=== PATIENT | male | born 1950 | race Caucasian/White ===

== ENCOUNTER 2017-01-01 23:53 | Emergency (ER) | payer OTHER ==
[~2017-01-01] VITALS: Ht 175.3 cm; Wt 97.0 kg
[~2017-01-01 23:53] MED LIST: FURO1TAB60 PO; HEPAR10KP IV; LISI-519 PO; LORA-373 PO; OXYC1TAB63 PO; PANT40TA3 PO; POTA20TA5 PO; SUCR1S PO; TAMS5CAP PO
[2017-01-02] VITALS: BP 131/73; PULSE 110; RESP 18; TEMP 98.4; O2SAT 98
[2017-01-02] MEDS ORDERED: SODIUM CHLORIDE 0.9% FLUSH 10 ML FLUSH IV FLUSH PRN (00:45)
[2017-01-02 00:52] VITALS: RESP 18; O2SAT 98
[2017-01-02] MEDS ORDERED: CYCL1TAB29 PO (01:13)
[2017-01-02] MEDS ORDERED: ZOLP5TAB3 PO (01:13)
[2017-01-02] MEDS ORDERED: HYDR-3133 PO (01:13)
[2017-01-02] MEDS ORDERED: ALLO100T PO (01:13)
[2017-01-02] MEDS ORDERED: OMEP20TA PO (01:13)
[2017-01-02 01:39] LABS: HEMATOCRIT 33.6 % (39.0-51.0); MEAN CELL VOLUME 86.7 FL (80.0-100.0); MEAN CORPUSCULAR HEMOGLOBIN 28.5 PG (27.0-34.0); MEAN CORPUSCULAR HGB CONC 32.8 % (32.0-36.0); PLATELET COUNT 725 TH/MM3 (150-450); RED BLOOD COUNT 3.87 MIL/MM3 (4.50-5.90); RED CELL DISTRIBUTION WIDTH 15.8 % (11.6-17.2); WHITE BLOOD COUNT 14.2 TH/MM3 (4.0-11.0)
[2017-01-02 01:50] LABS: HEMO FLAGS AUTO DIFF
[2017-01-02 01:51] LABS: CHLORIDE 106 MEQ/L (98-107); SODIUM (NA) 138 MEQ/L (136-145)
[2017-01-02 01:54] LABS: ANION GAP 12 MEQ/L (5-15); BICARBONATE 20.2 MEQ/L (21.0-32.0)
[2017-01-02 01:55] LABS: APTT (PATIENT) 28.3 SEC (24.3-30.1); BLOOD UREA NITROGEN 12 MG/DL (7-18); PROTHROMBIN TIME - PATIENT 10.5 SEC (9.8-11.6)
[2017-01-02 01:56] LABS: POTASSIUM 4.4 MEQ/L (3.5-5.1)
[2017-01-02 01:57] LABS: ALT (GPT) 25 U/L (12-78)
[2017-01-02 01:58] LABS: AST (GOT) 23 U/L (15-37); GLOMERULAR FILTRATION RATE 93 ML/MIN (>89)
[2017-01-02 01:59] LABS: TOTAL BILIRUBIN ADULT 0.2 MG/DL (0.2-1.0)
[2017-01-02 02:00] LABS: ALKALINE PHOSPHATASE 91 U/L (45-117)
[2017-01-02 02:10] LABS: NEUTROPHIL # MANUAL DIFF 10.8 TH/MM3 (1.8-7.7); PLATELET ESTIMATE SMEAR HIGH (NORMAL); PLATELET MORPHOLOGY NORMAL (NORMAL); POLYS (SEG NEUTROPHILS) 76 % (16-70); SCAN/DIFF FINAL DIFF MANUAL; WBC DIFF SAMPLE 100
--- NOTE | 2017-01-02 02:32 | PD ---
HPI Chief Complaint: Bleeding Time Seen by Provider: 00:36 Travel History International Travel<30 days: No Contact w/Intl Traveler<30days: No Traveled to known affect area: No History of Present Illness HPI 66-year-old male presents to the emergency department for complaint of bleeding from midline postoperative site. Patient was admitted in June 2016 and developed perforated cecum with subsequent right hemicolectomy and in the ileostomy with movement mucous fistula had significant contamination and midline incision with multiple open areas requiring daily dressing changes and discharged to rehabilitation with ongoing dressing changes which subsequent to returning home has performed daily. Patient was just seen recently by his surgeon Dr. Vernon and underwent CT abdomen and pelvis and anticipation of patient having revision of his ileostomy. Patient is also being cleared by cardiology to undergo elective surgery. Patient had been doing well until tonight just prior to arrival to the emergency department patient states he was maneuvering to stand up and noticed blood draining down onto his clothing and then noticed that there was blood that appeared to be saturating the midline abdominal dressing. Patient does not report experiencing severe pain. Patient came immediately to the emergency department for evaluation. Pain identified a 6/10 in intensity. Patient has not noticed any further bleeding onto the dressing and dressing was not changed or the site was not evaluated by him or his spouse prior to coming to the emergency room. PFSH Past Medical History Narrative Medical Gouty arthritis asthma COPD CVA respiratory failure perforated cecum with right hemicolectomy and ileostomy and significant contamination with open midline incision with secondary closure hypertension pneumonia inguinal herniorrhaphy splenectomy facial surgery; prior alcohol use; nursing notes reviewed Arthritis: Yes (IN FEET) Asthma: Yes Autoimmune Disease: Yes (GOUT IN FEET) Blood Disorders: No Anxiety: Yes Depression: No Heart Rhythm Problems: No Cancer: No Cardiovascular Problems: Yes High Cholesterol: No Chemotherapy: No Chest Pain: No Congestive Heart Failure: No COPD: Yes (BRONCHITIS) Cerebrovascular Accident: Yes (stroke 2003.) Coronary Artery Disease: No Diabetes: No Diminished Hearing: No Endocrine: No Gastrointestinal Disorders: Yes GERD: Yes Glaucoma: No Gout: Yes Genitourinary: No Headaches: No Hepatitis: No Hiatal Hernia: Yes Hypertension: Yes Kidney Stones: No Musculoskeletal: Yes Neurologic: Yes (TREMORS/DIZZINESS) Psychiatric: Yes (ETOH/QUIT) Reproductive: No Respiratory: Yes Immunizations Current: Yes Myocardial Infarction: No Pneumonia: Yes Radiation Therapy: No Renal Failure: No Seizures: No Sickle Cell Disease: No Sleep Apnea: No Thyroid Disease: No Ulcer: Yes Tetanus Vaccination: > 5 Years Influenza Vaccination: Yes Past Surgical History Abdominal Surgery: Yes (LT ING HERNIA REPAIR) AICD: No Body Medical Devices: N/A Cardiac Surgery: No Ear Surgery: No Endocrine Surgery: No Eye Surgery: No Genitourinary Surgery: No Gynecologic Surgery: No Oral Surgery: No Pacemaker: No Thoracic Surgery: No Other Surgery: Yes (SPLENECTOMY,HERNIA REPAIR,FACIAL SURGERY) Social History 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) Tobacco Use: No Substance Use: No Allergies-Medications (Allergen,Severity, Reaction): Coded Allergies: Aspirin (Verified Allergy, Unknown, 01/02/17) Nonsteroidal Anti-Inflammatory Agts (Verified Adverse Reaction, Intermediate, 01/02/17) Reported Meds & Prescriptions Reported Meds & Active Scripts Active Potassium Chloride Microencaps 20 Meq Tab 20 Meq PO QID Oxycodone-Acetaminophen 5-325 mg Tab 2 Tab PO Q6H PRN Lasix (Furosemide) 40 Mg Tab 40 Mg PO BID@,18 Reported Omeprazole 20 Mg Tab 20 Mg PO DAILY Allopurinol 100 Mg Tab 100 Mg PO DAILY Flexeril (Cyclobenzaprine HCl) 10 Mg Tab 10 Mg PO TID Hydroxyzine HCl 25 Mg Tab 12.5 Mg PO HS Hydroxyzine HCl 25 Mg Tab 25 Mg PO HS Zolpidem (Zolpidem Tartrate) 5 Mg Tab 5 Mg PO HS PRN Flomax (Tamsulosin HCl) 0.4 Mg Cap 0.8 Mg PO HS Lorazepam 0.5 Mg Tab 0.5 Mg PO Q8H PRN Lisinopril 5 Mg Tab 5 Mg PO DAILY Review of Systems Except as stated in HPI: all other systems reviewed are Neg General / Constitutional: No: Fever, Chills HENT: No: Congestion Cardiovascular: No: Chest Pain or Discomfort Respiratory: No: Shortness of Breath Gastrointestinal: Positive: Abdominal Pain, No: Nausea, Vomiting Genitourinary: No: Flank Pain Musculoskeletal: No: Myalgias, Arthralgias Skin: No Rash Neurologic: No: Weakness Psychiatric: No: Anxiety Endocrine: No: Heat Intolerance Hematologic/Lymphatic: No: Easy Bruising Physical Exam Narrative GENERAL: Well-developed well-nourished male in no acute distress no respiratory distress SKIN: Warm and dry. HEAD: Normocephalic. EYES: No scleral icterus. No injection or drainage. NECK: Supple, trachea midline. No JVD or lymphadenopathy. CARDIOVASCULAR: Regular rate and rhythm without murmurs, gallops, or rubs. RESPIRATORY: Breath sounds equal bilaterally. No accessory muscle use. GASTROINTESTINAL: Abdomen soft, non-tender, midline incision with dressing applied and fresh blood noted on distal portion of the dressing, dressing removed without evidence of active bleeding cause adherent to right lateral inferior aspect of the midline incision site nondistended. Ileostomy functioning without induration erythema or bleeding noted from the site. MUSCULOSKELETAL: No cyanosis, or edema. BACK: Nontender without obvious deformity. No CVA tenderness. Data Data Last Documented VS Vital Signs Date Time Temp Pulse Resp B/P Pulse Ox O2 Delivery O2 Flow Rate FiO2 01/02/17 04:00 98.2 96 18 121/65 95 01/02/17 03:15 Nasal Cannula 2 Orders Complete Blood Count With Diff (01/02/17 00:36) Comprehensive Metabolic Panel (01/02/17 00:36) Prothrombin Time / Inr (Pt) (01/02/17 00:36) Act Partial Throm Time (Ptt) (01/02/17 00:36) Ct Abd/Pel W Iv Contrast(Rout) (01/02/17 00:36) Iv Access Insert/Monitor (01/02/17 00:36) Ecg Monitoring (01/02/17 00:36) Oximetry (01/02/17 00:36) Sodium Chloride 0.9% Flush (Ns Flush) (01/02/17 00:45) Wound Care (01/02/17 00:36) Iohexol 350 Inj (Omnipaque 350 Inj) (01/02/17 03:00) Labs Laboratory Tests Test 01/02/17 01:20 White Blood Count 14.2 TH/MM3 Red Blood Count 3.87 MIL/MM3 Hemoglobin 11.0 GM/DL Hematocrit 33.6 % Mean Corpuscular Volume 86.7 FL Mean Corpuscular Hemoglobin 28.5 PG Mean Corpuscular Hemoglobin 32.8 % Concent Red Cell Distribution Width 15.8 % Platelet Count 725 TH/MM3 Mean Platelet Volume 7.6 FL Neutrophils (%) (Auto) % Lymphocytes (%) (Auto) % Monocytes (%) (Auto) % Eosinophils (%) (Auto) % Basophils (%) (Auto) % Neutrophils # (Auto) TH/MM3 Lymphocytes # (Auto) TH/MM3 Monocytes # (Auto) TH/MM3 Eosinophils # (Auto) TH/MM3 Basophils # (Auto) TH/MM3 CBC Comment AUTO DIFF Differential Total Cells 100 Counted Neutrophils % (Manual) 76 % Lymphocytes % 19 % Monocytes % 5 % Neutrophils # (Manual) 10.8 TH/MM3 Differential Comment FINAL DIFF MANUAL Platelet Estimate HIGH Platelet Morphology Comment NORMAL Red Cell Morphology Comment NORMAL Prothrombin Time 10.5 SEC Prothromb Time International 1.0 RATIO Ratio Activated Partial 28.3 SEC Thromboplast Time Sodium Level 138 MEQ/L Potassium Level 4.4 MEQ/L Chloride Level 106 MEQ/L Carbon Dioxide Level 20.2 MEQ/L Anion Gap 12 MEQ/L Blood Urea Nitrogen 12 MG/DL Creatinine 0.83 MG/DL Estimat Glomerular Filtration 93 ML/MIN Rate Random Glucose 108 MG/DL Calcium Level 9.0 MG/DL Total Bilirubin 0.2 MG/DL Aspartate Amino Transf 23 U/L (AST/SGOT) Alanine Aminotransferase 25 U/L (ALT/SGPT) Alkaline Phosphatase 91 U/L Total Protein 8.5 GM/DL Albumin 3.3 GM/DL [facility] Medical Decision Making Medical Screen Exam Complete: Yes Emergency Medical Condition: Yes Medical Record Reviewed: Yes Differential Diagnosis Wound dehiscence, abscess, midline hernia Narrative Course One site assessed and new dressing applied; specimens collected and sent for resulting; CT abdomen and pelvis ordered Lab values resulted patient noted to have mild elevation of white count 14,400 other labs values found to be grossly normal range CT abdomen and pelvis reveals no connecting wound to his suggest wound dehiscence has multiple loops of bowel in ventral hernia without evidence of obstruction within the surgical defect Patient informed of imaging results no further bleeding has been noted patient desirous of being discharged home denies any pain and reports she has appointment with his surgeon this upcoming week. Patient's case discussed with on-call general surgery no further intervention required at this time other than for patient to keep scheduled follow-up appointment as planned. Physician Communication Physician Communication case discussed with fish conservationist general surgery --follow up with Dr Vernon as planned Diagnosis Primary Impression: Abdominal wall abrasion Qualified Code: S30.811A - Abdominal wall abrasion, initial encounter Additional Impression: Abdominal wall hernia Referrals: Andreas Vernon MD 2 days Patient Instructions: General Instructions Additional Instructions: Keep one site clean and continue current dressing changes daily Follow-up with your surgeon Dr. Vernon as planned call office on Wednesday to schedule follow-up appointment Return to the emergency department for any recurrent bleeding, fever, change in condition or concerns May take acetaminophen/Tylenol as needed for fever 100.4F or greater; monitor temperature every 4 hours with thermometer Continue current medications as chronically prescribed Med/Other Pt SpecificInfo: No Change to Meds Disposition: 01 DISCHARGE HOME Condition: Stable Tanya Mayfield MD Jan 02, 2017 02:32
[2017-01-02] MEDS ORDERED: IOHEXOL 350 MG/ML 10 ML VIAL (for RAD DIAG) IV ONE (03:00)
[2017-01-02 03:15] VITALS: BP 114/68; PULSE 100; RESP 18; O2SAT 100
--- NOTE | 2017-01-02 03:15 | RADHPO ---
EXAM DATE/TIME: 01/02/2017 02:38 [facility] COMPARISON: CT ABDOMEN & PELVIS W CONTRAST, July 27, 2016, 11:52. INDICATIONS : Bleeding from midline postoperative site. IV CONTRAST: 95 cc Omnipaque 350 (iohexol) IV ORAL CONTRAST: No oral contrast ingested. RADIATION DOSE: 27.8 CTDIvol (mGy) MEDICAL HISTORY : Hernia, hiatal. Gastroesophageal reflux disease. SURGICAL HISTORY : Inguinal hernia repair. Ileostomy. Right hemicolectomy. ENCOUNTER: Initial ACUITY: 1 day PAIN SCALE: 7/10 LOCATION: Left lower quadrant TECHNIQUE: Volumetric scanning of the abdomen and pelvis was performed. Using automated exposure control and ad justment of the mA and/or kV according to patient size, radiation dose was kept as low as reasonably achievable to obtain optimal diagnostic quality images. FINDINGS: There is subsegmental atelectasis in the both bases. TheThe liver is normal in size and free of foca l defects. There is only a small portion of the spleen remaining in the left upper quadrant measuring 5 cm. There is a stable 3 cm cystic area in tail of pancreas characteristic of pseudocyst. No inflam matory changes are identified. The adrenal glands and kidneys appear normal bilaterally. No hydroneph rosis or mass lesions are identified. No free fluid is identified. A midline defect is present an ost srinath is present in the right side of the abdomen. CONCLUSION: 1. Midline surgical defect containing loops of small bowel. 2. No evidence of intra-abdominal hematoma or mass. 3. Stable pancreatic tail pseudocyst. Riley Combs MD on January 02, 2017 at 3:10 Board Certified Radiologist. This report was verified electronically.
[2017-01-02 04:00] VITALS: BP 121/65; TEMP 98.2
[2017-01-19] MEDS ORDERED: VITA1000 PO (10:40)
[2017-01-19] MEDS ORDERED: POTA10TA15 PO (10:40)
[2017-01-19] MEDS ORDERED: VITA100T15 PO (10:40)
[2017-01-19] MEDS ORDERED: FURO1TAB60 PO (10:40)
== END 2017-01-02 04:15 | disposition home or self-care (01) ==
LOC: PHED 23:53
DX: S30.811A Abrasion of abdominal wall, initial encounter (principal); K43.9 Ventral hernia without obstruction or gangrene; Z86.73 Personal history of transient ischemic attack (TIA), and cerebral infarction without residual deficits; I10 Essential (primary) hypertension; J45.909 Unspecified asthma, uncomplicated; J44.9 Chronic obstructive pulmonary disease, unspecified; M10.00 Idiopathic gout, unspecified site
CPT/HCPCS: 74177; 80053; 85007; 85027; 85610; 85730; 99283; Q9967

== ENCOUNTER 2017-01-19 11:22 | Inpatient (IN) | payer OTHER, MEDICARE ==
[~2017-01-19] VITALS: Ht 177.8 cm; Wt 97.8 kg
[~2017-01-19 11:22] MED LIST changes: +ALLO100T PO; +CYCL1TAB29 PO; -HEPAR10KP IV; +HYDR-3133 PO; +OMEP20TA PO; -PANT40TA3 PO; +POTA10TA15 PO; -POTA20TA5 PO; -SUCR1S PO; +VITA1000 PO; +VITA100T15 PO; +ZOLP5TAB3 PO
[2017-01-20] MEDS ORDERED: BUPIVACAINE LIPOSOME PF 1.3% 20 ML VIAL ONE (07:47)
[2017-01-20] MEDS ORDERED: ALVIMOPAN 12 MG CAPSULE - On Call PO SCH (10:30)
[2017-01-20] MEDS ORDERED: POVIDONE IODINE 5% (ANTISEPSIS KIT) 4 APPLICATIONS EACH NARE PRN (10:30)
[2017-01-20] MEDS ORDERED: METOPROLOL TARTRATE 25 MG TAB PO PRN (10:30)
[2017-01-20] MEDS ORDERED: LACTATED RINGER'S 1000 ML IV PRN (10:30)
[2017-01-20] MEDS ORDERED: ceFAZolin 1,000 MG/NS 100 ML IV SCH ×2 (10:30)
[2017-01-20] MEDS ORDERED: CHLORHEXIDINE GLUCONATE 2 % 1 PACK (2 CLOTHS) TOPICAL PRN (10:30)
[2017-01-20] MEDS ORDERED: INSULIN HUMAN REGULAR 1,000 UNITS/10 ML VIAL SQ PRN (10:30)
[2017-01-20] MEDS ORDERED: METRONIDAZOLE 500 MG/100 ML ISONTONIC SOLN IV SCH (10:30)
[2017-01-20] MEDS ORDERED: SODIUM CHLORID 0.9% 500 ML IV PRN (10:30)
[2017-01-20 10:45] VITALS: BP 121/74; PULSE 103; RESP 18; TEMP 98.2; O2SAT 95
[2017-01-20 11:02] LABS: AUTOMATED NEUTROPHIL # 8.8 TH/MM3 (1.8-7.7); BASOPHIL # 0.2 TH/MM3 (0-0.2); BASOPHIL % 1.1 % (0.0-2.0); EOSINOPHIL # 0.3 TH/MM3 (0-0.4); EOSINOPHIL % 1.9 % (0.0-4.0); HEMATOCRIT 33.3 % (39.0-51.0); HEMO FLAGS DIFF FINAL; LYMPH % 20.1 % (9.0-44.0); LYMPHOCYTE # 2.8 TH/MM3 (1.0-4.8); MEAN CELL VOLUME 86.2 FL (80.0-100.0); MEAN CORPUSCULAR HEMOGLOBIN 28.6 PG (27.0-34.0); MEAN CORPUSCULAR HGB CONC 33.2 % (32.0-36.0); MONO % 14.4 % (0.0-8.0); NEUT % 62.5 % (16.0-70.0); PLATELET COUNT 573 TH/MM3 (150-450); RED BLOOD COUNT 3.87 MIL/MM3 (4.50-5.90); WHITE BLOOD COUNT 14.1 TH/MM3 (4.0-11.0)
[2017-01-20 11:20] LABS: BICARBONATE 23.6 MEQ/L (21.0-32.0); POTASSIUM 4.3 MEQ/L (3.5-5.1)
[2017-01-20] MEDS ORDERED: NEOSTIGMINE 3 MG/3 ML SYR IV ONE ×2 (12:00→12:39)
[2017-01-20] MEDS ORDERED: PHENYLEPH/NS 1000 MCG/10 ML SYR IV ONE ×2 (12:00→12:39)
[2017-01-20] MEDS ORDERED: ONDANSETRON HCL 4 MG/2 ML VIAL IV PUSH ONE (12:39)
[2017-01-20] MEDS ORDERED: LACTATED RINGER'S 1000 ML INJ 3,000 ML IV ONE (12:39)
[2017-01-20] MEDS ORDERED: PROPOFOL 200 MG/20 ML AMP IV ONE (12:39)
[2017-01-20] MEDS ORDERED: NORMOSOL R INJ 1,000 ML IV ONE (12:39)
[2017-01-20] MEDS ORDERED: methylPREDNISolone SOD SUCC 125 MG/2 ML VIAL ONE (14:44)
--- NOTE | 2017-01-20 15:26 | HHI.PR ---
Immediate Post Op Note Procedure Date: January 20, 2017 Pre Op Diagnosis: cecal perforation, ileostomy/mucus fistula Post Op Diagnosis: same Surgeon: Andreas Vernon MD Radiology Physician(s): Dr. Espitia Procedure: ex lap, reversal of end iliostomy, complex scar revision, abdominal incisional hernia repair left lateral component separation, EMILY Findings: adhesions Complications: none Specimen(s) removed: none Estimated blood loss: 15cc Anesthesia: General Drains: None (sub q), JORJE IVF (3000) Patient to: PACU Patient Condition: Good Andreas Vernon MD January 20, 2017 15:25
[2017-01-20] MEDS ORDERED: Post-op Orders (for Pharmacy) MISC XX ONE (18:30)
[2017-01-20] MEDS ORDERED: NALOXONE HCL 0.4 MG/ML AMP IV PRN ×2 (18:30)
[2017-01-20] MEDS ORDERED: SODIUM CHLORIDE 0.9% FLUSH 10 ML FLUSH IV FLUSH PRN (18:30)
[2017-01-20] MEDS ORDERED: ONDANSETRON HCL 4 MG/2 ML VIAL IV PRN (18:30)
[2017-01-20] MEDS ORDERED: fentaNYL CITRATE 250 MCG/5 ML AMP ONE (18:53)
[2017-01-20] MEDS ORDERED: *morphine SULFATE 8 MG/ML PERIprocedure ONLY ONE ×2 (18:58→19:07)
[2017-01-20] MEDS: D5-NS + KCL 20 MEQ INJ 1,000 ML IV SCH (19:10)
[2017-01-20] MEDS ORDERED: *HYDROmorphone PF 1 MG VIAL PERIprocedural Use ONLY ONE ×3 (19:17→19:39)
[2017-01-20] MEDS ORDERED: *LABETALOL HCL 100 MG/20 ML VIAL PERIprocedural Use ONLY ONE (19:40)
[2017-01-20] MEDS: PANTOPRAZOLE SODIUM 40 MG VIAL IV SCH (19:50)
[2017-01-20] MEDS: MORPHINE SULFATE 30 MG/30 ML PCA IV SCH (19:57)
[2017-01-20 20:00] VITALS: BP 112/60; PULSE 102; RESP 18; TEMP 97.6; O2SAT 92
[2017-01-20] MEDS: SODIUM CHLORIDE 0.9% FLUSH 10 ML FLUSH IV FLUSH SCH (21:00)
[2017-01-20] MEDS: DOCUSATE SODIUM 100 MG CAP PO SCH (21:55)
[2017-01-20] MEDS: metroNIDAZOLE 500 MG INJ 100 ML IV SCH (21:55)
[2017-01-20] MEDS: PCA - TOTAL MG MORPHINE DELIVERED PER SHIFT SCH (21:57)
[2017-01-20 23:57] VITALS: O2SAT 94
[2017-01-21] VITALS (7 sets, daily range): BP systolic 104–121; BP diastolic 58–88; PULSE 99–113; RESP 17–20; TEMP 97–98.2; O2SAT 92–95
[2017-01-21] MEDS: D5-NS + KCL 20 MEQ INJ 1,000 ML IV SCH ×3 (03:07→21:13)
[2017-01-21] MEDS: MORPHINE SULFATE 30 MG/30 ML PCA IV SCH ×3 (03:11→17:30)
[2017-01-21 05:36] LABS: AUTOMATED NEUTROPHIL # 22.3 TH/MM3 (1.8-7.7); BASOPHIL % 0.2 % (0.0-2.0); HEMATOCRIT 31.5 % (39.0-51.0); HEMO FLAGS DIFF FINAL; LYMPH % 4.3 % (9.0-44.0); LYMPHOCYTE # 1.1 TH/MM3 (1.0-4.8); MEAN CELL VOLUME 87.5 FL (80.0-100.0); MEAN CORPUSCULAR HEMOGLOBIN 27.7 PG (27.0-34.0); MEAN CORPUSCULAR HGB CONC 31.6 % (32.0-36.0); MONO % 6.5 % (0.0-8.0); PLATELET COUNT 524 TH/MM3 (150-450)
[2017-01-21 05:58] LABS: BICARBONATE 23.5 MEQ/L (21.0-32.0); POTASSIUM 4.4 MEQ/L (3.5-5.1)
[2017-01-21] MEDS: PCA - TOTAL MG MORPHINE DELIVERED PER SHIFT SCH ×3 (06:00→21:15)
[2017-01-21] MEDS: metroNIDAZOLE 500 MG INJ 100 ML IV SCH ×3 (06:30→21:15)
--- NOTE | 2017-01-21 08:05 | PD.CONS ---
HPI Service [facility] Consult Requested By Reason for Consult medical management Primary Care Physician Elías Greenberg MD Diagnoses: History of Present Illness patient is a 66 y/o male with history of TIA,hypertension and COPD who underwent exploratory laparotomy,right hemicolectomy, end ileostomy and distal colostomy in 2015 due to perforated viscus, was admitted to the hospital and underwent ex lap, reversal of end ileostomy, complex scar revision, abdominal incisional hernia repair left lateral component separation yesterday. medicine was consulted for medical management. at the time of my evaluation he was resting comfortably with no distress. abdominal pain is mild. no nausea or vomiting.afebrile. denies any chest pain or sob. Review of Systems Constitutional: DENIES: Fever, Weight loss, Chills, Night Sweats Eyes: DENIES: Blurred vision, Diplopia, Vision loss, Double Vision Ears, nose, mouth, throat: DENIES: Tinnitus, Vertigo, Throat pain, Epistaxis Respiratory: DENIES: Apneas, Cough, Snoring, Wheezing, Hemoptysis, Sputum production, Shortness of breath Cardiovascular: DENIES: Chest pain, Palpitations, Syncope, Dyspnea on Exertion , PND, Lower Extremity Edema, Orthopnea, Claudication Gastrointestinal: COMPLAINS OF: Abdominal pain, DENIES: Black stools, Bloody stools, Constipation, Diarrhea, Nausea, Vomiting, Difficulty Swallowing, Anorexia Genitourinary: DENIES: Urinary frequency, Urgency, Hematuria, Dysuria Musculoskeletal: DENIES: Joint pain, Muscle aches, Stiffness, Joint Swelling Integumentary: DENIES: Rash Neurologic: DENIES: Abnormal gait, Headache, Localized weakness, Paresthesias, Seizures, Speech Problems, Tremor, Poor Balance Psychiatric: DENIES: Anxiety, Confusion, Mood changes, Depression, Hallucinations, Agitation, Suicidal Ideation, Homicidal Ideation, Delusions Past Family Social History Allergies: Coded Allergies: Aspirin (Verified Allergy, Unknown, 01/02/17) Nonsteroidal Anti-Inflammatory Agts (Verified Adverse Reaction, Intermediate, 01/02/17) Past Medical History TIA hypertension COPD Past Surgical History exploratory laparotomy / right hemicolectomy splenectomy Reported Medications lisinopril flexeril lorazepam vit b12 cholecaliferol flomax allopurinol Active Ordered Medications Current Medications Alvimopan (Entereg) 12 mg POSTIE PO ; Start 01/20/17 at 10:30; Stop 01/23/17 at 10:29 Alvimopan 12 mg 12 mg BID PO ; Start 01/21/17 at 09:00; Stop 01/27/17 at 21:01 Lactated Ringer's 1,000 ml @ 30 mls/hr Q24H PRN IV SEE LABEL COMMENTS; Start at 10:30; Stop 01/23/17 at 10:29 Sodium Chloride (NS 500 ml Inj) 500 ml @ 30 mls/hr [id number] PRN IV SEE LABEL COMMENTS; Start 01/20/17 at 10:30; Stop 01/23/17 at 10:29 Metoprolol Tartrate (Lopressor) 25 mg POSTIE PRN PO SEE LABEL COMMENTS; Start 01/20/17 at 10:30; Stop 01/23/17 at 10:29 Povidone Iodine (Betadine 5% Antisepsis Kit) 1 applic POSTIE PRN EACH NARE SEE LABEL COMMENTS; Start 01/20/17 at 10:30; Stop 01/23/17 at 10:29 Chlorhexidine Gluconate (Chlorhexidine 2% Cloth) 3 pack POSTIE PRN TOPICAL SEE LABEL COMMENTS; Start 01/20/17 at 10:30; Stop 01/23/17 at 10:29 Insulin Human Regular See Protocol Table ... POSTIE PRN SQ SEE PROTOCOL TABLE ; Start 01/20/17 at 10:30; Stop 01/23/17 at 10:29 Cefazolin Sodium 1000 mg/Sodium Chloride 100 ml @ 200 mls/hr POSTIE IV Last administered on 01/20/17 13:40; Start 01/20/17 at 10:30; Stop 01/23/17 at 10:29 Metronidazole (Flagyl 500 Mg Inj) 100 ml @ 100 mls/hr POSTIE IV Last administered on 01/20/17 13:48; Start 01/20/17 at 10:30; Stop 01/20/17 at 19:05; Status DC Methylprednisolone Sodium Succinate 125 mg 125 mg STK-MED ONCE .ROUTE ; Start at 14:44; Stop 01/20/17 at 14:45; Status DC Potassium Chloride/Dextrose/ Sod Cl (D5-NS + KCl 20 Meq Inj) 1,000 ml @ 125 mls /hr Q8H IV Last administered on 01/21/17 03:07; Start 01/20/17 at 19:00 Sodium Chloride (NS Flush) 2 ml UNSCH PRN IV FLUSH FLUSH AFTER USING IV ACCESS ; Start 01/20/17 at 18:30 Sodium Chloride (NS Flush) 2 ml BID IV FLUSH ; Start 01/20/17 at 21:00 Ondansetron HCl (Zofran Inj) 4 mg Q6H PRN IV NAUSEA OR VOMITING; Start 01/20/17 at 18:30 Pantoprazole Sodium (Protonix Inj) 40 mg Q24H IV Last administered on 01/20/17 19:50; Start 01/20/17 at 19:30 Docusate Sodium 100 mg 100 mg BID PO Last administered on 01/20/17 21:55; Start 01/20/17 at 21:00 Cefazolin Sodium 1000 mg/Sodium Chloride 100 ml @ 200 mls/hr Q8H IV Last administered on 01/21/17 06:00; Start 01/20/17 at 22:00; Stop 01/21/17 at 14:29 Metronidazole (Flagyl 500 Mg Inj) 100 ml @ 200 mls/hr Q8H IV Last administered on 01/21/17 06:30; Start 01/20/17 at 22:30; Stop 01/21/17 at 14:59 Miscellaneous Information (Post-op Orders (for Pharmacy)) STAT ONCE XX ; Start 01/20/17 at 18:30; Stop 01/20/17 at 18:59; Status DC Oxycodone/ Acetaminophen (Percocet 10-325 Mg) 1 tab Q6H PRN PO PAIN SCALE 6 TO 10; Start 01/20/17 at 18:30 Naloxone HCl (Narcan Inj) 0.4 mg UNSCH PRN IV SEE LABEL COMMENTS; Start at 18:30 Enoxaparin Sodium (Lovenox Inj) 30 mg Q24H SQ ; Start 01/21/17 at 18:00 Naloxone HCl (Narcan Inj) 0.4 mg UNSCH PRN IV RESPIRATORY RATE LESS THAN 10; Start 01/20/17 at 18:30 Morphine Sulfate (Morphine 1 Mg/ ml HARNESS BRUSHER) 30 mg UNSCH IV Last administered on 03:11; Start 01/20/17 at 19:00 HARNESS BRUSHER Dosage Infused (Pha) 1 Q8HR .XX Last administered on 01/21/17 06:00; Start 01/20/17 at 22:00 Fentanyl Citrate (fentaNYL INJ) 200 mcg STK-MED ONCE .ROUTE ; Start 01/20/17 at 18:53; Stop 01/20/17 at 18:54; Status DC Fentanyl Citrate (fentaNYL INJ) 500 mcg STK-MED ONCE .ROUTE ; Start 01/20/17 at 18:53; Stop 01/20/17 at 18:54; Status DC Morphine Sulfate (*morphine INJ PERIprocedure ONLY) 8 mg STK-MED ONCE .ROUTE Last administered on 01/20/17 18:58; Start 01/20/17 at 18:58; Stop 01/20/17 at 18: 59; Status DC Morphine Sulfate (*morphine INJ PERIprocedure ONLY) 8 mg STK-MED ONCE .ROUTE Last administered on 01/20/17 19:07; Start 01/20/17 at 19:07; Stop 01/20/17 at 19: 08; Status DC Hydromorphone HCl (*DILAUDID PF INJ PERIprocedural ONLY) 1 mg STK-MED ONCE .ROUTE Last administered on 01/20/17 19:17; Start 01/20/17 at 19:17; Stop at 19:18; Status DC Hydromorphone HCl (*DILAUDID PF INJ PERIprocedural ONLY) 1 mg STK-MED ONCE .ROUTE Last administered on 01/20/17 19:28; Start 01/20/17 at 19:28; Stop at 19:29; Status DC Hydromorphone HCl (*DILAUDID PF INJ PERIprocedural ONLY) 1 mg STK-MED ONCE .ROUTE Last administered on 01/20/17 19:39; Start 01/20/17 at 19:39; Stop at 19:40; Status DC Labetalol HCl (*TRANDATE INJ PERIprocedural Use ONLY) 100 mg STK-MED ONCE .ROUTE Last administered on 01/20/17 19:40; Start 01/20/17 at 19:40; Stop at 19:41; Status DC Lorazepam (Ativan Inj) 1 mg Q6H PRN IV PUSH anxiety; Start 01/21/17 at 07:30 Family History heart disease in brother. Social History doesn't smoke. Physical Exam Vital Signs Vital Signs Date Time Temp Pulse Resp B/P Pulse Ox O2 Delivery O2 Flow Rate FiO2 01/21/17 06:00 18 01/21/17 03:11 18 01/21/17 00:00 97.3 108 20 120/88 94 01/20/17 23:57 94 Nasal Cannula 3.00 01/20/17 21:57 18 01/20/17 20:25 99 16 120/60 94 Nasal Cannula 3 01/20/17 20:15 97.6 98 16 121/62 95 Nasal Cannula 3 01/20/17 20:09 15 01/20/17 20:09 15 01/20/17 20:09 15 01/20/17 20:02 15 01/20/17 20:00 101 16 132/75 94 Nasal Cannula 3 01/20/17 20:00 97.6 102 18 112/60 92 01/20/17 19:57 15 01/20/17 19:45 108 16 163/89 93 Nasal Cannula 3 01/20/17 19:40 111 16 169/105 92 Nasal Cannula 3 01/20/17 19:30 112 16 160/99 92 Nasal Cannula 3 01/20/17 19:15 110 16 159/88 96 Nasal Cannula 4 01/20/17 19:12 15 01/20/17 19:03 15 01/20/17 19:00 116 15 155/71 94 Nasal Cannula 4 01/20/17 18:45 116 15 152/73 93 Nasal Cannula 4 01/20/17 18:43 98.0 114 20 156/70 93 Nasal Cannula 4 01/20/17 10:45 98.2 103 18 121/74 95 Physical Exam GENERAL: This is a well-nourished, well-developed patient, in no apparent distress. SKIN: No rashes, ecchymoses or lesions. Cool and dry. HEAD: Atraumatic. Normocephalic. No temporal or scalp tenderness. EYES: Pupils equal round and reactive. Extraocular motions intact. No scleral icterus. No injection or drainage. ENT: Nose without bleeding, purulent drainage or septal hematoma. Throat without erythema, tonsillar hypertrophy or exudate. Uvula midline. Airway patent. NECK: Trachea midline. No JVD or lymphadenopathy. Supple, nontender, no meningeal signs. CARDIOVASCULAR: Regular rate and rhythm without murmurs, gallops, or rubs. RESPIRATORY: Clear to auscultation. Breath sounds equal bilaterally. No wheezes , rales, or rhonchi. GASTROINTESTINAL: Abdomen covered with clean dressing. MUSCULOSKELETAL: Extremities without clubbing, cyanosis, or edema. No joint tenderness, effusion, or edema noted. No calf tenderness. Negative Homans sign bilaterally. NEUROLOGICAL: Awake and alert. Cranial nerves II through XII intact. Motor and sensory grossly within normal limits. Five out of 5 muscle strength in all muscle groups. Normal speech. Laboratory Laboratory Tests Test 01/20/17 01/20/17 01/21/17 10:30 15:33 04:42 White Blood Count 14.1 25.0 Red Blood Count 3.87 3.60 Hemoglobin 11.1 10.0 Hematocrit 33.3 31.5 Mean Corpuscular Volume 86.2 87.5 Mean Corpuscular Hemoglobin 28.6 27.7 Mean Corpuscular Hemoglobin 33.2 31.6 Concent Red Cell Distribution Width 15.0 15.0 Platelet Count 573 524 Mean Platelet Volume 7.8 7.9 Neutrophils (%) (Auto) 62.5 89.0 Lymphocytes (%) (Auto) 20.1 4.3 Monocytes (%) (Auto) 14.4 6.5 Eosinophils (%) (Auto) 1.9 0.0 Basophils (%) (Auto) 1.1 0.2 Neutrophils # (Auto) 8.8 22.3 Lymphocytes # (Auto) 2.8 1.1 Monocytes # (Auto) 2.0 1.6 Eosinophils # (Auto) 0.3 0.0 Basophils # (Auto) 0.2 0.0 CBC Comment DIFF FINAL DIFF FINAL Differential Comment Sodium Level 135 139 Potassium Level 4.3 4.4 Chloride Level 102 107 Carbon Dioxide Level 23.6 23.5 Anion Gap 9 9 Blood Urea Nitrogen 15 15 Creatinine 0.94 1.04 Estimat Glomerular Filtration 81 72 Rate Random Glucose 107 210 Calcium Level 9.2 8.2 Blood Type B NEGATIVE Antibody Screen NEGATIVE Crossmatch Leukocyte-Reduced Red Blood Cells Blood Bank Comment Result Diagram: 01/21/17 0442 01/21/17 0442 Assessment and Plan Assessment and Plan A/P - s/p ex lap, reversal of end ileostomy, complex scar revision, abdominal incisional hernia repair left lateral component separation continue with pain control- management per general surgery of note the patient underwent right hemicolectomy and distal colostomy in Jun due to perforated viscus -leukocytosis- stress induced?- no fever- monitor temps- will repeat CBC in am -hyperglycemia- stress induced- check A1c -hypertension; resume lisinopril- will continue to monitor and adjust the regimen as needed. -history of COPD- not in exacerbation; neb treatment as needed -DVT prophylaxis with lovenox- per surgery thank you for the consult. Discussed Condition With the patient. Scott Stephenson MD January 21, 2017 08:05
--- NOTE | 2017-01-21 08:22 | MP ---
cc: MAYLIN VERNON MD DATE OF SURGERY 01/20/2017 PREOPERATIVE DIAGNOSES History of septic shock, acute abdomen, cecal perforation, creation mucous fistula with end-ileostomy. POSTOPERATIVE DIAGNOSES History of septic shock, acute abdomen, cecal perforation, creation mucous fistula with end-ileostomy. PROCEDURE PERFORMED 1. Exploratory laparotomy. 2. Lysis of adhesions greater than 60 minutes. 3. Reversal of end-ileostomy. 4. Complex scar revision. 5. Abdominal incisional hernia repair with left lateral component separation. SURGEON Dr. Maylin Vernon FIRER WATERTENDER Dr. Espitia needed due to the complexity of this open case. Dr. Espitia was necessary to assist with retraction and surgical technique. FINDINGS Multiple adhesions, otherwise viable bowel. COMPLICATIONS None. SPECIMENS Abdominal wall scar, sent for pathology. ESTIMATED BLOOD LOSS 15 cc. IV FLUIDS 3000 cc. DRAINS 10-Ethiopian Ronaldo drains x 2 to the subcutaneous tissue. ANESTHESIA GETA. INDICATION The patient is a 66-year-old male who presented initially in June with complications of cecal perforation and acute abdomen in septic shock. He was emergently at that time taken to the operating room for exploratory laparotomy with resection of right hemicolectomy and end-ileostomy and mucous fistula creation. The patient has done relatively well in the postoperative course. He did develop a small wound infection with laxity with this abdominal wall creating a very large hernia defect. The decision was made for operative intervention. The patient had a colonoscopy on 05/[address] De Guzman with findings of a polyp for which he underwent polypectomy which was negative for cancer. After discussion with Dr. De Guzman, the patient standard of care to receive colonoscopy in 2019. Therefore at this time no preoperative colonoscopy was obtained due to standard recommendations of colonoscopy that was for followup in several years. DETAILS OF PROCEDURE The patient was taken to the operating suite, placed in supine position, prepped and draped in the usual sterile fashion after induction of general endotracheal anesthesia. Brief time-out was done stating the correct patient, procedure, surgical site. We were all in agreement with this. Attention was first directed to the anterior abdomen. Hypertrophic tissue scar was noted and a very large, wide elliptical incision was made around the hypertrophic scar and tissue with a 10 blade. Further dissection was done with electro Bovie cautery. The skin was noted to be relatively thin with small bowel pressed up and adherent to the anterior abdominal wall. This involved electro Bovie cautery used meticulously to lyse of multiple adhesions for approximately one hour. This was done in order to mobilize the small bowel and further mobilize the mucous fistula and end-ileostomy. Once these were mobilized, skin flaps were created in order to define the fascia and the power plant assistant provided increased length to the anterior fascia in order to close the hernia defect. There was still a fair amount of tension, therefore decision was made for a left lateral component separation of the anterior fascia. The semilunaris was then identified and lateral to this the planes between muscle fibers. Incision was made longitudinally from the inguinal ligament area to the costal margin. This was allowed to further mobilize and increased the abdominal length in order to approximate the fascia. Discussion of potentially using mesh but decided against this due to the patient undergoing colostomy reversal and concern for potential contamination. After flaps were mobilized attention was further directed to the mucous fistula and end-ileostomy. Again these were mobilized through the fascia, into the skin, electro Bovie cautery used to cut the mucous fistula and end-ileostomy from the skin and mobilize this. 55 ADRIANO blue loads were used to transect the colon and the small bowel distal ends. Once these were done, the two ends were further mobilized with some adhesions in order to facilitate approximation in order to create our anastomosis. Once we were satisfied with tension-free, 3-0 silks were obtained to approximate the small bowel and the colon. Small enterotomies were made. 55 Endo-ADRIANO blue load was used to create the [id number]-tfx-pdgngbe layer and adhere the small bowel to the colon. The enterotomy was then closed with a TA stapler. Lembert sutures were placed to over-sew this. Crotch stitch was placed; this was done with 3-0 silk sutures. The mesenteric defect was closed with several [id number] to prevent any internal herniation. Once we were satisfied with this, the anastomosis was then replaced in the right side of the abdomen. The abdomen was irrigated with multiple liters of saline. General fascial defects were closed with 0 Prolene in running fashion, especially the defects the ostomies were protruding through. This was closed to both the peritoneum and the anterior fascia as well. Next, the fascia was approximated in the midline and closure of the abdomen after thorough irrigation. Electro Bovie cautery was used for hemostasis. 0 Prolene [id number]-ol-zsfhg were done through the midline. The abdomen was approximated well. There was no significant increase in peak pressures at this time. Two 10-Ethiopian Ronaldo drains were placed subcutaneous above the anterior fascia and secured with 2-0 nylons. The skin was closed with several 3-0 Vicryls and neal. The ostomy skin was also closed with neal. Telfa daisy placed in between, sterile dressings placed. The patient tolerated procedure well. Binder was placed. No intraoperative complication. The patient was extubated and taken stable to the PACU. All lap and instrument counts were correct at the end of the procedure. MD DWAYNE Christianson/ESME /9:23 PM /7:45 AM
[2017-01-21] MEDS: DOCUSATE SODIUM 100 MG CAP PO SCH ×2 (08:35→21:16)
[2017-01-21] MEDS: LORazepam 1 MG TAB PO PRN ×2 (08:36→17:12)
[2017-01-21] MEDS: ALLOPURINOL 100 MG TAB PO SCH (08:36)
[2017-01-21] MEDS: SODIUM CHLORIDE 0.9% FLUSH 10 ML FLUSH IV FLUSH SCH ×2 (08:36→21:00)
[2017-01-21] MEDS: ALVIMOPAN 12 MG CAPSULE - Post-op dosing PO SCH ×2 (08:36→21:18)
[2017-01-21] MEDS: LISINOPRIL 5 MG TAB PO SCH (08:36)
[2017-01-21] MEDS ORDERED: RESP: ALBUTEROL 1.25 MG/3 ML NEB (PRN) NEB (09:00)
[2017-01-21] MEDS: ENOXAPARIN SODIUM 30 MG/0.3 ML SYRINGE SQ SCH (17:07)
[2017-01-21 18:40] LABS: HEMOGLOBIN A1a 1.1 %; HEMOGLOBIN A1b 1.8 %; HEMOGLOBIN Ao 83.5 %; HEMOGLOBIN LA1C 2.4 %
[2017-01-21] MEDS: PANTOPRAZOLE SODIUM 40 MG VIAL IV SCH (21:15)
[2017-01-21] MEDS: TAMSULOSIN HCL 0.4 MG CAP PO SCH (21:17)
--- NOTE | 2017-01-21 21:59 | HHI.PR ---
Subjective Subjective Notes no acute issues, pain controlled with reading professor, no nausea Objective Vitals/I&O Vital Signs Date Time Temp Pulse Resp B/P Pulse Ox O2 Delivery O2 Flow Rate FiO2 01/21/17 21:15 14 01/21/17 16:58 95 Nasal Cannula 2.00 01/21/17 16:00 97.0 99 119/74 Labs Laboratory Tests Test 01/21/17 04:42 White Blood Count 25.0 Red Blood Count 3.60 Hemoglobin 10.0 Hematocrit 31.5 Mean Corpuscular Volume 87.5 Mean Corpuscular Hemoglobin 27.7 Mean Corpuscular Hemoglobin 31.6 Concent Red Cell Distribution Width 15.0 Platelet Count 524 Mean Platelet Volume 7.9 Neutrophils (%) (Auto) 89.0 Lymphocytes (%) (Auto) 4.3 Monocytes (%) (Auto) 6.5 Eosinophils (%) (Auto) 0.0 Basophils (%) (Auto) 0.2 Neutrophils # (Auto) 22.3 Lymphocytes # (Auto) 1.1 Monocytes # (Auto) 1.6 Eosinophils # (Auto) 0.0 Basophils # (Auto) 0.0 CBC Comment DIFF FINAL Differential Comment Sodium Level 139 Potassium Level 4.4 Chloride Level 107 Carbon Dioxide Level 23.5 Anion Gap 9 Blood Urea Nitrogen 15 Creatinine 1.04 Estimat Glomerular Filtration 72 Rate Random Glucose 210 Hemoglobin A1c 6.6 Calcium Level 8.2 Cardiovascular: Regular Lungs: Clear Abdomen: Other (incision with dressing c/d/i elizabeth serosang) A/P Assessment and Plan pod 1 ex lap, ana, hernia repair colostomy reversal PLAN OOB pain control keep reading professor keep gonzalez for Is and Os dvt ppx lovenox Andreas Dior MD January 21, 2017 21:59
[2017-01-21] MEDS ORDERED: ceFAZolin 2 GM PREMIX 50 ML IV SCH (23:00)
[2017-01-22] VITALS (8 sets, daily range): BP systolic 120–151; BP diastolic 74–83; PULSE 109–164; RESP 17–18; TEMP 96.7–98.7; O2SAT 91–94
[2017-01-22] MEDS: D5-NS + KCL 20 MEQ INJ 1,000 ML IV SCH ×3 (02:24→18:42)
[2017-01-22] MEDS: LORazepam 1 MG TAB PO PRN ×3 (02:24→18:31)
[2017-01-22] MEDS ORDERED: RESP: ALBUTEROL 2.5 MG/IPRATROPIUM 0.5 MG NEB (PRN) NEB (03:15)
[2017-01-22 03:40] LABS: BLOOD GAS BASE EXCESS -1.9 mmol/L (-2-2); BLOOD GAS CARBOXYHEMOGLOBIN 1.6 % (0-4); BLOOD GAS HCO3 23 mmol/L (22-26); BLOOD GAS METHEMOGLOBIN 0.9 % (0-2); BLOOD GAS O2 HGB SATURATION 89 % (90-100); BLOOD GAS OXYGEN CONTENT 12.1 Vol % (12.0-20.0); BLOOD GAS PCO2 40 mmHg (38-42); BLOOD GAS PO2 64 mmHg (61-120); BLOOD GAS TOTAL HGB 9.6 G/DL (12.0-16.0); TEMP CORR TO 98.6
[2017-01-22 03:41] LABS: CRITICAL VALUE YES; DRAW SITE RT RADIAL; LITER FLOW 6 L/M; NUMBER OF ARTERIAL PUNCTURES 1; OXYGEN DEVICE NASAL CANNULA; STAT YES; ULNAR PULSE PRESENT
--- NOTE | 2017-01-22 04:39 | RADRPT ---
EXAM DATE/TIME: 01/22/2017 03:23 [facility] COMPARISON: CHEST SINGLE AP, July 27, 2016, 4:12. INDICATIONS : Shortness of breath. MEDICAL HISTORY : Hypertension. Chronic obstructive pulmonary disease. Asthma. SURGICAL HISTORY : None. ENCOUNTER: Initial ACUITY: 1 day PAIN SCORE: 0/10 LOCATION: Bilateral chest FINDINGS: A single view of the chest demonstrates a left basilar density. Elevation left hemidiaphragm. Right l thao clear. Heart enlarged. Left-sided rib fractures appear old. CONCLUSION: Left basilar density with elevation left hemidiaphragm, likely atelectasis. Walt Johnson MD on January 22, 2017 at 4:36 Board Certified Radiologist. This report was verified electronically.
[2017-01-22] MEDS: MORPHINE SULFATE 30 MG/30 ML PCA IV SCH ×2 (04:53→15:33)
[2017-01-22] MEDS: PCA - TOTAL MG MORPHINE DELIVERED PER SHIFT SCH ×3 (04:54→22:45)
[2017-01-22] MEDS: CEFEPIME INJ 2,000 MG in SODIUM CHLORIDE 0.9% INJ 100 ML IV SCH ×3 (05:14→20:09)
[2017-01-22 05:27] LABS: AUTOMATED NEUTROPHIL # 28.1 TH/MM3 (1.8-7.7); BASOPHIL # 0.1 TH/MM3 (0-0.2); BASOPHIL % 0.2 % (0.0-2.0); EOSINOPHIL % 0.1 % (0.0-4.0); HEMO FLAGS AUTO DIFF; LYMPH % 9.4 % (9.0-44.0); LYMPHOCYTE # 3.5 TH/MM3 (1.0-4.8); MEAN CELL VOLUME 86.9 FL (80.0-100.0); MEAN CORPUSCULAR HEMOGLOBIN 27.7 PG (27.0-34.0); MEAN CORPUSCULAR HGB CONC 31.9 % (32.0-36.0); MONO % 14.1 % (0.0-8.0); NEUT % 76.2 % (16.0-70.0); PLATELET COUNT 502 TH/MM3 (150-450); RED BLOOD COUNT 3.33 MIL/MM3 (4.50-5.90); RED CELL DISTRIBUTION WIDTH 15.2 % (11.6-17.2); WHITE BLOOD COUNT 36.9 TH/MM3 (4.0-11.0)
[2017-01-22 05:51] LABS: BANDS 3 % (0-6); NEUTROPHIL # MANUAL DIFF 26.9 TH/MM3 (1.8-7.7); PLATELET ESTIMATE SMEAR HIGH (NORMAL); PLATELET MORPHOLOGY NORMAL (NORMAL); POLYS (SEG NEUTROPHILS) 70 % (16-70); SCAN/DIFF FINAL DIFF MANUAL; WBC DIFF SAMPLE 100
[2017-01-22] MEDS: metroNIDAZOLE 500 MG INJ 100 ML IV SCH ×3 (06:09→22:44)
[2017-01-22 06:27] LABS: BICARBONATE 24.1 MEQ/L (21.0-32.0); POTASSIUM 4.1 MEQ/L (3.5-5.1)
--- NOTE | 2017-01-22 08:58 | HHI.PR ---
Subjective Remarks says that he had a rough night last night because of sob. no fever and abdominal pain is fairly controlled. asking for ' anxiety pill'. Objective Vitals Vital Signs Date Time Temp Pulse Resp B/P Pulse Ox O2 Delivery O2 Flow Rate FiO2 01/22/17 08:00 98.2 117 17 122/79 93 01/22/17 04:54 14 01/22/17 04:53 14 01/22/17 03:59 92 Nasal Cannula 6.00 01/22/17 00:00 98.6 109 18 120/74 91 01/21/17 21:15 14 01/21/17 20:00 98.2 110 20 121/76 92 01/21/17 17:30 18 01/21/17 16:58 95 Nasal Cannula 2.00 01/21/17 16:00 97.0 99 20 119/74 95 01/21/17 14:00 17 01/21/17 12:00 97.7 113 17 104/58 95 01/21/17 10:15 18 01/21/17 09:35 93 Nasal Cannula 2.00 I/O 01/21/17 01/21/17 01/21/17 01/22/17 01/22/17 01/22/17 07:00 15:00 23:00 07:00 15:00 23:00 Intake Total 779 ml 1080 ml 360 ml 240 ml Output Total 380 ml 400 ml 915 ml 440 ml Balance 399 ml 680 ml -555 ml -200 ml Intake Oral 0 ml 1080 ml 360 ml 240 ml IV Total 779 ml Output Urine Total 350 ml 400 ml 875 ml 375 ml Drainage Total 30 ml 40 ml 65 ml # Bowel Movements 0 0 0 0 Result Diagram: 01/22/17 0330 01/22/17 0550 Imaging Last Impressions Chest X-Ray 01/22/17 0000 Signed Impressions: Service Date/Time: Sunday, January 22, 2017 03:23 - CONCLUSION: Left basilar density with elevation left hemidiaphragm, likely atelectasis. Walt Johnson MD Objective Remarks GENERAL: This is a well-nourished, well-developed patient, in no apparent distress. CARDIOVASCULAR: Regular rate and regular rhythm without murmurs, gallops, or rubs. RESPIRATORY: diminished air entry in bases with some wheezing GASTROINTESTINAL: Abdomen soft, non-tender, nondistended. MUSCULOSKELETAL: Extremities without clubbing, cyanosis, or edema. NEURO: Alert & Oriented x4 to person, place, time, situation. Moves all ext x4 Medications and IVs Current Medications Alvimopan (Entereg) 12 mg TORCH BRAZER PO ; Start 01/20/17 at 10:30; Stop 01/22/17 at 04:33; Status DC Alvimopan 12 mg 12 mg BID PO Last administered on 01/21/17 21:18; Start at 09:00; Stop 01/27/17 at 21:01 Lactated Ringer's 1,000 ml @ 30 mls/hr Q24H PRN IV SEE LABEL COMMENTS; Start at 10:30; Stop 01/22/17 at 04:33; Status DC Sodium Chloride (NS 500 ml Inj) 500 ml @ 30 mls/hr [id number] PRN IV SEE LABEL COMMENTS; Start 01/20/17 at 10:30; Stop 01/22/17 at 04:33; Status DC Metoprolol Tartrate (Lopressor) 25 mg TORCH BRAZER PRN PO SEE LABEL COMMENTS; Start 01/20/17 at 10:30; Stop 01/22/17 at 04:33; Status DC Povidone Iodine (Betadine 5% Antisepsis Kit) 1 applic TORCH BRAZER PRN EACH NARE SEE LABEL COMMENTS; Start 01/20/17 at 10:30; Stop 01/22/17 at 04:33; Status DC Chlorhexidine Gluconate (Chlorhexidine 2% Cloth) 3 pack TORCH BRAZER PRN TOPICAL SEE LABEL COMMENTS; Start 01/20/17 at 10:30; Stop 01/22/17 at 04:33; Status DC Insulin Human Regular See Protocol Table ... TORCH BRAZER PRN SQ SEE PROTOCOL TABLE ; Start 01/20/17 at 10:30; Stop 01/22/17 at 04:33; Status DC Cefazolin Sodium 1000 mg/Sodium Chloride 100 ml @ 200 mls/hr TORCH BRAZER IV Last administered on 01/20/17 13:40; Start 01/20/17 at 10:30; Stop 01/22/17 at 04:33; Status DC Metronidazole (Flagyl 500 Mg Inj) 100 ml @ 100 mls/hr TORCH BRAZER IV Last administered on 01/20/17 13:48; Start 01/20/17 at 10:30; Stop 01/20/17 at 19:05; Status DC Methylprednisolone Sodium Succinate 125 mg 125 mg STK-MED ONCE .ROUTE ; Start at 14:44; Stop 01/20/17 at 14:45; Status DC Potassium Chloride/Dextrose/ Sod Cl (D5-NS + KCl 20 Meq Inj) 1,000 ml @ 125 mls /hr Q8H IV Last administered on 01/22/17 02:24; Start 01/20/17 at 19:00 Sodium Chloride (NS Flush) 2 ml UNSCH PRN IV FLUSH FLUSH AFTER USING IV ACCESS ; Start 01/20/17 at 18:30 Sodium Chloride (NS Flush) 2 ml BID IV FLUSH ; Start 01/20/17 at 21:00 Ondansetron HCl (Zofran Inj) 4 mg Q6H PRN IV NAUSEA OR VOMITING; Start 01/20/17 at 18:30 Pantoprazole Sodium (Protonix Inj) 40 mg Q24H IV Last administered on 01/21/17 21:15; Start 01/20/17 at 19:30 Docusate Sodium 100 mg 100 mg BID PO Last administered on 01/21/17 21:16; Start 01/20/17 at 21:00 Cefazolin Sodium 1000 mg/Sodium Chloride 100 ml @ 200 mls/hr Q8H IV Last administered on 01/21/17 14:23; Start 01/20/17 at 22:00; Stop 01/21/17 at 14:29; Status DC Metronidazole (Flagyl 500 Mg Inj) 100 ml @ 200 mls/hr Q8H IV Last administered on 01/21/17 14:26; Start 01/20/17 at 22:30; Stop 01/21/17 at 14:59; Status DC Miscellaneous Information (Post-op Orders (for Pharmacy)) STAT ONCE XX ; Start 01/20/17 at 18:30; Stop 01/20/17 at 18:59; Status DC Oxycodone/ Acetaminophen (Percocet 10-325 Mg) 1 tab Q6H PRN PO PAIN SCALE 6 TO 10; Start 01/20/17 at 18:30 Naloxone HCl (Narcan Inj) 0.4 mg UNSCH PRN IV SEE LABEL COMMENTS; Start at 18:30; Stop 01/21/17 at 08:52; Status DC Enoxaparin Sodium (Lovenox Inj) 30 mg Q24H SQ Last administered on 01/21/17 17: 07; Start 01/21/17 at 18:00 Naloxone HCl (Narcan Inj) 0.4 mg UNSCH PRN IV RESPIRATORY RATE LESS THAN 10; Start 01/20/17 at 18:30 Morphine Sulfate (Morphine 1 Mg/ ml POTATO SEED CUTTER) 30 mg UNSCH IV Last administered on 04:53; Start 01/20/17 at 19:00 POTATO SEED CUTTER Dosage Infused (Pha) 1 Q8HR .XX Last administered on 01/22/17 04:54; Start 01/20/17 at 22:00 Fentanyl Citrate (fentaNYL INJ) 200 mcg STK-MED ONCE .ROUTE ; Start 01/20/17 at 18:53; Stop 01/20/17 at 18:54; Status DC Fentanyl Citrate (fentaNYL INJ) 500 mcg STK-MED ONCE .ROUTE ; Start 01/20/17 at 18:53; Stop 01/20/17 at 18:54; Status DC Morphine Sulfate (*morphine INJ PERIprocedure ONLY) 8 mg STK-MED ONCE .ROUTE Last administered on 01/20/17 18:58; Start 01/20/17 at 18:58; Stop 01/20/17 at 18: 59; Status DC Morphine Sulfate (*morphine INJ PERIprocedure ONLY) 8 mg STK-MED ONCE .ROUTE Last administered on 01/20/17 19:07; Start 01/20/17 at 19:07; Stop 01/20/17 at 19: 08; Status DC Hydromorphone HCl (*DILAUDID PF INJ PERIprocedural ONLY) 1 mg STK-MED ONCE .ROUTE Last administered on 01/20/17 19:17; Start 01/20/17 at 19:17; Stop at 19:18; Status DC Hydromorphone HCl (*DILAUDID PF INJ PERIprocedural ONLY) 1 mg STK-MED ONCE .ROUTE Last administered on 01/20/17 19:28; Start 01/20/17 at 19:28; Stop at 19:29; Status DC Hydromorphone HCl (*DILAUDID PF INJ PERIprocedural ONLY) 1 mg STK-MED ONCE .ROUTE Last administered on 01/20/17 19:39; Start 01/20/17 at 19:39; Stop at 19:40; Status DC Labetalol HCl (*TRANDATE INJ PERIprocedural Use ONLY) 100 mg STK-MED ONCE .ROUTE Last administered on 01/20/17 19:40; Start 01/20/17 at 19:40; Stop at 19:41; Status DC Lorazepam (Ativan Inj) 1 mg Q6H PRN IV PUSH anxiety; Start 01/21/17 at 07:30 Allopurinol (Zyloprim) 100 mg DAILY PO Last administered on 01/21/17 08:36; Start 01/21/17 at 09:00 Lisinopril (Prinivil) 5 mg DAILY PO Last administered on 01/21/17 08:36; Start 01/21/17 at 09:00 Lorazepam (Ativan) 1 mg Q8H PRN PO ANXIETY Last administered on 01/22/17 02:24 ; Start 01/21/17 at 09:00 Tamsulosin HCl (Flomax) 0.8 mg HS PO Last administered on 01/21/17 21:17; Start 01/21/17 at 21:00 Albuterol Sulfate 1.25 mg 1.25 mg Q6HR NEB PRN NEB SHORTNESS OF BREATH; Start 01/21/17 at 09:00; Stop 01/22/17 at 04:30; Status DC Cefazolin Sodium/ Dextrose 50 ml @ 100 mls/hr Q8H IV Last administered on 23:24; Start 01/21/17 at 23:00; Stop 01/22/17 at 04:24; Status DC Metronidazole (Flagyl 500 Mg Inj) 100 ml @ 100 mls/hr Q8H IV Last administered on 01/22/17 06:09; Start 01/21/17 at 22:00 Albuterol/ Ipratropium 1 ampule 1 ampule Q4HR NEB PRN NEB SOB/WHEEZING Last administered on 01/22/17 03:57; Start 01/22/17 at 03:15 Cefepime HCl/ Sodium Chloride (Maxipime Inj/NS Inj) 100 ml @ 200 mls/hr Q8H IV Last administered on 01/22/17t 05:14; Start 01/22/17 at 05:00 Albuterol/ Ipratropium (Duoneb Neb) 1 ampule Q6HR NEB NEB ; Start 01/22/17 at 10 :00 A/P Assessment and Plan A/P - s/p ex lap, reversal of end ileostomy, complex scar revision, abdominal incisional hernia repair left lateral component separation continue with pain control- management per general surgery of note the patient underwent right hemicolectomy and distal colostomy in Jun due to perforated viscus -hypoxemic respiratory failure/ COPD exacerbation ABG was reviewed- continue with neb treatment; scheduled and prn- will keep on oxygen to keep O2 sat > 90%. will consult pulmonary. -leukocytosis- worse today- no fever- monitor temps-continue with broad spectrum IV antibiotic- CBC in am. -hyperglycemia- stress induced- A1c 6.6. -hypertension; resumed lisinopril- will continue to monitor and adjust the regimen as needed. -DVT prophylaxis with lovenox- per surgery Scott Stephenson MD January 22, 2017 08:58
[2017-01-22] MEDS: SODIUM CHLORIDE 0.9% FLUSH 10 ML FLUSH IV FLUSH SCH ×2 (09:00→20:10)
[2017-01-22] MEDS: ALVIMOPAN 12 MG CAPSULE - Post-op dosing PO SCH ×2 (09:21→20:08)
[2017-01-22] MEDS: DOCUSATE SODIUM 100 MG CAP PO SCH ×2 (09:21→20:08)
[2017-01-22] MEDS: LISINOPRIL 5 MG TAB PO SCH (09:21)
[2017-01-22] MEDS: ALLOPURINOL 100 MG TAB PO SCH (09:21)
[2017-01-22] MEDS ORDERED: RESP: ALBUTEROL 2.5 MG/IPRATROPIUM 0.5 MG NEB (SCH) NEB (10:00)
--- NOTE | 2017-01-22 10:09 | HHI.PR ---
Subjective Subjective Notes desats overnight, no fevers, wbc 36, incisional pain Objective Vitals/I&O Vital Signs Date Time Temp Pulse Resp B/P Pulse Ox O2 Delivery O2 Flow Rate FiO2 01/22/17 08:00 98.2 117 17 122/79 93 01/22/17 03:59 Nasal Cannula 6.00 Labs Laboratory Tests Test 01/22/17 01/22/17 01/22/17 03:18 03:30 05:50 Blood Gas Puncture Site RT RADIAL Blood Gas Patient Temperature 98.6 Blood Gas HCO3 23 Blood Gas Base Excess -1.9 Blood Gas Oxygen Saturation 89 Arterial Blood pH 7.37 Arterial Blood Partial 40 Pressure CO2 Arterial Blood Partial 64 Pressure O2 Arterial Blood Oxygen Content 12.1 Arterial Blood 1.6 Carboxyhemoglobin Arterial Blood Methemoglobin 0.9 Blood Gas Hemoglobin 9.6 Oxygen Delivery Device NASAL CANNULA Blood Gas Liter Flow 6 White Blood Count 36.9 Red Blood Count 3.33 Hemoglobin 9.2 Hematocrit 29.0 Mean Corpuscular Volume 86.9 Mean Corpuscular Hemoglobin 27.7 Mean Corpuscular Hemoglobin 31.9 Concent Red Cell Distribution Width 15.2 Platelet Count 502 Mean Platelet Volume 8.8 Neutrophils (%) (Auto) 76.2 Lymphocytes (%) (Auto) 9.4 Monocytes (%) (Auto) 14.1 Eosinophils (%) (Auto) 0.1 Basophils (%) (Auto) 0.2 Neutrophils # (Auto) 28.1 Lymphocytes # (Auto) 3.5 Monocytes # (Auto) 5.2 Eosinophils # (Auto) 0.0 Basophils # (Auto) 0.1 CBC Comment AUTO DIFF Differential Total Cells 100 Counted Neutrophils % (Manual) 70 Band Neutrophils % 3 Lymphocytes % 16 Monocytes % 11 Neutrophils # (Manual) 26.9 Differential Comment FINAL DIFF MANUAL Platelet Estimate HIGH Platelet Morphology Comment NORMAL Hematology Comments Sodium Level 139 Potassium Level 4.1 Chloride Level 108 Carbon Dioxide Level 24.1 Anion Gap 7 Blood Urea Nitrogen 14 Creatinine 0.90 Estimat Glomerular Filtration 85 Rate Random Glucose 141 Lactic Acid Level 1.6 Calcium Level 8.1 B-Type Natriuretic Peptide 48 Cardiovascular: Regular Abdomen: Other (soft, incision with dry drainage, whicks in place, elizbaeth serosang , ) A/P Assessment and Plan pod 2 ex lap, ana, hernia repair colostomy reversal cxr atelectasis, wbc 36- continue to monitor PLAN OOB duonebs, resp tx for desats pain control keep primary therapist d/c gonzalez for dvt ppx lovenox elizabeth sxn appreciate medicine recs Andreas Vernon MD January 22, 2017 10:09
[2017-01-22] MEDS: ENOXAPARIN SODIUM 30 MG/0.3 ML SYRINGE SQ SCH (18:27)
[2017-01-22] MEDS: PANTOPRAZOLE SODIUM 40 MG VIAL IV SCH (18:27)
[2017-01-22] MEDS ORDERED: BUMETANIDE INJ 1 MG/4 ML VIAL IV PUSH ONE (19:00)
[2017-01-22] MEDS: methylPREDNISolone SOD SUCC 40 MG/1 ML VIAL IV SCH (19:50)
--- NOTE | 2017-01-22 19:51 | MB ---
cc: AMELIA CISNEROS M.D. DATE OF CONSULTATION 01/22/17 REASON FOR CONSULTATION COPD exacerbation, respiratory failure. HISTORY OF PRESENT ILLNESS The patient is a 66-year-old male who had history of a perforated viscus and colostomy in June 2016, now back for reversal. An incisional hernia as well was repaired. The patient has known history of chronic obstructive pulmonary disease, complains of increasing shortness of breath which has been only partially improved with bronchodilator therapy. He denies history of fever or chills, no cough, no expectoration. No hemoptysis. No TB, mp industrial exposure. PAST MEDICAL HISTORY 1. COPD, 2. Hypertension 3. TIA 4. Previous laparotomy 5. Hemicolectomy 6. Colostomy 7. Previous splenectomy. MEDICATIONS At home 1. Flexeril 2. Lisinopril 3. Lorazepam 4. cholecalciferol. 5. Flomax. 6. Allopurinol. 7. Vitamin B12. ALLERGIES ASPIRIN NONSTEROIDAL ANTIINFLAMMATORY DRUGS FAMILY HISTORY Noncontributory. REVIEW OF SYSTEMS 12-point review of systems as per HPI and past history otherwise negative. PHYSICAL EXAMINATION GENERAL: The patient is alert. VITAL SIGNS: Respirations 20, blood pressure 140/70, temperature 98 degrees Fahrenheit. HEENT: Exam unremarkable. Eyes without icterus. NECK: Without adenopathy or thyroid enlargement. Central trachea. CHEST: No dullness to percussion. Few scattered rhonchi on auscultation. CARDIAC: PMI not appreciated. S1-S2 audible. No murmur or rub. 1/6 ejection systolic murmur left sternal border. ABDOMEN: Lax, bowel sounds audible. EXTREMITIES: No clubbing, cyanosis or edema. SKIN: Normal. No lymphadenopathy. IMAGING STUDIES Chest x-ray done today with atelectatic change at the left base. LABORATORY DATA White count 36,000, hemoglobin nine, hematocrit 29, platelets 502,000. Sodium 139, potassium 4.1, BUN 14, creatinine 0.9. ABG - pH 7.37, pCO2 40, pO2 64 on O2 6 liters nasal cannula. IMPRESSION 1. COPD exacerbation 2. Question mild fluid overload. 3. Leukocytosis 4. Hyperglycemia 5. Hypertension 6. History of TIA. PLAN The patient will be maintained on oxygen therapy as needed. Bronchodilator therapy will be continued. Short course of IV steroids, diuretic therapy as needed. Chest x-ray, arterial blood gas will be followed. Infectious disease consultation will be appropriate to assess need for adjustment of antibiotic therapy. He is presently on cefepime and metronidazole. I do thank you for asking me to partake in Mr. Hunt's care. Amelia Cisneros MD WWW/ /6:46 PM /7:28 PM
[2017-01-22] MEDS: TAMSULOSIN HCL 0.4 MG CAP PO SCH (20:08)
[2017-01-22] MEDS: RESP: ALBUTEROL 1.25 MG/3 ML NEB (PRN) NEB ×2 (20:34→23:44)
[2017-01-23] VITALS (15 sets, daily range): BP systolic 116–149; BP diastolic 59–85; PULSE 100–138; RESP 18–26; TEMP 96.9–99; O2SAT 90–100
[2017-01-23] MEDS: D5-NS + KCL 20 MEQ INJ 1,000 ML IV SCH ×2 (01:03→11:00)
[2017-01-23] MEDS: methylPREDNISolone SOD SUCC 40 MG/1 ML VIAL IV SCH ×4 (01:04→19:32)
[2017-01-23] MEDS: RESP: ALBUTEROL 1.25 MG/3 ML NEB (PRN) NEB (03:25)
[2017-01-23] MEDS ORDERED: ENALAPRILAT 1.25 MG/ML VIAL IV PUSH ONE (04:00)
[2017-01-23] MEDS ORDERED: ADENOSINE IV SOLN 3 MG/ML 2 ML VIAL ONE (04:18)
[2017-01-23] MEDS ORDERED: BUMETANIDE INJ 1 MG/4 ML VIAL IV PUSH ONE (04:30)
[2017-01-23] MEDS ORDERED: DILTIAZEM HCL 25 MG/5 ML VIAL IV ONE (04:30)
[2017-01-23] MEDS: LORazepam 2 MG/ML VIAL IV PUSH PRN ×4 (04:34→23:21)
--- NOTE | 2017-01-23 04:38 | HHI.PR ---
Addendum to Inpatient Note Addendum Reason: Additional Documentation Additional Information S: Shit team paged to patient's room at approximately 0356 per patient in respiratory distress with tachycardia. Per nursing staff he is postop day 2 from exploratory laparotomy, hernia repair, and colostomy reversal. Patient has been short of breath with possible COPD exacerbation since surgery. Patient with uptrending temperature to 99 and white count of 36 today. Upon arrival to the room patient is sitting up in her recliner in respiratory distress. He is able to talk in short sentences but has visible increased work of breathing. Currently his only complaint is breathing denies any chest pain, NVD, abdominal pain, or calf tenderness. O: GENERAL: 66-year-old gentleman sitting up in a corner in respiratory distress. SKIN: Warm and dry. No rash. HEENT: Atraumatic, normocephalic with EOMI. MMM. CARDIOVASCULAR: Tachycardic to 160s with no MGR appreciated. RESPIRATORY: Crackles at the bases BL with shallow air movement. Increased WOB with accessory muscle use. GASTROINTESTINAL: Abdomen mildly distended, nontender, with +BS. MUSCULOSKELETAL: No cyanosis or edema. Strength grossly WNL. NEURO/PSYCH: Afocal. Awake, alert, and oriented x3. CN 2-12 intact. No focal ABN. Patient with normal speech. A: Mr. Hunt is a 66-year-old male who is postop day 2 from exploratory laparotomy, hernia repair, and colostomy reversal presents in respiratory distress with tachycardia. P: Patient will be transferred to the [facility] for further monitoring. SOB secondary to fluid overload/COPD exacerbation/pneumonia/PE Chest x-ray: Pending CBC, CMP, BNP, lactic acid, and blood gas: Pending Blood cultures 2: Pending Patient placed on 10 L via mask Bumex 1 mg once Continue steroids and antibiotics Tachycardia secondary to a possible atrial fibrillation with RVR due to possible fluid overload/PE EKG: Tachycardic to 160 with atrial fibrillation per medical team read Lopressor 5 mg every 5 minutes when necessary for rapid heart rate SDW: Vadim Castelan MD R1 January 23, 2017 04:38
--- NOTE | 2017-01-23 04:58 | RADRPT ---
EXAM DATE/TIME: 01/23/2017 04:21 [facility] COMPARISON: CHEST SINGLE AP, January 22, 2017, 3:23. INDICATIONS : Shortness of breath, Helicat. MEDICAL HISTORY : Hypertension. Chronic obstructive pulmonary disease. Asthma SURGICAL HISTORY : None. ENCOUNTER: Subsequent ACUITY: 2 days PAIN SCORE: 0/10 LOCATION: Bilateral chest FINDINGS: A single view of the chest demonstrates left basilar density. Heart mildly enlarged. Slight elevation left hemidiaphragm. Osseous structures are intact. CONCLUSION: 1. Slight elevation left hemidiaphragm. 2. Left basilar density likely atelectasis. Walt Johnson MD on January 23, 2017 at 4:55 Board Certified Radiologist. This report was verified electronically.
[2017-01-23 05:36] LABS: AUTOMATED NEUTROPHIL # 26.6 TH/MM3 (1.8-7.7); BASOPHIL # 0.4 TH/MM3 (0-0.2); BASOPHIL % 1.3 % (0.0-2.0); LYMPH % 2.9 % (9.0-44.0); LYMPHOCYTE # 0.8 TH/MM3 (1.0-4.8); MEAN CELL VOLUME 87.5 FL (80.0-100.0); MEAN CORPUSCULAR HGB CONC 33.1 % (32.0-36.0); NEUT % 92.8 % (16.0-70.0); PLATELET COUNT 494 TH/MM3 (150-450); RED BLOOD COUNT 3.31 MIL/MM3 (4.50-5.90); RED CELL DISTRIBUTION WIDTH 15.6 % (11.6-17.2); WHITE BLOOD COUNT 28.7 TH/MM3 (4.0-11.0)
[2017-01-23] MEDS: MORPHINE SULFATE 30 MG/30 ML PCA IV SCH ×2 (05:38→23:56)
[2017-01-23] MEDS: CEFEPIME INJ 2,000 MG in SODIUM CHLORIDE 0.9% INJ 100 ML IV SCH (05:39)
--- NOTE | 2017-01-23 05:43 | PD.CONS ---
HPI Service Critical Care Medicine Consult Requested By Primary Care Physician Elías Greenberg MD History of Present Illness 66-year-old male with history of a perforated viscus and colostomy in June 2016, who is now back for reversal, as well as an incisional hernia repaired. The patient has known history of chronic obstructive pulmonary disease. Postsurgically he was doing well on the floor however today January 23, 2017 at 4:50 AM the rapid response was called due to patient's tachycardia and respiratory distress as he was also complaining of increasing shortness of breath which previously has been improved with bronchodilator therapy. Review of Systems ROS Unable to obtain patient is on the face mask BiPAP Past Family Social History Allergies: Coded Allergies: Aspirin (Verified Allergy, Unknown, 01/02/17) Nonsteroidal Anti-Inflammatory Agts (Verified Adverse Reaction, Intermediate, 01/02/17) Past Medical History COPD, Hypertension TIA Past Surgical History Previous laparotomy Hemicolectomy Colostomy Previous splenectomy Reported Medications Reported Meds & Active Scripts Active Oxycodone-Acetaminophen 5-325 mg Tab 2 Tab PO Q6H PRN Reported Vitamin D-1000 (Cholecalciferol) 1,000 Unit Tab 1,000 Units PO DAILY Vitamin B12 (Cyanocobalamin) 100 Mcg Tab Unknown Dose PO EVERY OTHER DAY Potassium Chloride Microencaps 10 Meq Tab 10 Meq PO QID Lasix (Furosemide) 40 Mg Tab 40 Mg PO DAILY Omeprazole 20 Mg Tab 20 Mg PO DAILY Allopurinol 100 Mg Tab 100 Mg PO DAILY Flexeril (Cyclobenzaprine HCl) 10 Mg Tab 10 Mg PO TID Hydroxyzine HCl 25 Mg Tab 25 Mg PO HS Zolpidem (Zolpidem Tartrate) 5 Mg Tab 5 Mg PO HS PRN Flomax (Tamsulosin HCl) 0.4 Mg Cap 0.8 Mg PO HS Lorazepam 0.5 Mg Tab 1 Mg PO Q8H PRN Lisinopril 5 Mg Tab 5 Mg PO DAILY Active Ordered Medications Current Medications Medications (Trade) Dose Ordered Sig/Rayo Route PRN Reason Start Time Stop Time Status Last Admin Dose Admin Alvimopan 12 mg 12 mg BID PO 01/21/17 09:00 01/27/17 21:01 01/22/17 20:08 Potassium Chloride/Dextrose/ Sod Cl (D5-NS + KCl 20 Meq Inj) 1,000 ml @ 125 mls/hr Q8H IV 01/20/17 19:00 01/23/17 01:03 Sodium Chloride (NS Flush) 2 ml UNSCH PRN IV FLUSH FLUSH AFTER USING IV ACCESS 01/20/17 18:30 Sodium Chloride (NS Flush) 2 ml BID IV FLUSH 01/20/17 21:00 01/22/17 20:10 Ondansetron HCl (Zofran Inj) 4 mg Q6H PRN IV NAUSEA OR VOMITING 01/20/17 18:30 Pantoprazole Sodium (Protonix Inj) 40 mg Q24H IV 01/20/17 19:30 01/22/17 18:27 Docusate Sodium (Colace) 100 mg BID PO 01/20/17 21:00 01/22/17 20:08 Oxycodone/ Acetaminophen (Percocet 10-325 Mg) 1 tab Q6H PRN PO PAIN SCALE 6 TO 10 01/20/17 18:30 Enoxaparin Sodium (Lovenox Inj) 30 mg Q24H SQ 01/21/17 18:00 01/22/17 18:27 Naloxone HCl (Narcan Inj) 0.4 mg UNSCH PRN IV RESPIRATORY RATE LESS THAN 10 01/20/17 18:30 Morphine Sulfate (Morphine 1 Mg/ ml WOODS OVERSEER) 30 mg UNSCH IV 01/20/17 19:00 01/22/17 15:33 WOODS OVERSEER Dosage Infused (Pha) 1 Q8HR .XX 01/20/17 22:00 01/22/17 22:45 Lorazepam (Ativan Inj) 1 mg Q6H PRN IV PUSH anxiety 01/21/17 07:30 01/23/17 04:34 Allopurinol (Zyloprim) 100 mg DAILY PO 01/21/17 09:00 01/22/17 09:21 Lisinopril (Prinivil) 5 mg DAILY PO 01/21/17 09:00 01/22/17 09:21 Lorazepam (Ativan) 1 mg Q8H PRN PO ANXIETY 01/21/17 09:00 01/22/17 18:31 Tamsulosin HCl 0.8 mg 0.8 mg HS PO 01/21/17 21:00 01/22/17 20:08 Metronidazole 100 ml @ 100 mls/hr Q8H IV 01/21/17 22:00 01/22/17 22:44 Cefepime HCl/ Sodium Chloride (Maxipime Inj/NS Inj) 100 ml @ 200 mls/hr Q8H IV 01/22/17 05:00 01/22/17 20:09 Methylprednisolone Sodium Succinate (SoluMEDROL INJ) 40 mg Q6H IV 01/22/17 19:00 01/24/17 01:01 01/23/17 01:04 Metoprolol Tartrate (Lopressor Inj) 5 mg Q5M PRN IV PUSH RAPID HEART RATE 01/23/17 04:30 Family History Noncontributory Social History Unable to obtain Physical Exam Vital Signs Vital Signs Date Time Temp Pulse Resp B/P Pulse Ox O2 Delivery O2 Flow Rate FiO2 01/23/17 05:00 100 100 01/23/17 03:54 96 15.00 01/23/17 03:53 96 15.00 01/23/17 03:53 96 Non-Rebreather 01/23/17 00:00 99.0 121 18 136/66 93 01/22/17 22:45 18 01/22/17 20:38 93 Nasal Cannula 5.00 01/22/17 20:00 98.7 123 18 131/82 94 01/22/17 16:00 97.8 132 17 135/75 92 01/22/17 15:33 18 01/22/17 14:00 18 01/22/17 12:00 96.7 164 18 151/83 93 01/22/17 11:00 94 Nasal Cannula 5.00 01/22/17 08:00 98.2 117 17 122/79 93 Physical Exam GENERAL: Well-nourished, well-developed patient. SKIN: Warm and dry. HEAD: Normocephalic. EYES: No scleral icterus. No injection or drainage. NECK: Supple, trachea midline. No JVD or lymphadenopathy. CARDIOVASCULAR: Regular rate and rhythm without murmurs, gallops, or rubs. RESPIRATORY: Breath sounds equal bilaterally. No accessory muscle use. GASTROINTESTINAL: Abdomen soft, non-tender, nondistended. MUSCULOSKELETAL: No cyanosis, or edema. BACK: Nontender without obvious deformity. No CVA tenderness. EXTREMITIES: No clubbing cyanosis or edema Laboratory Laboratory Tests Test 01/22/17 05:50 Sodium Level 139 Potassium Level 4.1 Chloride Level 108 Carbon Dioxide Level 24.1 Anion Gap 7 Blood Urea Nitrogen 14 Creatinine 0.90 Estimat Glomerular Filtration 85 Rate Random Glucose 141 Lactic Acid Level 1.6 Calcium Level 8.1 B-Type Natriuretic Peptide 48 Date/Time Procedure Status Source Growth 01/23/17 05:15 Aerobic Blood Culture Received Blood Peripheral Pending 01/23/17 05:15 Anaerobic Blood Culture Received Blood Peripheral Pending Result Diagram: 01/22/17 0330 01/22/17 0550 Imaging Last 24 hours Impressions Chest X-Ray 01/23/17 0000 Signed Impressions: Service Date/Time: Monday, January 23, 2017 04:21 - CONCLUSION: 1. Slight elevation left hemidiaphragm. 2. Left basilar density likely atelectasis. Walt Johnson MD Assessment and Plan Assessment and Plan Respiratory distress - Improving on BiPAP - Continue steroids per medical apparatus model maker - Continue DuoNeb scheduled and when necessary Tachycardia - Improved with Lopressor IV Leukocytosis - Reactive??? - Started on broad-spectrum antibiotic - Trending down Status post reversal colectomy and incisional hernia repair - Postop day 3 - Management per general surgery DVT GI prophylaxis - Lovenox Pepcid Critical Care: The total critical care time was 35 minutes. Time to perform other separately billable procedures was not included in the critical care time. Bartolo Ramires MD January 23, 2017 05:43
[2017-01-23 05:55] LABS: HEMO FLAGS AUTO DIFF
[2017-01-23] MEDS: PCA - TOTAL MG MORPHINE DELIVERED PER SHIFT SCH ×3 (06:00→22:00)
[2017-01-23 06:08] LABS: ALT (GPT) 16 U/L (12-78); ANION GAP 9 MEQ/L (5-15); AST (GOT) 29 U/L (15-37); BICARBONATE 24.8 MEQ/L (21.0-32.0); BLOOD UREA NITROGEN 10 MG/DL (7-18); CHLORIDE 108 MEQ/L (98-107); GLOMERULAR FILTRATION RATE 78 ML/MIN (>89); POTASSIUM 3.9 MEQ/L (3.5-5.1); SODIUM (NA) 142 MEQ/L (136-145)
[2017-01-23 06:12] LABS: ALKALINE PHOSPHATASE 64 U/L (45-117); TOTAL BILIRUBIN ADULT 0.5 MG/DL (0.2-1.0)
[2017-01-23] MEDS: PIPERACIL-TAZO 4.5 GM PREMIX 100 ML IV SCH ×4 (06:28→23:21)
[2017-01-23] MEDS: metroNIDAZOLE 500 MG INJ 100 ML IV SCH (06:28)
[2017-01-23 06:46] LABS: BLOOD GAS BASE EXCESS -2.2 mmol/L (-2-2); BLOOD GAS HCO3 22 mmol/L (22-26); BLOOD GAS METHEMOGLOBIN 0.8 % (0-2); BLOOD GAS O2 HGB SATURATION 98 % (90-100); BLOOD GAS OXYGEN CONTENT 13.7 Vol % (12.0-20.0); BLOOD GAS PCO2 38 mmHg (38-42); BLOOD GAS PO2 177 mmHg (61-120); BLOOD GAS TOTAL HGB 9.7 G/DL (12.0-16.0); CRITICAL VALUE NO; OXYGEN DEVICE BIPAP; TEMP CORR TO 98.6
[2017-01-23 06:47] LABS: DRAW SITE RT RADIAL; FIO2 100 %; NUMBER OF ARTERIAL PUNCTURES 1; STAT NO; ULNAR PULSE PRESENT; VENT SETTINGS 10IPAP/5EPAP
[2017-01-23 06:49] LABS: BANDS 4 % (0-6); NEUTROPHIL # MANUAL DIFF 27.6 TH/MM3 (1.8-7.7); PLATELET ESTIMATE SMEAR HIGH (NORMAL); PLATELET MORPHOLOGY NORMAL (NORMAL); POLYS (SEG NEUTROPHILS) 92 % (16-70); SCAN/DIFF FINAL DIFF MANUAL; WBC DIFF SAMPLE 100
[2017-01-23] MEDS: RESP: ALBUTEROL 2.5 MG/IPRATROPIUM 0.5 MG NEB (SCH) NEB ×3 (08:03→20:14)
[2017-01-23] MEDS ORDERED: DIATRIZOATE MEGLUM/DIATRIZOATE SOD 9 ML CUP PO ONE (08:15)
[2017-01-23] MEDS: METOPROLOL TARTRATE 5 MG/5 ML VIAL IV PUSH PRN ×6 (08:31→19:59)
[2017-01-23] MEDS: SODIUM CHLORIDE 0.9% FLUSH 10 ML FLUSH IV FLUSH SCH ×2 (09:00→20:00)
[2017-01-23] MEDS: ALVIMOPAN 12 MG CAPSULE - Post-op dosing PO SCH ×2 (09:18→20:00)
[2017-01-23] MEDS: LISINOPRIL 5 MG TAB PO SCH (09:18)
[2017-01-23] MEDS: ALLOPURINOL 100 MG TAB PO SCH (09:18)
[2017-01-23] MEDS: DOCUSATE SODIUM 100 MG CAP PO SCH ×2 (09:18→20:00)
--- NOTE | 2017-01-23 09:49 | EKG ---
Date Performed: 01/23/2017 Time Performed: 04:14:16 PTAGE: 66 years EKG: Possible atrial flutter, possible atrial fibrillation with uncontrolled ventricular respons e with PVC(s). Inferior/lateral ST-T changes are nonspecific Abnormal ECG PREVIOUS TRACING : 07/07/2016 13.28 DOCTOR: Fabrizio Zhang Interpretating Date/Time 01/23/2017 09:47:39
--- NOTE | 2017-01-23 12:59 | PD.ID.CON ---
History of Present Illness Service ID Consult Requested By Dr. Ramires Reason for Consult Evaluation and Mment of Sepsis, Possible Intra abd path in a post op patient. Primary Care Physician Elías Greenberg MD Diagnoses: History of Present Illness is 66-year-old male with h/o a perforated viscus and colostomy in June 2016. He was seen by ID during that admission for intra- abdominal sepsis. He had cecal perforation ? etiology - path ischemic colitis vs pseudomembranous colitis, and was C.diff negative. He was treated with Unasyn IV for Intraabdominal sepsis 2/2 viscus perforation. A large organized fluid collection in Morales pouch was percutaneously drained and culture showed no growth final. Patient reports having well in the interim since discharge. He was electively admitted for reversal, as well as an incisional hernia repaired. His PMHx is also significant for COPD. Postsurgically he was doing well on the floor however on January 23, 2017 at 4:50 AM the rapid response was called due to patient's tachycardia and respiratory distress as he was also complaining of increasing shortness of breath which previously has been improved with bronchodilator therapy. Patient was transferred to the ICU under assistant manager of operations service. At the time of my evaluation patient is in ISC. Overnight patient has remained on BiPAP, not on pressors. He continues to remain tachypneic and tachycardic and appears anxious at times. His urine outpt is adequate. ID consulted for evaluation of Sepsis, possible intra abd vs pulm sepsis in a post op patient. Review of Systems ROS Limitations: Clinical Condition (on BiPAP) Constitutional: DENIES: Diaphoretic episodes, Fatigue, Fever, Weight gain, Weight loss, Chills, Dizziness, Change in appetite, Night Sweats Endocrine: DENIES: Heat/cold intolerance, Polydipsia, Polyuria, Polyphagia Eyes: DENIES: Blurred vision, Diplopia, Eye inflammation, Eye pain, Vision loss , Photosensitivity, Double Vision Ears, nose, mouth, throat: DENIES: Tinnitus, Hearing loss, Vertigo, Nasal discharge, Oral lesions, Throat pain, Hoarseness, Ear Pain, Running Nose, Epistaxis, Sinus Pain, Toothache, Odynophagia Respiratory: COMPLAINS OF: Shortness of breath, DENIES: Apneas, Cough, Snoring , Wheezing, Hemoptysis, Sputum production Cardiovascular: DENIES: Chest pain, Palpitations, Syncope, Dyspnea on Exertion , PND, Lower Extremity Edema, Orthopnea, Claudication Gastrointestinal: COMPLAINS OF: Abdominal pain, DENIES: Black stools, Bloody stools, Constipation, Diarrhea, Nausea, Vomiting, Difficulty Swallowing, Anorexia Genitourinary: DENIES: Sexual dysfunction, Urinary frequency, Urinary incontinence, Urgency, Hematuria, Dysuria, Nocturia, Penile Discharge, Testicular Pain, Testicular Swelling Musculoskeletal: DENIES: Joint pain, Muscle aches, Stiffness, Joint Swelling, Back pain, Neck pain Integumentary: DENIES: Abnormal pigmentation, Nail changes, Pruritus, Rash Hematologic/lymphatic: DENIES: Bruising, Lymphadenopathy Immunologic/allergic: DENIES: Eczema, Urticaria Neurologic: DENIES: Abnormal gait, Headache, Localized weakness, Paresthesias, Seizures, Speech Problems, Tremor, Poor Balance Psychiatric: COMPLAINS OF: Anxiety, DENIES: Confusion, Mood changes, Depression, Hallucinations, Agitation, Suicidal Ideation, Homicidal Ideation, Delusions Past Family Social History Allergies: Coded Allergies: Aspirin (Verified Allergy, Unknown, 01/02/17) Nonsteroidal Anti-Inflammatory Agts (Verified Adverse Reaction, Intermediate, 01/02/17) Past Medical History COPD, Hypertension TIA Past Surgical History Previous laparotomy Hemicolectomy Colostomy Previous splenectomy Reported Medications Reported Meds & Active Scripts Active Oxycodone-Acetaminophen 5-325 mg Tab 2 Tab PO Q6H PRN Reported Vitamin D-1000 (Cholecalciferol) 1,000 Unit Tab 1,000 Units PO DAILY Vitamin B12 (Cyanocobalamin) 100 Mcg Tab Unknown Dose PO EVERY OTHER DAY Potassium Chloride Microencaps 10 Meq Tab 10 Meq PO QID Lasix (Furosemide) 40 Mg Tab 40 Mg PO DAILY Omeprazole 20 Mg Tab 20 Mg PO DAILY Allopurinol 100 Mg Tab 100 Mg PO DAILY Flexeril (Cyclobenzaprine HCl) 10 Mg Tab 10 Mg PO TID Hydroxyzine HCl 25 Mg Tab 25 Mg PO HS Zolpidem (Zolpidem Tartrate) 5 Mg Tab 5 Mg PO HS PRN Flomax (Tamsulosin HCl) 0.4 Mg Cap 0.8 Mg PO HS Lorazepam 0.5 Mg Tab 1 Mg PO Q8H PRN Lisinopril 5 Mg Tab 5 Mg PO DAILY Active Ordered Medications Current Medications Medications (Trade) Dose Ordered Sig/Rayo Route Start Time Stop Time Status Last Admin Alvimopan 12 mg 12 mg BID PO 01/21/17 09:00 01/27/17 21:01 01/23/17 09:18 (D5-NS + KCl 20 Meq Inj) 1,000 ml @ 125 mls/hr Q8H IV 01/20/17 19:00 01/23/17 01:03 (NS Flush) 2 ml UNSCH PRN IV FLUSH 01/20/17 18:30 (NS Flush) 2 ml BID IV FLUSH 01/20/17 21:00 01/23/17 09:00 (Zofran Inj) 4 mg Q6H PRN IV 01/20/17 18:30 (Protonix Inj) 40 mg Q24H IV 01/20/17 19:30 01/22/17 18:27 (Colace) 100 mg BID PO 01/20/17 21:00 01/23/17 09:18 (Percocet 10-325 Mg) 1 tab Q6H PRN PO 01/20/17 18:30 (Lovenox Inj) 30 mg Q24H SQ 01/21/17 18:00 01/22/17 18:27 (Narcan Inj) 0.4 mg UNSCH PRN IV 01/20/17 18:30 (Morphine 1 Mg/ ml TAIL PULLER) 30 mg UNSCH IV 01/20/17 19:00 01/23/17 05:38 TAIL PULLER Dosage Infused (Pha) 1 Q8HR .XX 01/20/17 22:00 01/23/17 06:00 (Ativan Inj) 1 mg Q6H PRN IV PUSH 01/21/17 07:30 01/23/17 04:34 (Zyloprim) 100 mg DAILY PO 01/21/17 09:00 01/23/17 09:18 (Prinivil) 5 mg DAILY PO 01/21/17 09:00 01/23/17 09:18 (Ativan) 1 mg Q8H PRN PO 01/21/17 09:00 01/22/17 18:31 Tamsulosin HCl 0.8 mg 0.8 mg HS PO 01/21/17 21:00 01/22/17 20:08 Metronidazole 100 ml @ 100 mls/hr Q8H IV 01/21/17 22:00 01/23/17 06:28 (Maxipime Inj/NS Inj) 100 ml @ 200 mls/hr Q8H IV 01/22/17 05:00 01/23/17 05:39 (SoluMEDROL INJ) 40 mg Q6H IV 01/22/17 19:00 01/24/17 01:01 01/23/17 06:28 Metoprolol Tartrate 5 mg 5 mg Q5M PRN IV PUSH 01/23/17 04:30 01/23/17 11:39 (Zosyn 4.5 Gm Premix) 100 ml @ 200 mls/hr Q6H IV 01/23/17 06:00 01/23/17 11:39 Family History reviewed and NC to current ID problems. Social History reviewed. Physical Exam Vital Signs Vital Signs Date Time Temp Pulse Resp B/P Pulse Ox O2 Delivery O2 Flow Rate FiO2 01/23/17 11:36 96 65 01/23/17 08:07 96 65 01/23/17 08:04 97 BiPAP 80 01/23/17 06:45 98 Bi-Pap 80 01/23/17 06:45 99 50 01/23/17 06:30 93 Bi-Pap 50 01/23/17 06:00 24 01/23/17 05:38 21 01/23/17 05:00 98.1 100 24 119/72 99 01/23/17 05:00 100 100 01/23/17 05:00 99 Bi-Pap 100 01/23/17 04:00 96.9 124 18 149/85 90 01/23/17 03:54 96 15.00 01/23/17 03:53 96 15.00 01/23/17 03:53 96 Non-Rebreather 01/23/17 00:00 99.0 121 18 136/66 93 01/22/17 22:45 18 01/22/17 20:38 93 Nasal Cannula 5.00 01/22/17 20:00 98.7 123 18 131/82 94 01/22/17 16:00 97.8 132 17 135/75 92 01/22/17 15:33 18 01/22/17 14:00 18 Physical Exam GENERAL: Obese, well-developed patient, in no apparent distress. SKIN: No rashes, ecchymoses or lesions. Cool and dry. HEAD: Atraumatic. Normocephalic. No temporal or scalp tenderness. EYES: Pupils equal round and reactive. Extraocular motions intact. No scleral icterus. No injection or drainage. ENT: BiPAP mask on. NECK: Trachea midline. Supple, nontender, no meningeal signs. CARDIOVASCULAR: RRR, No murmrur. RESPIRATORY: Clear to auscultation. Breath sounds equal bilaterally. GASTROINTESTINAL: Abdomen soft, Midline and surgical scars with no obvious erythema. Dressings soaked in old blood with slight foul smell. [address] left and right both with serosanguinous discharge. MUSCULOSKELETAL: Extremities without clubbing, cyanosis. Pedal edema noted. NEUROLOGICAL: Awake and alert. Grossly non focal. Psych: appears anxious. IV line sites with no e.o infection. Laboratory Laboratory Tests Test 01/23/17 01/23/17 05:05 06:35 White Blood Count 28.7 Red Blood Count 3.31 Hemoglobin 9.6 Hematocrit 29.0 Mean Corpuscular Volume 87.5 Mean Corpuscular Hemoglobin 29.0 Mean Corpuscular Hemoglobin 33.1 Concent Red Cell Distribution Width 15.6 Platelet Count 494 Mean Platelet Volume 7.8 Neutrophils (%) (Auto) 92.8 Lymphocytes (%) (Auto) 2.9 Monocytes (%) (Auto) 3.0 Eosinophils (%) (Auto) 0.0 Basophils (%) (Auto) 1.3 Neutrophils # (Auto) 26.6 Lymphocytes # (Auto) 0.8 Monocytes # (Auto) 0.9 Eosinophils # (Auto) 0.0 Basophils # (Auto) 0.4 CBC Comment AUTO DIFF Differential Total Cells 100 Counted Neutrophils % (Manual) 92 Band Neutrophils % 4 Lymphocytes % 1 Monocytes % 3 Neutrophils # (Manual) 27.6 Differential Comment FINAL DIFF MANUAL Platelet Estimate HIGH Platelet Morphology Comment NORMAL Red Cell Morphology Comment NORMAL Sodium Level 142 Potassium Level 3.9 Chloride Level 108 Carbon Dioxide Level 24.8 Anion Gap 9 Blood Urea Nitrogen 10 Creatinine 0.97 Estimat Glomerular Filtration 78 Rate Random Glucose 214 Lactic Acid Level 2.6 Calcium Level 8.3 Total Bilirubin 0.5 Aspartate Amino Transf 29 (AST/SGOT) Alanine Aminotransferase 16 (ALT/SGPT) Alkaline Phosphatase 64 Troponin I LESS THAN 0.02 B-Type Natriuretic Peptide 87 Total Protein 7.7 Albumin 2.9 Blood Gas Puncture Site RT RADIAL Blood Gas Patient Temperature 98.6 Blood Gas HCO3 22 Blood Gas Base Excess -2.2 Blood Gas Oxygen Saturation 98 Arterial Blood pH 7.38 Arterial Blood Partial 38 Pressure CO2 Arterial Blood Partial 177 Pressure O2 Arterial Blood Oxygen Content 13.7 Arterial Blood 1.0 Carboxyhemoglobin Arterial Blood Methemoglobin 0.8 Blood Gas Hemoglobin 9.7 Oxygen Delivery Device BIPAP Blood Gas Ventilator Setting 10IPAP/5EPAP Blood Gas Inspired Oxygen 100 Date/Time Procedure Status Source Growth 01/23/17 05:15 Aerobic Blood Culture Received Blood Peripheral Pending 01/23/17 05:15 Anaerobic Blood Culture Received Blood Peripheral Pending Result Diagram: 01/23/17 0505 01/23/17 0505 Imaging Last Impressions Chest X-Ray 01/23/17 0000 Signed Impressions: Service Date/Time: Wednesday, January 23, 2017 04:21 - CONCLUSION: 1. Slight elevation left hemidiaphragm. 2. Left basilar density likely atelectasis. Walt Johnson MD Assessment and Plan Assessment and Plan Sepsis in a post op patient. Pneumonia Possible peritonitis. High grade Leucocytosis reactive vs true infection. pod 3 ex lap, ana, hernia repair colostomy reversal COPD ? acute exacerbation. Acute resp failure Obese ? CELESTINO component. Recs DC Cefepime IV DC Flagyl IV Continue Zosyn IV (adequate no double coverage needed with Cefepime and Flagyl) If CT A/P with peritonitis and/or any change in clinical condition Consider adding Micafungin IV( IA sepsis possible vs fungemia). If CT A/P ok and over night change in clinical condition consider adding Vanco IV and Micafungin IV to cover for PNA or Fungemia related line infection. Agree with CT A/P with IV contrast (r/o IA source of infection) CXR reviewed ? left side pneumonia. Will add CT chest with IV contrast (r/o PE and extent of pneumonia/effusion better definition) Follow cultures Follow clinically. d/w RN and . Floridalma Schneider MD January 23, 2017 12:59
[2017-01-23] MEDS ORDERED: IOHEXOL 350 MG/ML 10 ML VIAL (for RAD DIAG) IV ONE (13:17)
--- NOTE | 2017-01-23 13:43 | RADRPT ---
EXAM DATE/TIME: 01/23/2017 13:16 [facility] COMPARISON: CT ABDOMEN & PELVIS W CONTRAST, January 02, 2017, 2:38. INDICATIONS : Abdominal pain. Shortness of breath. IV CONTRAST: 100 cc Omnipaque 350 (iohexol) IV ; Cumulative dose for multiple exams. ORAL CONTRAST: Prescribed oral contrast ingested. RADIATION DOSE: 20.49 CTDIvol (mGy) ; Combined studies - Thorax/Abdomen/Pelvis MEDICAL HISTORY : Chronic obstructive pulmonary disease. Cardiovascular disease SURGICAL HISTORY : Umbilical hernia repair. ENCOUNTER: Initial ACUITY: 1 day PAIN SCALE: 5/10 LOCATION: Bilateral abdomen. TECHNIQUE: Volumetric scanning of the abdomen and pelvis was performed. Using automated exposure control and ad justment of the mA and/or kV according to patient size, radiation dose was kept as low as reasonably achievable to obtain optimal diagnostic quality images. FINDINGS: LOWER LUNGS: Moderate cardiomegaly is present with small pericardial effusion. Consolidation is not noted in both lung bases with air bronchograms. There are minimal effusions. LIVER: Homogeneous density without lesion. There is no dilation of the biliary tree. No calcified gallston es. There is diffuse hepatic steatosis. SPLEEN: The spleen is small in size but unchanged. There is an adjacent splenule. PANCREAS: Stable appearance. A small pseudocyst is again noted in the patella without change. There are calcifi cations in the tail the pancreas as well. The head and body remain unremarkable. KIDNEYS: Normal in size and shape. There is no mass, stone or hydronephrosis. ADRENAL GLANDS: Within normal limits. VASCULAR: There is no aortic aneurysm. BOWEL/MESENTERY: Abnormal bowel gas pattern is now noted with multiple loops of mildly dilated air-containing small valerio wel with multiple air fluid levels. The colon is decompressed. There is no definite free air. The sto mach is mildly distended with air-fluid level as well. The distal small bowel is smaller in size than the proximal and mid small bowel. There is no distinct mass or focal transition zone. ABDOMINAL WALL: Interval postsurgical changes are noted with gas in the soft tissues and edema. There are overlying s urgical skin neal. Surgical drains are noted in place with the tips in the adjacent subcutaneous f at. There is no drainable fluid collection. RETROPERITONEUM: There is no lymphadenopathy. BLADDER: No wall thickening or mass. REPRODUCTIVE: Within normal limits. INGUINAL: There is no lymphadenopathy or hernia. MUSCULOSKELETAL: Within normal limits for patient age. Osteopenia and degenerative changes are noted. The patient is s tatus post left hip arthroplasty. CONCLUSION: 1. Interval postsurgical changes status post abdominal hernia repair with soft tissue swelling and ga s in the subcutaneous fat. There are surgical drains in place with no drainable fluid collection. 2. Abnormal bowel gas pattern of concern for early or partial small bowel obstruction. 3. New consolidation in both lung bases with minimal effusions. 4. Cardiomegaly with small amount of pericardial fluid. 5. Stable calcification pseudocyst in the tail of the pancreas. Conrado Bhatti MD on January 23, 2017 at 13:34 Board Certified Radiologist. This report was verified electronically.
[2017-01-23] MEDS ORDERED: MICAFUNGIN INJ 150 MG in SODIUM CHLORIDE 0.9% INJ 100 ML IV SCH (13:45)
--- NOTE | 2017-01-23 14:04 | RADRPT ---
EXAM DATE/TIME: 01/23/2017 13:16 [facility] COMPARISON: CHEST SINGLE AP, January 23, 2017, 4:21. INDICATIONS : Pneumonia. Shortness of breath. IV CONTRAST: 100 cc Omnipaque 350 (iohexol) IV ; Cumulative dose for multiple exams. RADIATION DOSE: 20.49 CTDIvol (mGy) ; Combined studies - Thorax/Abdomen/Pelvis MEDICAL HISTORY : Chronic obstructive pulmonary disease. Cardiovascular disease SURGICAL HISTORY : Inguinal hernia repair. ENCOUNTER: Initial ACUITY: 1 day PAIN SCALE: 6/10 LOCATION: Bilateral chest TECHNIQUE: Volumetric scanning of the chest was performed. Using automated exposure control and adjustment of t he mA and/or kV according to patient size, radiation dose was kept as low as reasonably achievable to obtain optimal diagnostic quality images. FINDINGS: LUNGS: Consolidation is noted in both lower lobes with air bronchograms. This also consolidation along the l eft major fissure. There is no distinct mass or nodule. There is no perihilar edema. PLEURA: There is no pleural thickening or pleural effusion. MEDIASTINUM: Moderate cardiomegaly. There is no evidence of adenopathy. There is a small pericardial effusion. AXILLAE: Within normal limits. No lymphadenopathy. SKELETAL: Within normal limits for patient age. MISCELLANEOUS: The visualized upper abdominal organs demonstrate no acute abnormality. Steatosis of the liver is not ed. Please see abdomen CT from this date for further details on the abdominal findings. CONCLUSION: 1. Consolidation is noted in both lung bases with air bronchograms. There is also consolidation along the posterior left major fissure. 2. Cardiomegaly and small pericardial effusion. Conrado Bhatti MD on January 23, 2017 at 13:59 Board Certified Radiologist. This report was verified electronically.
--- NOTE | 2017-01-23 15:15 | HHI.PR ---
Subjective Remarks Jayde was called earlier this morning for resp distress EKG showed Afib/ flutter with RVR. HR now better controlled. CT chest showed bibasilar consolidation with air bronchograms and CT abd/pelvis showed post surgical changes. Objective Vital Signs Vital Signs Date Time Temp Pulse Resp B/P Pulse Ox O2 Delivery O2 Flow Rate FiO2 01/23/17 11:36 96 65 01/23/17 08:07 96 65 01/23/17 08:04 97 BiPAP 80 01/23/17 06:45 98 Bi-Pap 80 01/23/17 06:45 99 50 01/23/17 06:30 93 Bi-Pap 50 01/23/17 06:00 24 01/23/17 05:38 21 01/23/17 05:00 98.1 100 24 119/72 99 01/23/17 05:00 100 100 01/23/17 05:00 99 Bi-Pap 100 01/23/17 04:00 96.9 124 18 149/85 90 01/23/17 03:54 96 15.00 01/23/17 03:53 96 15.00 01/23/17 03:53 96 Non-Rebreather 01/23/17 00:00 99.0 121 18 136/66 93 01/22/17 22:45 18 01/22/17 20:38 93 Nasal Cannula 5.00 01/22/17 20:00 98.7 123 18 131/82 94 01/22/17 16:00 97.8 132 17 135/75 92 01/22/17 15:33 18 I/O 01/22/17 01/22/17 01/22/17 01/23/17 01/23/17 01/23/17 07:00 15:00 23:00 07:00 15:00 23:00 Intake Total 240 ml 2869 ml 720 ml 2208 ml Output Total 440 ml 610 ml 500 ml 2090 ml Balance -200 ml 2259 ml 220 ml 118 ml Intake Oral 240 ml 200 ml 720 ml 240 ml IV Total 2669 ml 1968 ml Output Urine Total 375 ml 500 ml 500 ml 1900 ml Drainage Total 65 ml 110 ml 190 ml Bladder Scan Volume Amount 43 ml # Bowel Movements 0 0 0 Result Diagram: 01/23/17 0505 01/23/17 0505 Other Results Last Impressions Chest X-Ray 01/23/17 0000 Signed Impressions: Service Date/Time: Monday, January 23, 2017 04:21 - CONCLUSION: 1. Slight elevation left hemidiaphragm. 2. Left basilar density likely atelectasis. Walt Johnson MD Chest CT 01/23/17 0000 Signed Impressions: Service Date/Time: Monday, January 23, 2017 13:16 - CONCLUSION: 1. Consolidation is noted in both lung bases with air bronchograms. There is also consolidation along the posterior left major fissure. 2. Cardiomegaly and small pericardial effusion. Conrado Bhatti MD Abdomen/Pelvis CT 01/23/17 0000 Signed Impressions: Service Date/Time: Monday, January 23, 2017 13:16 - CONCLUSION: 1. Interval postsurgical changes status post abdominal hernia repair with soft tissue swelling and gas in the subcutaneous fat. There are surgical drains in place with no drainable fluid collection. 2. Abnormal bowel gas pattern of concern for early or partial small bowel obstruction. 3. New consolidation in both lung bases with minimal effusions. 4. Cardiomegaly with small amount of pericardial fluid. 5. Stable calcification pseudocyst in the tail of the pancreas. Conrado Bhatti MD Laboratory Tests Test 01/23/17 01/23/17 05:05 06:35 White Blood Count 28.7 TH/MM3 Red Blood Count 3.31 MIL/MM3 Hemoglobin 9.6 GM/DL Hematocrit 29.0 % Mean Corpuscular Volume 87.5 FL Mean Corpuscular Hemoglobin 29.0 PG Mean Corpuscular Hemoglobin 33.1 % Concent Red Cell Distribution Width 15.6 % Platelet Count 494 TH/MM3 Mean Platelet Volume 7.8 FL Neutrophils (%) (Auto) 92.8 % Lymphocytes (%) (Auto) 2.9 % Monocytes (%) (Auto) 3.0 % Eosinophils (%) (Auto) 0.0 % Basophils (%) (Auto) 1.3 % Neutrophils # (Auto) 26.6 TH/MM3 Lymphocytes # (Auto) 0.8 TH/MM3 Monocytes # (Auto) 0.9 TH/MM3 Eosinophils # (Auto) 0.0 TH/MM3 Basophils # (Auto) 0.4 TH/MM3 CBC Comment AUTO DIFF Differential Total Cells 100 Counted Neutrophils % (Manual) 92 % Band Neutrophils % 4 % Lymphocytes % 1 % Monocytes % 3 % Neutrophils # (Manual) 27.6 TH/MM3 Differential Comment FINAL DIFF MANUAL Platelet Estimate HIGH Platelet Morphology Comment NORMAL Red Cell Morphology Comment NORMAL Sodium Level 142 MEQ/L Potassium Level 3.9 MEQ/L Chloride Level 108 MEQ/L Carbon Dioxide Level 24.8 MEQ/L Anion Gap 9 MEQ/L Blood Urea Nitrogen 10 MG/DL Creatinine 0.97 MG/DL Estimat Glomerular Filtration 78 ML/MIN Rate Random Glucose 214 MG/DL Lactic Acid Level 2.6 mmol/L Calcium Level 8.3 MG/DL Total Bilirubin 0.5 MG/DL Aspartate Amino Transf 29 U/L (AST/SGOT) Alanine Aminotransferase 16 U/L (ALT/SGPT) Alkaline Phosphatase 64 U/L Troponin I LESS THAN 0.02 NG/ML B-Type Natriuretic Peptide 87 PG/ML Total Protein 7.7 GM/DL Albumin 2.9 GM/DL Blood Gas Puncture Site RT RADIAL Blood Gas Patient Temperature 98.6 Blood Gas HCO3 22 mmol/L Blood Gas Base Excess -2.2 mmol/L Blood Gas Oxygen Saturation 98 % Arterial Blood pH 7.38 Arterial Blood Partial 38 mmHg Pressure CO2 Arterial Blood Partial 177 mmHg Pressure O2 Arterial Blood Oxygen Content 13.7 Vol % Arterial Blood 1.0 % Carboxyhemoglobin Arterial Blood Methemoglobin 0.8 % Blood Gas Hemoglobin 9.7 G/DL Oxygen Delivery Device BIPAP Blood Gas Ventilator Setting 10IPAP/5EPAP Blood Gas Inspired Oxygen 100 % Objective Remarks GENERAL: Patient is 66 yo lying in bed in mild resp distress. SKIN: Warm and dry. HEAD: Normocephalic. EYES: No scleral icterus. No injection or drainage. NECK: Supple, trachea midline. No JVD or lymphadenopathy. CARDIOVASCULAR: Tachycardic without murmurs, gallops, or rubs. RESPIRATORY: Breath sounds equal bilaterally. No accessory muscle use. GASTROINTESTINAL: Abdomen soft, non-tender, nondistended. MUSCULOSKELETAL: No cyanosis, or edema. Neuro: Awake and alert. A/P Assessment and Plan 1)Resp Insuff 2)COPD 3)? Pneumonia 4)Fluid overload 5)s/p exploratory lap, hernia repair, and colostomy reversal 6)Leukocytosis 7)Anemia 8)Obesity ? CELESTINO 9)Hyperglycemia Plan Wean down oxygen as anastacio keep sat >92% Bronchodilators, NIPPV PRN for resp distress Solumederol 40mg IV Q6 CT chest reviewed- Bibasilar consolidation with air bronchograms noted. Continue with abx per ID (Zosyn) follow up on BC, check sputum cx Check strep pneumonia and Legionella urinary Ag. Monitor CBC and for signs of infections ( Fever, WBC) d/c IVF given Bumex 1mg last night and early this morning. Pain control GI/DVT prophylaxis per primary team Continue treatment plan Lencho Echevarria MD January 23, 2017 15:15
--- NOTE | 2017-01-23 15:54 | HHI.PR ---
Addendum to Inpatient Note Addendum Reason: Additional Documentation Additional Information Reviewed CT Chest the infectious process appears to be lung. To cover for Hospital acquired infection in lungs will cover for MRSA: Add Vanco IV (target 15-20) If any further deterioration overnight despite Vanco IV ok to add 1 dose of Micafungin to cover for Fungemia. Floridalma Schneider MD January 23, 2017 15:54
[2017-01-23] MEDS ORDERED: Vancomycin Consult Pharmacy 1 EA OTHER SCH (16:00)
--- NOTE | 2017-01-23 16:54 | HHI.PR ---
Subjective Subjective Notes Became anxious last night and short of breath. Transferred to [facility]. Better now. Objective Vitals/I&O Vital Signs Date Time Temp Pulse Resp B/P Pulse Ox O2 Delivery O2 Flow Rate FiO2 01/23/17 14:00 26 01/23/17 12:00 99.0 106 116/75 93 01/23/17 11:36 65 01/23/17 08:04 BiPAP 01/23/17 03:54 15.00 Labs Laboratory Tests Test 01/23/17 01/23/17 05:05 06:35 White Blood Count 28.7 Red Blood Count 3.31 Hemoglobin 9.6 Hematocrit 29.0 Mean Corpuscular Volume 87.5 Mean Corpuscular Hemoglobin 29.0 Mean Corpuscular Hemoglobin 33.1 Concent Red Cell Distribution Width 15.6 Platelet Count 494 Mean Platelet Volume 7.8 Neutrophils (%) (Auto) 92.8 Lymphocytes (%) (Auto) 2.9 Monocytes (%) (Auto) 3.0 Eosinophils (%) (Auto) 0.0 Basophils (%) (Auto) 1.3 Neutrophils # (Auto) 26.6 Lymphocytes # (Auto) 0.8 Monocytes # (Auto) 0.9 Eosinophils # (Auto) 0.0 Basophils # (Auto) 0.4 CBC Comment AUTO DIFF Differential Total Cells 100 Counted Neutrophils % (Manual) 92 Band Neutrophils % 4 Lymphocytes % 1 Monocytes % 3 Neutrophils # (Manual) 27.6 Differential Comment FINAL DIFF MANUAL Platelet Estimate HIGH Platelet Morphology Comment NORMAL Red Cell Morphology Comment NORMAL Sodium Level 142 Potassium Level 3.9 Chloride Level 108 Carbon Dioxide Level 24.8 Anion Gap 9 Blood Urea Nitrogen 10 Creatinine 0.97 Estimat Glomerular Filtration 78 Rate Random Glucose 214 Lactic Acid Level 2.6 Calcium Level 8.3 Total Bilirubin 0.5 Aspartate Amino Transf 29 (AST/SGOT) Alanine Aminotransferase 16 (ALT/SGPT) Alkaline Phosphatase 64 Troponin I LESS THAN 0.02 B-Type Natriuretic Peptide 87 Total Protein 7.7 Albumin 2.9 Blood Gas Puncture Site RT RADIAL Blood Gas Patient Temperature 98.6 Blood Gas HCO3 22 Blood Gas Base Excess -2.2 Blood Gas Oxygen Saturation 98 Arterial Blood pH 7.38 Arterial Blood Partial 38 Pressure CO2 Arterial Blood Partial 177 Pressure O2 Arterial Blood Oxygen Content 13.7 Arterial Blood 1.0 Carboxyhemoglobin Arterial Blood Methemoglobin 0.8 Blood Gas Hemoglobin 9.7 Oxygen Delivery Device BIPAP Blood Gas Ventilator Setting 10IPAP/5EPAP Blood Gas Inspired Oxygen 100 Date/Time Procedure Status Source Growth 01/23/17 05:15 Aerobic Blood Culture Received Blood Peripheral Pending 01/23/17 05:15 Anaerobic Blood Culture Received Blood Peripheral Pending Abdomen: Other (Distended) Narrative Exam Trang in place with minimal drainage JORJE drains serosanguinous A/P Assessment and Plan POD #3 colostomy takedown with anxiety last night; on ventimask after bipap in ISC CT shows no fluid collections/leaks Improved with respiratory treatment ReCheck labs; WBC's elevated today. Conrado Boateng MD January 23, 2017 16:54
[2017-01-23] MEDS: METOPROLOL TARTRATE 25 MG TAB PO SCH ×2 (17:29→23:22)
[2017-01-23] MEDS: ENOXAPARIN SODIUM 30 MG/0.3 ML SYRINGE SQ SCH (17:29)
[2017-01-23] MEDS: PANTOPRAZOLE SODIUM 40 MG VIAL IV SCH (19:32)
[2017-01-23] MEDS: VANCOMYCIN INJ 1,700 MG in SODIUM CHLORID 0.9% 500 ML INJ 500 ML IV SCH (19:33)
[2017-01-23] MEDS: TAMSULOSIN HCL 0.4 MG CAP PO SCH (20:00)
[2017-01-24] VITALS (14 sets, daily range): BP systolic 117–148; BP diastolic 69–90; PULSE 77–142; RESP 19–26; TEMP 97.6–98.6; O2SAT 94–100
[2017-01-24] MEDS: methylPREDNISolone SOD SUCC 40 MG/1 ML VIAL IV SCH (00:03)
[2017-01-24] MEDS: METOPROLOL TARTRATE 5 MG/5 ML VIAL IV PUSH PRN ×2 (02:15→02:48)
[2017-01-24] MEDS: RESP: ALBUTEROL 2.5 MG/IPRATROPIUM 0.5 MG NEB (SCH) NEB ×4 (04:12→12:00)
[2017-01-24 04:38] LABS: AUTOMATED NEUTROPHIL # 26.9 TH/MM3 (1.8-7.7); BASOPHIL # 0.1 TH/MM3 (0-0.2); BASOPHIL % 0.2 % (0.0-2.0); HEMATOCRIT 29.8 % (39.0-51.0); LYMPH % 4.9 % (9.0-44.0); LYMPHOCYTE # 1.5 TH/MM3 (1.0-4.8); MEAN CELL VOLUME 89.4 FL (80.0-100.0); MEAN CORPUSCULAR HEMOGLOBIN 27.6 PG (27.0-34.0); MEAN CORPUSCULAR HGB CONC 30.9 % (32.0-36.0); MONO % 5.6 % (0.0-8.0); NEUT % 89.3 % (16.0-70.0); PLATELET COUNT 466 TH/MM3 (150-450); RED BLOOD COUNT 3.33 MIL/MM3 (4.50-5.90); WHITE BLOOD COUNT 30.2 TH/MM3 (4.0-11.0)
[2017-01-24 04:55] LABS: HEMO FLAGS AUTO DIFF
[2017-01-24 05:03] LABS: BICARBONATE 26.1 MEQ/L (21.0-32.0)
[2017-01-24] MEDS: PCA - TOTAL MG MORPHINE DELIVERED PER SHIFT SCH ×3 (05:49→22:00)
[2017-01-24] MEDS: LORazepam 1 MG TAB PO PRN ×2 (05:49→18:23)
[2017-01-24] MEDS: METOPROLOL TARTRATE 25 MG TAB PO SCH ×2 (05:49→11:38)
[2017-01-24] MEDS: PIPERACIL-TAZO 4.5 GM PREMIX 100 ML IV SCH ×4 (05:49→23:02)
[2017-01-24 07:44] LABS: BANDS 2 % (0-6); POLYS (SEG NEUTROPHILS) 84 % (16-70); WBC DIFF SAMPLE 100
[2017-01-24 07:45] LABS: PLATELET ESTIMATE SMEAR HIGH (NORMAL); PLATELET MORPHOLOGY NORMAL (NORMAL); SCAN/DIFF FINAL DIFF MANUAL
--- NOTE | 2017-01-24 08:05 | HHI.PR ---
Subjective Subjective Notes stable, a.fib, tolerating clears, sats improved Objective Vitals/I&O Vital Signs Date Time Temp Pulse Resp B/P Pulse Ox O2 Delivery O2 Flow Rate FiO2 01/24/17 06:00 137 01/24/17 05:49 24 01/24/17 04:00 97.8 124/73 99 01/24/17 00:00 Bi-Pap 50 01/23/17 20:00 15.00 Labs Laboratory Tests Test 01/23/17 01/24/17 18:20 04:01 Nasal Screen MRSA (PCR) MRSA NOT DETECTED White Blood Count 30.2 Red Blood Count 3.33 Hemoglobin 9.2 Hematocrit 29.8 Mean Corpuscular Volume 89.4 Mean Corpuscular Hemoglobin 27.6 Mean Corpuscular Hemoglobin 30.9 Concent Red Cell Distribution Width 15.0 Platelet Count 466 Mean Platelet Volume 7.7 Neutrophils (%) (Auto) 89.3 Lymphocytes (%) (Auto) 4.9 Monocytes (%) (Auto) 5.6 Eosinophils (%) (Auto) 0.0 Basophils (%) (Auto) 0.2 Neutrophils # (Auto) 26.9 Lymphocytes # (Auto) 1.5 Monocytes # (Auto) 1.7 Eosinophils # (Auto) 0.0 Basophils # (Auto) 0.1 CBC Comment AUTO DIFF Differential Total Cells 100 Counted Neutrophils % (Manual) 84 Band Neutrophils % 2 Lymphocytes % 6 Monocytes % 8 Neutrophils # (Manual) 26.0 Differential Comment FINAL DIFF MANUAL Platelet Estimate HIGH Platelet Morphology Comment NORMAL Sodium Level 142 Potassium Level 4.0 Chloride Level 108 Carbon Dioxide Level 26.1 Anion Gap 8 Blood Urea Nitrogen 19 Creatinine 0.87 Estimat Glomerular Filtration 88 Rate Random Glucose 151 Calcium Level 9.2 Date/Time Procedure Status Source Growth 01/23/17 05:15 Aerobic Blood Culture Received Blood Peripheral Pending 01/23/17 05:15 Anaerobic Blood Culture Received Blood Peripheral Pending Cardiovascular: Irregular Abdomen: Other (incision with scant drainage whicks in place, elizabeth serosang) A/P Assessment and Plan pod 4 ex lap, ana, hernia repair colostomy reversal cxr atelectasis, wbc 36- continue to monitor PLAN encourage OOB resp tx for desats -pulm following steroids added a.fib rate control pain control keep wool tamper dvt ppx lovenox elizabeth sxn wound care dressing change dry 4x4 bid appreciate medicine/isc recs Andreas Vernon MD January 24, 2017 08:05
[2017-01-24] MEDS: SODIUM CHLORIDE 0.9% FLUSH 10 ML FLUSH IV FLUSH SCH ×2 (08:46→20:27)
[2017-01-24] MEDS: LISINOPRIL 5 MG TAB PO SCH (08:46)
[2017-01-24] MEDS: DOCUSATE SODIUM 100 MG CAP PO SCH ×2 (08:46→20:27)
[2017-01-24] MEDS: ALVIMOPAN 12 MG CAPSULE - Post-op dosing PO SCH ×2 (08:46→20:27)
[2017-01-24] MEDS: ALLOPURINOL 100 MG TAB PO SCH (08:46)
--- NOTE | 2017-01-24 09:05 | HHI.CCPN ---
Subjective Remarks/Hospital Course 66-year-old male with history of a perforated viscus and colostomy in June 2016, who is now back for reversal, as well as an incisional hernia repaired. The patient has known history of chronic obstructive pulmonary disease. Postsurgically he was doing well on the floor however today January 23, 2017 at 4:50 AM the rapid response was called due to patient's tachycardia and respiratory distress as he was also complaining of increasing shortness of breath which previously has been improved with bronchodilator therapy. 01/24: Breathing much improved after diuretics and bronchodilators. Consolidation right lung base worrisome, WBC 30,000 - treat as pneumonia. Objective Vital Signs Date Time Temp Pulse Resp B/P Pulse Ox O2 Delivery O2 Flow Rate FiO2 01/24/17 06:00 137 01/24/17 05:49 24 01/24/17 04:00 97.8 124/73 99 01/24/17 00:00 Bi-Pap 50 01/23/17 20:00 15.00 Intake and Output 01/23/17 01/23/17 01/24/17 08:00 16:00 00:00 Intake Total 2208 ml 1426 ml 890 ml Output Total 2090 ml 850 ml 540 ml Balance 118 ml 576 ml 350 ml Result Diagram: 01/24/17 0401 01/24/17 0401 Imaging Last 24 hours Impressions Chest X-Ray 01/23/17 0000 Signed Impressions: Service Date/Time: Monday, January 23, 2017 04:21 - CONCLUSION: 1. Slight elevation left hemidiaphragm. 2. Left basilar density likely atelectasis. Walt Johnson MD Objective Remarks GENERAL: Well-nourished, well-developed patient. SKIN: Warm and dry. HEAD: Normocephalic. EYES: No scleral icterus. No injection or drainage. NECK: Supple, trachea midline. No JVD or lymphadenopathy. CARDIOVASCULAR: Regular rate and rhythm without murmurs, gallops, or rubs. RESPIRATORY: Breath sounds equal bilaterally. No accessory muscle use. GASTROINTESTINAL: Abdomen soft, non-tender, nondistended. MUSCULOSKELETAL: No cyanosis, or edema. BACK: Nontender without obvious deformity. No CVA tenderness. EXTREMITIES: No clubbing cyanosis or edema A/P Assessment and Plan Respiratory distress - Improving on BiPAP - Continue steroids per space sciences director - Continue DuoNeb scheduled and when necessary Tachycardia - Improved with Lopressor IV Leukocytosis - Reactive??? - Started on broad-spectrum antibiotic - Trending down Status post reversal colectomy and incisional hernia repair - Postop day 3 - Management per general surgery DVT GI prophylaxis - Lovenox Pepcid Overall impression: Abdomen CT benign aside from extensive bowel gas. Chest CT with consolidated bases, possible pneumonia. Breathing is much improved from yesterday. Carlos Guevara MD January 24, 2017 09:05
--- NOTE | 2017-01-24 12:12 | HHI.PR ---
Subjective Remarks Patient remains on 10L non rebreather with good sats, afebrile, tachycardic. Objective Vital Signs Vital Signs Date Time Temp Pulse Resp B/P Pulse Ox O2 Delivery O2 Flow Rate FiO2 01/24/17 10:00 131 01/24/17 09:58 95 Non-Rebreather 15.00 01/24/17 08:00 97.6 92 26 117/72 100 01/24/17 08:00 88 01/24/17 07:00 100 Non-Rebreather 15.00 01/24/17 06:00 137 01/24/17 05:49 24 01/24/17 04:00 97.8 81 19 124/73 99 01/24/17 04:00 81 01/24/17 02:00 142 01/24/17 00:00 89 01/24/17 00:00 98.4 89 20 132/73 94 01/24/17 00:00 94 Bi-Pap 50 01/23/17 23:56 26 01/23/17 23:40 94 50 01/23/17 22:00 100 01/23/17 22:00 26 01/23/17 20:00 94 Partial Rebreather 15.00 01/23/17 20:00 98.2 105 26 117/59 94 01/23/17 20:00 103 01/23/17 19:00 97 Non-Rebreather 15.00 01/23/17 16:00 98.4 128 26 125/84 97 01/23/17 14:00 26 I/O 01/23/17 01/23/17 01/23/17 01/24/17 01/24/17 01/24/17 06:59 14:59 22:59 06:59 14:59 22:59 Intake Total 2208 ml 1426 ml 890 ml 395 ml Output Total 2090 ml 850 ml 540 ml 600 ml Balance 118 ml 576 ml 350 ml -205 ml Intake Oral 240 ml 600 ml 240 ml 60 ml IV Total 1968 ml 826 ml 650 ml 335 ml Output Urine Total 1900 ml 800 ml 500 ml 550 ml Drainage Total 190 ml 50 ml 40 ml 50 ml # Bowel Movements 0 0 0 0 Result Diagram: 01/24/17 0401 01/24/17 040 Other Results Last Impressions Chest X-Ray 01/23/17 0000 Signed Impressions: Service Date/Time: Monday, January 23, 2017 04:21 - CONCLUSION: 1. Slight elevation left hemidiaphragm. 2. Left basilar density likely atelectasis. Walt Johnson MD Chest CT 01/23/17 0000 Signed Impressions: Service Date/Time: Monday, January 23, 2017 13:16 - CONCLUSION: 1. Consolidation is noted in both lung bases with air bronchograms. There is also consolidation along the posterior left major fissure. 2. Cardiomegaly and small pericardial effusion. Conrado Bhatti MD Abdomen/Pelvis CT 01/23/17 0000 Signed Impressions: Service Date/Time: Monday, January 23, 2017 13:16 - CONCLUSION: 1. Interval postsurgical changes status post abdominal hernia repair with soft tissue swelling and gas in the subcutaneous fat. There are surgical drains in place with no drainable fluid collection. 2. Abnormal bowel gas pattern of concern for early or partial small bowel obstruction. 3. New consolidation in both lung bases with minimal effusions. 4. Cardiomegaly with small amount of pericardial fluid. 5. Stable calcification pseudocyst in the tail of the pancreas. Conrado Bhatti MD Laboratory Tests Test 01/23/17 01/24/17 18:20 04:01 Nasal Screen MRSA (PCR) MRSA NOT DETECTED White Blood Count 30.2 TH/MM3 Red Blood Count 3.33 MIL/MM3 Hemoglobin 9.2 GM/DL Hematocrit 29.8 % Mean Corpuscular Volume 89.4 FL Mean Corpuscular Hemoglobin 27.6 PG Mean Corpuscular Hemoglobin 30.9 % Concent Red Cell Distribution Width 15.0 % Platelet Count 466 TH/MM3 Mean Platelet Volume 7.7 FL Neutrophils (%) (Auto) 89.3 % Lymphocytes (%) (Auto) 4.9 % Monocytes (%) (Auto) 5.6 % Eosinophils (%) (Auto) 0.0 % Basophils (%) (Auto) 0.2 % Neutrophils # (Auto) 26.9 TH/MM3 Lymphocytes # (Auto) 1.5 TH/MM3 Monocytes # (Auto) 1.7 TH/MM3 Eosinophils # (Auto) 0.0 TH/MM3 Basophils # (Auto) 0.1 TH/MM3 CBC Comment AUTO DIFF Differential Total Cells 100 Counted Neutrophils % (Manual) 84 % Band Neutrophils % 2 % Lymphocytes % 6 % Monocytes % 8 % Neutrophils # (Manual) 26.0 TH/MM3 Differential Comment FINAL DIFF MANUAL Platelet Estimate HIGH Platelet Morphology Comment NORMAL Sodium Level 142 MEQ/L Potassium Level 4.0 MEQ/L Chloride Level 108 MEQ/L Carbon Dioxide Level 26.1 MEQ/L Anion Gap 8 MEQ/L Blood Urea Nitrogen 19 MG/DL Creatinine 0.87 MG/DL Estimat Glomerular Filtration 88 ML/MIN Rate Random Glucose 151 MG/DL Calcium Level 9.2 MG/DL Objective Remarks GENERAL: Patient is 66 yo lying in recliner chair on non rebreather with good sats. SKIN: Warm and dry. HEAD: Normocephalic. EYES: No scleral icterus. No injection or drainage. NECK: Supple, trachea midline. No JVD or lymphadenopathy. CARDIOVASCULAR: Tachycardic without murmurs, gallops, or rubs. RESPIRATORY: Breath sounds equal bilaterally. No accessory muscle use. GASTROINTESTINAL: Abdomen soft, non-tender, nondistended. MUSCULOSKELETAL: No cyanosis, or edema. Neuro: Awake and alert. A/P Assessment and Plan 1)Resp Insuff 2)COPD 3)? Pneumonia 4)Fluid overload 5)s/p exploratory lap, hernia repair, and colostomy reversal 6)Leukocytosis 7)Anemia 8)Obesity ? CELESTINO 9)Hyperglycemia Plan Continue to wean down oxygen as ansatacio keep sat >92%\ Bronchodilators, change DuoNeb to Atrovent nebs for tachycardia NIPPV PRN for resp distress Solumederol 40mg IV Q6 CT chest yesterday- Bibasilar consolidation with air bronchograms noted. Continue with abx per ID (Zosyn, Vanco) 5/6: NGTD check sputum cx, strep pneumonia and Legionella urinary Ag. Monitor CBC and for signs of infections ( Fever, WBC) Diurese with Bumex 1mg x1 Pain control GI/DVT prophylaxis Continue treatment plan Lencho Echevarria MD January 24, 2017 12:12
[2017-01-24] MEDS ORDERED: RESP: IPRATROPIUM 0.5 MG/2.5 ML NEB NEB PRN (12:15)
[2017-01-24] MEDS ORDERED: BUMETANIDE INJ 1 MG/4 ML VIAL IV PUSH ONE (12:30)
--- NOTE | 2017-01-24 12:35 | HHI.CCPN ---
Subjective Remarks/Hospital Course 66-year-old male with history of a perforated viscus and colostomy in June 2016, who is now back for reversal, as well as an incisional hernia repaired. The patient has known history of chronic obstructive pulmonary disease. Postsurgically he was doing well on the floor however today January 23, 2017 at 4:50 AM the rapid response was called due to patient's tachycardia and respiratory distress as he was also complaining of increasing shortness of breath which previously has been improved with bronchodilator therapy. 01/24: Breathing much improved after diuretics and bronchodilators. Consolidation right lung base worrisome, WBC 30,000 - treat as pneumonia. Episodic a-fib, will try to keep converted with amiodarone while increasing lopressor. Objective Vital Signs Date Time Temp Pulse Resp B/P Pulse Ox O2 Delivery O2 Flow Rate FiO2 01/24/17 10:00 131 01/24/17 09:58 95 Non-Rebreather 15.00 01/24/17 08:00 97.6 26 117/72 01/24/17 00:00 50 Intake and Output 01/23/17 01/23/17 01/24/17 08:00 16:00 00:00 Intake Total 2208 ml 1426 ml 890 ml Output Total 2090 ml 850 ml 540 ml Balance 118 ml 576 ml 350 ml Result Diagram: 01/24/17 0401 01/24/17 0401 Imaging Last 24 hours Impressions Chest X-Ray 01/23/17 0000 Signed Impressions: Service Date/Time: Monday, January 23, 2017 04:21 - CONCLUSION: 1. Slight elevation left hemidiaphragm. 2. Left basilar density likely atelectasis. Walt Johnson MD Objective Remarks GENERAL: Well-nourished, well-developed patient. SKIN: Warm and dry. HEAD: Normocephalic. EYES: No scleral icterus. No injection or drainage. NECK: Supple, trachea midline. No JVD or lymphadenopathy. CARDIOVASCULAR: Regular rate and rhythm without murmurs, gallops, or rubs. RESPIRATORY: Breath sounds equal bilaterally. No accessory muscle use. GASTROINTESTINAL: Abdomen soft, non-tender, nondistended. MUSCULOSKELETAL: No cyanosis, or edema. BACK: Nontender without obvious deformity. No CVA tenderness. EXTREMITIES: No clubbing cyanosis or edema A/P Assessment and Plan Respiratory distress - Improving on BiPAP - Continue steroids per antique dealer - Continue DuoNeb scheduled and when necessary Tachycardia - Improved with Lopressor IV Leukocytosis - Reactive??? - Started on broad-spectrum antibiotic - Trending down Status post reversal colectomy and incisional hernia repair - Postop day 3 - Management per general surgery DVT GI prophylaxis - Lovenox Pepcid Overall impression: Abdomen CT benign aside from extensive bowel gas. Chest CT with consolidated bases, possible pneumonia. Breathing is much improved from yesterday. Need to keep in NSR - should not be difficult. Carlos Guevara MD January 24, 2017 12:35
[2017-01-24] MEDS ORDERED: AMIODARONE INJ 150 MG in DEXTROSE 5% IN WATER 100ML INJ 97 ML IV ONE ×2 (12:45)
[2017-01-24] MEDS: VANCOMYCIN INJ 1,700 MG in SODIUM CHLORID 0.9% 500 ML INJ 500 ML IV SCH (13:55)
--- NOTE | 2017-01-24 14:27 | HHI.IDPN ---
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 He was seen by ID during that admission for intra- abdominal sepsis. He had cecal perforation ? etiology - path ischemic colitis vs pseudomembranous colitis, and was C.diff negative. He was treated with Unasyn IV for Intraabdominal sepsis 2/2 viscus perforation. A large organized fluid collection in Morales pouch was percutaneously drained and culture showed no growth final. Patient reports having well in the interim since discharge. He was electively admitted for reversal, as well as an incisional hernia repaired. His PMHx is also significant for COPD. Postsurgically he was doing well on the floor however on January 23, 2017 at 4:50 AM the rapid response was called due to patient's tachycardia and respiratory distress as he was also complaining of increasing shortness of breath which previously has been improved with bronchodilator therapy. Patient was transferred to the ICU under dryer operator service. At the time of my evaluation patient is in ISC. Overnight patient has remained on BiPAP, not on pressors. He continues to remain tachypneic and tachycardic and appears anxious at times. His urine outpt is adequate. ID consulted for evaluation of Sepsis, possible intra abd vs pulm sepsis in a post op patient. Overnight events reviewed. No fevers No rash No diarrhea Sitting up in a reclined chair. Appears more comfortable today. Has been on Bumex Sats 95% on 100% NRB. Antibiotics Zosyn IV Vanco IV Lines Line sites with no e.o infection. Past Medical History reviewed. Allergies: Coded Allergies: Aspirin (Verified Allergy, Unknown, 01/02/17) Nonsteroidal Anti-Inflammatory Agts (Verified Adverse Reaction, Intermediate, 01/02/17) Objective . Vital Signs Date Time Temp Pulse Resp B/P Pulse Ox O2 Delivery O2 Flow Rate FiO2 01/24/17 10:00 131 01/24/17 09:58 95 Non-Rebreather 15.00 01/24/17 08:00 97.6 92 26 117/72 100 01/24/17 08:00 88 01/24/17 07:00 100 Non-Rebreather 15.00 01/24/17 06:00 137 01/24/17 05:49 24 01/24/17 04:00 97.8 81 19 124/73 99 01/24/17 04:00 81 01/24/17 02:00 142 01/24/17 00:00 89 01/24/17 00:00 98.4 89 20 132/73 94 01/24/17 00:00 94 Bi-Pap 50 01/23/17 23:56 26 01/23/17 23:40 94 50 01/23/17 22:00 100 01/23/17 22:00 26 01/23/17 20:00 94 Partial Rebreather 15.00 01/23/17 20:00 98.2 105 26 117/59 94 01/23/17 20:00 103 01/23/17 19:00 97 Non-Rebreather 15.00 01/23/17 16:00 98.4 128 26 125/84 97 01/23/17 01/23/17 01/24/17 15:00 23:00 07:00 Intake Total 1426 ml 890 ml 395 ml Output Total 850 ml 540 ml 600 ml Balance 576 ml 350 ml -205 ml Intake Oral 600 ml 240 ml 60 ml IV Total 826 ml 650 ml 335 ml Output Urine Total 800 ml 500 ml 550 ml Drainage Total 50 ml 40 ml 50 ml # Bowel Movements 0 0 0 . Laboratory Tests Test 01/23/17 01/24/17 05:05 04:01 White Blood Count 28.7 TH/MM3 30.2 TH/MM3 Red Blood Count 3.31 MIL/MM3 3.33 MIL/MM3 Hemoglobin 9.6 GM/DL 9.2 GM/DL Hematocrit 29.0 % 29.8 % Mean Corpuscular Volume 87.5 FL 89.4 FL Mean Corpuscular Hemoglobin 29.0 PG 27.6 PG Mean Corpuscular Hemoglobin 33.1 % 30.9 % Concent Red Cell Distribution Width 15.6 % 15.0 % Platelet Count 494 TH/MM3 466 TH/MM3 Mean Platelet Volume 7.8 FL 7.7 FL Neutrophils (%) (Auto) 92.8 % 89.3 % Lymphocytes (%) (Auto) 2.9 % 4.9 % Monocytes (%) (Auto) 3.0 % 5.6 % Eosinophils (%) (Auto) 0.0 % 0.0 % Basophils (%) (Auto) 1.3 % 0.2 % Neutrophils # (Auto) 26.6 TH/MM3 26.9 TH/MM3 Lymphocytes # (Auto) 0.8 TH/MM3 1.5 TH/MM3 Monocytes # (Auto) 0.9 TH/MM3 1.7 TH/MM3 Eosinophils # (Auto) 0.0 TH/MM3 0.0 TH/MM3 Basophils # (Auto) 0.4 TH/MM3 0.1 TH/MM3 CBC Comment AUTO DIFF AUTO DIFF Differential Total Cells 100 100 Counted Neutrophils % (Manual) 92 % 84 % Band Neutrophils % 4 % 2 % Lymphocytes % 1 % 6 % Monocytes % 3 % 8 % Neutrophils # (Manual) 27.6 TH/MM3 26.0 TH/MM3 Differential Comment FINAL DIFF FINAL DIFF MANUAL MANUAL Platelet Estimate HIGH HIGH Platelet Morphology Comment NORMAL NORMAL Red Cell Morphology Comment NORMAL Laboratory Tests Test 01/23/17 01/24/17 05:05 04:01 Sodium Level 142 MEQ/L 142 MEQ/L Potassium Level 3.9 MEQ/L 4.0 MEQ/L Chloride Level 108 MEQ/L 108 MEQ/L Carbon Dioxide Level 24.8 MEQ/L 26.1 MEQ/L Anion Gap 9 MEQ/L 8 MEQ/L Blood Urea Nitrogen 10 MG/DL 19 MG/DL Creatinine 0.97 MG/DL 0.87 MG/DL Estimat Glomerular Filtration 78 ML/MIN 88 ML/MIN Rate Random Glucose 214 MG/DL 151 MG/DL Lactic Acid Level 2.6 mmol/L Calcium Level 8.3 MG/DL 9.2 MG/DL Total Bilirubin 0.5 MG/DL Aspartate Amino Transf 29 U/L (AST/SGOT) Alanine Aminotransferase 16 U/L (ALT/SGPT) Alkaline Phosphatase 64 U/L Troponin I LESS THAN 0.02 NG/ML B-Type Natriuretic Peptide 87 PG/ML Total Protein 7.7 GM/DL Albumin 2.9 GM/DL Microbiology Date/Time Procedure Status Source Growth 01/23/17 05:05 Aerobic Blood Culture - Preliminary Resulted Blood Peripheral NO GROWTH IN 1 DAY 01/23/17 05:05 Anaerobic Blood Culture - Preliminary Resulted Blood Peripheral NO GROWTH IN 1 DAY 01/23/17 05:15 Aerobic Blood Culture - Preliminary Resulted Blood Peripheral NO GROWTH IN 1 DAY 01/23/17 05:15 Anaerobic Blood Culture - Preliminary Resulted Blood Peripheral NO GROWTH IN 1 DAY Imaging Last Impressions Chest X-Ray 01/23/17 0000 Signed Impressions: Service Date/Time: Monday, January 23, 2017 04:21 - CONCLUSION: 1. Slight elevation left hemidiaphragm. 2. Left basilar density likely atelectasis. Walt Johnson MD Chest CT 01/23/17 0000 Signed Impressions: Service Date/Time: Monday, January 23, 2017 13:16 - CONCLUSION: 1. Consolidation is noted in both lung bases with air bronchograms. There is also consolidation along the posterior left major fissure. 2. Cardiomegaly and small pericardial effusion. Conrado Bhatti MD Abdomen/Pelvis CT 01/23/17 0000 Signed Impressions: Service Date/Time: Monday, January 23, 2017 13:16 - CONCLUSION: 1. Interval postsurgical changes status post abdominal hernia repair with soft tissue swelling and gas in the subcutaneous fat. There are surgical drains in place with no drainable fluid collection. 2. Abnormal bowel gas pattern of concern for early or partial small bowel obstruction. 3. New consolidation in both lung bases with minimal effusions. 4. Cardiomegaly with small amount of pericardial fluid. 5. Stable calcification pseudocyst in the tail of the pancreas. Conrado Bhatti MD Physical Exam GENERAL: Obese, well-developed patient, in no apparent distress. SKIN: No rashes, ecchymoses or lesions. Cool and dry. HEAD: Atraumatic. Normocephalic. No temporal or scalp tenderness. EYES: Pupils equal round and reactive. Extraocular motions intact. No scleral icterus. No injection or drainage. ENT: BiPAP mask on. NECK: Trachea midline. Supple, nontender, no meningeal signs. CARDIOVASCULAR: RRR, No murmrur. RESPIRATORY: Clear to auscultation. Breath sounds equal bilaterally. GASTROINTESTINAL: Abdomen soft, Non tender. JORJE drains with sanguinous drainage. Surgical dressing in place with binder. MUSCULOSKELETAL: Extremities without clubbing, cyanosis. Pedal edema noted. NEUROLOGICAL: Awake and alert. Grossly non focal. Psych: appears anxious. IV line sites with no e.o infection. Assessment & Plan Remarks Sepsis in a post op patient. Pneumonia High grade Leucocytosis. pod 3 ex lap, ana, hernia repair colostomy reversal COPD ? acute exacerbation. Acute resp failure Obese ? CELESTINO component. Recs Continue Zosyn IV (adequate no double coverage needed with Cefepime and Flagyl) Continue Vanco IV (target 15-20 for HCAP pneumonia) Nursing asked to send Urine legionella and Pneumo Ag. Continue Azithro oral. CT reviewed by me c/w pneumonia. Follow cultures Follow clinically. d/w RN and family in room. Floridalma Schneider MD January 24, 2017 14:27 Floridalma Schneider MD January 24, 2017 14:27
[2017-01-24] MEDS: AMIODARONE INJ 450 MG in DEXTROSE 5% IN WATE(EXCEL) INJ 241 ML IV SCH ×2 (15:28)
[2017-01-24] MEDS: ENOXAPARIN SODIUM 30 MG/0.3 ML SYRINGE SQ SCH (17:03)
[2017-01-24] MEDS: PANTOPRAZOLE SODIUM 40 MG VIAL IV SCH (19:21)
[2017-01-24] MEDS: ZOLPIDEM TARTRATE 10 MG TAB PO PRN (20:27)
[2017-01-24] MEDS: TAMSULOSIN HCL 0.4 MG CAP PO SCH (20:27)
[2017-01-24] MEDS: RESP: IPRATROPIUM 0.5 MG/2.5 ML NEB NEB SCH (21:09)
[2017-01-24] MEDS: MORPHINE SULFATE 30 MG/30 ML PCA IV SCH (23:00)
[2017-01-24] MEDS: LORazepam 2 MG/ML VIAL IV PUSH PRN (23:55)
[2017-01-25] VITALS (17 sets, daily range): BP systolic 105–146; BP diastolic 58–72; PULSE 63–120; RESP 13–26; TEMP 97.5–97.9; O2SAT 92–100
[2017-01-25] MEDS ORDERED: METOPROLOL TARTRATE 25 MG TAB PO SCH
[2017-01-25] MEDS: AMIODARONE INJ 450 MG in DEXTROSE 5% IN WATE(EXCEL) INJ 241 ML IV SCH ×2 (01:32)
[2017-01-25] MEDS: RESP: IPRATROPIUM 0.5 MG/2.5 ML NEB NEB SCH ×2 (03:38→10:25)
[2017-01-25] MEDS: LORazepam 1 MG TAB PO PRN ×3 (05:05→22:19)
[2017-01-25] MEDS: PIPERACIL-TAZO 4.5 GM PREMIX 100 ML IV SCH ×4 (05:05→23:36)
[2017-01-25] MEDS: PCA - TOTAL MG MORPHINE DELIVERED PER SHIFT SCH (06:00)
[2017-01-25] MEDS: SODIUM CHLORIDE 0.9% FLUSH 10 ML FLUSH IV FLUSH SCH ×2 (09:00→20:03)
[2017-01-25] MEDS: RESP: ALBUTEROL 1.25 MG/3 ML NEB (PRN) NEB (10:25)
--- NOTE | 2017-01-25 10:43 | HHI.CCPN ---
Subjective Remarks/Hospital Course 66-year-old male with history of a perforated viscus and colostomy in June 2016, who is now back for reversal, as well as an incisional hernia repaired. The patient has known history of chronic obstructive pulmonary disease. Postsurgically he was doing well on the floor however today January 23, 2017 at 4:50 AM the rapid response was called due to patient's tachycardia and respiratory distress as he was also complaining of increasing shortness of breath which previously has been improved with bronchodilator therapy. 01/24: Breathing much improved after diuretics and bronchodilators. Consolidation right lung base worrisome, WBC 30,000 - treat as pneumonia. Episodic a-fib, will try to keep converted with amiodarone while increasing Lopressor. 01/25: Tachypneic and short of breath today. Intermittently requiring BiPAP was on BiPAP overnight for approximately 6 hours. Chest x-ray and WBC pending today. ID following Objective Vital Signs Date Time Temp Pulse Resp B/P Pulse Ox O2 Delivery O2 Flow Rate FiO2 01/25/17 08:32 92 Nasal Cannula 5.00 01/25/17 07:00 100 01/25/17 06:00 67 01/25/17 06:00 22 01/25/17 04:00 97.6 105/58 Intake and Output 01/24/17 01/24/17 01/24/17 07:59 15:59 23:59 Intake Total 395 ml 777 ml 1357 ml Output Total 600 ml 330 ml 1080 ml Balance -205 ml 447 ml 277 ml Result Diagram: 01/24/17 0401 01/24/17 0401 Other Results Microbiology Date/Time Procedure Status Source Growth 01/24/17 19:15 Legionella Antigen - Final Complete Urine Catheterized Urine PRESUMPTIVE NEGATIVE FOR LEGIONELLA P... 01/24/17 19:15 Streptococcus pneumoniae Antigen (M - Final Complete Urine Catheterized Urine PRESUMPTIVE NEGATIVE FOR STREPTOCOCCU... Imaging Last 24 hours Impressions Chest X-Ray 01/23/17 0000 Signed Impressions: Service Date/Time: Monday, January 23, 2017 04:21 - CONCLUSION: 1. Slight elevation left hemidiaphragm. 2. Left basilar density likely atelectasis. Walt Johnson MD Objective Remarks GENERAL: Well-nourished, well-developed patient. Moderately short of breath SKIN: Warm and dry. HEAD: Normocephalic. EYES: No scleral icterus. No injection or drainage. NECK: Supple, trachea midline. No JVD or lymphadenopathy. CARDIOVASCULAR: Regular rate and rhythm without murmurs, gallops, or rubs. RESPIRATORY: Breath sounds equal bilaterally, but diminished. Some accessory muscle use. GASTROINTESTINAL: Abdomen soft, non-tender, nondistended. Abdominal binder in place MUSCULOSKELETAL: No cyanosis, or edema. BACK: Nontender without obvious deformity. No CVA tenderness. EXTREMITIES: No clubbing cyanosis or edema NEURO: Alert awake oriented 3. No focal deficits A/P Assessment and Plan Acute hypoxemic respiratory failure Bibasilar pneumonia Acute COPD exacerbation - Continue on BiPAP PRN - Star IV Solu-Medrol 60 every 12 hours. Start budesonide/formoterol inhaled, Spiriva - Continue DuoNeb scheduled and when necessary - Broad-spectrum antibiotics per ID - EzPAP, Acapella Paroxysmal atrial fibrillation - Discontinue IV Amio - Increase metoprolol 100 mg every 12 Leukocytosis/sepsis - Started on broad-spectrum antibiotic per ID - Trending up, 30,000 yesterday. CXR WBC pending today - Sepsis most likely from pneumonia Status post reversal colectomy and incisional hernia repair - Postop day 4 - Management per general surgery DVT GI prophylaxis - Lovenox Pepcid Overall impression: Abdomen CT benign aside from extensive bowel gas. Chest CT with consolidated bases, probable pneumonia. remains critically ill with hypoxemic respiratory failure, COPD exacerbation Elana Vick MD January 25, 2017 10:42
--- NOTE | 2017-01-25 10:54 | RADRPT ---
EXAM DATE/TIME: 01/25/2017 10:38 [facility] COMPARISON: CHEST SINGLE AP, January 23, 2017, 4:21. INDICATIONS : Shortness of breath. MEDICAL HISTORY : Hypertension. Chronic obstructive pulmonary disease. Asthma SURGICAL HISTORY : None. ENCOUNTER: Subsequent ACUITY: 4 - 6 days PAIN SCORE: 0/10 LOCATION: Bilateral chest FINDINGS: A single view of the chest demonstrates cardiomegaly with small pleural effusions and bibasilar densi ties. Osseous structures are intact. CONCLUSION: 1. Cardiomegaly with small pleural effusions. 2. Bibasilar densities likely atelectasis. Walt Johnson MD on January 25, 2017 at 10:50 Board Certified Radiologist. This report was verified electronically.
[2017-01-25] MEDS: TIOTROPIUM BROMIDE 18 MCG INH INH SCH (11:00)
[2017-01-25] MEDS: DOCUSATE SODIUM 100 MG CAP PO SCH ×2 (11:02→19:57)
[2017-01-25] MEDS: AZITHROMYCIN 250 MG TAB PO SCH (11:03)
[2017-01-25] MEDS: LISINOPRIL 5 MG TAB PO SCH (11:03)
[2017-01-25] MEDS: ALVIMOPAN 12 MG CAPSULE - Post-op dosing PO SCH ×2 (11:03→20:03)
[2017-01-25] MEDS: ALLOPURINOL 100 MG TAB PO SCH (11:03)
[2017-01-25] MEDS: VANCOMYCIN INJ 1,700 MG in SODIUM CHLORID 0.9% 500 ML INJ 500 ML IV SCH (11:04)
[2017-01-25] MEDS: methylPREDNISolone SOD SUCC 125 MG/2 ML VIAL IV PUSH SCH ×2 (11:07→20:03)
[2017-01-25] MEDS: METOPROLOL TARTRATE 50 MG TAB PO SCH ×2 (11:42→23:36)
[2017-01-25] MEDS: RESP: ALBUTEROL 2.5 MG/IPRATROPIUM 0.5 MG NEB (SCH) NEB ×4 (11:50→23:36)
[2017-01-25 12:00] LABS: BICARBONATE 27.7 MEQ/L (21.0-32.0); POTASSIUM 3.1 MEQ/L (3.5-5.1)
[2017-01-25] MEDS: BUDESONIDE-FORMOTEROL 160/4.5 MCG INHALER INH SCH ×2 (12:00→20:03)
[2017-01-25 12:01] LABS: AUTOMATED NEUTROPHIL # 16.4 TH/MM3 (1.8-7.7); BASOPHIL # 0.1 TH/MM3 (0-0.2); BASOPHIL % 0.5 % (0.0-2.0); EOSINOPHIL # 0.2 TH/MM3 (0-0.4); EOSINOPHIL % 0.8 % (0.0-4.0); HEMATOCRIT 29.4 % (39.0-51.0); MEAN CELL VOLUME 89.7 FL (80.0-100.0); MEAN CORPUSCULAR HEMOGLOBIN 28.4 PG (27.0-34.0); MEAN CORPUSCULAR HGB CONC 31.7 % (32.0-36.0); MONO % 11.9 % (0.0-8.0); NEUT % 69.8 % (16.0-70.0); PLATELET COUNT 561 TH/MM3 (150-450); RED BLOOD COUNT 3.28 MIL/MM3 (4.50-5.90); WHITE BLOOD COUNT 23.6 TH/MM3 (4.0-11.0)
[2017-01-25 12:03] LABS: HEMO FLAGS AUTO DIFF
[2017-01-25 12:50] LABS: BANDS 2 % (0-6); EOSINOPHILS 2 % (0-4); NEUTROPHIL # MANUAL DIFF 15.8 TH/MM3 (1.8-7.7); PLATELET ESTIMATE SMEAR HIGH (NORMAL); PLATELET MORPHOLOGY NORMAL (NORMAL); POLYS (SEG NEUTROPHILS) 65 % (16-70); TARGET CELLS 1+ (NORMAL); WBC DIFF SAMPLE 100
[2017-01-25 12:51] LABS: SCAN/DIFF FINAL DIFF MANUAL
--- NOTE | 2017-01-25 13:02 | HHI.PR ---
Subjective Subjective Notes Resting in bed Off BiPAP--- on NRB mask Slept well last night Objective Vitals/I&O Vital Signs Date Time Temp Pulse Resp B/P Pulse Ox O2 Delivery O2 Flow Rate FiO2 01/25/17 08:32 92 Nasal Cannula 5.00 01/25/17 07:00 100 01/25/17 06:00 67 01/25/17 06:00 22 01/25/17 04:00 97.6 105/58 Labs Laboratory Tests Test 01/25/17 11:23 White Blood Count 23.6 Red Blood Count 3.28 Hemoglobin 9.3 Hematocrit 29.4 Mean Corpuscular Volume 89.7 Mean Corpuscular Hemoglobin 28.4 Mean Corpuscular Hemoglobin 31.7 Concent Red Cell Distribution Width 15.0 Platelet Count 561 Mean Platelet Volume 7.9 Neutrophils (%) (Auto) 69.8 Lymphocytes (%) (Auto) 17.0 Monocytes (%) (Auto) 11.9 Eosinophils (%) (Auto) 0.8 Basophils (%) (Auto) 0.5 Neutrophils # (Auto) 16.4 Lymphocytes # (Auto) 4.0 Monocytes # (Auto) 2.8 Eosinophils # (Auto) 0.2 Basophils # (Auto) 0.1 CBC Comment AUTO DIFF Differential Total Cells 100 Counted Neutrophils % (Manual) 65 Band Neutrophils % 2 Lymphocytes % 19 Monocytes % 12 Eosinophils % 2 Neutrophils # (Manual) 15.8 Differential Comment FINAL DIFF MANUAL Platelet Estimate HIGH Platelet Morphology Comment NORMAL Target Cells 1+ Sodium Level 143 Potassium Level 3.1 Chloride Level 108 Carbon Dioxide Level 27.7 Anion Gap 7 Blood Urea Nitrogen 19 Creatinine 0.85 Estimat Glomerular Filtration 91 Rate Random Glucose 100 Calcium Level 9.0 Date/Time Procedure Status Source Growth 01/24/17 19:15 Legionella Antigen - Final Complete Urine Catheterized Urine PRESUMPTIVE NEGATIVE FOR LEGIONELLA P... 01/24/17 19:15 Streptococcus pneumoniae Antigen (M - Final Complete Urine Catheterized Urine PRESUMPTIVE NEGATIVE FOR STREPTOCOCCU... 01/23/17 05:15 Aerobic Blood Culture - Preliminary Resulted Blood Peripheral NO GROWTH IN 2 DAYS 01/23/17 05:15 Anaerobic Blood Culture - Preliminary Resulted Blood Peripheral NO GROWTH IN 2 DAYS Cardiovascular: Regular Lungs: Clear Abdomen: Other (midline incision with daisy in place----minimal drainage on bandage ) Extremities: Other (mild generalzed edema ) A/P Assessment and Plan 66 year old male POD4 ex lap; incisional hernia repair; colostomy reversal -Breathing improved some -HR controlled -Pain controlled -OOB and mobilize as tolerated -IS -Monitor JORJE -Dry dressing daily and PRN on midline incision Attending Statement stable overnight, off bipap- resp inproving continue wound care continue icu Attestation The exam, history, and the medical decision-making described in the above note were completed with the assistance of the mid-level provider. I reviewed and agree with the findings presented. I attest that I had a [id number] encounter with the patient on the same day, and personally performed and documented my assessment and findings in the medical record. Supriya Shankar January 25, 2017 13:02 Andreas Vernon MD January 30, 2017 17:07
[2017-01-25] MEDS: oxyCODONE/ACETAMINOPHEN 10 MG/325 MG TAB PO PRN ×2 (15:44→22:20)
--- NOTE | 2017-01-25 15:54 | HHI.PR ---
Subjective Remarks ASS: RESPIRATORY FAILURE COPD PNA Objective Vital Signs Date Time Temp Pulse Resp B/P Pulse Ox O2 Delivery O2 Flow Rate FiO2 01/25/17 14:00 82 01/25/17 12:00 81 01/25/17 12:00 97.6 81 16 108/71 97 01/25/17 10:00 80 01/25/17 08:32 92 Nasal Cannula 5.00 01/25/17 08:00 73 01/25/17 08:00 97.7 73 21 124/72 92 01/25/17 07:00 100 Non-Rebreather 100 01/25/17 06:00 67 01/25/17 06:00 22 01/25/17 04:00 68 01/25/17 04:00 97.6 63 13 105/58 99 01/25/17 03:43 100 40 01/25/17 02:00 68 01/25/17 00:10 98 50 01/25/17 00:00 97.5 94 24 132/72 100 01/25/17 00:00 94 01/25/17 00:00 100 Bi-Pap 50 01/24/17 23:05 21 01/24/17 23:00 21 01/24/17 22:00 21 01/24/17 22:00 81 01/24/17 21:00 95 Partial Rebreather 10.00 95 01/24/17 20:00 79 01/24/17 20:00 97.6 79 22 118/69 99 01/24/17 19:00 98 Non-Rebreather 15.00 01/24/17 18:00 80 01/24/17 16:00 87 01/24/17 16:00 98.6 81 19 148/90 98 I/O 01/24/17 01/24/17 01/24/17 01/25/17 01/25/17 01/25/17 07:00 15:00 23:00 07:00 15:00 23:00 Intake Total 395 ml 777 ml 1357 ml 545 ml 1556 ml Output Total 600 ml 330 ml 1080 ml 40 ml 960 ml Balance -205 ml 447 ml 277 ml 505 ml 596 ml Intake Oral 60 ml 480 ml 480 ml 240 ml 660 ml IV Total 335 ml 297 ml 877 ml 305 ml 896 ml Output Urine Total 550 ml 300 ml 1050 ml 0 ml 250 ml Stool Total 650 ml Drainage Total 50 ml 30 ml 30 ml 40 ml 60 ml # Voids 1 # Bowel Movements 0 1 2 Result Diagram: 01/25/17 1123 01/25/17 1123 Objective Remarks GENERAL: SKIN: Warm and dry. HEAD: Atraumatic. Normocephalic. EYES: Pupils equal and round. No scleral icterus. No injection or drainage. ENT: No nasal bleeding or discharge. Mucous membranes pink and moist. NECK: Trachea midline. No JVD. CARDIOVASCULAR: Regular rate and rhythm. RESPIRATORY: No accessory muscle use. SCATTERED RONCHI AT BASIS. GASTROINTESTINAL: Abdomen soft, non-tender, nondistended. Hepatic and splenic margins not palpable. MUSCULOSKELETAL: Extremities without clubbing, cyanosis, or edema. No obvious deformities. NEUROLOGICAL: Awake and alert. No obvious cranial nerve deficits. Motor grossly within normal limits. Five out of 5 muscle strength in the arms and legs. Normal speech. PSYCHIATRIC: Appropriate mood and affect; insight and judgment normal. Assessment and Plan Assessment and Plan RESPIRATORY FAILURE COPD PNA PLAN: O2 NEEDED PUNL. TOILET ANTIBIOTIC THERAPY Amelia Cisneros MD January 25, 2017 15:53
--- NOTE | 2017-01-25 16:42 | HHI.IDPN ---
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 He was seen by ID during that admission for intra- abdominal sepsis. He had cecal perforation ? etiology - path ischemic colitis vs pseudomembranous colitis, and was C.diff negative. He was treated with Unasyn IV for Intraabdominal sepsis 2/2 viscus perforation. A large organized fluid collection in Morales pouch was percutaneously drained and culture showed no growth final. Patient reports having well in the interim since discharge. He was electively admitted for reversal, as well as an incisional hernia repaired. His PMHx is also significant for COPD. Postsurgically he was doing well on the floor however on January 23, 2017 at 4:50 AM the rapid response was called due to patient's tachycardia and respiratory distress as he was also complaining of increasing shortness of breath which previously has been improved with bronchodilator therapy. Patient was transferred to the ICU under stem assembler service. At the time of my evaluation patient is in ISC. Overnight patient has remained on BiPAP, not on pressors. He continues to remain tachypneic and tachycardic and appears anxious at times. His urine outpt is adequate. ID consulted for evaluation of Sepsis, possible intra abd vs pulm sepsis in a post op patient. Overnight events reviewed. No fevers No rash No diarrhea Sitting up in a reclined chair. Appears more comfortable today. Sats 92% on 5L NC. Antibiotics Zosyn IV Vanco IV Lines Line sites with no e.o infection. Past Medical History reviewed. Allergies: Coded Allergies: Aspirin (Verified Allergy, Unknown, 01/02/17) Nonsteroidal Anti-Inflammatory Agts (Verified Adverse Reaction, Intermediate, 01/02/17) Objective . Vital Signs Date Time Temp Pulse Resp B/P Pulse Ox O2 Delivery O2 Flow Rate FiO2 01/25/17 14:00 82 01/25/17 12:00 81 01/25/17 12:00 97.6 81 16 108/71 97 01/25/17 10:00 80 01/25/17 08:32 92 Nasal Cannula 5.00 01/25/17 08:00 73 01/25/17 08:00 97.7 73 21 124/72 92 01/25/17 07:00 100 Non-Rebreather 100 01/25/17 06:00 67 01/25/17 06:00 22 01/25/17 04:00 68 01/25/17 04:00 97.6 63 13 105/58 99 01/25/17 03:43 100 40 01/25/17 02:00 68 01/25/17 00:10 98 50 01/25/17 00:00 97.5 94 24 132/72 100 01/25/17 00:00 94 01/25/17 00:00 100 Bi-Pap 50 01/24/17 23:05 21 01/24/17 23:00 21 01/24/17 22:00 21 01/24/17 22:00 81 01/24/17 21:00 95 Partial Rebreather 10.00 95 01/24/17 20:00 79 01/24/17 20:00 97.6 79 22 118/69 99 01/24/17 19:00 98 Non-Rebreather 15.00 01/24/17 18:00 80 01/24/17 01/24/17 01/25/17 15:00 23:00 07:00 Intake Total 777 ml 1357 ml 545 ml Output Total 330 ml 1080 ml 40 ml Balance 447 ml 277 ml 505 ml Intake Oral 480 ml 480 ml 240 ml IV Total 297 ml 877 ml 305 ml Output Urine Total 300 ml 1050 ml 0 ml Drainage Total 30 ml 30 ml 40 ml # Bowel Movements 1 . Laboratory Tests Test 01/24/17 01/25/17 04:01 11:23 White Blood Count 30.2 TH/MM3 23.6 TH/MM3 Red Blood Count 3.33 MIL/MM3 3.28 MIL/MM3 Hemoglobin 9.2 GM/DL 9.3 GM/DL Hematocrit 29.8 % 29.4 % Mean Corpuscular Volume 89.4 FL 89.7 FL Mean Corpuscular Hemoglobin 27.6 PG 28.4 PG Mean Corpuscular Hemoglobin 30.9 % 31.7 % Concent Red Cell Distribution Width 15.0 % 15.0 % Platelet Count 466 TH/MM3 561 TH/MM3 Mean Platelet Volume 7.7 FL 7.9 FL Neutrophils (%) (Auto) 89.3 % 69.8 % Lymphocytes (%) (Auto) 4.9 % 17.0 % Monocytes (%) (Auto) 5.6 % 11.9 % Eosinophils (%) (Auto) 0.0 % 0.8 % Basophils (%) (Auto) 0.2 % 0.5 % Neutrophils # (Auto) 26.9 TH/MM3 16.4 TH/MM3 Lymphocytes # (Auto) 1.5 TH/MM3 4.0 TH/MM3 Monocytes # (Auto) 1.7 TH/MM3 2.8 TH/MM3 Eosinophils # (Auto) 0.0 TH/MM3 0.2 TH/MM3 Basophils # (Auto) 0.1 TH/MM3 0.1 TH/MM3 CBC Comment AUTO DIFF AUTO DIFF Differential Total Cells 100 100 Counted Neutrophils % (Manual) 84 % 65 % Band Neutrophils % 2 % 2 % Lymphocytes % 6 % 19 % Monocytes % 8 % 12 % Neutrophils # (Manual) 26.0 TH/MM3 15.8 TH/MM3 Differential Comment FINAL DIFF FINAL DIFF MANUAL MANUAL Platelet Estimate HIGH HIGH Platelet Morphology Comment NORMAL NORMAL Eosinophils % 2 % Target Cells 1+ Laboratory Tests Test 01/24/17 01/25/17 04:01 11:23 Sodium Level 142 MEQ/L 143 MEQ/L Potassium Level 4.0 MEQ/L 3.1 MEQ/L Chloride Level 108 MEQ/L 108 MEQ/L Carbon Dioxide Level 26.1 MEQ/L 27.7 MEQ/L Anion Gap 8 MEQ/L 7 MEQ/L Blood Urea Nitrogen 19 MG/DL 19 MG/DL Creatinine 0.87 MG/DL 0.85 MG/DL Estimat Glomerular Filtration 88 ML/MIN 91 ML/MIN Rate Random Glucose 151 MG/DL 100 MG/DL Calcium Level 9.2 MG/DL 9.0 MG/DL Microbiology Date/Time Procedure Status Source Growth 01/23/17 05:05 Aerobic Blood Culture - Preliminary Resulted Blood Peripheral NO GROWTH IN 2 DAYS 01/23/17 05:05 Anaerobic Blood Culture - Preliminary Resulted Blood Peripheral NO GROWTH IN 2 DAYS 01/23/17 05:15 Aerobic Blood Culture - Preliminary Resulted Blood Peripheral NO GROWTH IN 2 DAYS 01/23/17 05:15 Anaerobic Blood Culture - Preliminary Resulted Blood Peripheral NO GROWTH IN 2 DAYS 01/24/17 19:15 Legionella Antigen - Final Complete Urine Catheterized Urine PRESUMPTIVE NEGATIVE FOR LEGIONELLA P... 01/24/17 19:15 Streptococcus pneumoniae Antigen (M - Final Complete Urine Catheterized Urine PRESUMPTIVE NEGATIVE FOR STREPTOCOCCU... 01/25/17 13:00 Gram Stain Received Wound Abdomen Pending 01/25/17 13:00 Wound Culture Received Wound Abdomen Pending Imaging Last Impressions Chest X-Ray 01/23/17 Signed Impressions: Service Date/Time: Monday, January 23, 2017 04:21 - CONCLUSION: 1. Slight elevation left hemidiaphragm. 2. Left basilar density likely atelectasis. Walt Johnson MD Chest CT 01/23/17 Signed Impressions: Service Date/Time: Monday, January 23, 2017 13:16 - CONCLUSION: 1. Consolidation is noted in both lung bases with air bronchograms. There is also consolidation along the posterior left major fissure. 2. Cardiomegaly and small pericardial effusion. Conrado Bhatti MD Abdomen/Pelvis CT 01/23/17 Signed Impressions: Service Date/Time: Monday, January 23, 2017 13:16 - CONCLUSION: 1. Interval postsurgical changes status post abdominal hernia repair with soft tissue swelling and gas in the subcutaneous fat. There are surgical drains in place with no drainable fluid collection. 2. Abnormal bowel gas pattern of concern for early or partial small bowel obstruction. 3. New consolidation in both lung bases with minimal effusions. 4. Cardiomegaly with small amount of pericardial fluid. 5. Stable calcification pseudocyst in the tail of the pancreas. Conrado Bhatti MD Physical Exam GENERAL: Obese, well-developed patient, in no apparent distress. SKIN: No rashes, ecchymoses or lesions. Cool and dry. HEAD: Atraumatic. Normocephalic. No temporal or scalp tenderness. EYES: Pupils equal round and reactive. Extraocular motions intact. No scleral icterus. No injection or drainage. ENT: BiPAP mask on. NECK: Trachea midline. Supple, nontender, no meningeal signs. CARDIOVASCULAR: RRR, No murmrur. RESPIRATORY: Clear to auscultation. Breath sounds equal bilaterally. GASTROINTESTINAL: Abdomen soft, Non tender. JORJE drains with sanguinous drainage. Surgical dressing in place with binder. MUSCULOSKELETAL: Extremities without clubbing, cyanosis. Pedal edema noted. NEUROLOGICAL: Awake and alert. Grossly non focal. Psych: appears anxious. IV line sites with no e.o infection. Assessment & Plan Remarks Sepsis in a post op patient. Pneumonia High grade Leucocytosis. pod 3 ex lap, ana, hernia repair colostomy reversal COPD ? acute exacerbation. Acute resp failure Obese ? CELESTINO component. Recs Continue Zosyn IV (adequate no double coverage needed with Cefepime and Flagyl) Continue Vanco IV (target 15-20 for HCAP pneumonia) Continue Azithro oral. CT reviewed by me c/w pneumonia. Follow cultures Follow clinically. d/w RN and family in room. Floridalma Schneider MD January 25, 2017 16:42
[2017-01-25] MEDS: ENOXAPARIN SODIUM 40 MG/0.4 ML SYRINGE SQ SCH (17:39)
[2017-01-25] MEDS: TAMSULOSIN HCL 0.4 MG CAP PO SCH (20:03)
[2017-01-25] MEDS: PANTOPRAZOLE SODIUM 40 MG VIAL IV SCH (20:03)
[2017-01-25] MEDS ORDERED: ICU - POTASSIUM CHLORIDE/AQUEOUS SOLN 40 MEQ/100 ML IVPB IV PRN (21:00)
[2017-01-25] MEDS ORDERED: POTASSIUM CHLORIDE 25 MEQ EFFERVESCENT TAB PO PRN (21:00)
[2017-01-25] MEDS ORDERED: ICU - CALL ORDERING PHYSICIAN PRN (21:00)
[2017-01-25] MEDS: ICU - POTASSIUM CHLORIDE/AQUEOUS SOLN 20 MEQ/100 ML IVPB IV PRN (21:21)
[2017-01-26] VITALS (14 sets, daily range): BP systolic 114–139; BP diastolic 59–74; PULSE 74–93; RESP 24–38; TEMP 97.3–98.2; O2SAT 88–100
[2017-01-26] MEDS: ICU - POTASSIUM CHLORIDE/AQUEOUS SOLN 20 MEQ/100 ML IVPB IV PRN (00:14)
[2017-01-26] MEDS ORDERED: PHARMACY ORDERED LAB ONE (01:45)
[2017-01-26] MEDS: VANCOMYCIN INJ 1,700 MG in SODIUM CHLORID 0.9% 500 ML INJ 500 ML IV SCH (03:06)
[2017-01-26] MEDS: MORPHINE SULFATE 4 MG/ML INJ IV PUSH PRN ×2 (03:30→14:59)
[2017-01-26] MEDS: RESP: ALBUTEROL 2.5 MG/IPRATROPIUM 0.5 MG NEB (SCH) NEB ×6 (03:43→23:05)
[2017-01-26 03:46] LABS: AUTOMATED NEUTROPHIL # 16.6 TH/MM3 (1.8-7.7); BASOPHIL # 0.1 TH/MM3 (0-0.2); BASOPHIL % 0.6 % (0.0-2.0); HEMO FLAGS DIFF FINAL; LYMPH % 6.8 % (9.0-44.0); LYMPHOCYTE # 1.3 TH/MM3 (1.0-4.8); MEAN CELL VOLUME 87.8 FL (80.0-100.0); MEAN CORPUSCULAR HEMOGLOBIN 28.3 PG (27.0-34.0); MEAN CORPUSCULAR HGB CONC 32.2 % (32.0-36.0); MONO % 3.6 % (0.0-8.0); PLATELET COUNT 535 TH/MM3 (150-450); WHITE BLOOD COUNT 18.7 TH/MM3 (4.0-11.0)
[2017-01-26 04:06] LABS: ANION GAP 6 MEQ/L (5-15); AST (GOT) 24 U/L (15-37); BICARBONATE 27.8 MEQ/L (21.0-32.0); BLOOD UREA NITROGEN 19 MG/DL (7-18); CHLORIDE 108 MEQ/L (98-107); GLOMERULAR FILTRATION RATE 90 ML/MIN (>89); MAGNESIUM 2.1 MG/DL (1.5-2.5); POTASSIUM 3.7 MEQ/L (3.5-5.1); SODIUM (NA) 142 MEQ/L (136-145)
[2017-01-26 04:10] LABS: ALKALINE PHOSPHATASE 59 U/L (45-117); ALT (GPT) 23 U/L (12-78); TOTAL BILIRUBIN ADULT 0.3 MG/DL (0.2-1.0)
[2017-01-26] MEDS: PIPERACIL-TAZO 4.5 GM PREMIX 100 ML IV SCH ×3 (05:49→17:13)
--- NOTE | 2017-01-26 06:16 | RADRPT ---
EXAM DATE/TIME: 01/26/2017 04:42 [facility] COMPARISON: CHEST SINGLE AP, January 25, 2017, 10:38. INDICATIONS : Shortness of breath. MEDICAL HISTORY : Chronic obstructive pulmonary disease. Cardiovascular disease. SURGICAL HISTORY : None. ENCOUNTER: Subsequent ACUITY: 4 - 6 days PAIN SCORE: Non-responsive. LOCATION: Bilateral chest FINDINGS: A single portable frontal view the chest shows small bilateral pleural effusions and bibasilar parenc hymal consolidations. These are stable. Heart is mildly enlarged. CONCLUSION: Unchanged pleural effusions and bibasilar atelectasis versus infiltrates. aFrhat Umana Jr., MD on January 26, 2017 at 6:14 Board Certified Radiologist. This report was verified electronically.
[2017-01-26] MEDS: oxyCODONE/ACETAMINOPHEN 10 MG/325 MG TAB PO PRN ×2 (06:35→21:15)
[2017-01-26] MEDS: ALLOPURINOL 100 MG TAB PO SCH (08:22)
[2017-01-26] MEDS: LISINOPRIL 5 MG TAB PO SCH (08:22)
[2017-01-26] MEDS: TIOTROPIUM BROMIDE 18 MCG INH INH SCH (08:22)
[2017-01-26] MEDS: ALVIMOPAN 12 MG CAPSULE - Post-op dosing PO SCH ×2 (08:23→21:10)
[2017-01-26] MEDS: methylPREDNISolone SOD SUCC 125 MG/2 ML VIAL IV PUSH SCH ×2 (08:23→21:11)
[2017-01-26] MEDS: BUDESONIDE-FORMOTEROL 160/4.5 MCG INHALER INH SCH ×2 (08:24→21:11)
[2017-01-26] MEDS: SODIUM CHLORIDE 0.9% FLUSH 10 ML FLUSH IV FLUSH SCH ×2 (08:25→21:12)
[2017-01-26] MEDS: DOCUSATE SODIUM 100 MG CAP PO SCH ×2 (08:25→21:10)
[2017-01-26] MEDS: LORazepam 2 MG/ML VIAL IV PUSH PRN ×3 (08:41→22:47)
[2017-01-26] MEDS: AZITHROMYCIN 250 MG TAB PO SCH (09:34)
[2017-01-26] MEDS: DILTIAZEM HCL 30 MG TAB PO SCH ×3 (11:35→21:11)
[2017-01-26] MEDS: METOPROLOL TARTRATE 50 MG TAB PO SCH (11:35)
--- NOTE | 2017-01-26 14:10 | HHI.PR ---
Subjective Subjective Notes Up to chair Eating lunch Breathing improved Objective Vitals/I&O Vital Signs Date Time Temp Pulse Resp B/P Pulse Ox O2 Delivery O2 Flow Rate FiO2 01/26/17 12:13 88 Nasal Cannula 5.00 01/26/17 12:00 88 01/26/17 08:00 97.7 38 126/64 01/25/17 23:30 40 Labs Laboratory Tests Test 01/26/17 01/26/17 01:45 03:10 Vancomycin Level Trough 14.6 White Blood Count 18.7 Red Blood Count 3.30 Hemoglobin 9.3 Hematocrit 29.0 Mean Corpuscular Volume 87.8 Mean Corpuscular Hemoglobin 28.3 Mean Corpuscular Hemoglobin 32.2 Concent Red Cell Distribution Width 15.0 Platelet Count 535 Mean Platelet Volume 8.0 Neutrophils (%) (Auto) 89.0 Lymphocytes (%) (Auto) 6.8 Monocytes (%) (Auto) 3.6 Eosinophils (%) (Auto) 0.0 Basophils (%) (Auto) 0.6 Neutrophils # (Auto) 16.6 Lymphocytes # (Auto) 1.3 Monocytes # (Auto) 0.7 Eosinophils # (Auto) 0.0 Basophils # (Auto) 0.1 CBC Comment DIFF FINAL Differential Comment Sodium Level 142 Potassium Level 3.7 Chloride Level 108 Carbon Dioxide Level 27.8 Anion Gap 6 Blood Urea Nitrogen 19 Creatinine 0.86 Estimat Glomerular Filtration 90 Rate Random Glucose 164 Calcium Level 8.8 Magnesium Level 2.1 Total Bilirubin 0.3 Aspartate Amino Transf 24 (AST/SGOT) Alanine Aminotransferase 23 (ALT/SGPT) Alkaline Phosphatase 59 Total Protein 7.0 Albumin 2.6 Date/Time Procedure Status Source Growth 01/25/17 13:00 Gram Stain - Final Resulted Wound Abdomen 01/25/17 13:00 Wound Culture Resulted Wound Abdomen Pending 01/24/17 19:15 Legionella Antigen - Final Complete Urine Catheterized Urine PRESUMPTIVE NEGATIVE FOR LEGIONELLA P... 01/24/17 19:15 Streptococcus pneumoniae Antigen (M - Final Complete Urine Catheterized Urine PRESUMPTIVE NEGATIVE FOR STREPTOCOCCU... 01/23/17 05:15 Aerobic Blood Culture - Preliminary Resulted Blood Peripheral NO GROWTH IN 3 DAYS 01/23/17 05:15 Anaerobic Blood Culture - Preliminary Resulted Blood Peripheral NO GROWTH IN 3 DAYS Cardiovascular: Regular Lungs: Clear Abdomen: Other (abdominal wound vac in place with good seal ) Extremities: No edema A/P Assessment and Plan 66 year old male POD5 ex lap; incisional hernia repair; colostomy reversal -Breathing improved -Abdominal Wound Vac in place -HR controlled -Pain controlled -Regular diet -OOB and mobilize as tolerated -IS -Monitor JORJE Attending Statement patient seen at bedside improving pain better resp better discussed with at bedside Attestation The exam, history, and the medical decision-making described in the above note were completed with the assistance of the mid-level provider. I reviewed and agree with the findings presented. I attest that I had a [id number] encounter with the patient on the same day, and personally performed and documented my assessment and findings in the medical record. Supriya Shankar January 26, 2017 14:10 Andreas Vernon MD January 31, 2017 18:22
--- NOTE | 2017-01-26 15:02 | HHI.IDPN ---
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 He was seen by ID during that admission for intra- abdominal sepsis. He had cecal perforation ? etiology - path ischemic colitis vs pseudomembranous colitis, and was C.diff negative. He was treated with Unasyn IV for Intraabdominal sepsis 2/2 viscus perforation. A large organized fluid collection in Morales pouch was percutaneously drained and culture showed no growth final. Patient reports having well in the interim since discharge. He was electively admitted for reversal, as well as an incisional hernia repaired. His PMHx is also significant for COPD. Postsurgically he was doing well on the floor however on January 23, 2017 at 4:50 AM the rapid response was called due to patient's tachycardia and respiratory distress as he was also complaining of increasing shortness of breath which previously has been improved with bronchodilator therapy. Patient was transferred to the ICU under residential building inspector service. At the time of my evaluation patient is in ISC. Overnight patient has remained on BiPAP, not on pressors. He continues to remain tachypneic and tachycardic and appears anxious at times. His urine outpt is adequate. ID consulted for evaluation of Sepsis, possible intra abd vs pulm sepsis in a post op patient. Overnight events reviewed. No fevers No rash No diarrhea Sats 92% on 5L NC. Antibiotics Zosyn IV Vanco IV Lines Line sites with no e.o infection. Past Medical History reviewed. Allergies: Coded Allergies: Aspirin (Verified Allergy, Unknown, 01/02/17) Nonsteroidal Anti-Inflammatory Agts (Verified Adverse Reaction, Intermediate, 01/02/17) Objective . Vital Signs Date Time Temp Pulse Resp B/P Pulse Ox O2 Delivery O2 Flow Rate FiO2 01/26/17 12:13 88 Nasal Cannula 5.00 01/26/17 12:00 88 01/26/17 10:00 76 01/26/17 08:00 82 01/26/17 08:00 97.7 76 38 126/64 91 01/26/17 07:36 91 Nasal Cannula 5.00 01/26/17 07:35 26 01/26/17 07:00 96 Nasal Cannula 5.00 01/26/17 06:00 74 01/26/17 04:00 98.0 81 28 114/72 92 01/26/17 04:00 81 01/26/17 02:00 75 01/26/17 00:00 97.3 87 24 139/67 92 01/26/17 00:00 87 01/25/17 23:30 94 40 01/25/17 22:00 120 01/25/17 20:00 95 Nasal Cannula 4.00 01/25/17 20:00 98 01/25/17 20:00 97.7 98 26 117/69 95 01/25/17 19:55 95 Nasal Cannula 6.00 01/25/17 19:00 97 Nasal Cannula 6.00 01/25/17 18:00 69 01/25/17 16:00 87 01/25/17 16:00 97.9 87 20 146/70 92 01/25/17 01/25/17 01/26/17 15:00 23:00 07:00 Intake Total 1556 ml 509 ml 995 ml Output Total 960 ml 60 ml 20 ml Balance 596 ml 449 ml 975 ml Intake Oral 660 ml 240 ml 120 ml IV Total 896 ml 269 ml 875 ml Output Urine Total 250 ml Stool Total 650 ml Drainage Total 60 ml 60 ml 20 ml # Voids 1 1 1 # Bowel Movements 2 1 2 . Laboratory Tests Test 01/25/17 01/26/17 11:23 03:10 White Blood Count 23.6 TH/MM3 18.7 TH/MM3 Red Blood Count 3.28 MIL/MM3 3.30 MIL/MM3 Hemoglobin 9.3 GM/DL 9.3 GM/DL Hematocrit 29.4 % 29.0 % Mean Corpuscular Volume 89.7 FL 87.8 FL Mean Corpuscular Hemoglobin 28.4 PG 28.3 PG Mean Corpuscular Hemoglobin 31.7 % 32.2 % Concent Red Cell Distribution Width 15.0 % 15.0 % Platelet Count 561 TH/MM3 535 TH/MM3 Mean Platelet Volume 7.9 FL 8.0 FL Neutrophils (%) (Auto) 69.8 % 89.0 % Lymphocytes (%) (Auto) 17.0 % 6.8 % Monocytes (%) (Auto) 11.9 % 3.6 % Eosinophils (%) (Auto) 0.8 % 0.0 % Basophils (%) (Auto) 0.5 % 0.6 % Neutrophils # (Auto) 16.4 TH/MM3 16.6 TH/MM3 Lymphocytes # (Auto) 4.0 TH/MM3 1.3 TH/MM3 Monocytes # (Auto) 2.8 TH/MM3 0.7 TH/MM3 Eosinophils # (Auto) 0.2 TH/MM3 0.0 TH/MM3 Basophils # (Auto) 0.1 TH/MM3 0.1 TH/MM3 CBC Comment AUTO DIFF DIFF FINAL Differential Total Cells 100 Counted Neutrophils % (Manual) 65 % Band Neutrophils % 2 % Lymphocytes % 19 % Monocytes % 12 % Eosinophils % 2 % Neutrophils # (Manual) 15.8 TH/MM3 Differential Comment FINAL DIFF MANUAL Platelet Estimate HIGH Platelet Morphology Comment NORMAL Target Cells 1+ Laboratory Tests Test 01/25/17 01/26/17 11:23 03:10 Sodium Level 143 MEQ/L 142 MEQ/L Potassium Level 3.1 MEQ/L 3.7 MEQ/L Chloride Level 108 MEQ/L 108 MEQ/L Carbon Dioxide Level 27.7 MEQ/L 27.8 MEQ/L Anion Gap 7 MEQ/L 6 MEQ/L Blood Urea Nitrogen 19 MG/DL 19 MG/DL Creatinine 0.85 MG/DL 0.86 MG/DL Estimat Glomerular Filtration 91 ML/MIN 90 ML/MIN Rate Random Glucose 100 MG/DL 164 MG/DL Calcium Level 9.0 MG/DL 8.8 MG/DL Magnesium Level 2.1 MG/DL Total Bilirubin 0.3 MG/DL Aspartate Amino Transf 24 U/L (AST/SGOT) Alanine Aminotransferase 23 U/L (ALT/SGPT) Alkaline Phosphatase 59 U/L Total Protein 7.0 GM/DL Albumin 2.6 GM/DL Microbiology Date/Time Procedure Status Source Growth 01/24/17 19:15 Legionella Antigen - Final Complete Urine Catheterized Urine PRESUMPTIVE NEGATIVE FOR LEGIONELLA P... 01/24/17 19:15 Streptococcus pneumoniae Antigen (M - Final Complete Urine Catheterized Urine PRESUMPTIVE NEGATIVE FOR STREPTOCOCCU... 01/25/17 13:00 Gram Stain - Final Resulted Wound Abdomen 01/25/17 13:00 Wound Culture - Preliminary Resulted Group D Enterococcus Gram Negative [facility] Last Impressions Chest X-Ray 01/23/17 0000 Signed Impressions: Service Date/Time: Monday, January 23, 2017 04:21 - CONCLUSION: 1. Slight elevation left hemidiaphragm. 2. Left basilar density likely atelectasis. Walt Johnson MD Chest CT 01/23/17 0000 Signed Impressions: Service Date/Time: Monday, January 23, 2017 13:16 - CONCLUSION: 1. Consolidation is noted in both lung bases with air bronchograms. There is also consolidation along the posterior left major fissure. 2. Cardiomegaly and small pericardial effusion. Conrado Bhatti MD Abdomen/Pelvis CT 01/23/17 0000 Signed Impressions: Service Date/Time: Monday, January 23, 2017 13:16 - CONCLUSION: 1. Interval postsurgical changes status post abdominal hernia repair with soft tissue swelling and gas in the subcutaneous fat. There are surgical drains in place with no drainable fluid collection. 2. Abnormal bowel gas pattern of concern for early or partial small bowel obstruction. 3. New consolidation in both lung bases with minimal effusions. 4. Cardiomegaly with small amount of pericardial fluid. 5. Stable calcification pseudocyst in the tail of the pancreas. Conrado Bhatti MD Physical Exam GENERAL: Obese, well-developed patient, in no apparent distress. SKIN: No rashes, ecchymoses or lesions. Cool and dry. HEAD: Atraumatic. Normocephalic. No temporal or scalp tenderness. EYES: Pupils equal round and reactive. Extraocular motions intact. No scleral icterus. No injection or drainage. ENT: BiPAP mask on. NECK: Trachea midline. Supple, nontender, no meningeal signs. CARDIOVASCULAR: RRR, No murmrur. RESPIRATORY: Clear to auscultation. Breath sounds equal bilaterally. GASTROINTESTINAL: Abdomen soft, Non tender. JORJE drains with sanguinous drainage. Surgical dressing in place with binder. MUSCULOSKELETAL: Extremities without clubbing, cyanosis. Pedal edema noted. NEUROLOGICAL: Awake and alert. Grossly non focal. Psych: appears anxious. IV line sites with no e.o infection. Assessment & Plan Remarks Sepsis in a post op patient. Pneumonia High grade Leucocytosis. pod 3 ex lap, ana, hernia repair colostomy reversal COPD ? acute exacerbation. Acute resp failure Obese ? CELESTINO component. Recs Continue Zosyn IV (adequate no double coverage needed with Cefepime and Flagyl) Continue Vanco IV (target 15-20 for HCAP pneumonia) Continue Azithro oral. CT reviewed by me c/w pneumonia. Follow cultures Follow clinically. d/w RN and family in room. Floridalma Schneider MD January 26, 2017 15:02
[2017-01-26] MEDS: ENOXAPARIN SODIUM 40 MG/0.4 ML SYRINGE SQ SCH (17:13)
--- NOTE | 2017-01-26 17:31 | HHI.PR ---
Subjective Remarks ASS: RESPIRATORY FAILURE COPD PNA Objective Vital Signs Date Time Temp Pulse Resp B/P Pulse Ox O2 Delivery O2 Flow Rate FiO2 01/26/17 15:04 38 01/26/17 12:13 88 Nasal Cannula 5.00 01/26/17 12:00 98.0 92 31 136/74 92 01/26/17 12:00 88 01/26/17 10:00 76 01/26/17 08:00 82 01/26/17 08:00 97.7 76 38 126/64 91 01/26/17 07:36 91 Nasal Cannula 5.00 01/26/17 07:35 26 01/26/17 07:00 96 Nasal Cannula 5.00 01/26/17 06:00 74 01/26/17 04:00 98.0 81 28 114/72 92 01/26/17 04:00 81 01/26/17 02:00 75 01/26/17 00:00 97.3 87 24 139/67 92 01/26/17 00:00 87 01/25/17 23:30 94 40 01/25/17 22:00 120 01/25/17 20:00 95 Nasal Cannula 4.00 01/25/17 20:00 98 01/25/17 20:00 97.7 98 26 117/69 95 01/25/17 19:55 95 Nasal Cannula 6.00 01/25/17 19:00 97 Nasal Cannula 6.00 01/25/17 18:00 69 I/O 01/25/17 01/25/17 01/25/17 01/26/17 01/26/17 01/26/17 07:00 15:00 23:00 07:00 15:00 23:00 Intake Total 545 ml 1556 ml 509 ml 995 ml 900 ml Output Total 40 ml 960 ml 60 ml 20 ml 35 ml Balance 505 ml 596 ml 449 ml 975 ml 865 ml Intake Oral 240 ml 660 ml 240 ml 120 ml 900 ml IV Total 305 ml 896 ml 269 ml 875 ml Output Urine Total 0 ml 250 ml Stool Total 650 ml Drainage Total 40 ml 60 ml 60 ml 20 ml 35 ml # Voids 1 1 1 4 # Bowel Movements 1 2 1 2 4 Result Diagram: 01/26/1730901/26/17309 Objective Remarks GENERAL: SKIN: Warm and dry. HEAD: Atraumatic. Normocephalic. EYES: Pupils equal and round. No scleral icterus. No injection or drainage. ENT: No nasal bleeding or discharge. Mucous membranes pink and moist. NECK: Trachea midline. No JVD. CARDIOVASCULAR: Regular rate and rhythm. RESPIRATORY: No accessory muscle use. SCATTERED RONCHI AT BASIS. GASTROINTESTINAL: Abdomen soft, non-tender, nondistended. Hepatic and splenic margins not palpable. MUSCULOSKELETAL: Extremities without clubbing, cyanosis, or edema. No obvious deformities. NEUROLOGICAL: Awake and alert. No obvious cranial nerve deficits. Motor grossly within normal limits. Five out of 5 muscle strength in the arms and legs. Normal speech. PSYCHIATRIC: Appropriate mood and affect; insight and judgment normal. Assessment and Plan Assessment and Plan RESPIRATORY FAILURE COPD PNA Improving PLAN: O2 NEEDED PUNL. TOILET ANTIBIOTIC THERAPY Amelia Cisneros MD January 26, 2017 17:31
[2017-01-26] MEDS ORDERED: VANCOMYCIN INJ 1,750 MG in SODIUM CHLORID 0.9% 500 ML INJ 500 ML IV SCH (20:00)
[2017-01-26] MEDS: LORazepam 1 MG TAB PO PRN (21:10)
[2017-01-26] MEDS: TAMSULOSIN HCL 0.4 MG CAP PO SCH (21:10)
[2017-01-26] MEDS: PANTOPRAZOLE SODIUM 40 MG VIAL IV SCH (21:11)
[2017-01-26] MEDS: ZOLPIDEM TARTRATE 10 MG TAB PO PRN (22:47)
[2017-01-27] VITALS (16 sets, daily range): BP systolic 124–152; BP diastolic 64–70; PULSE 62–99; RESP 19–27; TEMP 97.2–98.2; O2SAT 90–96
[2017-01-27] MEDS: METOPROLOL TARTRATE 50 MG TAB PO SCH ×3 (01:06→23:53)
[2017-01-27] MEDS: MORPHINE SULFATE 4 MG/ML INJ IV PUSH PRN (01:06)
[2017-01-27] MEDS: PIPERACIL-TAZO 4.5 GM PREMIX 100 ML IV SCH ×5 (01:06→23:53)
[2017-01-27] MEDS: oxyCODONE/ACETAMINOPHEN 10 MG/325 MG TAB PO PRN ×3 (03:18→20:51)
[2017-01-27] MEDS: RESP: ALBUTEROL 2.5 MG/IPRATROPIUM 0.5 MG NEB (SCH) NEB ×5 (03:42→20:30)
[2017-01-27 05:06] LABS: AUTOMATED NEUTROPHIL # 13.4 TH/MM3 (1.8-7.7); BASOPHIL # 0.1 TH/MM3 (0-0.2); BASOPHIL % 0.4 % (0.0-2.0); LYMPH % 10.2 % (9.0-44.0); LYMPHOCYTE # 1.6 TH/MM3 (1.0-4.8); MEAN CELL VOLUME 87.2 FL (80.0-100.0); MEAN CORPUSCULAR HEMOGLOBIN 27.7 PG (27.0-34.0); MEAN CORPUSCULAR HGB CONC 31.8 % (32.0-36.0); MONO % 4.1 % (0.0-8.0); NEUT % 85.3 % (16.0-70.0); PLATELET COUNT 545 TH/MM3 (150-450); RED CELL DISTRIBUTION WIDTH 14.8 % (11.6-17.2); WHITE BLOOD COUNT 15.7 TH/MM3 (4.0-11.0)
[2017-01-27 05:26] LABS: HEMO FLAGS AUTO DIFF
[2017-01-27 05:33] LABS: ALKALINE PHOSPHATASE 56 U/L (45-117); ALT (GPT) 21 U/L (12-78); ANION GAP 11 MEQ/L (5-15); AST (GOT) 17 U/L (15-37); BICARBONATE 27.4 MEQ/L (21.0-32.0); BLOOD UREA NITROGEN 15 MG/DL (7-18); CHLORIDE 107 MEQ/L (98-107); GLOMERULAR FILTRATION RATE 75 ML/MIN (>89); POTASSIUM 3.4 MEQ/L (3.5-5.1); SODIUM (NA) 145 MEQ/L (136-145); TOTAL BILIRUBIN ADULT 0.3 MG/DL (0.2-1.0)
[2017-01-27 08:07] LABS: SCAN/DIFF AUTO DIFF CONFIRMED
[2017-01-27] MEDS: LISINOPRIL 5 MG TAB PO SCH (08:08)
[2017-01-27] MEDS: ALVIMOPAN 12 MG CAPSULE - Post-op dosing PO SCH ×2 (08:08→20:49)
[2017-01-27] MEDS: ALLOPURINOL 100 MG TAB PO SCH (08:08)
[2017-01-27] MEDS: DILTIAZEM HCL 30 MG TAB PO SCH ×4 (08:09→22:41)
[2017-01-27] MEDS: DOCUSATE SODIUM 100 MG CAP PO SCH ×2 (08:09→20:53)
[2017-01-27] MEDS: methylPREDNISolone SOD SUCC 125 MG/2 ML VIAL IV PUSH SCH ×2 (08:09→20:49)
[2017-01-27] MEDS: TIOTROPIUM BROMIDE 18 MCG INH INH SCH (08:09)
[2017-01-27] MEDS: SODIUM CHLORIDE 0.9% FLUSH 10 ML FLUSH IV FLUSH SCH ×2 (08:09→20:53)
[2017-01-27] MEDS: BUDESONIDE-FORMOTEROL 160/4.5 MCG INHALER INH SCH ×2 (08:09→20:51)
[2017-01-27] MEDS: AZITHROMYCIN 250 MG TAB PO SCH (08:09)
[2017-01-27] MEDS: ICU - POTASSIUM CHLORIDE/AQUEOUS SOLN 20 MEQ/100 ML IVPB IV PRN ×2 (08:10→10:52)
--- NOTE | 2017-01-27 11:06 | HHI.PR ---
Subjective Remarks still with sob and tachypneic- however in no acute distress. no fever. pain is controlled. says that he couldn't tolerated the BiPaP last night. d/w the RN. Objective Vitals Vital Signs Date Time Temp Pulse Resp B/P Pulse Ox O2 Delivery O2 Flow Rate FiO2 01/27/17 10:00 82 01/27/17 08:07 95 Nasal Cannula 5.00 01/27/17 08:00 82 01/27/17 08:00 82 01/27/17 08:00 97.6 80 19 127/67 95 01/27/17 07:00 96 Nasal Cannula 6.00 01/27/17 06:00 75 01/27/17 04:00 97.8 70 20 124/69 93 01/27/17 04:00 70 01/27/17 02:00 82 01/27/17 01:01 92 Nasal Cannula 5.00 01/27/17 00:00 98.1 80 21 137/68 96 01/27/17 00:00 80 01/26/17 23:08 100 40 01/26/17 22:00 86 01/26/17 20:56 97 Nasal Cannula 5.00 01/26/17 20:00 97.9 93 31 125/59 91 01/26/17 20:00 93 01/26/17 19:00 91 Nasal Cannula 6.00 01/26/17 16:00 98.2 80 27 94 01/26/17 16:00 80 01/26/17 15:04 38 01/26/17 12:13 88 Nasal Cannula 5.00 01/26/17 12:00 98.0 92 31 136/74 92 01/26/17 12:00 88 I/O 01/26/17 01/26/17 01/26/17 01/27/17 01/27/17 01/27/17 07:00 15:00 23:00 07:00 15:00 23:00 Intake Total 995 ml 900 ml 517 ml 245 ml Output Total 20 ml 655 ml 155 ml 15 ml Balance 975 ml 245 ml 362 ml 230 ml Intake Oral 120 ml 900 ml 240 ml IV Total 875 ml 277 ml 245 ml Output Urine Total 620 ml Drainage Total 20 ml 35 ml 155 ml 15 ml # Voids 1 4 1 2 # Bowel Movements 2 6 1 5 Result Diagram: 01/27/17 0419 01/27/17 0419 Imaging Last Impressions Chest X-Ray 01/26/17 0600 Signed Impressions: Service Date/Time: Thursday, January 26, 2017 04:42 - CONCLUSION: Unchanged pleural effusions and bibasilar atelectasis versus infiltrates. Farhat Umana Jr., MD Chest CT 01/23/17 0000 Signed Impressions: Service Date/Time: Monday, January 23, 2017 13:16 - CONCLUSION: 1. Consolidation is noted in both lung bases with air bronchograms. There is also consolidation along the posterior left major fissure. 2. Cardiomegaly and small pericardial effusion. Conrado Bhatti MD Abdomen/Pelvis CT 01/23/17 0000 Signed Impressions: Service Date/Time: Monday, January 23, 2017 13:16 - CONCLUSION: 1. Interval postsurgical changes status post abdominal hernia repair with soft tissue swelling and gas in the subcutaneous fat. There are surgical drains in place with no drainable fluid collection. 2. Abnormal bowel gas pattern of concern for early or partial small bowel obstruction. 3. New consolidation in both lung bases with minimal effusions. 4. Cardiomegaly with small amount of pericardial fluid. 5. Stable calcification pseudocyst in the tail of the pancreas. Conrado Bhatti MD Objective Remarks GENERAL: This is a well-nourished, well-developed patient, in no apparent distress. CARDIOVASCULAR: Regular rate and regular rhythm without murmurs, gallops, or rubs. RESPIRATORY: diminished air entry in bases with some wheezing GASTROINTESTINAL: Abdomen soft, non-tender, nondistended. MUSCULOSKELETAL: Extremities without clubbing, cyanosis, or edema. NEURO: Alert & Oriented x4 to person, place, time, situation. Moves all ext x4 Medications and IVs Current Medications Alvimopan (Entereg) 12 mg PLASTER PATTERNMAKER PO ; Start 01/20/17 at 10:30; Stop 01/22/17 at 04:33; Status DC Alvimopan 12 mg 12 mg BID PO Last administered on 01/27/17t 08:08; Start at 09:00; Stop 01/27/17 at 21:01 Lactated Ringer's 1,000 ml @ 30 mls/hr Q24H PRN IV SEE LABEL COMMENTS; Start at 10:30; Stop 01/22/17 at 04:33; Status DC Sodium Chloride (NS 500 ml Inj) 500 ml @ 30 mls/hr [id number] PRN IV SEE LABEL COMMENTS; Start 01/20/17 at 10:30; Stop 01/22/17 at 04:33; Status DC Metoprolol Tartrate (Lopressor) 25 mg PLASTER PATTERNMAKER PRN PO SEE LABEL COMMENTS; Start 01/20/17 at 10:30; Stop 01/22/17 at 04:33; Status DC Povidone Iodine (Betadine 5% Antisepsis Kit) 1 applic PLASTER PATTERNMAKER PRN EACH NARE SEE LABEL COMMENTS; Start 01/20/17 at 10:30; Stop 01/22/17 at 04:33; Status DC Chlorhexidine Gluconate (Chlorhexidine 2% Cloth) 3 pack PLASTER PATTERNMAKER PRN TOPICAL SEE LABEL COMMENTS; Start 01/20/17 at 10:30; Stop 01/22/17 at 04:33; Status DC Insulin Human Regular See Protocol Table ... PLASTER PATTERNMAKER PRN SQ SEE PROTOCOL TABLE ; Start 01/20/17 at 10:30; Stop 01/22/17 at 04:33; Status DC Cefazolin Sodium 1000 mg/Sodium Chloride 100 ml @ 200 mls/hr PLASTER PATTERNMAKER IV Last administered on 01/20/17 13:40; Start 01/20/17 at 10:30; Stop 01/22/17 at 04:33; Status DC Metronidazole (Flagyl 500 Mg Inj) 100 ml @ 100 mls/hr PLASTER PATTERNMAKER IV Last administered on 01/20/17 13:48; Start 01/20/17 at 10:30; Stop 01/20/17 at 19:05; Status DC Methylprednisolone Sodium Succinate 125 mg 125 mg STK-MED ONCE .ROUTE ; Start at 14:44; Stop 01/20/17 at 14:45; Status DC Potassium Chloride/Dextrose/ Sod Cl (D5-NS + KCl 20 Meq Inj) 1,000 ml @ 125 mls /hr Q8H IV Last administered on 01/23/17 01:03; Start 01/20/17 at 19:00; Stop at 15:13; Status DC Sodium Chloride (NS Flush) 2 ml UNSCH PRN IV FLUSH FLUSH AFTER USING IV ACCESS ; Start 01/20/17 at 18:30 Sodium Chloride (NS Flush) 2 ml BID IV FLUSH Last administered on 01/27/17 08: 09; Start 01/20/17 at 21:00 Ondansetron HCl (Zofran Inj) 4 mg Q6H PRN IV NAUSEA OR VOMITING; Start 01/20/17 at 18:30 Pantoprazole Sodium (Protonix Inj) 40 mg Q24H IV Last administered on 01/26/17 21:11; Start 01/20/17 at 19:30 Docusate Sodium 100 mg 100 mg BID PO Last administered on 01/27/17 08:09; Start 01/20/17 at 21:00 Cefazolin Sodium 1000 mg/Sodium Chloride 100 ml @ 200 mls/hr Q8H IV Last administered on 01/21/17 14:23; Start 01/20/17 at 22:00; Stop 01/21/17 at 14:29; Status DC Metronidazole (Flagyl 500 Mg Inj) 100 ml @ 200 mls/hr Q8H IV Last administered on 01/21/17 14:26; Start 01/20/17 at 22:30; Stop 01/21/17 at 14:59; Status DC Miscellaneous Information (Post-op Orders (for Pharmacy)) STAT ONCE XX ; Start 01/20/17 at 18:30; Stop 01/20/17 at 18:59; Status DC Oxycodone/ Acetaminophen (Percocet 10-325 Mg) 1 tab Q6H PRN PO PAIN SCALE 6 TO 10 Last administered on 01/27/17 10:49; Start 01/20/17 at 18:30 Naloxone HCl (Narcan Inj) 0.4 mg UNSCH PRN IV SEE LABEL COMMENTS; Start at 18:30; Stop 01/21/17 at 08:52; Status DC Enoxaparin Sodium (Lovenox Inj) 30 mg Q24H SQ Last administered on 01/24/17 17: 03; Start 01/21/17 at 18:00; Stop 01/25/17 at 10:39; Status DC Naloxone HCl (Narcan Inj) 0.4 mg UNSCH PRN IV RESPIRATORY RATE LESS THAN 10; Start 01/20/17 at 18:30; Stop 01/25/17 at 12:10; Status DC Morphine Sulfate (Morphine 1 Mg/ ml BAR HOST/HOSTESS) 30 mg UNSCH IV Last administered on 23:00; Start 01/20/17 at 19:00; Stop 01/25/17 at 12:10; Status DC BAR HOST/HOSTESS Dosage Infused (Pha) 1 Q8HR .XX Last administered on 01/25/17 06:00; Start 01/20/17 at 22:00; Stop 01/25/17 at 12:10; Status DC Fentanyl Citrate (fentaNYL INJ) 200 mcg STK-MED ONCE .ROUTE ; Start 01/20/17 at 18:53; Stop 01/20/17 at 18:54; Status DC Fentanyl Citrate (fentaNYL INJ) 500 mcg STK-MED ONCE .ROUTE ; Start 01/20/17 at 18:53; Stop 01/20/17 at 18:54; Status DC Morphine Sulfate (*morphine INJ PERIprocedure ONLY) 8 mg STK-MED ONCE .ROUTE Last administered on 01/20/17 18:58; Start 01/20/17 at 18:58; Stop 01/20/17 at 18: 59; Status DC Morphine Sulfate (*morphine INJ PERIprocedure ONLY) 8 mg STK-MED ONCE .ROUTE Last administered on 01/20/17 19:07; Start 01/20/17 at 19:07; Stop 01/20/17 at 19: 08; Status DC Hydromorphone HCl (*DILAUDID PF INJ PERIprocedural ONLY) 1 mg STK-MED ONCE .ROUTE Last administered on 01/20/17 19:17; Start 01/20/17 at 19:17; Stop at 19:18; Status DC Hydromorphone HCl (*DILAUDID PF INJ PERIprocedural ONLY) 1 mg STK-MED ONCE .ROUTE Last administered on 01/20/17 19:28; Start 01/20/17 at 19:28; Stop at 19:29; Status DC Hydromorphone HCl (*DILAUDID PF INJ PERIprocedural ONLY) 1 mg STK-MED ONCE .ROUTE Last administered on 01/20/17 19:39; Start 01/20/17 at 19:39; Stop at 19:40; Status DC Labetalol HCl (*TRANDATE INJ PERIprocedural Use ONLY) 100 mg STK-MED ONCE .ROUTE Last administered on 01/20/17 19:40; Start 01/20/17 at 19:40; Stop at 19:41; Status DC Lorazepam (Ativan Inj) 1 mg Q6H PRN IV PUSH anxiety Last administered on 22:47; Start 01/21/17 at 07:30 Allopurinol (Zyloprim) 100 mg DAILY PO Last administered on 01/27/17 08:08; Start 01/21/17 at 09:00 Lisinopril (Prinivil) 5 mg DAILY PO Last administered on 01/27/17 08:08; Start 01/21/17 at 09:00 Lorazepam (Ativan) 1 mg Q8H PRN PO ANXIETY Last administered on 01/26/17 21:10 ; Start 01/21/17 at 09:00 Tamsulosin HCl (Flomax) 0.8 mg HS PO Last administered on 01/26/17 21:10; Start 01/21/17 at 21:00 Albuterol Sulfate 1.25 mg 1.25 mg Q6HR NEB PRN NEB SHORTNESS OF BREATH; Start 01/21/17 at 09:00; Stop 01/22/17 at 04:30; Status DC Cefazolin Sodium/ Dextrose 50 ml @ 100 mls/hr Q8H IV Last administered on 23:24; Start 01/21/17 at 23:00; Stop 01/22/17 at 04:24; Status DC Metronidazole (Flagyl 500 Mg Inj) 100 ml @ 100 mls/hr Q8H IV Last administered on 01/23/17 06:28; Start 01/21/17 at 22:00; Stop 01/23/17 at 13:43; Status DC Albuterol/ Ipratropium 1 ampule 1 ampule Q4HR NEB PRN NEB SOB/WHEEZING Last administered on 01/22/17 03:57; Start 01/22/17 at 03:15; Stop 01/22/17 at 09:07; Status DC Cefepime HCl/ Sodium Chloride (Maxipime Inj/NS Inj) 100 ml @ 200 mls/hr Q8H IV Last administered on 01/23/17 05:39; Start 01/22/17 at 05:00; Stop 01/23/17 at 13:43; Status DC Albuterol/ Ipratropium (Duoneb Neb) 1 ampule Q6HR NEB NEB ; Start 01/22/17 at 10 :00; Stop 01/22/17 at 10:00; Status DC Albuterol/ Ipratropium (Duoneb Neb) 1 ampule Q4HR NEB NEB Last administered on 01/24/17 04:12; Start 01/23/17 at 12:00; Stop 01/24/17 at 12:14; Status DC Albuterol Sulfate (Albuterol Neb) 1.25 mg Q2HR NEB PRN NEB SHORTNESS OF BREATH Last administered on 01/25/17 10:25; Start 01/22/17 at 09:15 Bumetanide (Bumex Inj) 1 mg NOW ONCE IV PUSH Last administered on 01/22/17 19: 50; Start 01/22/17 at 19:00; Stop 01/22/17 at 19:01; Status DC Methylprednisolone Sodium Succinate (SoluMEDROL INJ) 40 mg Q6H IV Last administered on 01/24/17 00:03; Start 01/22/17 at 19:00; Stop 01/24/17 at 01:01; Status DC Enalaprilat (Vasotec Inj) 1.25 mg NOW ONCE IV PUSH Last administered on 04:06; Start 01/23/17 at 04:00; Stop 01/23/17 at 04:03; Status DC Adenosine (Adenocard Inj) 6 mg STK-MED ONCE .ROUTE ; Start 01/23/17 at 04:18; Stop 01/23/17 at 04:19; Status DC Diltiazem HCl (Cardizem Inj) 20 mg ONCE ONCE IV ; Start 01/23/17 at 04:30; Stop 01/23/17 at 04:31; Status DC Metoprolol Tartrate (Lopressor Inj) 5 mg Q5M PRN IV PUSH RAPID HEART RATE Last administered on 01/24/17 02:48; Start 01/23/17 at 04:30 Bumetanide 1 mg 1 mg ONCE ONCE IV PUSH Last administered on 01/23/17 04:38; Start 01/23/17 at 04:30; Stop 01/23/17 at 04:35; Status DC Piperacillin Sod/ Tazobactam Sod (Zosyn 4.5 Gm Premix) 100 ml @ 200 mls/hr Q6H IV Last administered on 01/27/17 06:37; Start 01/23/17 at 06:00 Diatrizoate Meglum/ Diatrizoate Sod (Md [place] Liq) 18 ml ONCE ONCE PO Last administered on 01/23/17 09:45; Start 01/23/17 at 08:15; Stop 01/23/17 at 08: 16; Status DC Iohexol 100 ml 100 ml STK-MED ONCE IV Last administered on 01/23/17 13:17; Start 01/23/17 at 13:17; Stop 01/23/17 at 13:18; Status DC Micafungin Sodium 150 mg/Sodium Chloride 100 ml @ 100 mls/hr Q24H IV ; Start at 13:45; Stop 01/23/17 at 13:45; Status DC Pharmacy Profile Note (Vancomycin Consult Pharmacy) 0 ml @ 0 mls/hr UNSCH OTHER ; Start 01/23/17 at 16:00 Metoprolol Tartrate 25 mg 25 mg Q6HR PO Last administered on 01/24/17 11:38; Start 01/23/17 at 18:00; Stop 01/24/17 at 12:34; Status DC Vancomycin HCl/ Sodium Chloride (Vancomycin Inj/ NS 500 ml Inj) 517 ml @ 258.5 mls/ hr Q18H IV Last administered on 01/26/17 03:06; Start 01/23/17 at 20:00; Stop 01/26/17 at 10:17; Status DC Miscellaneous Information SPECIFIC LAB TO BE MISSY... ONCE ONCE .XX Last administered on 01/26/17 01:45; Start 01/26/17 at 01:45; Stop 01/26/17 at 01:46; Status DC Zolpidem Tartrate (Ambien) 10 mg HS PRN PO sleep Last administered on 01/26/17 22:47; Start 01/24/17 at 09:00 Ipratropium [place] (Atrovent Neb) 0.5 mg Q2HR NEB PRN NEB SHORTNESS OF BREATH ; Start 01/24/17 at 12:15 Ipratropium [place] (Atrovent Neb) 0.5 mg Q6HR NEB NEB Last administered on 10:25; Start 01/24/17 at 22:00; Stop 01/25/17 at 10:39; Status DC Bumetanide (Bumex Inj) 1 mg ONCE ONCE IV PUSH Last administered on 01/24/17 12 :30; Start 01/24/17 at 12:30; Stop 01/24/17 at 12:31; Status DC Metoprolol Tartrate 75 mg 75 mg Q12H PO Last administered on 01/24/17 23:01; Start 01/25/17 at 00:00; Stop 01/25/17 at 10:46; Status DC Amiodarone HCl 150 mg/Dextrose 100 ml @ 100 mls/hr ONCE ONCE IV Last administered on 01/24/17 12:45; Start 01/24/17 at 12:45; Stop 01/24/17 at 13:44; Status DC Amiodarone HCl/ Dextrose (Cordarone Inj/ D5W ([place]) Inj) 250 ml @ 0 mls/hr CONTINUOUS IV Last administered on 01/25/17 01:32; Start 01/24/17 at 13:00; Stop 01/25/17 at 10:46; Status DC Azithromycin (Zithromax) 500 mg DAILY PO Last administered on 01/27/17 08:09; Start 01/25/17 at 09:00 Albuterol/ Ipratropium (Duoneb Neb) 1 ampule Q4HR NEB NEB Last administered on 01/27/17 08:07; Start 01/25/17 at 12:00 Enoxaparin Sodium (Lovenox Inj) 40 mg Q24H SQ Last administered on 01/26/17 17: 13; Start 01/25/17 at 18:00 Methylprednisolone Sodium Succinate (SoluMEDROL INJ) 60 mg Q12HR IV PUSH Last administered on 01/27/17 08:09; Start 01/25/17 at 11:00 Budesonide/ Formoterol Fumarate (Symbicort 160-4.5 Inh) 1 puff Q12HR INH Last administered on 01/27/17 08:09; Start 01/25/17 at 12:00 Metoprolol Tartrate (Lopressor) 100 mg Q12H PO Last administered on 01/27/17 01:06; Start 01/25/17 at 12:00 Tiotropium [place] (Spiriva Inh) 18 mcg DAILY INH Last administered on 08:09; Start 01/25/17 at 11:00 Morphine Sulfate (Morphine Inj) 2 mg Q3H PRN IV PUSH PAIN SCALE 5 TO 10 Last administered on 01/27/17 01:06; Start 01/25/17 at 12:15 Miscellaneous Information ICU - CALL ORDERING PHYSIC... UNSCH PRN .XX SEE DOSE INSTRUCTIONS; Start 01/25/17 at 21:00 Potassium Chloride (KCl 40 Meq Premix Inj) 100 ml @ 25 mls/hr UNSCH PRN IV ELECTROLYTE REPLACEMENT; Start 01/25/17 at 21:00; Status Cancel Potassium Bicarb/ Potassium Chloride 50 meq 50 meq UNSCH PRN PO ELECTROLYTE REPLACEMENT; Start 01/25/17 at 21:00 Potassium Chloride (KCl 20 Meq Premix Inj) 100 ml @ 50 mls/hr UNSCH PRN IV ELECTROLYTE REPLACEMENT Last administered on 01/27/17 10:52; Start 01/25/17 at 21:00 Bupivacaine Liposome 20 ml 20 ml STK-MED ONCE .XX ; Start 01/20/17 at 07:47; Stop 01/26/17 at 07:48; Status DC Vancomycin HCl/ Sodium Chloride (Vancomycin Inj/ NS 500 ml Inj) 517.5 ml @ 258.5 mls/ hr Q18H IV Last administered on 01/26/17 21:10; Start 01/26/17 at 20: 00 Diltiazem HCl (Cardizem) 30 mg QID PO Last administered on 01/27/17 08:09; Start 01/26/17 at 13:00 A/P Assessment and Plan A/P Acute hypoxemic respiratory failure Bibasilar pneumonia Acute COPD exacerbation - Continue on BiPAP - Star IV Solu-Medrol 60 every 12 hours. Started budesonide/formoterol inhaled , Spiriva - Continue DuoNeb scheduled and when necessary - Broad-spectrum antibiotics per ID - EzPAP, Acapella -pulmonary following. Paroxysmal atrial fibrillation - Discontinue IV Amio - continue metoprolol 100 mg every 12 Leukocytosis/sepsis - Started on broad-spectrum antibiotic per ID - Sepsis most likely from pneumonia Status post reversal colectomy and incisional hernia repair - Management per general surgery hypokalemia-will replace as needed. DVT GI prophylaxis - Lovenox Pepcid will keep in ICU today. d/w the cSott Vaughan MD January 27, 2017 11:06
[2017-01-27] MEDS: LORazepam 2 MG/ML VIAL IV PUSH PRN (12:06)
[2017-01-27] MEDS: LINEZOLID 600 MG PREMIX 300 ML IV SCH (14:17)
--- NOTE | 2017-01-27 16:10 | HHI.PR ---
Subjective Subjective Notes still with diarrhea, tolerating some diet, no fevers Objective Vitals/I&O Vital Signs Date Time Temp Pulse Resp B/P Pulse Ox O2 Delivery O2 Flow Rate FiO2 01/27/17 15:26 90 Nasal Cannula 6.00 01/27/17 14:00 62 01/27/17 12:32 40 01/27/17 12:00 98.2 27 152/70 Labs Laboratory Tests Test 01/27/17 04:19 White Blood Count 15.7 Red Blood Count 3.20 Hemoglobin 8.9 Hematocrit 28.0 Mean Corpuscular Volume 87.2 Mean Corpuscular Hemoglobin 27.7 Mean Corpuscular Hemoglobin 31.8 Concent Red Cell Distribution Width 14.8 Platelet Count 545 Mean Platelet Volume 8.1 Neutrophils (%) (Auto) 85.3 Lymphocytes (%) (Auto) 10.2 Monocytes (%) (Auto) 4.1 Eosinophils (%) (Auto) 0.0 Basophils (%) (Auto) 0.4 Neutrophils # (Auto) 13.4 Lymphocytes # (Auto) 1.6 Monocytes # (Auto) 0.6 Eosinophils # (Auto) 0.0 Basophils # (Auto) 0.1 CBC Comment AUTO DIFF Differential Comment AUTO DIFF CONFIRMED Sodium Level 145 Potassium Level 3.4 Chloride Level 107 Carbon Dioxide Level 27.4 Anion Gap 11 Blood Urea Nitrogen 15 Creatinine 1.00 Estimat Glomerular Filtration 75 Rate Random Glucose 162 Calcium Level 8.4 Total Bilirubin 0.3 Aspartate Amino Transf 17 (AST/SGOT) Alanine Aminotransferase 21 (ALT/SGPT) Alkaline Phosphatase 56 Total Protein 7.0 Albumin 2.6 Date/Time Procedure Status Source Growth 01/25/17 13:00 Gram Stain - Final Complete Wound Abdomen 01/25/17 13:00 Wound Culture - Final Complete Enterococcus Faecalis Vre Proteus Penneri 01/24/17 19:15 Legionella Antigen - Final Complete Urine Catheterized Urine PRESUMPTIVE NEGATIVE FOR LEGIONELLA P... 01/24/17 19:15 Streptococcus pneumoniae Antigen (M - Final Complete Urine Catheterized Urine PRESUMPTIVE NEGATIVE FOR STREPTOCOCCU... 01/23/17 05:15 Aerobic Blood Culture - Preliminary Resulted Blood Peripheral NO GROWTH IN 4 DAYS 01/23/17 05:15 Anaerobic Blood Culture - Preliminary Resulted Blood Peripheral NO GROWTH IN 4 DAYS Abdomen: Other (incisions with vac no leak) A/P Assessment and Plan pod 6 ex lap, ana, hernia repair colostomy reversal cxr atelectasis, wbc trending down (pt is on steroids)- continue to monitor PLAN encourage OOB resp tx for desats -pulm following a.fib rate control pain control ID for abx VRE dvt ppx lovenox elizabeth sxn wound care dressing VAC Change today will likely change wednesday again appreciate medicine Andreas Durán MD January 27, 2017 16:10
--- NOTE | 2017-01-27 16:30 | HHI.IDPN ---
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 He was seen by ID during that admission for intra- abdominal sepsis. He had cecal perforation ? etiology - path ischemic colitis vs pseudomembranous colitis, and was C.diff negative. He was treated with Unasyn IV for Intraabdominal sepsis 2/2 viscus perforation. A large organized fluid collection in Morales pouch was percutaneously drained and culture showed no growth final. Patient reports having well in the interim since discharge. He was electively admitted for reversal, as well as an incisional hernia repaired. His PMHx is also significant for COPD. Postsurgically he was doing well on the floor however on January 23, 2017 at 4:50 AM the rapid response was called due to patient's tachycardia and respiratory distress as he was also complaining of increasing shortness of breath which previously has been improved with bronchodilator therapy. Patient was transferred to the ICU under care process manager service. At the time of my evaluation patient is in ISC. Overnight patient has remained on BiPAP, not on pressors. He continues to remain tachypneic and tachycardic and appears anxious at times. His urine outpt is adequate. ID consulted for evaluation of Sepsis, possible intra abd vs pulm sepsis in a post op patient. Overnight events reviewed. No fevers No rash No diarrhea Sats 92% on BiPAP 40% FiO2. Antibiotics Zosyn IV Vanco IV Lines Line sites with no e.o infection. Past Medical History reviewed. 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 Vital Signs Date Time Temp Pulse Resp B/P Pulse Ox O2 Delivery O2 Flow Rate FiO2 01/27/17 16:00 78 01/27/17 16:00 97.9 78 26 143/70 90 01/27/17 15:26 90 Nasal Cannula 6.00 01/27/17 14:00 62 01/27/17 12:32 92 Bi-Pap 40 01/27/17 12:28 92 40 01/27/17 12:00 99 01/27/17 12:00 98.2 94 27 152/70 91 01/27/17 10:00 82 01/27/17 08:07 95 Nasal Cannula 5.00 01/27/17 08:00 82 01/27/17 08:00 82 01/27/17 08:00 97.6 80 19 127/67 95 01/27/17 07:00 96 Nasal Cannula 6.00 01/27/17 06:00 75 01/27/17 04:00 97.8 70 20 124/69 93 01/27/17 04:00 70 01/27/17 02:00 82 01/27/17 01:01 92 Nasal Cannula 5.00 01/27/17 00:00 98.1 80 21 137/68 96 01/27/17 00:00 80 01/26/17 23:08 100 40 01/26/17 22:00 86 01/26/17 20:56 97 Nasal Cannula 5.00 01/26/17 20:00 97.9 93 31 125/59 91 01/26/17 20:00 93 01/26/17 19:00 91 Nasal Cannula 6.00 01/26/17 01/26/17 01/27/17 15:00 23:00 07:00 Intake Total 900 ml 517 ml 245 ml Output Total 655 ml 155 ml 15 ml Balance 245 ml 362 ml 230 ml Intake Oral 900 ml 240 ml IV Total 277 ml 245 ml Output Urine Total 620 ml Drainage Total 35 ml 155 ml 15 ml # Voids 4 1 2 # Bowel Movements 6 1 5 . Laboratory Tests Test 01/26/17 01/27/17 03:10 04:19 White Blood Count 18.7 TH/MM3 15.7 TH/MM3 Red Blood Count 3.30 MIL/MM3 3.20 MIL/MM3 Hemoglobin 9.3 GM/DL 8.9 GM/DL Hematocrit 29.0 % 28.0 % Mean Corpuscular Volume 87.8 FL 87.2 FL Mean Corpuscular Hemoglobin 28.3 PG 27.7 PG Mean Corpuscular Hemoglobin 32.2 % 31.8 % Concent Red Cell Distribution Width 15.0 % 14.8 % Platelet Count 535 TH/MM3 545 TH/MM3 Mean Platelet Volume 8.0 FL 8.1 FL Neutrophils (%) (Auto) 89.0 % 85.3 % Lymphocytes (%) (Auto) 6.8 % 10.2 % Monocytes (%) (Auto) 3.6 % 4.1 % Eosinophils (%) (Auto) 0.0 % 0.0 % Basophils (%) (Auto) 0.6 % 0.4 % Neutrophils # (Auto) 16.6 TH/MM3 13.4 TH/MM3 Lymphocytes # (Auto) 1.3 TH/MM3 1.6 TH/MM3 Monocytes # (Auto) 0.7 TH/MM3 0.6 TH/MM3 Eosinophils # (Auto) 0.0 TH/MM3 0.0 TH/MM3 Basophils # (Auto) 0.1 TH/MM3 0.1 TH/MM3 CBC Comment DIFF FINAL AUTO DIFF Differential Comment AUTO DIFF CONFIRMED Laboratory Tests Test 01/26/17 01/27/17 03:10 04:19 Sodium Level 142 MEQ/L 145 MEQ/L Potassium Level 3.7 MEQ/L 3.4 MEQ/L Chloride Level 108 MEQ/L 107 MEQ/L Carbon Dioxide Level 27.8 MEQ/L 27.4 MEQ/L Anion Gap 6 MEQ/L 11 MEQ/L Blood Urea Nitrogen 19 MG/DL 15 MG/DL Creatinine 0.86 MG/DL 1.00 MG/DL Estimat Glomerular Filtration 90 ML/MIN 75 ML/MIN Rate Random Glucose 164 MG/DL 162 MG/DL Calcium Level 8.8 MG/DL 8.4 MG/DL Magnesium Level 2.1 MG/DL Total Bilirubin 0.3 MG/DL 0.3 MG/DL Aspartate Amino Transf 24 U/L 17 U/L (AST/SGOT) Alanine Aminotransferase 23 U/L 21 U/L (ALT/SGPT) Alkaline Phosphatase 59 U/L 56 U/L Total Protein 7.0 GM/DL 7.0 GM/DL Albumin 2.6 GM/DL 2.6 GM/DL Microbiology Date/Time Procedure Status Source Growth 01/24/17 19:15 Legionella Antigen - Final Complete Urine Catheterized Urine PRESUMPTIVE NEGATIVE FOR LEGIONELLA P... 01/24/17 19:15 Streptococcus pneumoniae Antigen (M - Final Complete Urine Catheterized Urine PRESUMPTIVE NEGATIVE FOR STREPTOCOCCU... 01/25/17 13:00 Gram Stain - Final Complete Wound Abdomen 01/25/17 13:00 Wound Culture - Final Complete Enterococcus Faecalis Vre Proteus [facility] Last Impressions Chest X-Ray 5/6/17 0000 Signed Impressions: Service Date/Time: Monday, January 23, 2017 04:21 - CONCLUSION: 1. Slight elevation left hemidiaphragm. 2. Left basilar density likely atelectasis. Walt Johnson MD Chest CT 01/23/17 Signed Impressions: Service Date/Time: Monday, January 23, 2017 13:16 - CONCLUSION: 1. Consolidation is noted in both lung bases with air bronchograms. There is also consolidation along the posterior left major fissure. 2. Cardiomegaly and small pericardial effusion. Conrado Bhatti MD Abdomen/Pelvis CT 01/23/17 Signed Impressions: Service Date/Time: Monday, January 23, 2017 13:16 - CONCLUSION: 1. Interval postsurgical changes status post abdominal hernia repair with soft tissue swelling and gas in the subcutaneous fat. There are surgical drains in place with no drainable fluid collection. 2. Abnormal bowel gas pattern of concern for early or partial small bowel obstruction. 3. New consolidation in both lung bases with minimal effusions. 4. Cardiomegaly with small amount of pericardial fluid. 5. Stable calcification pseudocyst in the tail of the pancreas. Conrado Bhatti MD Physical Exam GENERAL: Obese, well-developed patient, in no apparent distress. SKIN: No rashes, ecchymoses or lesions. Cool and dry. HEAD: Atraumatic. Normocephalic. No temporal or scalp tenderness. EYES: Pupils equal round and reactive. Extraocular motions intact. No scleral icterus. No injection or drainage. ENT: BiPAP mask on. NECK: Trachea midline. Supple, nontender, no meningeal signs. CARDIOVASCULAR: RRR, No murmrur. RESPIRATORY: Clear to auscultation. Breath sounds equal bilaterally. GASTROINTESTINAL: Abdomen soft, Non tender. JORJE drains with sanguinous drainage. Surgical black pressurized/vac in place. MUSCULOSKELETAL: Extremities without clubbing, cyanosis. Pedal edema noted. NEUROLOGICAL: Awake and alert. Grossly non focal. Psych: appears anxious. IV line sites with no e.o infection. Assessment & Plan Remarks Sepsis in a post op patient. Pneumonia High grade Leucocytosis. pod 3 ex lap, ana, hernia repair colostomy reversal COPD ? acute exacerbation. Acute resp failure Obese ? CELESTINO component. Recs Continue Zosyn IV (adequate no double coverage needed with Cefepime and Flagyl) DC Vanco IV Start Zyvox IV Continue Azithro oral. CT reviewed by me c/w pneumonia. Follow cultures Follow clinically. d/w RN and family in room. Floridalma Schneider MD January 27, 2017 16:30
[2017-01-27] MEDS: ENOXAPARIN SODIUM 40 MG/0.4 ML SYRINGE SQ SCH (17:37)
--- NOTE | 2017-01-27 18:45 | HHI.PR ---
Subjective Remarks ASS: RESPIRATORY FAILURE COPD PNA Objective Vital Signs Date Time Temp Pulse Resp B/P Pulse Ox O2 Delivery O2 Flow Rate FiO2 01/27/17 18:00 69 01/27/17 16:00 78 01/27/17 16:00 97.9 78 26 143/70 90 01/27/17 15:26 90 Nasal Cannula 6.00 01/27/17 14:00 62 01/27/17 12:32 92 Bi-Pap 40 01/27/17 12:28 92 40 01/27/17 12:00 99 01/27/17 12:00 98.2 94 27 152/70 91 01/27/17 10:00 82 01/27/17 08:07 95 Nasal Cannula 5.00 01/27/17 08:00 82 01/27/17 08:00 82 01/27/17 08:00 97.6 80 19 127/67 95 01/27/17 07:00 96 Nasal Cannula 6.00 01/27/17 06:00 75 01/27/17 04:00 97.8 70 20 124/69 93 01/27/17 04:00 70 01/27/17 02:00 82 01/27/17 01:01 92 Nasal Cannula 5.00 01/27/17 00:00 98.1 80 21 137/68 96 01/27/17 00:00 80 01/26/17 23:08 100 40 01/26/17 22:00 86 01/26/17 20:56 97 Nasal Cannula 5.00 01/26/17 20:00 97.9 93 31 125/59 91 01/26/17 20:00 93 01/26/17 19:00 91 Nasal Cannula 6.00 I/O 01/26/17 01/26/17 01/26/17 01/27/17 01/27/17 01/27/17 07:00 15:00 23:00 07:00 15:00 23:00 Intake Total 995 ml 900 ml 517 ml 245 ml 790 ml Output Total 20 ml 655 ml 155 ml 15 ml 170 ml Balance 975 ml 245 ml 362 ml 230 ml 620 ml Intake Oral 120 ml 900 ml 240 ml 300 ml IV Total 875 ml 277 ml 245 ml 490 ml Output Urine Total 620 ml Drainage Total 20 ml 35 ml 155 ml 15 ml 170 ml # Voids 1 4 1 2 1 # Bowel Movements 2 6 1 5 1 Result Diagram: 01/27/17 0419 01/27/17 0419 Objective Remarks GENERAL: SKIN: Warm and dry. HEAD: Atraumatic. Normocephalic. EYES: Pupils equal and round. No scleral icterus. No injection or drainage. ENT: No nasal bleeding or discharge. Mucous membranes pink and moist. NECK: Trachea midline. No JVD. CARDIOVASCULAR: Regular rate and rhythm. RESPIRATORY: No accessory muscle use. SCATTERED RONCHI AT BASIS. GASTROINTESTINAL: Abdomen soft, non-tender, nondistended. Hepatic and splenic margins not palpable. MUSCULOSKELETAL: Extremities without clubbing, cyanosis, or edema. No obvious deformities. NEUROLOGICAL: Awake and alert. No obvious cranial nerve deficits. Motor grossly within normal limits. Five out of 5 muscle strength in the arms and legs. Normal speech. PSYCHIATRIC: Appropriate mood and affect; insight and judgment normal. Assessment and Plan Assessment and Plan RESPIRATORY FAILURE COPD PNA Improving ? CELESTINO PLAN: BIPAP NEEDED O2 NEEDED PUNL. TOILET ANTIBIOTIC THERAPY Amelia Cisneros MD January 27, 2017 18:45
[2017-01-27] MEDS: PANTOPRAZOLE SODIUM 40 MG VIAL IV SCH (20:48)
[2017-01-27] MEDS: TAMSULOSIN HCL 0.4 MG CAP PO SCH (20:49)
[2017-01-27] MEDS: ZOLPIDEM TARTRATE 10 MG TAB PO PRN (22:41)
[2017-01-27] MEDS: LORazepam 1 MG TAB PO PRN (22:41)
[2017-01-28] VITALS (17 sets, daily range): BP systolic 15–147; BP diastolic 62–74; PULSE 62–80; RESP 15–34; TEMP 97.6–98.1; O2SAT 89–94
[2017-01-28] MEDS: LINEZOLID 600 MG PREMIX 300 ML IV SCH ×2 (00:47→12:49)
[2017-01-28] MEDS: RESP: ALBUTEROL 2.5 MG/IPRATROPIUM 0.5 MG NEB (SCH) NEB ×7 (00:54→23:09)
[2017-01-28] MEDS: oxyCODONE/ACETAMINOPHEN 10 MG/325 MG TAB PO PRN ×3 (03:42→16:26)
[2017-01-28] MEDS: PIPERACIL-TAZO 4.5 GM PREMIX 100 ML IV SCH ×3 (06:54→17:42)
[2017-01-28 08:27] LABS: BICARBONATE 28.1 MEQ/L (21.0-32.0); POTASSIUM 4.1 MEQ/L (3.5-5.1)
[2017-01-28] MEDS: DOCUSATE SODIUM 100 MG CAP PO SCH ×2 (08:33→22:28)
[2017-01-28] MEDS: methylPREDNISolone SOD SUCC 125 MG/2 ML VIAL IV PUSH SCH ×2 (08:49→22:23)
[2017-01-28] MEDS: ALLOPURINOL 100 MG TAB PO SCH (08:49)
[2017-01-28] MEDS: SODIUM CHLORIDE 0.9% FLUSH 10 ML FLUSH IV FLUSH SCH ×2 (08:50→22:28)
[2017-01-28] MEDS: DILTIAZEM HCL 30 MG TAB PO SCH ×4 (08:50→22:24)
[2017-01-28] MEDS: LISINOPRIL 5 MG TAB PO SCH (08:50)
[2017-01-28] MEDS: AZITHROMYCIN 250 MG TAB PO SCH (08:50)
[2017-01-28] MEDS: TIOTROPIUM BROMIDE 18 MCG INH INH SCH (08:50)
[2017-01-28] MEDS: BUDESONIDE-FORMOTEROL 160/4.5 MCG INHALER INH SCH ×2 (08:50→22:25)
--- NOTE | 2017-01-28 10:04 | HHI.PR ---
Subjective Remarks looks better today. tachypnea and sob has improved. no fever. had some diarrhea over night. abdominal pain is mild. d/w the RN. Objective Vitals Vital Signs Date Time Temp Pulse Resp B/P Pulse Ox O2 Delivery O2 Flow Rate FiO2 01/28/17 07:48 91 Nasal Cannula 6.00 01/28/17 06:00 73 01/28/17 04:42 20 01/28/17 04:00 67 01/28/17 04:00 97.6 67 17 128/71 89 01/28/17 02:00 71 01/28/17 01:03 93 40 01/28/17 00:59 92 BiPAP 40 01/28/17 00:50 93 40 01/28/17 00:00 97.8 68 34 135/74 89 01/28/17 00:00 68 01/27/17 22:00 71 01/27/17 20:00 97.2 78 22 143/64 93 01/27/17 20:00 77 01/27/17 19:00 95 Nasal Cannula 6.00 01/27/17 18:00 69 01/27/17 16:00 78 01/27/17 16:00 97.9 78 26 143/70 90 01/27/17 15:26 90 Nasal Cannula 6.00 01/27/17 14:00 62 01/27/17 12:32 92 Bi-Pap 40 01/27/17 12:28 92 40 01/27/17 12:00 99 01/27/17 12:00 98.2 94 27 152/70 91 I/O 01/27/17 01/27/17 01/27/17 01/28/17 01/28/17 01/28/17 07:00 15:00 23:00 07:00 15:00 23:00 Intake Total 245 ml 790 ml 817 ml 909 ml Output Total 15 ml 170 ml 800 ml 70 ml Balance 230 ml 620 ml 17 ml 839 ml Intake Oral 300 ml 400 ml 480 ml IV Total 245 ml 490 ml 417 ml 429 ml Output Urine Total 600 ml Drainage Total 15 ml 170 ml 200 ml 70 ml # Voids 2 1 2 2 # Bowel Movements 5 1 2 1 Result Diagram: 01/27/17 0419 01/28/17 0734 Imaging Last Impressions Chest X-Ray 01/26/17 0600 Signed Impressions: Service Date/Time: Thursday, January 26, 2017 04:42 - CONCLUSION: Unchanged pleural effusions and bibasilar atelectasis versus infiltrates. Farhat Umana Jr., MD Chest CT 01/23/17 0000 Signed Impressions: Service Date/Time: Monday, January 23, 2017 13:16 - CONCLUSION: 1. Consolidation is noted in both lung bases with air bronchograms. There is also consolidation along the posterior left major fissure. 2. Cardiomegaly and small pericardial effusion. Conrado Bhatti MD Abdomen/Pelvis CT 01/23/17 0000 Signed Impressions: Service Date/Time: Monday, January 23, 2017 13:16 - CONCLUSION: 1. Interval postsurgical changes status post abdominal hernia repair with soft tissue swelling and gas in the subcutaneous fat. There are surgical drains in place with no drainable fluid collection. 2. Abnormal bowel gas pattern of concern for early or partial small bowel obstruction. 3. New consolidation in both lung bases with minimal effusions. 4. Cardiomegaly with small amount of pericardial fluid. 5. Stable calcification pseudocyst in the tail of the pancreas. Conrado Bhatti MD Objective Remarks GENERAL: This is a well-nourished, well-developed patient, in no apparent distress. CARDIOVASCULAR: Regular rate and regular rhythm without murmurs, gallops, or rubs. RESPIRATORY: diminished air entry in bases with some wheezing GASTROINTESTINAL: Abdomen soft, non-tender, nondistended. MUSCULOSKELETAL: Extremities without clubbing, cyanosis, or edema. NEURO: Alert & Oriented x4 to person, place, time, situation. Moves all ext x4 Procedures 1. Exploratory laparotomy. 2. Lysis of adhesions greater than 60 minutes. 3. Reversal of end-ileostomy. 4. Complex scar revision. 5. Abdominal incisional hernia repair with left lateral component separation. Medications and IVs Current Medications Alvimopan (Entereg) 12 mg CONSUMER EDUCATION SPECIALIST PO ; Start 01/20/17 at 10:30; Stop 01/22/17 at 04:33; Status DC Alvimopan 12 mg 12 mg BID PO Last administered on 01/27/17t 20:49; Start at 09:00; Stop 01/27/17 at 21:01; Status DC Lactated Ringer's 1,000 ml @ 30 mls/hr Q24H PRN IV SEE LABEL COMMENTS; Start at 10:30; Stop 01/22/17 at 04:33; Status DC Sodium Chloride (NS 500 ml Inj) 500 ml @ 30 mls/hr [id number] PRN IV SEE LABEL COMMENTS; Start 01/20/17 at 10:30; Stop 01/22/17 at 04:33; Status DC Metoprolol Tartrate (Lopressor) 25 mg CONSUMER EDUCATION SPECIALIST PRN PO SEE LABEL COMMENTS; Start 01/20/17 at 10:30; Stop 01/22/17 at 04:33; Status DC Povidone Iodine (Betadine 5% Antisepsis Kit) 1 applic CONSUMER EDUCATION SPECIALIST PRN EACH NARE SEE LABEL COMMENTS; Start 01/20/17 at 10:30; Stop 01/22/17 at 04:33; Status DC Chlorhexidine Gluconate (Chlorhexidine 2% Cloth) 3 pack CONSUMER EDUCATION SPECIALIST PRN TOPICAL SEE LABEL COMMENTS; Start 01/20/17 at 10:30; Stop 01/22/17 at 04:33; Status DC Insulin Human Regular See Protocol Table ... CONSUMER EDUCATION SPECIALIST PRN SQ SEE PROTOCOL TABLE ; Start 01/20/17 at 10:30; Stop 01/22/17 at 04:33; Status DC Cefazolin Sodium 1000 mg/Sodium Chloride 100 ml @ 200 mls/hr CONSUMER EDUCATION SPECIALIST IV Last administered on 01/20/17 13:40; Start 01/20/17 at 10:30; Stop 01/22/17 at 04:33; Status DC Metronidazole (Flagyl 500 Mg Inj) 100 ml @ 100 mls/hr CON[employer]ER EDUCATION SPECIALIST IV Last administered on 01/20/17 13:48; Start 01/20/17 at 10:30; Stop 01/20/17 at 19:05; Status DC Methylprednisolone Sodium Succinate 125 mg 125 mg STK-MED ONCE .ROUTE ; Start at 14:44; Stop 01/20/17 at 14:45; Status DC Potassium Chloride/Dextrose/ Sod Cl (D5-NS + KCl 20 Meq Inj) 1,000 ml @ 125 mls /hr Q8H IV Last administered on 01/23/17 01:03; Start 01/20/17 at 19:00; Stop at 15:13; Status DC Sodium Chloride (NS Flush) 2 ml UNSCH PRN IV FLUSH FLUSH AFTER USING IV ACCESS ; Start 01/20/17 at 18:30 Sodium Chloride (NS Flush) 2 ml BID IV FLUSH Last administered on 01/27/17 20: 53; Start 01/20/17 at 21:00 Ondansetron HCl (Zofran Inj) 4 mg Q6H PRN IV NAUSEA OR VOMITING; Start 01/20/17 at 18:30 Pantoprazole Sodium (Protonix Inj) 40 mg Q24H IV Last administered on 20:48; Start 01/20/17 at 19:30 Docusate Sodium 100 mg 100 mg BID PO Last administered on 01/27/17 08:09; Start 01/20/17 at 21:00 Cefazolin Sodium 1000 mg/Sodium Chloride 100 ml @ 200 mls/hr Q8H IV Last administered on 01/21/17 14:23; Start 01/20/17 at 22:00; Stop 01/21/17 at 14:29; Status DC Metronidazole (Flagyl 500 Mg Inj) 100 ml @ 200 mls/hr Q8H IV Last administered on 01/21/17 14:26; Start 01/20/17 at 22:30; Stop 01/21/17 at 14:59; Status DC Miscellaneous Information (Post-op Orders (for Pharmacy)) STAT ONCE XX ; Start 01/20/17 at 18:30; Stop 01/20/17 at 18:59; Status DC Oxycodone/ Acetaminophen (Percocet 10-325 Mg) 1 tab Q6H PRN PO PAIN SCALE 6 TO 10 Last administered on 01/28/17 09:52; Start 01/20/17 at 18:30 Naloxone HCl (Narcan Inj) 0.4 mg UNSCH PRN IV SEE LABEL COMMENTS; Start at 18:30; Stop 01/21/17 at 08:52; Status DC Enoxaparin Sodium (Lovenox Inj) 30 mg Q24H SQ Last administered on 01/24/17 17: 03; Start 01/21/17 at 18:00; Stop 01/25/17 at 10:39; Status DC Naloxone HCl (Narcan Inj) 0.4 mg UNSCH PRN IV RESPIRATORY RATE LESS THAN 10; Start 01/20/17 at 18:30; Stop 01/25/17 at 12:10; Status DC Morphine Sulfate (Morphine 1 Mg/ ml [employer]S TEACHER) 30 mg UNSCH IV Last administered on 23:00; Start 01/20/17 at 19:00; Stop 01/25/17 at 12:10; Status DC [employer] TEACHER Dosage Infused (Pha) 1 Q8HR .XX Last administered on 01/25/17 06:00; Start 01/20/17 at 22:00; Stop 01/25/17 at 12:10; Status DC Fentanyl Citrate (fentaNYL INJ) 200 mcg STK-MED ONCE .ROUTE ; Start 01/20/17 at 18:53; Stop 01/20/17 at 18:54; Status DC Fentanyl Citrate (fentaNYL INJ) 500 mcg STK-MED ONCE .ROUTE ; Start 01/20/17 at 18:53; Stop 01/20/17 at 18:54; Status DC Morphine Sulfate (*morphine INJ PERIprocedure ONLY) 8 mg STK-MED ONCE .ROUTE Last administered on 01/20/17 18:58; Start 01/20/17 at 18:58; Stop 01/20/17 at 18: 59; Status DC Morphine Sulfate (*morphine INJ PERIprocedure ONLY) 8 mg STK-MED ONCE .ROUTE Last administered on 01/20/17 19:07; Start 01/20/17 at 19:07; Stop 01/20/17 at 19: 08; Status DC Hydromorphone HCl (*DILAUDID PF INJ PERIprocedural ONLY) 1 mg STK-MED ONCE .ROUTE Last administered on 01/20/17 19:17; Start 01/20/17 at 19:17; Stop at 19:18; Status DC Hydromorphone HCl (*DILAUDID PF INJ PERIprocedural ONLY) 1 mg STK-MED ONCE .ROUTE Last administered on 01/20/17 19:28; Start 01/20/17 at 19:28; Stop at 19:29; Status DC Hydromorphone HCl (*DILAUDID PF INJ PERIprocedural ONLY) 1 mg STK-MED ONCE .ROUTE Last administered on 01/20/17 19:39; Start 01/20/17 at 19:39; Stop at 19:40; Status DC Labetalol HCl (*TRANDATE INJ PERIprocedural Use ONLY) 100 mg STK-MED ONCE .ROUTE Last administered on 01/20/17 19:40; Start 01/20/17 at 19:40; Stop at 19:41; Status DC Lorazepam (Ativan Inj) 1 mg Q6H PRN IV PUSH anxiety Last administered on 12:06; Start 01/21/17 at 07:30 Allopurinol (Zyloprim) 100 mg DAILY PO Last administered on 01/28/17 08:49; Start 01/21/17 at 09:00 Lisinopril (Prinivil) 5 mg DAILY PO Last administered on 01/28/17 08:50; Start 01/21/17 at 09:00 Lorazepam (Ativan) 1 mg Q8H PRN PO ANXIETY Last administered on 01/27/17 22:41 ; Start 01/21/17 at 09:00 Tamsulosin HCl (Flomax) 0.8 mg HS PO Last administered on 01/27/17 20:49; Start 01/21/17 at 21:00 Albuterol Sulfate 1.25 mg 1.25 mg Q6HR NEB PRN NEB SHORTNESS OF BREATH; Start 01/21/17 at 09:00; Stop 01/22/17 at 04:30; Status DC Cefazolin Sodium/ Dextrose 50 ml @ 100 mls/hr Q8H IV Last administered on 23:24; Start 01/21/17 at 23:00; Stop 01/22/17 at 04:24; Status DC Metronidazole (Flagyl 500 Mg Inj) 100 ml @ 100 mls/hr Q8H IV Last administered on 01/23/17 06:28; Start 01/21/17 at 22:00; Stop 01/23/17 at 13:43; Status DC Albuterol/ Ipratropium 1 ampule 1 ampule Q4HR NEB PRN NEB SOB/WHEEZING Last administered on 01/22/17 03:57; Start 01/22/17 at 03:15; Stop 01/22/17 at 09:07; Status DC Cefepime HCl/ Sodium Chloride (Maxipime Inj/NS Inj) 100 ml @ 200 mls/hr Q8H IV Last administered on 01/23/17 05:39; Start 01/22/17 at 05:00; Stop 01/23/17 at 13:43; Status DC Albuterol/ Ipratropium (Duoneb Neb) 1 ampule Q6HR NEB NEB ; Start 01/22/17 at 10 :00; Stop 01/22/17 at 10:00; Status DC Albuterol/ Ipratropium (Duoneb Neb) 1 ampule Q4HR NEB NEB Last administered on 01/24/17 04:12; Start 01/23/17 at 12:00; Stop 01/24/17 at 12:14; Status DC Albuterol Sulfate (Albuterol Neb) 1.25 mg Q2HR NEB PRN NEB SHORTNESS OF BREATH Last administered on 01/25/17 10:25; Start 01/22/17 at 09:15 Bumetanide (Bumex Inj) 1 mg NOW ONCE IV PUSH Last administered on 01/22/17 19: 50; Start 01/22/17 at 19:00; Stop 01/22/17 at 19:01; Status DC Methylprednisolone Sodium Succinate (SoluMEDROL INJ) 40 mg Q6H IV Last administered on 01/24/17 00:03; Start 01/22/17 at 19:00; Stop 01/24/17 at 01:01; Status DC Enalaprilat (Vasotec Inj) 1.25 mg NOW ONCE IV PUSH Last administered on 04:06; Start 01/23/17 at 04:00; Stop 01/23/17 at 04:03; Status DC Adenosine (Adenocard Inj) 6 mg STK-MED ONCE .ROUTE ; Start 01/23/17 at 04:18; Stop 01/23/17 at 04:19; Status DC Diltiazem HCl (Cardizem Inj) 20 mg ONCE ONCE IV ; Start 01/23/17 at 04:30; Stop 01/23/17 at 04:31; Status DC Metoprolol Tartrate (Lopressor Inj) 5 mg Q5M PRN IV PUSH RAPID HEART RATE Last administered on 01/24/17 02:48; Start 01/23/17 at 04:30 Bumetanide 1 mg 1 mg ONCE ONCE IV PUSH Last administered on 01/23/17 04:38; Start 01/23/17 at 04:30; Stop 01/23/17 at 04:35; Status DC Piperacillin Sod/ Tazobactam Sod (Zosyn 4.5 Gm Premix) 100 ml @ 200 mls/hr Q6H IV Last administered on 01/28/17 06:54; Start 01/23/17 at 06:00 Diatrizoate Meglum/ Diatrizoate Sod (Md [place] Liq) 18 ml ONCE ONCE PO Last administered on 01/23/17 09:45; Start 01/23/17 at 08:15; Stop 01/23/17 at 08: 16; Status DC Iohexol 100 ml 100 ml STK-MED ONCE IV Last administered on 01/23/17 13:17; Start 01/23/17 at 13:17; Stop 01/23/17 at 13:18; Status DC Micafungin Sodium 150 mg/Sodium Chloride 100 ml @ 100 mls/hr Q24H IV ; Start at 13:45; Stop 01/23/17 at 13:45; Status DC Pharmacy Profile Note (Vancomycin Consult Pharmacy) 0 ml @ 0 mls/hr UNSCH OTHER ; Start 01/23/17 at 16:00; Stop 01/27/17 at 12:32; Status DC Metoprolol Tartrate 25 mg 25 mg Q6HR PO Last administered on 01/24/17 11:38; Start 01/23/17 at 18:00; Stop 01/24/17 at 12:34; Status DC Vancomycin HCl/ Sodium Chloride (Vancomycin Inj/ NS 500 ml Inj) 517 ml @ 258.5 mls/ hr Q18H IV Last administered on 01/26/17 03:06; Start 01/23/17 at 20:00; Stop 01/26/17 at 10:17; Status DC Miscellaneous Information SPECIFIC LAB TO BE MISSY... ONCE ONCE .XX Last administered on 01/26/17 01:45; Start 01/26/17 at 01:45; Stop 01/26/17 at 01:46; Status DC Zolpidem Tartrate (Ambien) 10 mg HS PRN PO sleep Last administered on 22:41; Start 01/24/17 at 09:00 Ipratropium [place] (Atrovent Neb) 0.5 mg Q2HR NEB PRN NEB SHORTNESS OF BREATH ; Start 01/24/17 at 12:15 Ipratropium [place] (Atrovent Neb) 0.5 mg Q6HR NEB NEB Last administered on 10:25; Start 01/24/17 at 22:00; Stop 01/25/17 at 10:39; Status DC Bumetanide (Bumex Inj) 1 mg ONCE ONCE IV PUSH Last administered on 01/24/17 12 :30; Start 01/24/17 at 12:30; Stop 01/24/17 at 12:31; Status DC Metoprolol Tartrate 75 mg 75 mg Q12H PO Last administered on 01/24/17 23:01; Start 01/25/17 at 00:00; Stop 01/25/17 at 10:46; Status DC Amiodarone HCl 150 mg/Dextrose 100 ml @ 100 mls/hr ONCE ONCE IV Last administered on 01/24/17 12:45; Start 01/24/17 at 12:45; Stop 01/24/17 at 13:44; Status DC Amiodarone HCl/ Dextrose (Cordarone Inj/ D5W ([place]) Inj) 250 ml @ 0 mls/hr CONTINUOUS IV Last administered on 01/25/17 01:32; Start 01/24/17 at 13:00; Stop 01/25/17 at 10:46; Status DC Azithromycin (Zithromax) 500 mg DAILY PO Last administered on 01/28/17 08:50; Start 01/25/17 at 09:00 Albuterol/ Ipratropium (Duoneb Neb) 1 ampule Q4HR NEB NEB Last administered on 01/28/17 07:48; Start 01/25/17 at 12:00 Enoxaparin Sodium (Lovenox Inj) 40 mg Q24H SQ Last administered on 01/27/17 17 :37; Start 01/25/17 at 18:00 Methylprednisolone Sodium Succinate (SoluMEDROL INJ) 60 mg Q12HR IV PUSH Last administered on 01/28/17 08:49; Start 01/25/17 at 11:00 Budesonide/ Formoterol Fumarate (Symbicort 160-4.5 Inh) 1 puff Q12HR INH Last administered on 01/28/17 08:50; Start 01/25/17 at 12:00 Metoprolol Tartrate (Lopressor) 100 mg Q12H PO Last administered on 01/27/17 23:53; Start 01/25/17 at 12:00 Tiotropium [place] (Spiriva Inh) 18 mcg DAILY INH Last administered on 08:50; Start 01/25/17 at 11:00 Morphine Sulfate (Morphine Inj) 2 mg Q3H PRN IV PUSH PAIN SCALE 5 TO 10 Last administered on 01/27/17 01:06; Start 01/25/17 at 12:15 Miscellaneous Information ICU - CALL ORDERING PHYSIC... UNSCH PRN .XX SEE DOSE INSTRUCTIONS; Start 01/25/17 at 21:00 Potassium Chloride (KCl 40 Meq Premix Inj) 100 ml @ 25 mls/hr UNSCH PRN IV ELECTROLYTE REPLACEMENT; Start 01/25/17 at 21:00; Status Cancel Potassium Bicarb/ Potassium Chloride 50 meq 50 meq UNSCH PRN PO ELECTROLYTE REPLACEMENT; Start 01/25/17 at 21:00 Potassium Chloride (KCl 20 Meq Premix Inj) 100 ml @ 50 mls/hr UNSCH PRN IV ELECTROLYTE REPLACEMENT Last administered on 01/27/17 10:52; Start 01/25/17 at 21:00 Bupivacaine Liposome 20 ml 20 ml STK-MED ONCE .XX ; Start 01/20/17 at 07:47; Stop 01/26/17 at 07:48; Status DC Vancomycin HCl/ Sodium Chloride (Vancomycin Inj/ NS 500 ml Inj) 517.5 ml @ 258.5 mls/ hr Q18H IV Last administered on 01/26/17 21:10; Start 01/26/17 at 20: 00; Stop 01/27/17 at 12:32; Status DC Diltiazem HCl 30 mg 30 mg QID PO Last administered on 01/28/17 08:50; Start at 13:00 Linezolid (Zyvox 600 Mg Premix) 300 ml @ 300 mls/hr Q12H IV Last administered on 01/28/17 00:47; Start 01/27/17 at 13:00 A/P Assessment and Plan A/P Acute hypoxemic respiratory failure Bibasilar pneumonia Acute COPD exacerbation - Continue on BiPAP as needed - continue IV Solu-Medrol 60 every 12 hours; will taper slowly- Started budesonide/formoterol inhaled, Spiriva - Continue DuoNeb scheduled and when necessary - Broad-spectrum antibiotics per ID - EzPAP, Acapella -pulmonary following. Paroxysmal atrial fibrillation - Discontinued IV Amio - continue metoprolol 100 mg every 12 Leukocytosis/sepsis - Started on broad-spectrum antibiotic per ID - Sepsis most likely from pneumonia Status post reversal colectomy and incisional hernia repair - Management per general surgery diarrhea- check the stool for c-diff. hypokalemia-replaced. DVT GI prophylaxis - Lovenox Pepcid transfer to telemetry if ok with pulmonary. d/w the RN. Scott Stephenson MD January 28, 2017 10:04
[2017-01-28] MEDS: METOPROLOL TARTRATE 50 MG TAB PO SCH (12:49)
--- NOTE | 2017-01-28 16:06 | HHI.IDPN ---
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 He was seen by ID during that admission for intra- abdominal sepsis. He had cecal perforation ? etiology - path ischemic colitis vs pseudomembranous colitis, and was C.diff negative. He was treated with Unasyn IV for Intraabdominal sepsis 2/2 viscus perforation. A large organized fluid collection in Morales pouch was percutaneously drained and culture showed no growth final. Patient reports having well in the interim since discharge. He was electively admitted for reversal, as well as an incisional hernia repaired. His PMHx is also significant for COPD. Postsurgically he was doing well on the floor however on January 23, 2017 at 4:50 AM the rapid response was called due to patient's tachycardia and respiratory distress as he was also complaining of increasing shortness of breath which previously has been improved with bronchodilator therapy. Patient was transferred to the ICU under resident care spec service. At the time of my evaluation patient is in ISC. Overnight patient has remained on BiPAP, not on pressors. He continues to remain tachypneic and tachycardic and appears anxious at times. His urine outpt is adequate. ID consulted for evaluation of Sepsis, possible intra abd vs pulm sepsis in a post op patient. Overnight events reviewed. No fevers No rash No diarrhea Sats 91% on 6L. Sitting in chair eating lunch. Antibiotics Zosyn IV Vanco IV Lines Line sites with no e.o infection. Past Medical History reviewed. 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 Vital Signs Date Time Temp Pulse Resp B/P Pulse Ox O2 Delivery O2 Flow Rate FiO2 01/28/17 14:00 62 01/28/17 12:00 74 01/28/17 12:00 76 19 147/68 93 01/28/17 10:00 62 01/28/17 08:00 74 01/28/17 08:00 97.6 76 22 134/70 91 01/28/17 07:48 91 Nasal Cannula 6.00 01/28/17 07:00 93 Nasal Cannula 6.00 01/28/17 06:00 73 01/28/17 04:42 20 01/28/17 04:00 67 01/28/17 04:00 97.6 67 17 128/71 89 01/28/17 02:00 71 01/28/17 01:03 93 40 01/28/17 00:59 92 BiPAP 40 01/28/17 00:50 93 40 01/28/17 00:00 97.8 68 34 135/74 89 01/28/17 00:00 68 01/27/17 22:00 71 01/27/17 20:00 97.2 78 22 143/64 93 01/27/17 20:00 77 01/27/17 19:00 95 Nasal Cannula 6.00 01/27/17 18:00 69 01/27/17 01/27/17 01/28/17 15:00 23:00 07:00 Intake Total 790 ml 817 ml 909 ml Output Total 170 ml 800 ml 70 ml Balance 620 ml 17 ml 839 ml Intake Oral 300 ml 400 ml 480 ml IV Total 490 ml 417 ml 429 ml Output Urine Total 600 ml Drainage Total 170 ml 200 ml 70 ml # Voids 1 2 2 # Bowel Movements 1 2 1 . Laboratory Tests Test 01/27/17 04:19 White Blood Count 15.7 TH/MM3 Red Blood Count 3.20 MIL/MM3 Hemoglobin 8.9 GM/DL Hematocrit 28.0 % Mean Corpuscular Volume 87.2 FL Mean Corpuscular Hemoglobin 27.7 PG Mean Corpuscular Hemoglobin 31.8 % Concent Red Cell Distribution Width 14.8 % Platelet Count 545 TH/MM3 Mean Platelet Volume 8.1 FL Neutrophils (%) (Auto) 85.3 % Lymphocytes (%) (Auto) 10.2 % Monocytes (%) (Auto) 4.1 % Eosinophils (%) (Auto) 0.0 % Basophils (%) (Auto) 0.4 % Neutrophils # (Auto) 13.4 TH/MM3 Lymphocytes # (Auto) 1.6 TH/MM3 Monocytes # (Auto) 0.6 TH/MM3 Eosinophils # (Auto) 0.0 TH/MM3 Basophils # (Auto) 0.1 TH/MM3 CBC Comment AUTO DIFF Differential Comment AUTO DIFF CONFIRMED Laboratory Tests Test 01/27/17 01/28/17 04:19 07:34 Sodium Level 145 MEQ/L 140 MEQ/L Potassium Level 3.4 MEQ/L 4.1 MEQ/L Chloride Level 107 MEQ/L 106 MEQ/L Carbon Dioxide Level 27.4 MEQ/L 28.1 MEQ/L Anion Gap 11 MEQ/L 6 MEQ/L Blood Urea Nitrogen 15 MG/DL 16 MG/DL Creatinine 1.00 MG/DL 0.93 MG/DL Estimat Glomerular Filtration 75 ML/MIN 82 ML/MIN Rate Random Glucose 162 MG/DL 167 MG/DL Calcium Level 8.4 MG/DL 8.4 MG/DL Total Bilirubin 0.3 MG/DL Aspartate Amino Transf 17 U/L (AST/SGOT) Alanine Aminotransferase 21 U/L (ALT/SGPT) Alkaline Phosphatase 56 U/L Total Protein 7.0 GM/DL Albumin 2.6 GM/DL Imaging Last Impressions Chest X-Ray 01/23/17 0000 Signed Impressions: Service Date/Time: Monday, January 23, 2017 04:21 - CONCLUSION: 1. Slight elevation left hemidiaphragm. 2. Left basilar density likely atelectasis. Walt Johnson MD Chest CT 01/23/17 0000 Signed Impressions: Service Date/Time: Monday, January 23, 2017 13:16 - CONCLUSION: 1. Consolidation is noted in both lung bases with air bronchograms. There is also consolidation along the posterior left major fissure. 2. Cardiomegaly and small pericardial effusion. Conrado Bhatti MD Abdomen/Pelvis CT 01/23/17 0000 Signed Impressions: Service Date/Time: Monday, January 23, 2017 13:16 - CONCLUSION: 1. Interval postsurgical changes status post abdominal hernia repair with soft tissue swelling and gas in the subcutaneous fat. There are surgical drains in place with no drainable fluid collection. 2. Abnormal bowel gas pattern of concern for early or partial small bowel obstruction. 3. New consolidation in both lung bases with minimal effusions. 4. Cardiomegaly with small amount of pericardial fluid. 5. Stable calcification pseudocyst in the tail of the pancreas. Conrado Bhatti MD Physical Exam GENERAL: Obese, well-developed patient, in no apparent distress. SKIN: No rashes, ecchymoses or lesions. Cool and dry. HEAD: Atraumatic. Normocephalic. No temporal or scalp tenderness. EYES: Pupils equal round and reactive. Extraocular motions intact. No scleral icterus. No injection or drainage. ENT: NC on. NECK: Trachea midline. Supple, nontender, no meningeal signs. CARDIOVASCULAR: RRR, No murmrur. RESPIRATORY: Clear to auscultation. Breath sounds equal bilaterally. GASTROINTESTINAL: Abdomen soft, Non tender. JORJE drains with sanguinous drainage. Surgical black pressurized/vac in place. MUSCULOSKELETAL: Extremities without clubbing, cyanosis. Pedal edema noted. NEUROLOGICAL: Awake and alert. Grossly non focal. Psych: appears anxious. IV line sites with no e.o infection. Assessment & Plan Remarks Sepsis in a post op patient. Pneumonia High grade Leucocytosis. pod 3 ex lap, ana, hernia repair colostomy reversal COPD ? acute exacerbation. Acute resp failure Obese ? CELESTINO component. Recs Continue Zosyn IV Continue Zyvox change to oral. NAEEM Vasques. CT reviewed by me c/w pneumonia. Follow cultures Follow clinically. d/w RN and family in room. Floridalma Schneider MD January 28, 2017 16:06
[2017-01-28] MEDS: LORazepam 1 MG TAB PO PRN (16:28)
[2017-01-28] MEDS: ENOXAPARIN SODIUM 40 MG/0.4 ML SYRINGE SQ SCH (17:43)
--- NOTE | 2017-01-28 20:26 | HHI.PR ---
Subjective Remarks Patient remains on , afebrile, tachycardic. On 6 LNC Did't use CPAP last night Up in chair Objective Vital Signs Vital Signs Date Time Temp Pulse Resp B/P Pulse Ox O2 Delivery O2 Flow Rate FiO2 01/28/17 19:34 94 Nasal Cannula 6.00 01/28/17 18:00 80 01/28/17 16:00 67 01/28/17 16:00 98.1 67 21 123/62 94 01/28/17 14:00 62 01/28/17 12:00 74 01/28/17 12:00 76 19 147/68 93 01/28/17 10:00 62 01/28/17 08:00 74 01/28/17 08:00 97.6 76 22 134/70 91 01/28/17 07:48 91 Nasal Cannula 6.00 01/28/17 07:00 93 Nasal Cannula 6.00 01/28/17 06:00 73 01/28/17 04:42 20 01/28/17 04:00 67 01/28/17 04:00 97.6 67 17 128/71 89 01/28/17 02:00 71 01/28/17 01:03 93 40 01/28/17 00:59 92 BiPAP 40 01/28/17 00:50 93 40 01/28/17 00:00 97.8 68 34 135/74 89 01/28/17 00:00 68 01/27/17 22:00 71 I/O 01/27/17 01/27/17 01/27/17 01/28/17 01/28/17 01/28/17 07:00 15:00 23:00 07:00 15:00 23:00 Intake Total 245 ml 790 ml 817 ml 909 ml 1040 ml Output Total 15 ml 170 ml 800 ml 70 ml 750 ml Balance 230 ml 620 ml 17 ml 839 ml 290 ml Intake Oral 300 ml 400 ml 480 ml 820 ml IV Total 245 ml 490 ml 417 ml 429 ml 220 ml Output Urine Total 600 ml 750 ml Drainage Total 15 ml 170 ml 200 ml 70 ml # Voids 2 1 2 2 1 # Bowel Movements 5 1 2 1 2 Result Diagram: 01/27/17 0419 01/28/17 0734 Objective Remarks GENERAL: Patient is 66 yo lying in recliner chair with good sats. SKIN: Warm and dry. HEAD: Normocephalic. EYES: No scleral icterus. No injection or drainage. NECK: Supple, trachea midline. No JVD or lymphadenopathy. CARDIOVASCULAR: Tachycardic without murmurs, gallops, or rubs. RESPIRATORY: Breath sounds equal bilaterally. No accessory muscle use. GASTROINTESTINAL: Abdomen soft, non-tender, nondistended. MUSCULOSKELETAL: No cyanosis, or edema. Neuro: Awake and alert. A/P Assessment and Plan 1)Resp Insuff 2)COPD 3)? Pneumonia 4)Fluid overload 5)s/p exploratory lap, hernia repair, and colostomy reversal 6)Leukocytosis 7)Anemia 8)Obesity ? CELESTINO 9)Hyperglycemia Plan Continue to wean down oxygen as anastacio keep sat >92%\ Bronchodilators, DuoNeb to Atrovent nebs for tachycardia NIPPV PRN for resp distress Solumederol 40mg IV Q6 Abx Zyvox and Zosyn Monitor CBC and for signs of infections ( Fever, WBC) Pain control GI/DVT prophylaxis Continue treatment plan Huseyin Edmond MD January 28, 2017 20:25
[2017-01-28] MEDS: PANTOPRAZOLE SODIUM 40 MG VIAL IV SCH (22:22)
[2017-01-28] MEDS: TAMSULOSIN HCL 0.4 MG CAP PO SCH (22:23)
[2017-01-28] MEDS: LINEZOLID 600 MG TAB PO SCH (22:24)
[2017-01-28 23:31] LABS: C. DIFF EPI 027 PRESUMPTIVE NEGATIVE (NEGATIVE); C. DIFF TOXIN PCR NEGATIVE (NEGATIVE)
[2017-01-29] VITALS (12 sets, daily range): BP systolic 126–148; BP diastolic 63–76; PULSE 59–85; RESP 18–24; TEMP 96–97.4; O2SAT 91–96
[2017-01-29] MEDS: METOPROLOL TARTRATE 50 MG TAB PO SCH ×2 (00:12→12:34)
[2017-01-29] MEDS: PIPERACIL-TAZO 4.5 GM PREMIX 100 ML IV SCH ×2 (00:13→05:56)
[2017-01-29] MEDS: oxyCODONE/ACETAMINOPHEN 10 MG/325 MG TAB PO PRN ×4 (00:29→21:51)
[2017-01-29] MEDS: LORazepam 1 MG TAB PO PRN ×3 (00:29→18:16)
[2017-01-29] MEDS: ZOLPIDEM TARTRATE 10 MG TAB PO PRN (01:16)
[2017-01-29 05:12] LABS: AUTOMATED NEUTROPHIL # 12.2 TH/MM3 (1.8-7.7); BASOPHIL % 0.2 % (0.0-2.0); HEMATOCRIT 27.2 % (39.0-51.0); HEMO FLAGS DIFF FINAL; LYMPH % 11.3 % (9.0-44.0); LYMPHOCYTE # 1.6 TH/MM3 (1.0-4.8); MEAN CELL VOLUME 86.6 FL (80.0-100.0); MEAN CORPUSCULAR HEMOGLOBIN 29.1 PG (27.0-34.0); MEAN CORPUSCULAR HGB CONC 33.6 % (32.0-36.0); MONO % 4.9 % (0.0-8.0); NEUT % 83.6 % (16.0-70.0); PLATELET COUNT 516 TH/MM3 (150-450); RED BLOOD COUNT 3.14 MIL/MM3 (4.50-5.90); RED CELL DISTRIBUTION WIDTH 14.7 % (11.6-17.2); WHITE BLOOD COUNT 14.5 TH/MM3 (4.0-11.0)
--- NOTE | 2017-01-29 08:07 | HHI.PR ---
Subjective Remarks looks more comfortable today. sob continues to improve slowly. pain is controlled. no fever. Objective Vitals Vital Signs Date Time Temp Pulse Resp B/P Pulse Ox O2 Delivery O2 Flow Rate FiO2 01/29/17 04:30 92 Nasal Cannula 6.00 01/29/17 04:00 97.4 60 20 126/66 93 01/29/17 01:24 59 01/29/17 00:45 91 Nasal Cannula 6.00 01/29/17 00:10 93 40 01/29/17 00:00 97.1 78 20 148/73 91 01/28/17 22:00 74 01/28/17 20:00 73 01/28/17 20:00 98.0 71 15 129/70 91 01/28/17 19:34 94 Nasal Cannula 6.00 01/28/17 19:00 91 Nasal Cannula 6.00 01/28/17 18:00 80 01/28/17 16:00 67 01/28/17 16:00 98.1 67 21 123/62 94 01/28/17 14:00 62 01/28/17 12:00 74 01/28/17 12:00 76 19 147/68 93 01/28/17 10:00 62 I/O 01/28/17 01/28/17 01/28/17 01/29/17 01/29/17 01/29/17 07:00 15:00 23:00 07:00 15:00 23:00 Intake Total 909 ml 1040 ml 1140 ml 440 ml Output Total 70 ml 750 ml 380 ml 785 ml Balance 839 ml 290 ml 760 ml -345 ml Intake Oral 480 ml 820 ml 650 ml 240 ml IV Total 429 ml 220 ml 490 ml 200 ml Output Urine Total 750 ml 300 ml 750 ml Drainage Total 70 ml 80 ml 35 ml # Voids 2 1 1 0 # Bowel Movements 1 2 2 Result Diagram: 01/29/17 0426 01/28/17 0734 Imaging Last Impressions Chest X-Ray 01/26/17 0600 Signed Impressions: Service Date/Time: Thursday, January 26, 2017 04:42 - CONCLUSION: Unchanged pleural effusions and bibasilar atelectasis versus infiltrates. Farhat Umana Jr., MD Chest CT 01/23/17 0000 Signed Impressions: Service Date/Time: Monday, January 23, 2017 13:16 - CONCLUSION: 1. Consolidation is noted in both lung bases with air bronchograms. There is also consolidation along the posterior left major fissure. 2. Cardiomegaly and small pericardial effusion. Conrado Bhatti MD Abdomen/Pelvis CT 01/23/17 0000 Signed Impressions: Service Date/Time: Monday, January 23, 2017 13:16 - CONCLUSION: 1. Interval postsurgical changes status post abdominal hernia repair with soft tissue swelling and gas in the subcutaneous fat. There are surgical drains in place with no drainable fluid collection. 2. Abnormal bowel gas pattern of concern for early or partial small bowel obstruction. 3. New consolidation in both lung bases with minimal effusions. 4. Cardiomegaly with small amount of pericardial fluid. 5. Stable calcification pseudocyst in the tail of the pancreas. Conrado Bhatti MD Objective Remarks GENERAL: This is a well-nourished, well-developed patient, in no apparent distress. CARDIOVASCULAR: Regular rate and regular rhythm without murmurs, gallops, or rubs. RESPIRATORY: better air entry bilaterally. GASTROINTESTINAL: Abdomen soft,covered with clean dressing. MUSCULOSKELETAL: Extremities without clubbing, cyanosis, or edema. NEURO: Alert & Oriented x4 to person, place, time, situation. Moves all ext x4 Procedures 1. Exploratory laparotomy. 2. Lysis of adhesions greater than 60 minutes. 3. Reversal of end-ileostomy. 4. Complex scar revision. 5. Abdominal incisional hernia repair with left lateral component separation. Medications and IVs Current Medications Alvimopan (Entereg) 12 mg MANAGER PHP PO ; Start 01/20/17 at 10:30; Stop 01/22/17 at 04:33; Status DC Alvimopan 12 mg 12 mg BID PO Last administered on 01/27/17t 20:49; Start at 09:00; Stop 01/27/17 at 21:01; Status DC Lactated Ringer's 1,000 ml @ 30 mls/hr Q24H PRN IV SEE LABEL COMMENTS; Start at 10:30; Stop 01/22/17 at 04:33; Status DC Sodium Chloride (NS 500 ml Inj) 500 ml @ 30 mls/hr [id number] PRN IV SEE LABEL COMMENTS; Start 01/20/17 at 10:30; Stop 01/22/17 at 04:33; Status DC Metoprolol Tartrate (Lopressor) 25 mg MANAGER PHP PRN PO SEE LABEL COMMENTS; Start 01/20/17 at 10:30; Stop 01/22/17 at 04:33; Status DC Povidone Iodine (Betadine 5% Antisepsis Kit) 1 applic MANAGER PHP PRN EACH NARE SEE LABEL COMMENTS; Start 01/20/17 at 10:30; Stop 01/22/17 at 04:33; Status DC Chlorhexidine Gluconate (Chlorhexidine 2% Cloth) 3 pack MANAGER PHP PRN TOPICAL SEE LABEL COMMENTS; Start 01/20/17 at 10:30; Stop 01/22/17 at 04:33; Status DC Insulin Human Regular See Protocol Table ... MANAGER PHP PRN SQ SEE PROTOCOL TABLE ; Start 01/20/17 at 10:30; Stop 01/22/17 at 04:33; Status DC Cefazolin Sodium 1000 mg/Sodium Chloride 100 ml @ 200 mls/hr MANAGER PHP IV Last administered on 01/20/17 13:40; Start 01/20/17 at 10:30; Stop 01/22/17 at 04:33; Status DC Metronidazole (Flagyl 500 Mg Inj) 100 ml @ 100 mls/hr MANAGER PHP IV Last administered on 01/20/17 13:48; Start 01/20/17 at 10:30; Stop 01/20/17 at 19:05; Status DC Methylprednisolone Sodium Succinate 125 mg 125 mg STK-MED ONCE .ROUTE ; Start at 14:44; Stop 01/20/17 at 14:45; Status DC Potassium Chloride/Dextrose/ Sod Cl (D5-NS + KCl 20 Meq Inj) 1,000 ml @ 125 mls /hr Q8H IV Last administered on 01/23/17 01:03; Start 01/20/17 at 19:00; Stop at 15:13; Status DC Sodium Chloride (NS Flush) 2 ml UNSCH PRN IV FLUSH FLUSH AFTER USING IV ACCESS ; Start 01/20/17 at 18:30 Sodium Chloride (NS Flush) 2 ml BID IV FLUSH Last administered on 01/28/17 22: 28; Start 01/20/17 at 21:00 Ondansetron HCl (Zofran Inj) 4 mg Q6H PRN IV NAUSEA OR VOMITING; Start 01/20/17 at 18:30 Pantoprazole Sodium (Protonix Inj) 40 mg Q24H IV Last administered on 22:22; Start 01/20/17 at 19:30 Docusate Sodium 100 mg 100 mg BID PO Last administered on 01/27/17 08:09; Start 01/20/17 at 21:00 Cefazolin Sodium 1000 mg/Sodium Chloride 100 ml @ 200 mls/hr Q8H IV Last administered on 01/21/17 14:23; Start 01/20/17 at 22:00; Stop 01/21/17 at 14:29; Status DC Metronidazole (Flagyl 500 Mg Inj) 100 ml @ 200 mls/hr Q8H IV Last administered on 01/21/17 14:26; Start 01/20/17 at 22:30; Stop 01/21/17 at 14:59; Status DC Miscellaneous Information (Post-op Orders (for Pharmacy)) STAT ONCE XX ; Start 01/20/17 at 18:30; Stop 01/20/17 at 18:59; Status DC Oxycodone/ Acetaminophen (Percocet 10-325 Mg) 1 tab Q6H PRN PO PAIN SCALE 6 TO 10 Last administered on 01/29/17 00:29; Start 01/20/17 at 18:30 Naloxone HCl (Narcan Inj) 0.4 mg UNSCH PRN IV SEE LABEL COMMENTS; Start at 18:30; Stop 01/21/17 at 08:52; Status DC Enoxaparin Sodium (Lovenox Inj) 30 mg Q24H SQ Last administered on 01/24/17 17: 03; Start 01/21/17 at 18:00; Stop 01/25/17 at 10:39; Status DC Naloxone HCl (Narcan Inj) 0.4 mg UNSCH PRN IV RESPIRATORY RATE LESS THAN 10; Start 01/20/17 at 18:30; Stop 01/25/17 at 12:10; Status DC Morphine Sulfate (Morphine 1 Mg/ ml FUR TRIMMING MACHINE OPERATOR) 30 mg UNSCH IV Last administered on 23:00; Start 01/20/17 at 19:00; Stop 01/25/17 at 12:10; Status DC FUR TRIMMING MACHINE OPERATOR Dosage Infused (Pha) 1 Q8HR .XX Last administered on 01/25/17 06:00; Start 01/20/17 at 22:00; Stop 01/25/17 at 12:10; Status DC Fentanyl Citrate (fentaNYL INJ) 200 mcg STK-MED ONCE .ROUTE ; Start 01/20/17 at 18:53; Stop 01/20/17 at 18:54; Status DC Fentanyl Citrate (fentaNYL INJ) 500 mcg STK-MED ONCE .ROUTE ; Start 01/20/17 at 18:53; Stop 01/20/17 at 18:54; Status DC Morphine Sulfate (*morphine INJ PERIprocedure ONLY) 8 mg STK-MED ONCE .ROUTE Last administered on 01/20/17 18:58; Start 01/20/17 at 18:58; Stop 01/20/17 at 18: 59; Status DC Morphine Sulfate (*morphine INJ PERIprocedure ONLY) 8 mg STK-MED ONCE .ROUTE Last administered on 01/20/17 19:07; Start 01/20/17 at 19:07; Stop 01/20/17 at 19: 08; Status DC Hydromorphone HCl (*DILAUDID PF INJ PERIprocedural ONLY) 1 mg STK-MED ONCE .ROUTE Last administered on 01/20/17 19:17; Start 01/20/17 at 19:17; Stop at 19:18; Status DC Hydromorphone HCl (*DILAUDID PF INJ PERIprocedural ONLY) 1 mg STK-MED ONCE .ROUTE Last administered on 01/20/17 19:28; Start 01/20/17 at 19:28; Stop at 19:29; Status DC Hydromorphone HCl (*DILAUDID PF INJ PERIprocedural ONLY) 1 mg STK-MED ONCE .ROUTE Last administered on 01/20/17 19:39; Start 01/20/17 at 19:39; Stop at 19:40; Status DC Labetalol HCl (*TRANDATE INJ PERIprocedural Use ONLY) 100 mg STK-MED ONCE .ROUTE Last administered on 01/20/17 19:40; Start 01/20/17 at 19:40; Stop at 19:41; Status DC Lorazepam (Ativan Inj) 1 mg Q6H PRN IV PUSH anxiety Last administered on 12:06; Start 01/21/17 at 07:30 Allopurinol (Zyloprim) 100 mg DAILY PO Last administered on 01/28/17 08:49; Start 01/21/17 at 09:00 Lisinopril (Prinivil) 5 mg DAILY PO Last administered on 01/28/17 08:50; Start 01/21/17 at 09:00 Lorazepam (Ativan) 1 mg Q8H PRN PO ANXIETY Last administered on 01/29/17 00:29 ; Start 01/21/17 at 09:00 Tamsulosin HCl (Flomax) 0.8 mg HS PO Last administered on 01/28/17 22:23; Start 01/21/17 at 21:00 Albuterol Sulfate 1.25 mg 1.25 mg Q6HR NEB PRN NEB SHORTNESS OF BREATH; Start 01/21/17 at 09:00; Stop 01/22/17 at 04:30; Status DC Cefazolin Sodium/ Dextrose 50 ml @ 100 mls/hr Q8H IV Last administered on 23:24; Start 01/21/17 at 23:00; Stop 01/22/17 at 04:24; Status DC Metronidazole (Flagyl 500 Mg Inj) 100 ml @ 100 mls/hr Q8H IV Last administered on 01/23/17 06:28; Start 01/21/17 at 22:00; Stop 01/23/17 at 13:43; Status DC Albuterol/ Ipratropium 1 ampule 1 ampule Q4HR NEB PRN NEB SOB/WHEEZING Last administered on 01/22/17 03:57; Start 01/22/17 at 03:15; Stop 01/22/17 at 09:07; Status DC Cefepime HCl/ Sodium Chloride (Maxipime Inj/NS Inj) 100 ml @ 200 mls/hr Q8H IV Last administered on 01/23/17 05:39; Start 01/22/17 at 05:00; Stop 01/23/17 at 13:43; Status DC Albuterol/ Ipratropium (Duoneb Neb) 1 ampule Q6HR NEB NEB ; Start 01/22/17 at 10 :00; Stop 01/22/17 at 10:00; Status DC Albuterol/ Ipratropium (Duoneb Neb) 1 ampule Q4HR NEB NEB Last administered on 01/24/17 04:12; Start 01/23/17 at 12:00; Stop 01/24/17 at 12:14; Status DC Albuterol Sulfate (Albuterol Neb) 1.25 mg Q2HR NEB PRN NEB SHORTNESS OF BREATH Last administered on 01/25/17 10:25; Start 01/22/17 at 09:15 Bumetanide (Bumex Inj) 1 mg NOW ONCE IV PUSH Last administered on 01/22/17 19: 50; Start 01/22/17 at 19:00; Stop 01/22/17 at 19:01; Status DC Methylprednisolone Sodium Succinate (SoluMEDROL INJ) 40 mg Q6H IV Last administered on 01/24/17 00:03; Start 01/22/17 at 19:00; Stop 01/24/17 at 01:01; Status DC Enalaprilat (Vasotec Inj) 1.25 mg NOW ONCE IV PUSH Last administered on 04:06; Start 01/23/17 at 04:00; Stop 01/23/17 at 04:03; Status DC Adenosine (Adenocard Inj) 6 mg STK-MED ONCE .ROUTE ; Start 01/23/17 at 04:18; Stop 01/23/17 at 04:19; Status DC Diltiazem HCl (Cardizem Inj) 20 mg ONCE ONCE IV ; Start 01/23/17 at 04:30; Stop 01/23/17 at 04:31; Status DC Metoprolol Tartrate (Lopressor Inj) 5 mg Q5M PRN IV PUSH RAPID HEART RATE Last administered on 01/24/17 02:48; Start 01/23/17 at 04:30 Bumetanide 1 mg 1 mg ONCE ONCE IV PUSH Last administered on 01/23/17 04:38; Start 01/23/17 at 04:30; Stop 01/23/17 at 04:35; Status DC Piperacillin Sod/ Tazobactam Sod (Zosyn 4.5 Gm Premix) 100 ml @ 200 mls/hr Q6H IV Last administered on 01/29/17 05:56; Start 01/23/17 at 06:00 Diatrizoate Meglum/ Diatrizoate Sod ( Gastrojamel Liq) 18 ml ONCE ONCE PO Last administered on 01/23/17 09:45; Start 01/23/17 at 08:15; Stop 01/23/17 at 08: 16; Status DC Iohexol 100 ml 100 ml STK-MED ONCE IV Last administered on 01/23/17 13:17; Start 01/23/17 at 13:17; Stop 01/23/17 at 13:18; Status DC Micafungin Sodium 150 mg/Sodium Chloride 100 ml @ 100 mls/hr Q24H IV ; Start at 13:45; Stop 01/23/17 at 13:45; Status DC Pharmacy Profile Note (Vancomycin Consult Pharmacy) 0 ml @ 0 mls/hr UNSCH OTHER ; Start 01/23/17 at 16:00; Stop 01/27/17 at 12:32; Status DC Metoprolol Tartrate 25 mg 25 mg Q6HR PO Last administered on 01/24/17 11:38; Start 01/23/17 at 18:00; Stop 01/24/17 at 12:34; Status DC Vancomycin HCl/ Sodium Chloride (Vancomycin Inj/ NS 500 ml Inj) 517 ml @ 258.5 mls/ hr Q18H IV Last administered on 01/26/17 03:06; Start 01/23/17 at 20:00; Stop 01/26/17 at 10:17; Status DC Miscellaneous Information SPECIFIC LAB TO BE MISSY... ONCE ONCE .XX Last administered on 01/26/17 01:45; Start 01/26/17 at 01:45; Stop 01/26/17 at 01:46; Status DC Zolpidem Tartrate (Ambien) 10 mg HS PRN PO sleep Last administered on 01:16; Start 01/24/17 at 09:00 Ipratropium Lucan (Atrovent Neb) 0.5 mg Q2HR NEB PRN NEB SHORTNESS OF BREATH ; Start 01/24/17 at 12:15 Ipratropium Lucan (Atrovent Neb) 0.5 mg Q6HR NEB NEB Last administered on 10:25; Start 01/24/17 at 22:00; Stop 01/25/17 at 10:39; Status DC Bumetanide (Bumex Inj) 1 mg ONCE ONCE IV PUSH Last administered on 01/24/17 12 :30; Start 01/24/17 at 12:30; Stop 01/24/17 at 12:31; Status DC Metoprolol Tartrate 75 mg 75 mg Q12H PO Last administered on 01/24/17 23:01; Start 01/25/17 at 00:00; Stop 01/25/17 at 10:46; Status DC Amiodarone HCl 150 mg/Dextrose 100 ml @ 100 mls/hr ONCE ONCE IV Last administered on 01/24/17 12:45; Start 01/24/17 at 12:45; Stop 01/24/17 at 13:44; Status DC Amiodarone HCl/ Dextrose (Cordarone Inj/ D5W (Magnolia) Inj) 250 ml @ 0 mls/hr CONTINUOUS IV Last administered on 01/25/17 01:32; Start 01/24/17 at 13:00; Stop 01/25/17 at 10:46; Status DC Azithromycin (Zithromax) 500 mg DAILY PO Last administered on 01/28/17 08:50; Start 01/25/17 at 09:00; Stop 01/28/17 at 16:07; Status DC Albuterol/ Ipratropium (Duoneb Neb) 1 ampule Q4HR NEB NEB Last administered on 01/28/17 23:09; Start 01/25/17 at 12:00 Enoxaparin Sodium (Lovenox Inj) 40 mg Q24H SQ Last administered on 01/28/17 17 :43; Start 01/25/17 at 18:00 Methylprednisolone Sodium Succinate (SoluMEDROL INJ) 60 mg Q12HR IV PUSH Last administered on 01/28/17 22:23; Start 01/25/17 at 11:00 Budesonide/ Formoterol Fumarate (Symbicort 160-4.5 Inh) 1 puff Q12HR INH Last administered on 01/28/17 22:25; Start 01/25/17 at 12:00 Metoprolol Tartrate (Lopressor) 100 mg Q12H PO Last administered on 01/29/17 00:12; Start 01/25/17 at 12:00 Tiotropium Lucan (Spiriva Inh) 18 mcg DAILY INH Last administered on 08:50; Start 01/25/17 at 11:00 Morphine Sulfate (Morphine Inj) 2 mg Q3H PRN IV PUSH PAIN SCALE 5 TO 10 Last administered on 01/27/17 01:06; Start 01/25/17 at 12:15 Miscellaneous Information ICU - CALL ORDERING PHYSIC... UNSCH PRN .XX SEE DOSE INSTRUCTIONS; Start 01/25/17 at 21:00; Stop 01/28/17 at 22:33; Status DC Potassium Chloride (KCl 40 Meq Premix Inj) 100 ml @ 25 mls/hr UNSCH PRN IV ELECTROLYTE REPLACEMENT; Start 01/25/17 at 21:00; Status Cancel Potassium Bicarb/ Potassium Chloride 50 meq 50 meq UNSCH PRN PO ELECTROLYTE REPLACEMENT; Start 01/25/17 at 21:00; Stop 01/28/17 at 22:33; Status DC Potassium Chloride (KCl 20 Meq Premix Inj) 100 ml @ 50 mls/hr UNSCH PRN IV ELECTROLYTE REPLACEMENT Last administered on 01/27/17 10:52; Start 01/25/17 at 21:00; Stop 01/28/17 at 22:33; Status DC Bupivacaine Liposome 20 ml 20 ml STK-MED ONCE .XX ; Start 01/20/17 at 07:47; Stop 01/26/17 at 07:48; Status DC Vancomycin HCl/ Sodium Chloride (Vancomycin Inj/ NS 500 ml Inj) 517.5 ml @ 258.5 mls/ hr Q18H IV Last administered on 01/26/17 21:10; Start 01/26/17 at 20: 00; Stop 01/27/17 at 12:32; Status DC Diltiazem HCl 30 mg 30 mg QID PO Last administered on 01/28/17 22:24; Start at 13:00 Linezolid (Zyvox 600 Mg Premix) 300 ml @ 300 mls/hr Q12H IV Last administered on 01/28/17 12:49; Start 01/27/17 at 13:00; Stop 01/28/17 at 16:07; Status DC Linezolid (Zyvox) 600 mg Q12HR PO Last administered on 5/11/17at 22:24; Start 01/28/17 at 21:00 A/P Assessment and Plan A/P Acute hypoxemic respiratory failure Bibasilar pneumonia Acute COPD exacerbation - Continue on BiPAP as needed - taper down IV Solu-Medrol - Started budesonide/formoterol inhaled, Spiriva - Continue neb treatment - Broad-spectrum antibiotics per ID - EzPAP, Acapella -pulmonary following. Paroxysmal atrial fibrillation- -now back in sinus rhythm - continue metoprolol 100 mg every 12 Leukocytosis/sepsis - Started on broad-spectrum antibiotic per ID - Sepsis most likely from pneumonia Status post reversal colectomy and incisional hernia repair - Management per general surgery diarrhea-better stool for c-diff. negative. hypokalemia-replaced. DVT GI prophylaxis - Lovenox Scott Jones MD January 29, 2017 08:07
[2017-01-29] MEDS: DOCUSATE SODIUM 100 MG CAP PO SCH ×3 (08:30→21:00)
[2017-01-29] MEDS: LISINOPRIL 5 MG TAB PO SCH (08:30)
--- NOTE | 2017-01-29 08:30 | HHI.PR ---
Subjective Subjective Notes transferred to floor, doing better, tolerating diet, no fevers Objective Vitals/I&O Vital Signs Date Time Temp Pulse Resp B/P Pulse Ox O2 Delivery O2 Flow Rate FiO2 01/29/17 04:30 92 Nasal Cannula 6.00 01/29/17 04:00 97.4 60 20 126/66 01/29/17 00:10 40 Labs Laboratory Tests Test 01/28/17 01/29/17 18:50 04:26 Stool C. difficile Toxin (PCR) NEGATIVE Stl C. difficile Toxin PRESUMPTIVE Epiderm 027 NEGATIVE White Blood Count 14.5 Red Blood Count 3.14 Hemoglobin 9.1 Hematocrit 27.2 Mean Corpuscular Volume 86.6 Mean Corpuscular Hemoglobin 29.1 Mean Corpuscular Hemoglobin 33.6 Concent Red Cell Distribution Width 14.7 Platelet Count 516 Mean Platelet Volume 8.3 Neutrophils (%) (Auto) 83.6 Lymphocytes (%) (Auto) 11.3 Monocytes (%) (Auto) 4.9 Eosinophils (%) (Auto) 0.0 Basophils (%) (Auto) 0.2 Neutrophils # (Auto) 12.2 Lymphocytes # (Auto) 1.6 Monocytes # (Auto) 0.7 Eosinophils # (Auto) 0.0 Basophils # (Auto) 0.0 CBC Comment DIFF FINAL Differential Comment Date/Time Procedure Status Source Growth 01/25/17 13:00 Gram Stain - Final Complete Wound Abdomen 01/25/17 13:00 Wound Culture - Final Complete Enterococcus Faecalis Vre Proteus Penneri 01/24/17 19:15 Legionella Antigen - Final Complete Urine Catheterized Urine PRESUMPTIVE NEGATIVE FOR LEGIONELLA P... 01/24/17 19:15 Streptococcus pneumoniae Antigen (M - Final Complete Urine Catheterized Urine PRESUMPTIVE NEGATIVE FOR STREPTOCOCCU... Cardiovascular: Regular Lungs: Clear Abdomen: Other (incision with vac good seal, right elizabeth serous, left serosang) A/P Assessment and Plan pod 7 ex lap, ana, hernia repair colostomy reversal cxr atelectasis, wbc trending down (pt is on steroids)- continue to monitor, transferred to floor PLAN encourage OOB resp tx for desats -pulm following a.fib rate control pain control ID for abx VRE dvt ppx lovenox elizabeth sxn- will d/c right elizabeth today wound care dressing VAC Change today will likely change wednesday again appreciate medicine Andreas Durán MD January 29, 2017 08:30
[2017-01-29] MEDS: LINEZOLID 600 MG TAB PO SCH ×2 (08:31→21:51)
[2017-01-29] MEDS: ALLOPURINOL 100 MG TAB PO SCH (08:31)
[2017-01-29] MEDS: DILTIAZEM HCL 30 MG TAB PO SCH ×4 (08:31→21:51)
[2017-01-29] MEDS: TIOTROPIUM BROMIDE 18 MCG INH INH SCH (08:33)
[2017-01-29] MEDS: SODIUM CHLORIDE 0.9% FLUSH 10 ML FLUSH IV FLUSH SCH ×2 (08:33→21:51)
[2017-01-29] MEDS: BUDESONIDE-FORMOTEROL 160/4.5 MCG INHALER INH SCH ×2 (08:33→21:52)
[2017-01-29] MEDS: RESP: ALBUTEROL 2.5 MG/IPRATROPIUM 0.5 MG NEB (SCH) NEB (08:50)
[2017-01-29] MEDS: methylPREDNISolone SOD SUCC 125 MG/2 ML VIAL IV PUSH SCH ×2 (09:12→21:51)
[2017-01-29] MEDS: ENOXAPARIN SODIUM 40 MG/0.4 ML SYRINGE SQ SCH (16:32)
--- NOTE | 2017-01-29 17:25 | HHI.IDPN ---
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 He was seen by ID during that admission for intra- abdominal sepsis. He had cecal perforation ? etiology - path ischemic colitis vs pseudomembranous colitis, and was C.diff negative. He was treated with Unasyn IV for Intraabdominal sepsis 2/2 viscus perforation. A large organized fluid collection in Morales pouch was percutaneously drained and culture showed no growth final. Patient reports having well in the interim since discharge. He was electively admitted for reversal, as well as an incisional hernia repaired. His PMHx is also significant for COPD. Postsurgically he was doing well on the floor however on January 23, 2017 at 4:50 AM the rapid response was called due to patient's tachycardia and respiratory distress as he was also complaining of increasing shortness of breath which previously has been improved with bronchodilator therapy. Patient was transferred to the ICU under manager spring service. At the time of my evaluation patient is in ISC. Overnight patient has remained on BiPAP, not on pressors. He continues to remain tachypneic and tachycardic and appears anxious at times. His urine outpt is adequate. ID consulted for evaluation of Sepsis, possible intra abd vs pulm sepsis in a post op patient. Overnight events reviewed. No fevers No rash No diarrhea Sats 91% on 6L. Sitting in chair eating lunch. Antibiotics Zosyn IV Vanco IV Lines Line sites with no e.o infection. Past Medical History reviewed. 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 Vital Signs Date Time Temp Pulse Resp B/P Pulse Ox O2 Delivery O2 Flow Rate FiO2 01/29/17 12:00 97.3 84 22 143/63 92 01/29/17 08:50 95 Nasal Cannula 5.00 01/29/17 08:00 96.0 82 24 144/63 95 01/29/17 04:30 92 Nasal Cannula 6.00 01/29/17 04:00 97.4 60 20 126/66 93 01/29/17 01:24 59 01/29/17 00:45 91 Nasal Cannula 6.00 01/29/17 00:10 93 40 01/29/17 00:00 97.1 78 20 148/73 91 01/28/17 22:00 74 01/28/17 20:00 73 01/28/17 20:00 98.0 71 15 129/70 91 01/28/17 19:34 94 Nasal Cannula 6.00 01/28/17 19:00 91 Nasal Cannula 6.00 01/28/17 18:00 80 01/28/17 01/28/17 01/29/17 15:00 23:00 07:00 Intake Total 1040 ml 1140 ml 440 ml Output Total 750 ml 380 ml 785 ml Balance 290 ml 760 ml -345 ml Intake Oral 820 ml 650 ml 240 ml IV Total 220 ml 490 ml 200 ml Output Urine Total 750 ml 300 ml 750 ml Drainage Total 80 ml 35 ml # Voids 1 1 0 # Bowel Movements 2 2 . Laboratory Tests Test 01/29/17 04:26 White Blood Count 14.5 TH/MM3 Red Blood Count 3.14 MIL/MM3 Hemoglobin 9.1 GM/DL Hematocrit 27.2 % Mean Corpuscular Volume 86.6 FL Mean Corpuscular Hemoglobin 29.1 PG Mean Corpuscular Hemoglobin 33.6 % Concent Red Cell Distribution Width 14.7 % Platelet Count 516 TH/MM3 Mean Platelet Volume 8.3 FL Neutrophils (%) (Auto) 83.6 % Lymphocytes (%) (Auto) 11.3 % Monocytes (%) (Auto) 4.9 % Eosinophils (%) (Auto) 0.0 % Basophils (%) (Auto) 0.2 % Neutrophils # (Auto) 12.2 TH/MM3 Lymphocytes # (Auto) 1.6 TH/MM3 Monocytes # (Auto) 0.7 TH/MM3 Eosinophils # (Auto) 0.0 TH/MM3 Basophils # (Auto) 0.0 TH/MM3 CBC Comment DIFF FINAL Differential Comment Laboratory Tests Test 01/28/17 07:34 Sodium Level 140 MEQ/L Potassium Level 4.1 MEQ/L Chloride Level 106 MEQ/L Carbon Dioxide Level 28.1 MEQ/L Anion Gap 6 MEQ/L Blood Urea Nitrogen 16 MG/DL Creatinine 0.93 MG/DL Estimat Glomerular Filtration 82 ML/MIN Rate Random Glucose 167 MG/DL Calcium Level 8.4 MG/DL Imaging Last Impressions Chest X-Ray 01/23/17 Signed Impressions: Service Date/Time: Monday, January 23, 2017 04:21 - CONCLUSION: 1. Slight elevation left hemidiaphragm. 2. Left basilar density likely atelectasis. Walt Johnson MD Chest CT 01/23/17 Signed Impressions: Service Date/Time: Monday, January 23, 2017 13:16 - CONCLUSION: 1. Consolidation is noted in both lung bases with air bronchograms. There is also consolidation along the posterior left major fissure. 2. Cardiomegaly and small pericardial effusion. Conrado Bhatti MD Abdomen/Pelvis CT 01/23/17 Signed Impressions: Service Date/Time: Monday, January 23, 2017 13:16 - CONCLUSION: 1. Interval postsurgical changes status post abdominal hernia repair with soft tissue swelling and gas in the subcutaneous fat. There are surgical drains in place with no drainable fluid collection. 2. Abnormal bowel gas pattern of concern for early or partial small bowel obstruction. 3. New consolidation in both lung bases with minimal effusions. 4. Cardiomegaly with small amount of pericardial fluid. 5. Stable calcification pseudocyst in the tail of the pancreas. Conrado Bhatti MD Physical Exam GENERAL: Obese, well-developed patient, in no apparent distress. SKIN: No rashes, ecchymoses or lesions. Cool and dry. HEAD: Atraumatic. Normocephalic. No temporal or scalp tenderness. EYES: Pupils equal round and reactive. Extraocular motions intact. No scleral icterus. No injection or drainage. ENT: NC on. NECK: Trachea midline. Supple, nontender, no meningeal signs. CARDIOVASCULAR: RRR, No murmrur. RESPIRATORY: Clear to auscultation. Breath sounds equal bilaterally. GASTROINTESTINAL: Abdomen soft, Non tender. JORJE drains with sanguinous drainage. Surgical black pressurized/vac in place. MUSCULOSKELETAL: Extremities without clubbing, cyanosis. Pedal edema noted. NEUROLOGICAL: Awake and alert. Grossly non focal. Psych: appears anxious. IV line sites with no e.o infection. Assessment & Plan Remarks Sepsis in a post op patient. Pneumonia Possible Surgical site infection: VRE and Proteus. High grade Leucocytosis. pod 3 ex lap, ana, hernia repair colostomy reversal COPD ? acute exacerbation. Acute resp failure Obese ? CELESTINO component. Recs DC Zosyn IV Start Levaquin oral 500 mg po daily for 2 weeks. Continue Zyvox change to oral 500 mg po bid for 2 weeks. d/w : Surgical site concerning for infection. Follow cultures Follow clinically. d/w RN and family in room. dw patient case manager: Option 1: Levaquin with oral Zyvox (for VRE Surgical site infection) Option 2: Levaquin with Dapto IV (for VRE Surgical site infection) If oral option not approved by insurance please call me so I can help with IV antibiotics. Will sign off please call back if any change in clinical condition or questions. covering for me this weekend and available prn. Floridalma Schneider MD January 29, 2017 17:25
[2017-01-29] MEDS: PANTOPRAZOLE SODIUM 40 MG VIAL IV SCH (18:16)
--- NOTE | 2017-01-29 18:43 | HHI.PR ---
Subjective Remarks Patient remains on , afebrile, tachycardic. On 6 LNC Did't use CPAP last night Up in chair Good appetite Objective Vital Signs Vital Signs Date Time Temp Pulse Resp B/P Pulse Ox O2 Delivery O2 Flow Rate FiO2 01/29/17 16:00 97.3 69 20 145/76 96 01/29/17 12:00 97.3 84 22 143/63 92 01/29/17 08:50 95 Nasal Cannula 5.00 01/29/17 08:00 96.0 82 24 144/63 95 01/29/17 04:30 92 Nasal Cannula 6.00 01/29/17 04:00 97.4 60 20 126/66 93 01/29/17 01:24 59 01/29/17 00:45 91 Nasal Cannula 6.00 01/29/17 00:10 93 40 01/29/17 00:00 97.1 78 20 148/73 91 01/28/17 22:00 74 01/28/17 20:00 73 01/28/17 20:00 98.0 71 15 129/70 91 01/28/17 19:34 94 Nasal Cannula 6.00 01/28/17 19:00 91 Nasal Cannula 6.00 I/O 01/28/17 01/28/17 01/28/17 01/29/17 01/29/17 01/29/17 07:00 15:00 23:00 07:00 15:00 23:00 Intake Total 909 ml 1040 ml 1140 ml 440 ml 1200 ml Output Total 70 ml 750 ml 380 ml 785 ml 145 ml Balance 839 ml 290 ml 760 ml -345 ml 1200 ml -145 ml Intake Oral 480 ml 820 ml 650 ml 240 ml 1200 ml IV Total 429 ml 220 ml 490 ml 200 ml Output Urine Total 750 ml 300 ml 750 ml Drainage Total 70 ml 80 ml 35 ml 145 ml # Voids 2 1 1 0 2 # Bowel Movements 1 2 2 3 Result Diagram: 01/29/17 0426 01/28/17 0734 Objective Remarks GENERAL: Patient is 66 yo lying in recliner chair with good sats. SKIN: Warm and dry. HEAD: Normocephalic. EYES: No scleral icterus. No injection or drainage. NECK: Supple, trachea midline. No JVD or lymphadenopathy. CARDIOVASCULAR: Tachycardic without murmurs, gallops, or rubs. RESPIRATORY: Breath sounds equal bilaterally. No accessory muscle use. GASTROINTESTINAL: Abdomen soft, non-tender, nondistended. MUSCULOSKELETAL: No cyanosis, or edema. Neuro: Awake and alert. A/P Assessment and Plan 1)Resp Insuff 2)COPD 3)? Pneumonia 4)Fluid overload 5)s/p exploratory lap, hernia repair, and colostomy reversal 6)Leukocytosis 7)Anemia 8)Obesity ? CELESTINO 9)Hyperglycemia Plan Continue to wean down oxygen as anastacio keep sat >92%\ Bronchodilators, DuoNeb to Atrovent nebs for tachycardia NIPPV PRN for resp distress Monitor CBC and for signs of infections ( Fever, WBC) Pain control GI/DVT prophylaxis Continue treatment plan Huseyin Edmond MD January 29, 2017 18:43
[2017-01-29] MEDS: TAMSULOSIN HCL 0.4 MG CAP PO SCH (21:51)
[2017-01-30] VITALS (9 sets, daily range): BP systolic 123–138; BP diastolic 62–69; PULSE 60–73; RESP 17–18; TEMP 95.6–98.5; O2SAT 94–98
[2017-01-30] MEDS: ZOLPIDEM TARTRATE 10 MG TAB PO PRN (00:22)
[2017-01-30] MEDS: METOPROLOL TARTRATE 50 MG TAB PO SCH ×2 (00:22→13:50)
[2017-01-30] MEDS: LORazepam 1 MG TAB PO PRN ×3 (04:12→22:06)
[2017-01-30] MEDS: DILTIAZEM HCL 30 MG TAB PO SCH ×5 (09:00→20:20)
[2017-01-30] MEDS: BUDESONIDE-FORMOTEROL 160/4.5 MCG INHALER INH SCH ×2 (09:00→20:19)
[2017-01-30] MEDS: ALLOPURINOL 100 MG TAB PO SCH (09:01)
[2017-01-30] MEDS: LINEZOLID 600 MG TAB PO SCH ×2 (09:01→20:20)
[2017-01-30] MEDS: LEVOFLOXACIN 500 MG TAB PO SCH (09:01)
[2017-01-30] MEDS: oxyCODONE/ACETAMINOPHEN 10 MG/325 MG TAB PO PRN ×2 (09:01→15:08)
[2017-01-30] MEDS: methylPREDNISolone SOD SUCC 125 MG/2 ML VIAL IV PUSH SCH (09:02)
[2017-01-30] MEDS: LISINOPRIL 5 MG TAB PO SCH (09:02)
[2017-01-30] MEDS: SODIUM CHLORIDE 0.9% FLUSH 10 ML FLUSH IV FLUSH SCH ×2 (09:02→20:20)
[2017-01-30] MEDS: DOCUSATE SODIUM 100 MG CAP PO SCH ×2 (09:02→20:20)
[2017-01-30] MEDS: TIOTROPIUM BROMIDE 18 MCG INH INH SCH (09:03)
--- NOTE | 2017-01-30 10:03 | HHI.PR ---
Subjective Remarks Follow up abdominal pain and shortness of breath, post op day #4. Patient seen and examined. Patient sitting up in chair, no apparent distress on 5LNC. Patient denies any new acute complaints. He states that his breathing is better. Tolerating PO intake, denies any nausea or vomiting. Positive BM. Has been out of bed ambulating. Afebrile. Denies any recent fever, chills, cough, shortness of breath or chest pain. Objective Vitals Vital Signs Date Time Temp Pulse Resp B/P Pulse Ox O2 Delivery O2 Flow Rate FiO2 01/30/17 08:00 97.6 63 18 135/62 95 01/30/17 04:17 Nasal Cannula 5.00 Humidified 01/30/17 04:00 97.5 66 18 123/64 96 01/30/17 00:30 Bi-Pap 01/30/17 00:04 Nasal Cannula 5.00 Humidified 01/30/17 00:00 95.6 72 18 131/65 96 01/29/17 22:08 95 40 01/29/17 22:00 Bi-Pap 01/29/17 21:00 93 Nasal Cannula 5.00 01/29/17 20:00 Nasal Cannula 5.00 Humidified 01/29/17 20:00 96.6 69 18 135/67 95 01/29/17 20:00 85 01/29/17 16:00 97.3 69 20 145/76 96 01/29/17 12:00 97.3 84 22 143/63 92 I/O 01/29/17 01/29/17 01/29/17 01/30/17 01/30/17 01/30/17 07:00 15:00 23:00 07:00 15:00 23:00 Intake Total 440 ml 1200 ml 240 ml 240 ml Output Total 785 ml 505 ml 475 ml Balance -345 ml 1200 ml -265 ml -235 ml Intake Oral 240 ml 1200 ml 240 ml 240 ml IV Total 200 ml 0 ml 0 ml Output Urine Total 750 ml 300 ml 450 ml Drainage Total 35 ml 205 ml 25 ml # Voids 0 2 # Bowel Movements 3 1 3 Result Diagram: 01/29/17 0426 01/28/17 0734 Imaging Last Impressions Chest X-Ray 01/26/17 0600 Signed Impressions: Service Date/Time: Thursday, January 26, 2017 04:42 - CONCLUSION: Unchanged pleural effusions and bibasilar atelectasis versus infiltrates. Farhat Umana Jr., MD Chest CT 01/23/17 Signed Impressions: Service Date/Time: Monday, January 23, 2017 13:16 - CONCLUSION: 1. Consolidation is noted in both lung bases with air bronchograms. There is also consolidation along the posterior left major fissure. 2. Cardiomegaly and small pericardial effusion. Conrado Bhatti MD Abdomen/Pelvis CT 01/23/17 Signed Impressions: Service Date/Time: Monday, January 23, 2017 13:16 - CONCLUSION: 1. Interval postsurgical changes status post abdominal hernia repair with soft tissue swelling and gas in the subcutaneous fat. There are surgical drains in place with no drainable fluid collection. 2. Abnormal bowel gas pattern of concern for early or partial small bowel obstruction. 3. New consolidation in both lung bases with minimal effusions. 4. Cardiomegaly with small amount of pericardial fluid. 5. Stable calcification pseudocyst in the tail of the pancreas. Conrado Bhatti MD Objective Remarks GENERAL: Well-nourished, well-developed patient in NAD sitting up in chair eating breakfast. CARDIOVASCULAR: Regular rate and rhythm. S1, S2 noted. No murmur appreciated. RESPIRATORY: No accessory muscle use. Clear to auscultation. Breath sounds equal bilaterally. GASTROINTESTINAL: Abdomen soft, non-tender, nondistended. Normoactive bowel sounds x4. Abdominal drain x 2 patent (serosanguinous); site clean, dry, intact , serosanguineous fluid present in both. Midline wound vac present, connected to continuous suction. MUSCULOSKELETAL: No obvious deformities. Extremities without edema. NEUROLOGICAL: Awake and alert. No obvious cranial nerve deficits. Motor grossly within normal limits. 5/5 muscle strength in bilateral upper and lower extremities. Normal speech. PSYCHIATRIC: Appropriate mood and affect; insight and judgment normal. Procedures 1. Exploratory laparotomy. 2. Lysis of adhesions greater than 60 minutes. 3. Reversal of end-ileostomy. 4. Complex scar revision. 5. Abdominal incisional hernia repair with left lateral component separation. Urinary Catheter: No Vascular Central Line Catheter: No A/P Assessment and Plan Acute hypoxemic respiratory failure Bibasilar pneumonia Acute COPD exacerbation - Continue on BiPAP as needed. On 5 LNC presently. - taper down IV Solu-Medrol - on budesonide/formoterol inhaled, Spiriva - Continue neb treatment - Broad-spectrum antibiotics per ID - Encourage use of acapella. Continue EzPAP. - Pulmonary following, appreciate input. Paroxysmal atrial fibrillation - Currently in sinus rhythm. - Continue metoprolol 100 mg Q12h. Leukocytosis Sepsis most likely secondary to pneumonia verse possible surgical site infection - WBC trending down. Today 01/30, 14.5. Will monitor. - ID signed off with antibiotic recommendations for discharge. on broad- spectrum antibiotic per ID. Levaquin 500 mg PO daily x 2 weeks. Continue Zyvox 500 mg PO BID x 2 weeks. - Sepsis most likely from pneumonia. Concerning for questionable surgical site infection per ID, VRE and Proteus. General surgery following. Status post reversal colectomy and incisional hernia repair - Management per general surgery. - Abdominal wound vac continued. Abdominal JORJE drains present. Diarrhea, improving. - Stool negative for c-difficile. Hypokalemia: Status post replacement. DVT prophylaxis: Lovenox. GI prophylaxis: Pepcid Written by Carmen Toledo, acting as scribe for Dr. Plaza on 01/30/17 at 10:18. This note was transcribed by scribe Carmen Toledo. I, Dr. Hilaria Plaza personally performed the history, physical exam, and medical decision making; and confirmed the accuracy of the information in the transcribed note. Authenticated by Dr. Hilaria Plaza on 01/30/17 at 10:18. Discharge Planning ID has made recs for Abx management. CM is assisting w d/c planning. d/c per primary team. Carmen Toledo January 30, 2017 10:03 Hilaria Plaza MD January 30, 2017 10:51
[2017-01-30] MEDS ORDERED: METOLAZONE 5 MG TAB PO ONE (12:00)
--- NOTE | 2017-01-30 15:50 | HHI.PR ---
Subjective Subjective Notes DAILY PROGRESS NOTE FOR SURGICAL ATTENDING, DR. CASSANDRA ESPITIA Doing well up in chair tolerating diet good bowel movements VAC in place Objective Vitals/I&O Vital Signs Date Time Temp Pulse Resp B/P Pulse Ox O2 Delivery O2 Flow Rate FiO2 01/30/17 12:00 97.2 65 17 133/68 96 01/30/17 09:35 Nasal Cannula 5.00 01/29/17 22:08 40 Radiology Last Impressions Chest X-Ray 01/26/17 0600 Signed Impressions: Service Date/Time: Thursday, January 26, 2017 04:42 - CONCLUSION: Unchanged pleural effusions and bibasilar atelectasis versus infiltrates. Farhat Umana Jr., MD Chest CT 01/23/17 0000 Signed Impressions: Service Date/Time: Monday, January 23, 2017 13:16 - CONCLUSION: 1. Consolidation is noted in both lung bases with air bronchograms. There is also consolidation along the posterior left major fissure. 2. Cardiomegaly and small pericardial effusion. Conrado Bhatti MD Abdomen/Pelvis CT 01/23/17 0000 Signed Impressions: Service Date/Time: Monday, January 23, 2017 13:16 - CONCLUSION: 1. Interval postsurgical changes status post abdominal hernia repair with soft tissue swelling and gas in the subcutaneous fat. There are surgical drains in place with no drainable fluid collection. 2. Abnormal bowel gas pattern of concern for early or partial small bowel obstruction. 3. New consolidation in both lung bases with minimal effusions. 4. Cardiomegaly with small amount of pericardial fluid. 5. Stable calcification pseudocyst in the tail of the pancreas. Conrado Bhatti MD Cardiovascular: Regular Lungs: Other Abdomen: Post-op tenderness, BS normal Extremities: SCD's on A/P Assessment and Plan 66-year-old gentleman who had a takedown with large incisional hernia repair doing well complicated by pulmonary status which is improved. Patient is hoping to go home the next few days Cassandra Espitia MD January 30, 2017 15:50
[2017-01-30] MEDS: PANTOPRAZOLE SODIUM 40 MG VIAL IV SCH (18:00)
[2017-01-30] MEDS: ENOXAPARIN SODIUM 40 MG/0.4 ML SYRINGE SQ SCH (18:00)
[2017-01-30] MEDS: TAMSULOSIN HCL 0.4 MG CAP PO SCH (20:20)
[2017-01-31] VITALS (8 sets, daily range): BP systolic 118–139; BP diastolic 55–69; PULSE 59–86; RESP 14–20; TEMP 95.5–97.8; O2SAT 95–98
[2017-01-31] MEDS: oxyCODONE/ACETAMINOPHEN 10 MG/325 MG TAB PO PRN ×4 (00:06→22:20)
[2017-01-31] MEDS: METOPROLOL TARTRATE 50 MG TAB PO SCH ×2 (00:06→13:15)
[2017-01-31] MEDS: SODIUM CHLORIDE 0.9% FLUSH 10 ML FLUSH IV FLUSH SCH ×2 (08:34→20:51)
[2017-01-31] MEDS: methylPREDNISolone SOD SUCC 40 MG/1 ML VIAL IV PUSH SCH (08:34)
[2017-01-31] MEDS: LORazepam 1 MG TAB PO PRN ×2 (08:34→15:55)
[2017-01-31] MEDS: LINEZOLID 600 MG TAB PO SCH ×2 (08:34→20:50)
[2017-01-31] MEDS: ALLOPURINOL 100 MG TAB PO SCH (08:35)
[2017-01-31] MEDS: DILTIAZEM HCL 30 MG TAB PO SCH ×4 (08:35→20:50)
[2017-01-31] MEDS: LISINOPRIL 5 MG TAB PO SCH (08:35)
[2017-01-31] MEDS: TIOTROPIUM BROMIDE 18 MCG INH INH SCH (08:35)
[2017-01-31] MEDS: DOCUSATE SODIUM 100 MG CAP PO SCH ×2 (08:35→20:51)
[2017-01-31] MEDS: LEVOFLOXACIN 500 MG TAB PO SCH (08:35)
[2017-01-31] MEDS ORDERED: METOLAZONE 5 MG TAB PO ONE (09:15)
--- NOTE | 2017-01-31 13:08 | HHI.PR ---
Subjective Subjective Notes pain controlled oob tolerating PO, +BM Objective Vitals/I&O Vital Signs Date Time Temp Pulse Resp B/P Pulse Ox O2 Delivery O2 Flow Rate FiO2 01/31/17 11:45 96 40 01/31/17 04:00 95.9 63 18 118/55 01/30/17 09:35 Nasal Cannula 5.00 Radiology Last Impressions Chest X-Ray 01/26/17 0600 Signed Impressions: Service Date/Time: Thursday, January 26, 2017 04:42 - CONCLUSION: Unchanged pleural effusions and bibasilar atelectasis versus infiltrates. Farhat Umana Jr., MD Chest CT 01/23/17 0000 Signed Impressions: Service Date/Time: Monday, January 23, 2017 13:16 - CONCLUSION: 1. Consolidation is noted in both lung bases with air bronchograms. There is also consolidation along the posterior left major fissure. 2. Cardiomegaly and small pericardial effusion. Conrado Bhatti MD Abdomen/Pelvis CT 01/23/17 0000 Signed Impressions: Service Date/Time: Monday, January 23, 2017 13:16 - CONCLUSION: 1. Interval postsurgical changes status post abdominal hernia repair with soft tissue swelling and gas in the subcutaneous fat. There are surgical drains in place with no drainable fluid collection. 2. Abnormal bowel gas pattern of concern for early or partial small bowel obstruction. 3. New consolidation in both lung bases with minimal effusions. 4. Cardiomegaly with small amount of pericardial fluid. 5. Stable calcification pseudocyst in the tail of the pancreas. Conrado Bhatti MD Abdomen: Non-distended, Non-tender A/P Assessment and Plan 66-year-old gentleman who had a takedown with large incisional hernia repair doing well pulmonary status is improved possible DC home tomorrow Giancarlo Woody MD January 31, 2017 13:08
[2017-01-31] MEDS: ENOXAPARIN SODIUM 40 MG/0.4 ML SYRINGE SQ SCH (18:10)
[2017-01-31] MEDS: PANTOPRAZOLE SODIUM 40 MG VIAL IV SCH (18:11)
[2017-01-31] MEDS: TAMSULOSIN HCL 0.4 MG CAP PO SCH (20:50)
[2017-01-31] MEDS: BUDESONIDE-FORMOTEROL 160/4.5 MCG INHALER INH SCH (20:52)
[2017-02-01] VITALS (9 sets, daily range): BP systolic 102–131; BP diastolic 53–76; PULSE 75–83; RESP 17–20; TEMP 97.7–98.6; O2SAT 95–98
[2017-02-01] MEDS: LORazepam 1 MG TAB PO PRN ×3 (00:17→17:49)
[2017-02-01] MEDS: METOPROLOL TARTRATE 50 MG TAB PO SCH ×3 (00:18→23:36)
[2017-02-01 05:04] LABS: BICARBONATE 31.6 MEQ/L (21.0-32.0)
[2017-02-01 05:09] LABS: POTASSIUM 2.9 MEQ/L (3.5-5.1)
[2017-02-01] MEDS ORDERED: POTASSIUM CHLORIDE 20 MEQ CONTROLLED RELEASE TAB PO ONE (06:00)
[2017-02-01] MEDS ORDERED: POTASSIUM CHLOR 20 MEQ PREMIX 100 ML IV ONE (06:00)
[2017-02-01] MEDS: methylPREDNISolone SOD SUCC 40 MG/1 ML VIAL IV PUSH SCH (08:04)
[2017-02-01] MEDS: ALLOPURINOL 100 MG TAB PO SCH (08:05)
[2017-02-01] MEDS: FUROSEMIDE 20 MG TAB PO SCH (08:05)
[2017-02-01] MEDS: DOCUSATE SODIUM 100 MG CAP PO SCH ×2 (08:05→20:56)
[2017-02-01] MEDS: LINEZOLID 600 MG TAB PO SCH ×2 (08:06→20:57)
[2017-02-01] MEDS: LEVOFLOXACIN 500 MG TAB PO SCH (08:06)
[2017-02-01] MEDS: DILTIAZEM HCL 30 MG TAB PO SCH ×4 (08:07→21:04)
[2017-02-01] MEDS: LISINOPRIL 5 MG TAB PO SCH (08:07)
[2017-02-01] MEDS: BUDESONIDE-FORMOTEROL 160/4.5 MCG INHALER INH SCH ×2 (08:09→20:55)
[2017-02-01] MEDS: TIOTROPIUM BROMIDE 18 MCG INH INH SCH (08:09)
[2017-02-01] MEDS: SODIUM CHLORIDE 0.9% FLUSH 10 ML FLUSH IV FLUSH SCH ×2 (08:09→20:56)
[2017-02-01] MEDS: oxyCODONE/ACETAMINOPHEN 10 MG/325 MG TAB PO PRN ×3 (08:17→21:09)
[2017-02-01] MEDS ORDERED: POTASSIUM CHLORIDE 10 MEQ CONTROLLED RELEASE TAB PO SCH (09:00)
[2017-02-01 11:41] LABS: BICARBONATE 34.1 MEQ/L (21.0-32.0); POTASSIUM 3.1 MEQ/L (3.5-5.1)
--- NOTE | 2017-02-01 11:46 | HHI.PR ---
Subjective Remarks Pt evaluated earlier today. feels well. pain controlled. tells me that he takes 40mEq KCl po at home daily and also takes lasix at home. Denies any CP/SOB/N/V Objective Vitals Vital Signs Date Time Temp Pulse Resp B/P Pulse Ox O2 Delivery O2 Flow Rate FiO2 02/01/17 08:00 97.9 79 19 112/55 95 02/01/17 04:00 97.8 76 18 102/53 98 02/01/17 00:00 98.0 82 20 130/76 95 01/31/17 22:41 96 40 01/31/17 20:00 97.8 86 20 139/69 96 01/31/17 18:00 97.7 69 20 129/66 96 01/31/17 12:00 96.3 68 16 128/62 97 01/31/17 11:45 96 40 I/O 01/31/17 01/31/17 01/31/17 02/01/17 02/01/17 02/01/17 07:00 15:00 23:00 07:00 15:00 23:00 Intake Total 480 ml 720 ml 440 ml 220 ml 120 ml Output Total 1230 ml 540 ml 2005 ml 740 ml Balance -750 ml 180 ml -1565 ml -520 ml 120 ml Intake Oral 480 ml 720 ml 440 ml 220 ml 120 ml IV Total 0 ml Output Urine Total 1150 ml 540 ml 1900 ml 700 ml Drainage Total 80 ml 105 ml 40 ml # Bowel Movements 4 1 0 0 Result Diagram: 01/29/17 0426 02/01/17 0400 Imaging Last Impressions Chest X-Ray 01/26/17 0600 Signed Impressions: Service Date/Time: Thursday, January 26, 2017 04:42 - CONCLUSION: Unchanged pleural effusions and bibasilar atelectasis versus infiltrates. Farhat Umana Jr., MD Chest CT 01/23/17 0000 Signed Impressions: Service Date/Time: Monday, January 23, 2017 13:16 - CONCLUSION: 1. Consolidation is noted in both lung bases with air bronchograms. There is also consolidation along the posterior left major fissure. 2. Cardiomegaly and small pericardial effusion. Conrado Bhatti MD Abdomen/Pelvis CT 01/23/17 0000 Signed Impressions: Service Date/Time: Monday, January 23, 2017 13:16 - CONCLUSION: 1. Interval postsurgical changes status post abdominal hernia repair with soft tissue swelling and gas in the subcutaneous fat. There are surgical drains in place with no drainable fluid collection. 2. Abnormal bowel gas pattern of concern for early or partial small bowel obstruction. 3. New consolidation in both lung bases with minimal effusions. 4. Cardiomegaly with small amount of pericardial fluid. 5. Stable calcification pseudocyst in the tail of the pancreas. Conrado Bhatti MD Objective Remarks GENERAL: Well-nourished, well-developed patient in NAD sitting up in chair eating breakfast. CARDIOVASCULAR: Regular rate and rhythm. No murmur appreciated. RESPIRATORY: No accessory muscle use. Clear to auscultation. Breath sounds equal bilaterally. GASTROINTESTINAL: Abdomen soft, non-tender, nondistended. Normoactive bowel sounds x4. site clean, dry, intact . Midline wound vac present, connected to continuous suction. MUSCULOSKELETAL: No obvious deformities. Extremities without edema. NEUROLOGICAL: Awake and alert. No obvious cranial nerve deficits. Motor grossly within normal limits. Normal speech. Procedures 1. Exploratory laparotomy. 2. Lysis of adhesions greater than 60 minutes. 3. Reversal of end-ileostomy. 4. Complex scar revision. 5. Abdominal incisional hernia repair with left lateral component separation. A/P Assessment and Plan Acute hypoxemic respiratory failure Bibasilar pneumonia Acute COPD exacerbation - Continue on BiPAP as needed. On NC during the day - d/c IV Solu-Medrol and switch to po prednisone 40mg po daily and continue taper- on budesonide/formoterol inhaled, Spiriva - Continue neb treatment - Broad-spectrum antibiotics per ID - Encourage use of acapella. Continue EzPAP. - Pulmonary following, appreciate input. Paroxysmal atrial fibrillation - Currently in sinus rhythm. - Continue metoprolol 100 mg Q12h. Leukocytosis Sepsis most likely secondary to pneumonia verse possible surgical site infection - WBC trending down. Today 01/29, 14.5. - ID signed off with antibiotic recommendations for discharge. on broad- spectrum antibiotic per ID. Levaquin 500 mg PO daily x 2 weeks. Continue Zyvox 500 mg PO BID x 2 weeks. - Sepsis most likely from pneumonia. Concerning for questionable surgical site infection per ID, VRE and Proteus. General surgery following. Status post reversal colectomy and incisional hernia repair - Management per general surgery. - Abdominal wound vac continued. Diarrhea, improving. - Stool negative for c-difficile. Hypokalemia: K was 2.9 today. Pt given 20mEq KCl IV x 1 and 40mEq KCl po. Recheck BMP today and replace a needed. Pt also states that he takes a total of 40meq daily at home, resume home dosage. Mg was checked this morning and was normal at 2.3 DVT prophylaxis: Lovenox. GI prophylaxis: Pepcid Discharge Planning ID has made recs for Abx management. CM is assisting w d/c planning. d/c per primary team. Hilaria Plaza MD February 01, 2017 11:46
[2017-02-01] MEDS: POTASSIUM CHLORIDE 10 MEQ CONTROLLED RELEASE TAB PO SCH ×3 (14:28→20:57)
--- NOTE | 2017-02-01 15:08 | HHI.PR ---
Subjective Subjective Notes Up to chair Reports Wound Vac was changed on Wednesday Pain controlled Breathing easier now Objective Vitals/I&O Vital Signs Date Time Temp Pulse Resp B/P Pulse Ox O2 Delivery O2 Flow Rate FiO2 02/01/17 12:00 97.7 83 17 131/68 95 02/01/17 09:51 Nasal Cannula 2.00 01/31/17 22:41 40 Labs Laboratory Tests Test 02/01/17 02/01/17 04:00 11:06 Sodium Level 136 138 Potassium Level 2.9 3.1 Chloride Level 97 96 Carbon Dioxide Level 31.6 34.1 Anion Gap 7 8 Blood Urea Nitrogen 18 15 Creatinine 0.86 0.96 Estimat Glomerular Filtration 90 79 Rate Random Glucose 229 255 Calcium Level 8.6 8.7 Magnesium Level 2.3 Radiology Last Impressions Chest X-Ray 01/26/17 0600 Signed Impressions: Service Date/Time: Thursday, January 26, 2017 04:42 - CONCLUSION: Unchanged pleural effusions and bibasilar atelectasis versus infiltrates. Farhat Umana Jr., MD Chest CT 01/23/17 0000 Signed Impressions: Service Date/Time: Monday, January 23, 2017 13:16 - CONCLUSION: 1. Consolidation is noted in both lung bases with air bronchograms. There is also consolidation along the posterior left major fissure. 2. Cardiomegaly and small pericardial effusion. Conrado Bhatti MD Abdomen/Pelvis CT 01/23/17 0000 Signed Impressions: Service Date/Time: Monday, January 23, 2017 13:16 - CONCLUSION: 1. Interval postsurgical changes status post abdominal hernia repair with soft tissue swelling and gas in the subcutaneous fat. There are surgical drains in place with no drainable fluid collection. 2. Abnormal bowel gas pattern of concern for early or partial small bowel obstruction. 3. New consolidation in both lung bases with minimal effusions. 4. Cardiomegaly with small amount of pericardial fluid. 5. Stable calcification pseudocyst in the tail of the pancreas. Conrado Bhatti MD Cardiovascular: Regular Lungs: Clear Abdomen: Other (Abdominal binder in place; JORJE with serous drainage; Wound Vac in place with good seal; minimal drainage in collection chamber ) Extremities: No edema A/P Assessment and Plan 66 year old male c/p ex lap; incisional hernia repair; colostomy reversal -Breathing improved ---on NC now -Abdominal Wound Vac in place -Pain controlled -Regular diet -OOB and mobilize as tolerated -IS -Monitor JORJE Attending Statement patient seen at bedside resp better Attestation The exam, history, and the medical decision-making described in the above note were completed with the assistance of the mid-level provider. I reviewed and agree with the findings presented. I attest that I had a [id number] encounter with the patient on the same day, and personally performed and documented my assessment and findings in the medical record. Supriya Shankar February 01, 2017 15:08 Andreas Vernon MD February 14, 2017 15:20
[2017-02-01] MEDS: MORPHINE SULFATE 4 MG/ML INJ IV PUSH PRN (17:43)
[2017-02-01] MEDS: ENOXAPARIN SODIUM 40 MG/0.4 ML SYRINGE SQ SCH (17:44)
[2017-02-01] MEDS: PANTOPRAZOLE SODIUM 40 MG VIAL IV SCH (20:56)
[2017-02-01] MEDS: TAMSULOSIN HCL 0.4 MG CAP PO SCH (20:57)
[2017-02-01] MEDS: ZOLPIDEM TARTRATE 10 MG TAB PO PRN (23:36)
[2017-02-02] VITALS (8 sets, daily range): BP systolic 114–123; BP diastolic 58–75; PULSE 72–88; RESP 18–20; TEMP 96.4–98.5; O2SAT 92–98
[2017-02-02] MEDS: LORazepam 1 MG TAB PO PRN ×2 (04:46→16:17)
[2017-02-02] MEDS: oxyCODONE/ACETAMINOPHEN 10 MG/325 MG TAB PO PRN ×3 (04:46→20:58)
[2017-02-02 06:07] LABS: BICARBONATE 35.6 MEQ/L (21.0-32.0)
[2017-02-02 06:13] LABS: POTASSIUM 2.8 MEQ/L (3.5-5.1)
[2017-02-02] MEDS ORDERED: POTASSIUM CHLORIDE 10 MEQ CONTROLLED RELEASE TAB PO ONE (08:00)
[2017-02-02] MEDS ORDERED: POTASSIUM CHLOR 40 MEQ PREMIX 100 ML IV ONE (08:00)
[2017-02-02] MEDS: POTASSIUM CHLOR 20 MEQ PREMIX 100 ML IV SCH ×2 (09:06→12:20)
[2017-02-02] MEDS: POTASSIUM CHLORIDE 10 MEQ CONTROLLED RELEASE TAB PO SCH ×4 (09:07→20:54)
[2017-02-02] MEDS: DOCUSATE SODIUM 100 MG CAP PO SCH ×2 (09:07→21:00)
[2017-02-02] MEDS: FUROSEMIDE 20 MG TAB PO SCH (09:07)
[2017-02-02] MEDS: LISINOPRIL 5 MG TAB PO SCH (09:07)
[2017-02-02] MEDS: LEVOFLOXACIN 500 MG TAB PO SCH (09:07)
[2017-02-02] MEDS: predniSONE 20 MG TAB PO SCH (09:07)
[2017-02-02] MEDS: LINEZOLID 600 MG TAB PO SCH ×2 (09:07→20:54)
[2017-02-02] MEDS: SODIUM CHLORIDE 0.9% FLUSH 10 ML FLUSH IV FLUSH SCH ×2 (09:08→21:00)
[2017-02-02] MEDS: ALLOPURINOL 100 MG TAB PO SCH (09:08)
[2017-02-02] MEDS: BUDESONIDE-FORMOTEROL 160/4.5 MCG INHALER INH SCH ×2 (09:08→20:53)
[2017-02-02] MEDS: DILTIAZEM HCL 30 MG TAB PO SCH ×4 (09:08→21:47)
[2017-02-02] MEDS: TIOTROPIUM BROMIDE 18 MCG INH INH SCH (09:10)
--- NOTE | 2017-02-02 11:09 | HHI.PR ---
Subjective Subjective Notes Resting in bed In good spirits Objective Vitals/I&O Vital Signs Date Time Temp Pulse Resp B/P Pulse Ox O2 Delivery O2 Flow Rate FiO2 02/02/17 08:00 98.5 75 19 115/60 93 02/02/17 08:00 Nasal Cannula 2.00 01/31/17 22:41 40 Labs Laboratory Tests Test 02/02/17 04:36 Sodium Level 137 Potassium Level 2.8 Chloride Level 94 Carbon Dioxide Level 35.6 Anion Gap 7 Blood Urea Nitrogen 16 Creatinine 0.85 Estimat Glomerular Filtration 91 Rate Random Glucose 166 Calcium Level 8.4 Radiology Last Impressions Chest X-Ray 01/26/17 0600 Signed Impressions: Service Date/Time: Thursday, January 26, 2017 04:42 - CONCLUSION: Unchanged pleural effusions and bibasilar atelectasis versus infiltrates. Farhat Umana Jr., MD Chest CT 01/23/17 0000 Signed Impressions: Service Date/Time: Monday, January 23, 2017 13:16 - CONCLUSION: 1. Consolidation is noted in both lung bases with air bronchograms. There is also consolidation along the posterior left major fissure. 2. Cardiomegaly and small pericardial effusion. Conrado Bhatti MD Abdomen/Pelvis CT 01/23/17 0000 Signed Impressions: Service Date/Time: Monday, January 23, 2017 13:16 - CONCLUSION: 1. Interval postsurgical changes status post abdominal hernia repair with soft tissue swelling and gas in the subcutaneous fat. There are surgical drains in place with no drainable fluid collection. 2. Abnormal bowel gas pattern of concern for early or partial small bowel obstruction. 3. New consolidation in both lung bases with minimal effusions. 4. Cardiomegaly with small amount of pericardial fluid. 5. Stable calcification pseudocyst in the tail of the pancreas. Conrado Bhatti MD Cardiovascular: Regular Lungs: Clear Abdomen: Other (Wound Vac removed--midline incision open; remaining neal removed; small opening at prior ostomy site; abdomen mildly tender with palpation ) Extremities: No edema A/P Assessment and Plan 66 year old male c/p ex lap; incisional hernia repair; colostomy reversal -Breathing improved ---on NC now -Abdominal Wound Vac replaced today -Replace K -Pain controlled -Regular diet -OOB and mobilize as tolerated -IS -Monitor JORJE Attending Statement patient seen at bedside resp better wound vac changes Attestation The exam, history, and the medical decision-making described in the above note were completed with the assistance of the mid-level provider. I reviewed and agree with the findings presented. I attest that I had a [id number] encounter with the patient on the same day, and personally performed and documented my assessment and findings in the medical record. Supriya Shankar February 02, 2017 11:09 Andreas Vernon MD February 14, 2017 15:27
[2017-02-02] MEDS: METOPROLOL TARTRATE 50 MG TAB PO SCH ×2 (12:20→23:55)
--- NOTE | 2017-02-02 17:12 | HHI.PR ---
Subjective Remarks Pt feels well. had wound vac changed today. eating lunch. denies any n/v/CP/SOB Objective Vitals Vital Signs Date Time Temp Pulse Resp B/P Pulse Ox O2 Delivery O2 Flow Rate FiO2 02/02/17 16:00 122/75 02/02/17 12:00 97.8 72 18 117/65 98 02/02/17 09:47 92 Nasal Cannula 2.00 02/02/17 08:00 98.5 75 19 115/60 93 02/02/17 08:00 Nasal Cannula 2.00 02/02/17 04:00 97.8 79 20 114/60 98 02/02/17 00:00 98.3 76 18 116/63 97 02/01/17 23:37 75 18 131/59 96 02/01/17 21:38 95 Nasal Cannula 2.00 02/01/17 20:30 Nasal Cannula 2.00 02/01/17 20:00 98.3 76 18 116/63 97 I/O 02/01/17 02/01/17 02/01/17 02/02/17 02/02/17 02/02/17 07:00 15:00 23:00 07:00 15:00 23:00 Intake Total 220 ml 1080 ml 480 ml 440 ml 360 ml Output Total 740 ml 2000 ml 950 ml 1390 ml 550 ml Balance -520 ml -920 ml -470 ml -950 ml -190 ml Intake Oral 220 ml 1080 ml 480 ml 440 ml 360 ml IV Total 0 ml Output Urine Total 700 ml 2000 ml 850 ml 1350 ml 550 ml Drainage Total 40 ml 100 ml 40 ml # Bowel Movements 0 1 1 1 1 Result Diagram: 01/29/17 0426 02/02/17 0436 Imaging Last Impressions Chest X-Ray 01/26/17 0600 Signed Impressions: Service Date/Time: Thursday, January 26, 2017 04:42 - CONCLUSION: Unchanged pleural effusions and bibasilar atelectasis versus infiltrates. Farhat Umana Jr., MD Chest CT 01/23/17 0000 Signed Impressions: Service Date/Time: Monday, January 23, 2017 13:16 - CONCLUSION: 1. Consolidation is noted in both lung bases with air bronchograms. There is also consolidation along the posterior left major fissure. 2. Cardiomegaly and small pericardial effusion. Conrado Bhatti MD Abdomen/Pelvis CT 01/23/17 0000 Signed Impressions: Service Date/Time: Monday, January 23, 2017 13:16 - CONCLUSION: 1. Interval postsurgical changes status post abdominal hernia repair with soft tissue swelling and gas in the subcutaneous fat. There are surgical drains in place with no drainable fluid collection. 2. Abnormal bowel gas pattern of concern for early or partial small bowel obstruction. 3. New consolidation in both lung bases with minimal effusions. 4. Cardiomegaly with small amount of pericardial fluid. 5. Stable calcification pseudocyst in the tail of the pancreas. Conrado Bhatti MD Objective Remarks GENERAL: Well-nourished, well-developed patient in NAD sitting up in chair eating breakfast. CARDIOVASCULAR: Regular rate and rhythm. No murmur appreciated. RESPIRATORY: No accessory muscle use. Clear to auscultation. Breath sounds equal bilaterally. GASTROINTESTINAL: Abdomen soft. Midline wound vac present, connected to continuous suction. MUSCULOSKELETAL: No obvious deformities. Extremities without edema. NEUROLOGICAL: Awake and alert. No obvious cranial nerve deficits. Motor grossly within normal limits. Normal speech. Procedures 1. Exploratory laparotomy. 2. Lysis of adhesions greater than 60 minutes. 3. Reversal of end-ileostomy. 4. Complex scar revision. 5. Abdominal incisional hernia repair with left lateral component separation. A/P Assessment and Plan Acute hypoxemic respiratory failure Bibasilar pneumonia Acute COPD exacerbation - Continue on BiPAP as needed. On NC during the day - d/c IV Solu-Medrol and switch to po prednisone 40mg po daily and continue taper- on budesonide/formoterol inhaled, Spiriva - Continue neb treatment - Broad-spectrum antibiotics per ID - Encourage use of acapella. Continue EzPAP. - Pulmonary following, appreciate input. Paroxysmal atrial fibrillation - Currently in sinus rhythm. - Continue metoprolol 100 mg Q12h. Leukocytosis Sepsis most likely secondary to pneumonia verse possible surgical site infection - WBC trending down. 14.5.on 01/29 - ID signed off with antibiotic recommendations for discharge. on broad- spectrum antibiotic per ID. Levaquin 500 mg PO daily x 2 weeks. Continue Zyvox 500 mg PO BID x 2 weeks. - Sepsis most likely from pneumonia. Concerning for questionable surgical site infection per ID, VRE and Proteus. General surgery following. Status post reversal colectomy and incisional hernia repair - Management per general surgery. - Abdominal wound vac continued. Diarrhea, improving. - Stool negative for c-difficile. Hypokalemia: K was 2.8 today. has been replaced by Gen sx. Monitor. Repeat K ordered for later. DVT prophylaxis: Lovenox. GI prophylaxis: Pepcid Discharge Planning ID has made recs for Abx management. CM is assisting w d/c planning. monitor potassium level and replace d/c per primary team (gen sx). Hilaria Plaza MD February 02, 2017 17:12
[2017-02-02] MEDS: ENOXAPARIN SODIUM 40 MG/0.4 ML SYRINGE SQ SCH (17:45)
--- NOTE | 2017-02-02 18:39 | HHI.PR ---
Subjective Remarks ASS: NO sob at rest on o2 NC Objective Vital Signs Date Time Temp Pulse Resp B/P Pulse Ox O2 Delivery O2 Flow Rate FiO2 02/02/17 16:00 122/75 02/02/17 12:00 97.8 72 18 117/65 98 02/02/17 09:47 92 Nasal Cannula 2.00 02/02/17 08:00 98.5 75 19 115/60 93 02/02/17 08:00 Nasal Cannula 2.00 02/02/17 04:00 97.8 79 20 114/60 98 02/02/17 00:00 98.3 76 18 116/63 97 02/01/17 23:37 75 18 131/59 96 02/01/17 21:38 95 Nasal Cannula 2.00 02/01/17 20:30 Nasal Cannula 2.00 02/01/17 20:00 98.3 76 18 116/63 97 I/O 02/01/17 02/01/17 02/01/17 02/02/17 02/02/17 02/02/17 07:00 15:00 23:00 07:00 15:00 23:00 Intake Total 220 ml 1080 ml 480 ml 440 ml 360 ml Output Total 740 ml 2000 ml 950 ml 1390 ml 600 ml Balance -520 ml -920 ml -470 ml -950 ml -240 ml Intake Oral 220 ml 1080 ml 480 ml 440 ml 360 ml IV Total 0 ml Output Urine Total 700 ml 2000 ml 850 ml 1350 ml 550 ml Drainage Total 40 ml 100 ml 40 ml 50 ml # Bowel Movements 0 1 1 1 1 Result Diagram: 01/29/17 0426 02/02/17 0436 Objective Remarks GENERAL: SKIN: Warm and dry. HEAD: Atraumatic. Normocephalic. EYES: Pupils equal and round. No scleral icterus. No injection or drainage. ENT: No nasal bleeding or discharge. Mucous membranes pink and moist. NECK: Trachea midline. No JVD. CARDIOVASCULAR: Regular rate and rhythm. RESPIRATORY: No accessory muscle use. SCATTERED RONCHI AT BASIS. GASTROINTESTINAL: Abdomen soft, non-tender, nondistended. Hepatic and splenic margins not palpable. MUSCULOSKELETAL: Extremities without clubbing, cyanosis, ++ edema. No obvious deformities. NEUROLOGICAL: Awake and alert. No obvious cranial nerve deficits. Motor grossly within normal limits. Five out of 5 muscle strength in the arms and legs. Normal speech. PSYCHIATRIC: Appropriate mood and affect; insight and judgment normal. Assessment and Plan Assessment and Plan RESPIRATORY FAILURE COPD PNA Improving ? CELESTINO PLAN: BIPAP NEEDED O2 NEEDED PUNL. TOILET ANTIBIOTIC THERAPY F/U CXRAY Amelia Cisneros MD February 02, 2017 18:39
[2017-02-02] MEDS: PANTOPRAZOLE SODIUM 40 MG VIAL IV SCH (20:54)
[2017-02-02] MEDS: TAMSULOSIN HCL 0.4 MG CAP PO SCH (20:54)
[2017-02-03] VITALS (8 sets, daily range): BP systolic 97–123; BP diastolic 52–59; PULSE 75–100; RESP 16–21; TEMP 96.9–98.9; O2SAT 91–97
[2017-02-03] MEDS: LORazepam 1 MG TAB PO PRN ×3 (00:01→21:29)
[2017-02-03] MEDS: ZOLPIDEM TARTRATE 10 MG TAB PO PRN (00:01)
[2017-02-03] MEDS: oxyCODONE/ACETAMINOPHEN 10 MG/325 MG TAB PO PRN ×3 (05:43→21:29)
[2017-02-03 06:07] LABS: MAGNESIUM 1.9 MG/DL (1.5-2.5); POTASSIUM 3.2 MEQ/L (3.5-5.1)
--- NOTE | 2017-02-03 07:30 | RADRPT ---
EXAM DATE/TIME: 02/03/2017 06:25 [facility] COMPARISON: CHEST SINGLE AP, January 26, 2017, 4:42. INDICATIONS : Pneumonia. MEDICAL HISTORY : Chronic obstructive pulmonary disease. Cardiovascular disease. SURGICAL HISTORY : None. ENCOUNTER: Subsequent ACUITY: 2 weeks PAIN SCORE: 0/10 LOCATION: Bilateral chest FINDINGS: A single view of the chest demonstrates bibasilar densities greater along the left lower lobe. Small left pleural effusion. Cardiomegaly. Subsegmental atelectasis in the right upper lobe. Osseous struc tures are intact. CONCLUSION: 1. Small left pleural effusion and left basilar consolidation. 2. Right basilar atelectasis. Walt Johnson MD on February 03, 2017 at 7:28 Board Certified Radiologist. This report was verified electronically.
[2017-02-03] MEDS: DOCUSATE SODIUM 100 MG CAP PO SCH ×2 (08:13→21:29)
[2017-02-03] MEDS: LINEZOLID 600 MG TAB PO SCH ×2 (08:13→21:29)
[2017-02-03] MEDS: LEVOFLOXACIN 500 MG TAB PO SCH (08:13)
[2017-02-03] MEDS: LISINOPRIL 5 MG TAB PO SCH (08:14)
[2017-02-03] MEDS: FUROSEMIDE 20 MG TAB PO SCH (08:14)
[2017-02-03] MEDS: POTASSIUM CHLORIDE 10 MEQ CONTROLLED RELEASE TAB PO SCH ×3 (08:14→21:28)
[2017-02-03] MEDS: ALLOPURINOL 100 MG TAB PO SCH (08:14)
[2017-02-03] MEDS: predniSONE 20 MG TAB PO SCH (08:14)
[2017-02-03] MEDS: DILTIAZEM HCL 30 MG TAB PO SCH ×4 (08:14→21:29)
[2017-02-03] MEDS: BUDESONIDE-FORMOTEROL 160/4.5 MCG INHALER INH SCH ×2 (08:15→21:26)
[2017-02-03] MEDS: TIOTROPIUM BROMIDE 18 MCG INH INH SCH (08:17)
[2017-02-03] MEDS: SODIUM CHLORIDE 0.9% FLUSH 10 ML FLUSH IV FLUSH SCH ×2 (08:17→21:28)
--- NOTE | 2017-02-03 08:36 | HHI.PR ---
Subjective Remarks ASS: NO sob at rest on o2 NC Objective Vital Signs Date Time Temp Pulse Resp B/P Pulse Ox O2 Delivery O2 Flow Rate FiO2 02/03/17 08:00 97.7 84 19 98/54 92 02/03/17 00:00 97.3 75 20 105/59 93 02/02/17 22:00 96 Nasal Cannula 1.00 02/02/17 22:00 73 02/02/17 20:55 Nasal Cannula 02/02/17 20:00 96.4 88 20 123/58 97 02/02/17 16:00 122/75 02/02/17 12:00 97.8 72 18 117/65 98 02/02/17 09:47 92 Nasal Cannula 2.00 I/O 02/02/17 02/02/17 02/02/17 02/03/17 02/03/17 02/03/17 07:00 15:00 23:00 07:00 15:00 23:00 Intake Total 440 ml 360 ml 480 ml 340 ml Output Total 1390 ml 600 ml 320 ml 740 ml Balance -950 ml -240 ml 160 ml -400 ml Intake Oral 440 ml 360 ml 480 ml 240 ml IV Total 0 ml 100 ml Output Urine Total 1350 ml 550 ml 200 ml 700 ml Drainage Total 40 ml 50 ml 120 ml 40 ml # Voids 1 # Bowel Movements 1 1 1 3 Result Diagram: 02/03/17 0443 Objective Remarks GENERAL: SKIN: Warm and dry. HEAD: Atraumatic. Normocephalic. EYES: Pupils equal and round. No scleral icterus. No injection or drainage. ENT: No nasal bleeding or discharge. Mucous membranes pink and moist. NECK: Trachea midline. No JVD. CARDIOVASCULAR: Regular rate and rhythm. RESPIRATORY: No accessory muscle use. SCATTERED RONCHI AT BASIS. GASTROINTESTINAL: Abdomen soft, non-tender, nondistended. Hepatic and splenic margins not palpable. MUSCULOSKELETAL: Extremities without clubbing, cyanosis, ++ edema. No obvious deformities. NEUROLOGICAL: Awake and alert. No obvious cranial nerve deficits. Motor grossly within normal limits. Five out of 5 muscle strength in the arms and legs. Normal speech. PSYCHIATRIC: Appropriate mood and affect; insight and judgment normal. Assessment and Plan Assessment and Plan RESPIRATORY FAILURE COPD PNA Improving ? CELESTINO PLAN: BIPAP NEEDED O2 NEEDED PUNL. TOILET ANTIBIOTIC THERAPY F/U CXRAY Amelia,Amelia Wadie MD February 03, 2017 08:36
[2017-02-03] MEDS: METOPROLOL TARTRATE 50 MG TAB PO SCH (13:02)
--- NOTE | 2017-02-03 13:33 | HHI.PR ---
Subjective Remarks Follow-up COPD. Improving shortness of breath on 1 L nasal cannula. Discussed with RN Objective Vitals Vital Signs Date Time Temp Pulse Resp B/P Pulse Ox O2 Delivery O2 Flow Rate FiO2 02/03/17 12:00 96.9 86 18 103/56 93 02/03/17 08:00 97.7 84 19 98/54 92 02/03/17 00:00 97.3 75 20 105/59 93 02/02/17 22:00 96 Nasal Cannula 1.00 02/02/17 22:00 73 02/02/17 20:55 Nasal Cannula 02/02/17 20:00 96.4 88 20 123/58 97 02/02/17 16:00 122/75 I/O 02/02/17 02/02/17 02/02/17 02/03/17 02/03/17 02/03/17 07:00 15:00 23:00 07:00 15:00 23:00 Intake Total 440 ml 360 ml 480 ml 340 ml Output Total 1390 ml 600 ml 320 ml 740 ml Balance -950 ml -240 ml 160 ml -400 ml Intake Oral 440 ml 360 ml 480 ml 240 ml IV Total 0 ml 100 ml Output Urine Total 1350 ml 550 ml 200 ml 700 ml Drainage Total 40 ml 50 ml 120 ml 40 ml # Voids 1 # Bowel Movements 1 1 1 3 Result Diagram: 02/03/17 0443 Imaging Last Impressions Chest X-Ray 02/03/17 0000 Signed Impressions: Service Date/Time: Friday, February 03, 2017 06:25 - CONCLUSION: 1. Small left pleural effusion and left basilar consolidation. 2. Right basilar atelectasis. Walt Johnson MD Chest CT 01/23/17 0000 Signed Impressions: Service Date/Time: Monday, January 23, 2017 13:16 - CONCLUSION: 1. Consolidation is noted in both lung bases with air bronchograms. There is also consolidation along the posterior left major fissure. 2. Cardiomegaly and small pericardial effusion. Conrado Bhatti MD Abdomen/Pelvis CT 01/23/17 0000 Signed Impressions: Service Date/Time: Monday, January 23, 2017 13:16 - CONCLUSION: 1. Interval postsurgical changes status post abdominal hernia repair with soft tissue swelling and gas in the subcutaneous fat. There are surgical drains in place with no drainable fluid collection. 2. Abnormal bowel gas pattern of concern for early or partial small bowel obstruction. 3. New consolidation in both lung bases with minimal effusions. 4. Cardiomegaly with small amount of pericardial fluid. 5. Stable calcification pseudocyst in the tail of the pancreas. Conrado Bhatti MD Objective Remarks GENERAL: Well-nourished, well-developed patient in NAD sitting up on 1 L nasal cannula CARDIOVASCULAR: Regular rate and rhythm. No murmur appreciated. RESPIRATORY: No accessory muscle use. Clear to auscultation. Breath sounds equal bilaterally. GASTROINTESTINAL: Abdomen soft. Midline wound vac present, connected to continuous suction. MUSCULOSKELETAL: No obvious deformities. Extremities with bilateral pitting edema. NEUROLOGICAL: Awake and alert. No obvious cranial nerve deficits. Motor grossly within normal limits. Normal speech. Procedures 1. Exploratory laparotomy. 2. Lysis of adhesions greater than 60 minutes. 3. Reversal of end-ileostomy. 4. Complex scar revision. 5. Abdominal incisional hernia repair with left lateral component separation. A/P Problem List: (1) Hypoxia ICD Code: R09.02 Status: Acute Assessment and Plan Acute hypoxemic respiratory failure Bibasilar pneumonia Acute COPD exacerbation - Continue on BiPAP as needed. On NC during the day and wean oxygen - d/c IV Solu-Medrol and switch to po prednisone 40mg po daily and continue taper- on budesonide/formoterol inhaled, Spiriva - Continue neb treatment - Broad-spectrum antibiotics per ID - Encourage use of acapella. Continue EzPAP. - Pulmonary following, appreciate input. Paroxysmal atrial fibrillation - Currently in sinus rhythm. - Continue metoprolol 100 mg Q12h. Leukocytosis Sepsis most likely secondary to pneumonia verse possible surgical site infection - WBC trending down. 14.5.on 01/29 - ID signed off with antibiotic recommendations for discharge. on broad- spectrum antibiotic per ID. Levaquin 500 mg PO daily x 2 weeks. Continue Zyvox 500 mg PO BID x 2 weeks. - Sepsis most likely from pneumonia. Concerning for questionable surgical site infection per ID, VRE and Proteus. General surgery following. Status post reversal colectomy and incisional hernia repair - Management per general surgery. - Abdominal wound vac continued. Diarrhea, improving. - Stool negative for c-difficile. Hypokalemia: K was 3.2 today. We'll replace increased to 40 mg twice a day. Sx. Monitor. Repeat K ordered for tomorrow DVT prophylaxis: Lovenox. GI prophylaxis: Pepcid Discharge Planning ID has made recs for Abx management. CM is assisting w d/c planning. monitor potassium level and replace d/c per primary team (gen sx). Medardo Warner MD February 03, 2017 13:32 Medardo Warner MD February 03, 2017 13:32
--- NOTE | 2017-02-03 14:54 | HHI.PR ---
Subjective Subjective Notes Up to chair No issues overnight Objective Vitals/I&O Vital Signs Date Time Temp Pulse Resp B/P Pulse Ox O2 Delivery O2 Flow Rate FiO2 02/03/17 12:00 96.9 86 18 103/56 93 02/02/17 22:00 Nasal Cannula 1.00 01/31/17 22:41 40 Labs Laboratory Tests Test 02/03/17 04:43 Sodium Level 136 Potassium Level 3.2 Chloride Level 95 Carbon Dioxide Level 33.0 Anion Gap 8 Blood Urea Nitrogen 15 Creatinine 0.79 Estimat Glomerular Filtration 99 Rate Random Glucose 107 Calcium Level 8.6 Magnesium Level 1.9 Radiology Last Impressions Chest X-Ray 01/26/17 0600 Signed Impressions: Service Date/Time: Thursday, January 26, 2017 04:42 - CONCLUSION: Unchanged pleural effusions and bibasilar atelectasis versus infiltrates. Farhat Umana Jr., MD Chest CT 01/23/17 0000 Signed Impressions: Service Date/Time: Monday, January 23, 2017 13:16 - CONCLUSION: 1. Consolidation is noted in both lung bases with air bronchograms. There is also consolidation along the posterior left major fissure. 2. Cardiomegaly and small pericardial effusion. Conrado Bhatti MD Abdomen/Pelvis CT 01/23/17 0000 Signed Impressions: Service Date/Time: Monday, January 23, 2017 13:16 - CONCLUSION: 1. Interval postsurgical changes status post abdominal hernia repair with soft tissue swelling and gas in the subcutaneous fat. There are surgical drains in place with no drainable fluid collection. 2. Abnormal bowel gas pattern of concern for early or partial small bowel obstruction. 3. New consolidation in both lung bases with minimal effusions. 4. Cardiomegaly with small amount of pericardial fluid. 5. Stable calcification pseudocyst in the tail of the pancreas. Conrado Bhatti MD Cardiovascular: Regular Lungs: Clear Abdomen: Other (Abdominal wound vac in place with good seal; abdominal binder in place; JORJE x1 with SS cloudy drainage ) Extremities: No edema A/P Assessment and Plan 66 year old male c/p ex lap; incisional hernia repair; colostomy reversal -Breathing improved ---on NC now -Continue Wound Vac -Replace K today -Pain controlled -Regular diet -OOB and mobilize as tolerated -IS -Monitor JORJE Attending Statement patient seen at bedside continue to wean o2 d/c planning soon Attestation The exam, history, and the medical decision-making described in the above note were completed with the assistance of the mid-level provider. I reviewed and agree with the findings presented. I attest that I had a [id number] encounter with the patient on the same day, and personally performed and documented my assessment and findings in the medical record. Supriya Shankar February 03, 2017 14:54 Adnreas Vernon MD February 14, 2017 15:39
[2017-02-03] MEDS ORDERED: ZYVO600T PO (16:28)
[2017-02-03] MEDS ORDERED: LEVA500T PO (16:28)
--- NOTE | 2017-02-03 16:30 | HHI.PR ---
Addendum to Inpatient Note Addendum Reason: Additional Documentation Additional Information Called by network operations manager Carol to write script for Zyvox preauthorization. Labs reviewed: platelets ok. Clinically appears improving based on surgery notes. Scripts printed on floor. network operations manager notified. Will sign off please call back if any change in clinical condition or questions. Floridalma Schneider MD February 03, 2017 16:30
[2017-02-03] MEDS: ENOXAPARIN SODIUM 40 MG/0.4 ML SYRINGE SQ SCH (17:47)
[2017-02-03] MEDS: PANTOPRAZOLE SODIUM 40 MG VIAL IV SCH (21:28)
[2017-02-03] MEDS: TAMSULOSIN HCL 0.4 MG CAP PO SCH (21:29)
[2017-02-03] MEDS ORDERED: POTA-243 PO (21:47)
[2017-02-03] MEDS ORDERED: SYMB160A INH (21:47)
[2017-02-03] MEDS ORDERED: SPIRCAP INH (21:47)
[2017-02-03] MEDS ORDERED: METO-309 PO (21:47)
[2017-02-04] VITALS (8 sets, daily range): BP systolic 92–120; BP diastolic 53–68; PULSE 75–107; RESP 16–21; TEMP 97.5–99.5; O2SAT 91–96
[2017-02-04] MEDS: METOPROLOL TARTRATE 50 MG TAB PO SCH ×3 (00:44→23:35)
[2017-02-04] MEDS: LORazepam 1 MG TAB PO PRN ×3 (06:13→23:35)
[2017-02-04] MEDS: oxyCODONE/ACETAMINOPHEN 10 MG/325 MG TAB PO PRN ×4 (06:14→23:35)
[2017-02-04 07:10] LABS: BICARBONATE 32.8 MEQ/L (21.0-32.0); MAGNESIUM 2.1 MG/DL (1.5-2.5); POTASSIUM 3.7 MEQ/L (3.5-5.1)
--- NOTE | 2017-02-04 08:01 | HHI.PR ---
Subjective Remarks ASS: NO sob at rest on o2 NC Objective Vital Signs Date Time Temp Pulse Resp B/P Pulse Ox O2 Delivery O2 Flow Rate FiO2 02/04/17 04:33 98.4 75 21 103/54 94 02/03/17 23:54 98.9 100 21 107/58 96 02/03/17 23:21 18 02/03/17 21:30 Nasal Cannula 1.00 02/03/17 21:30 85 02/03/17 20:00 96.9 82 20 123/58 97 02/03/17 19:43 91 Nasal Cannula 1.00 02/03/17 16:00 98.0 80 16 97/52 96 02/03/17 12:00 96.9 86 18 103/56 93 I/O 02/03/17 02/03/17 02/03/17 02/04/17 02/04/17 02/04/17 07:00 15:00 23:00 07:00 15:00 23:00 Intake Total 340 ml 120 ml 480 ml 380 ml 0 ml Output Total 740 ml 750 ml 1070 ml 30 ml Balance -400 ml -630 ml -590 ml 380 ml -30 ml Intake Oral 240 ml 120 ml 480 ml 380 ml IV Total 100 ml 0 ml 0 ml Output Urine Total 700 ml 600 ml 800 ml Drainage Total 40 ml 150 ml 270 ml 30 ml # Voids 1 2 # Bowel Movements 3 1 1 2 Result Diagram: 02/04/17 0619 Objective Remarks GENERAL: SKIN: Warm and dry. HEAD: Atraumatic. Normocephalic. EYES: Pupils equal and round. No scleral icterus. No injection or drainage. ENT: No nasal bleeding or discharge. Mucous membranes pink and moist. NECK: Trachea midline. No JVD. CARDIOVASCULAR: Regular rate and rhythm. RESPIRATORY: No accessory muscle use. SCATTERED RONCHI AT BASIS. GASTROINTESTINAL: Abdomen soft, non-tender, nondistended. Hepatic and splenic margins not palpable. MUSCULOSKELETAL: Extremities without clubbing, cyanosis, ++ edema. No obvious deformities. NEUROLOGICAL: Awake and alert. No obvious cranial nerve deficits. Motor grossly within normal limits. Five out of 5 muscle strength in the arms and legs. Normal speech. PSYCHIATRIC: Appropriate mood and affect; insight and judgment normal. Assessment and Plan Assessment and Plan RESPIRATORY FAILURE COPD PNA Improving ? CELESTINO PLAN: BIPAP NEEDED O2 NEEDED PUNL. TOILET ANTIBIOTIC THERAPY Amelia,Amelia Wadie MD February 04, 2017 08:00
[2017-02-04] MEDS: predniSONE 20 MG TAB PO SCH (08:54)
[2017-02-04] MEDS: ALLOPURINOL 100 MG TAB PO SCH (08:54)
[2017-02-04] MEDS: DOCUSATE SODIUM 100 MG CAP PO SCH ×2 (08:54→22:59)
[2017-02-04] MEDS: LISINOPRIL 5 MG TAB PO SCH (08:55)
[2017-02-04] MEDS: LEVOFLOXACIN 500 MG TAB PO SCH (08:55)
[2017-02-04] MEDS: DILTIAZEM HCL 30 MG TAB PO SCH ×4 (08:56→22:59)
[2017-02-04] MEDS: LINEZOLID 600 MG TAB PO SCH ×2 (08:56→23:00)
[2017-02-04] MEDS: POTASSIUM CHLORIDE 10 MEQ CONTROLLED RELEASE TAB PO SCH ×2 (08:56→22:59)
[2017-02-04] MEDS: BUDESONIDE-FORMOTEROL 160/4.5 MCG INHALER INH SCH ×2 (08:57→22:58)
[2017-02-04] MEDS: FUROSEMIDE 20 MG TAB PO SCH (08:57)
[2017-02-04] MEDS: SODIUM CHLORIDE 0.9% FLUSH 10 ML FLUSH IV FLUSH SCH ×2 (08:59→22:59)
[2017-02-04] MEDS: TIOTROPIUM BROMIDE 18 MCG INH INH SCH (09:00)
[2017-02-04 11:53] LABS: HEMATOCRIT 32.8 % (39.0-51.0); MEAN CELL VOLUME 86.7 FL (80.0-100.0); MEAN CORPUSCULAR HGB CONC 31.2 % (32.0-36.0); PLATELET COUNT 461 TH/MM3 (150-450); RED BLOOD COUNT 3.79 MIL/MM3 (4.50-5.90); RED CELL DISTRIBUTION WIDTH 15.1 % (11.6-17.2); WHITE BLOOD COUNT 33.1 TH/MM3 (4.0-11.0)
[2017-02-04 12:06] LABS: HEMO FLAGS AUTO DIFF
--- NOTE | 2017-02-04 13:47 | HHI.PR ---
Subjective Remarks Follow-up diarrhea. 4 loose stools overnight. Denies nausea and abdominal pain. No shortness of breath tolerating room air. Discussed with RN Objective Vitals Vital Signs Date Time Temp Pulse Resp B/P Pulse Ox O2 Delivery O2 Flow Rate FiO2 02/04/17 12:00 99.5 95 17 117/68 94 02/04/17 09:00 Nasal Cannula 1.00 02/04/17 08:51 96 1.00 02/04/17 08:00 97.5 84 16 92/53 95 02/04/17 04:33 98.4 75 21 103/54 94 02/03/17 23:54 98.9 100 21 107/58 96 02/03/17 23:21 18 02/03/17 21:30 Nasal Cannula 1.00 02/03/17 21:30 85 02/03/17 20:00 96.9 82 20 123/58 97 02/03/17 19:43 91 Nasal Cannula 1.00 02/03/17 16:00 98.0 80 16 97/52 96 I/O 02/03/17 02/03/17 02/03/17 02/04/17 02/04/17 02/04/17 07:00 15:00 23:00 07:00 15:00 23:00 Intake Total 340 ml 120 ml 480 ml 380 ml 0 ml Output Total 740 ml 750 ml 1070 ml 30 ml Balance -400 ml -630 ml -590 ml 380 ml -30 ml Intake Oral 240 ml 120 ml 480 ml 380 ml IV Total 100 ml 0 ml 0 ml Output Urine Total 700 ml 600 ml 800 ml Drainage Total 40 ml 150 ml 270 ml 30 ml # Voids 1 2 # Bowel Movements 3 1 1 2 Result Diagram: 02/04/17 1121 02/04/17 0619 Imaging Last Impressions Chest X-Ray 02/03/17 0000 Signed Impressions: Service Date/Time: Friday, February 03, 2017 06:25 - CONCLUSION: 1. Small left pleural effusion and left basilar consolidation. 2. Right basilar atelectasis. Walt Johnson MD Chest CT 01/23/17 0000 Signed Impressions: Service Date/Time: Monday, January 23, 2017 13:16 - CONCLUSION: 1. Consolidation is noted in both lung bases with air bronchograms. There is also consolidation along the posterior left major fissure. 2. Cardiomegaly and small pericardial effusion. Conrado Bhatti MD Abdomen/Pelvis CT 01/23/17 0000 Signed Impressions: Service Date/Time: Monday, January 23, 2017 13:16 - CONCLUSION: 1. Interval postsurgical changes status post abdominal hernia repair with soft tissue swelling and gas in the subcutaneous fat. There are surgical drains in place with no drainable fluid collection. 2. Abnormal bowel gas pattern of concern for early or partial small bowel obstruction. 3. New consolidation in both lung bases with minimal effusions. 4. Cardiomegaly with small amount of pericardial fluid. 5. Stable calcification pseudocyst in the tail of the pancreas. Conrado Bhatti MD Objective Remarks GENERAL: Well-nourished, well-developed patient in NAD sitting up on room air Skin: No rash no lesions HEENT: No jaundice pupils equally reactive to light. No signs of dehydration Neck: No JVD CARDIOVASCULAR: Regular rate and rhythm. No murmur appreciated. RESPIRATORY: No accessory muscle use. Clear to auscultation. Breath sounds equal bilaterally. GASTROINTESTINAL: Abdomen soft. Midline wound vac present, connected to continuous suction. MUSCULOSKELETAL: No obvious deformities. Extremities with bilateral pitting edema. NEUROLOGICAL: Awake and alert. No obvious cranial nerve deficits. Motor grossly within normal limits. Normal speech. Procedures 1. Exploratory laparotomy. 2. Lysis of adhesions greater than 60 minutes. 3. Reversal of end-ileostomy. 4. Complex scar revision. 5. Abdominal incisional hernia repair with left lateral component separation. A/P Problem List: (1) Hypoxia ICD Code: R09.02 Status: Acute Assessment and Plan Acute hypoxemic respiratory failure. Resolved Bibasilar pneumonia. Improved Acute COPD exacerbation. The result - Continue on BiPAP as needed. On NC during the day and wean oxygen - d/c IV Solu-Medrol and switch to po prednisone 40mg po daily and continue taper- on budesonide/formoterol inhaled, Spiriva - Continue neb treatment - Broad-spectrum antibiotics per ID - Encourage use of acapella. Continue EzPAP. - Pulmonary following, appreciate input. Paroxysmal atrial fibrillation - Currently in sinus rhythm. - Continue metoprolol 100 mg Q12h. Leukocytosis. Worse slightly secondary to steroid. Repeat CBC in the morning. C. difficile negative 01/28 Sepsis most likely secondary to pneumonia verse possible surgical site infection - WBC trending down. 14.5.on 01/29 - ID signed off with antibiotic recommendations for discharge. on broad- spectrum antibiotic per ID. Levaquin 500 mg PO daily x 2 weeks. Continue Zyvox 500 mg PO BID x 2 weeks. - Sepsis most likely from pneumonia. Concerning for questionable surgical site infection per ID, VRE and Proteus. General surgery following. Status post reversal colectomy and incisional hernia repair - Management per general surgery. - Abdominal wound vac continued. Diarrhea, improving. - Stool negative for c-difficile. Start Lactinex. Monitor electrolytes Hypokalemia: Improved Monitor. Repeat K ordered for tomorrow DVT prophylaxis: Lovenox. GI prophylaxis: Pepcid Discharge Planning ID has made recs for Abx management. CM is assisting w d/c planning. monitor potassium level and replace d/c per primary team (gen sx). Medardo Warner MD February 04, 2017 13:47
[2017-02-04 13:49] LABS: BANDS 1 % (0-6); EOSINOPHILS 1 % (0-4); NEUTROPHIL # MANUAL DIFF 24.5 TH/MM3 (1.8-7.7); POLYS (SEG NEUTROPHILS) 73 % (16-70); WBC DIFF SAMPLE 100
[2017-02-04 13:51] LABS: PLATELET ESTIMATE SMEAR HIGH (NORMAL); PLATELET MORPHOLOGY NORMAL (NORMAL); SCAN/DIFF FINAL DIFF MANUAL
--- NOTE | 2017-02-04 16:12 | HHI.PR ---
Subjective Subjective Notes Resting in bed Wound Vac changed at bedside Objective Vitals/I&O Vital Signs Date Time Temp Pulse Resp B/P Pulse Ox O2 Delivery O2 Flow Rate FiO2 02/04/17 12:00 99.5 95 17 117/68 94 02/04/17 09:00 Nasal Cannula 1.00 01/31/17 22:41 40 Labs Laboratory Tests Test 02/04/17 02/04/17 06:19 11:21 Sodium Level 137 Potassium Level 3.7 Chloride Level 96 Carbon Dioxide Level 32.8 Anion Gap 8 Blood Urea Nitrogen 16 Creatinine 0.86 Estimat Glomerular Filtration 90 Rate Random Glucose 120 Calcium Level 8.7 Magnesium Level 2.1 White Blood Count 33.1 Red Blood Count 3.79 Hemoglobin 10.2 Hematocrit 32.8 Mean Corpuscular Volume 86.7 Mean Corpuscular Hemoglobin 27.0 Mean Corpuscular Hemoglobin 31.2 Concent Red Cell Distribution Width 15.1 Platelet Count 461 Mean Platelet Volume 8.7 Neutrophils (%) (Auto) Lymphocytes (%) (Auto) Monocytes (%) (Auto) Eosinophils (%) (Auto) Basophils (%) (Auto) Neutrophils # (Auto) Lymphocytes # (Auto) Monocytes # (Auto) Eosinophils # (Auto) Basophils # (Auto) CBC Comment AUTO DIFF Differential Total Cells 100 Counted Neutrophils % (Manual) 73 Band Neutrophils % 1 Lymphocytes % 8 Monocytes % 17 Eosinophils % 1 Neutrophils # (Manual) 24.5 Differential Comment FINAL DIFF MANUAL Platelet Estimate HIGH Platelet Morphology Comment NORMAL Prealbumin 16 Radiology Last Impressions Chest X-Ray 01/26/17 0600 Signed Impressions: Service Date/Time: Thursday, January 26, 2017 04:42 - CONCLUSION: Unchanged pleural effusions and bibasilar atelectasis versus infiltrates. Farhat Umana Jr., MD Chest CT 01/23/17 0000 Signed Impressions: Service Date/Time: Monday, January 23, 2017 13:16 - CONCLUSION: 1. Consolidation is noted in both lung bases with air bronchograms. There is also consolidation along the posterior left major fissure. 2. Cardiomegaly and small pericardial effusion. Conrado Bhatti MD Abdomen/Pelvis CT 01/23/17 0000 Signed Impressions: Service Date/Time: Monday, January 23, 2017 13:16 - CONCLUSION: 1. Interval postsurgical changes status post abdominal hernia repair with soft tissue swelling and gas in the subcutaneous fat. There are surgical drains in place with no drainable fluid collection. 2. Abnormal bowel gas pattern of concern for early or partial small bowel obstruction. 3. New consolidation in both lung bases with minimal effusions. 4. Cardiomegaly with small amount of pericardial fluid. 5. Stable calcification pseudocyst in the tail of the pancreas. Conrado Bhatti MD Cardiovascular: Regular Lungs: Clear Abdomen: Other (large midline incision----edges not appx; Would Vac changed--- white sponge with black sponge over-----wound vac sponges bridged withone trach pad attached) Extremities: No edema A/P Assessment and Plan 66 year old male c/p ex lap; incisional hernia repair; colostomy reversal -Breathing improved ---on NC now -Continue Wound Vac---changed today -Pain controlled -Regular diet -OOB and mobilize as tolerated -IS -Monitor JORJE Attending Statement patient seen at bedside vac change minimal fibrinous debris removed Attestation The exam, history, and the medical decision-making described in the above note were completed with the assistance of the mid-level provider. I reviewed and agree with the findings presented. I attest that I had a [id number] encounter with the patient on the same day, and personally performed and documented my assessment and findings in the medical record. Supriya Shankar February 04, 2017 16:12 Andreas Vernon MD February 14, 2017 15:45
[2017-02-04] MEDS: LACTOBACILLUS ACIDOPHILUS TAB PO SCH (17:49)
[2017-02-04] MEDS: ENOXAPARIN SODIUM 40 MG/0.4 ML SYRINGE SQ SCH (17:49)
[2017-02-04] MEDS: PANTOPRAZOLE SODIUM 40 MG VIAL IV SCH (22:58)
[2017-02-04] MEDS: TAMSULOSIN HCL 0.4 MG CAP PO SCH (22:59)
[2017-02-05] VITALS (7 sets, daily range): BP systolic 98–116; BP diastolic 54–58; PULSE 75–94; RESP 15–21; TEMP 96.2–98; O2SAT 90–95
[2017-02-05 06:11] LABS: AUTOMATED NEUTROPHIL # 19.8 TH/MM3 (1.8-7.7); BASOPHIL % 0.1 % (0.0-2.0); EOSINOPHIL % 0.1 % (0.0-4.0); HEMATOCRIT 27.3 % (39.0-51.0); LYMPH % 8.4 % (9.0-44.0); LYMPHOCYTE # 2.1 TH/MM3 (1.0-4.8); MEAN CELL VOLUME 86.6 FL (80.0-100.0); MEAN CORPUSCULAR HEMOGLOBIN 27.1 PG (27.0-34.0); MEAN CORPUSCULAR HGB CONC 31.3 % (32.0-36.0); MONO % 11.8 % (0.0-8.0); NEUT % 79.6 % (16.0-70.0); PLATELET COUNT 400 TH/MM3 (150-450); RED BLOOD COUNT 3.16 MIL/MM3 (4.50-5.90); RED CELL DISTRIBUTION WIDTH 14.6 % (11.6-17.2); WHITE BLOOD COUNT 24.8 TH/MM3 (4.0-11.0)
[2017-02-05 06:14] LABS: HEMO FLAGS AUTO DIFF
[2017-02-05 06:27] LABS: BICARBONATE 31.6 MEQ/L (21.0-32.0); MAGNESIUM 2.1 MG/DL (1.5-2.5); POTASSIUM 3.8 MEQ/L (3.5-5.1)
[2017-02-05 07:03] LABS: BANDS 2 % (0-6); NEUTROPHIL # MANUAL DIFF 20.8 TH/MM3 (1.8-7.7); PLATELET ESTIMATE SMEAR NORMAL (NORMAL); PLATELET MORPHOLOGY NORMAL (NORMAL); POLYS (SEG NEUTROPHILS) 82 % (16-70); SCAN/DIFF FINAL DIFF MANUAL; WBC DIFF SAMPLE 100
[2017-02-05] MEDS: SODIUM CHLORIDE 0.9% FLUSH 10 ML FLUSH IV FLUSH SCH ×2 (08:20→21:22)
[2017-02-05] MEDS: oxyCODONE/ACETAMINOPHEN 10 MG/325 MG TAB PO PRN ×3 (08:21→21:37)
[2017-02-05] MEDS: LINEZOLID 600 MG TAB PO SCH ×2 (08:21→21:20)
[2017-02-05] MEDS: predniSONE 20 MG TAB PO SCH (08:21)
[2017-02-05] MEDS: LACTOBACILLUS ACIDOPHILUS TAB PO SCH ×3 (08:21→16:18)
[2017-02-05] MEDS: LORazepam 1 MG TAB PO PRN ×2 (08:21→16:19)
[2017-02-05] MEDS: ALLOPURINOL 100 MG TAB PO SCH (08:21)
[2017-02-05] MEDS: DOCUSATE SODIUM 100 MG CAP PO SCH ×2 (08:21→21:20)
[2017-02-05] MEDS: POTASSIUM CHLORIDE 10 MEQ CONTROLLED RELEASE TAB PO SCH ×2 (08:22→21:21)
[2017-02-05] MEDS: LEVOFLOXACIN 500 MG TAB PO SCH (08:22)
[2017-02-05] MEDS: BUDESONIDE-FORMOTEROL 160/4.5 MCG INHALER INH SCH ×2 (08:22→21:22)
[2017-02-05] MEDS: TIOTROPIUM BROMIDE 18 MCG INH INH SCH (08:23)
[2017-02-05] MEDS: FUROSEMIDE 20 MG TAB PO SCH (08:23)
[2017-02-05] MEDS: DILTIAZEM HCL 30 MG TAB PO SCH ×4 (08:23→21:20)
--- NOTE | 2017-02-05 08:23 | HHI.PR ---
Subjective Remarks ASS: NO sob at rest on o2 NC Objective Vital Signs Date Time Temp Pulse Resp B/P Pulse Ox O2 Delivery O2 Flow Rate FiO2 02/05/17 04:22 96.2 75 21 98/56 94 02/05/17 00:40 18 02/04/17 23:52 97.6 107 18 111/55 91 02/04/17 20:55 99 02/04/17 20:00 99.5 101 21 120/60 95 02/04/17 16:00 98.6 98 18 116/62 93 02/04/17 12:00 99.5 95 17 117/68 94 02/04/17 09:00 Nasal Cannula 1.00 02/04/17 08:51 96 1.00 I/O 02/04/17 02/04/17 02/04/17 02/05/17 02/05/17 02/05/17 07:00 15:00 23:00 07:00 15:00 23:00 Intake Total 380 ml 500 ml 380 ml 480 ml Output Total 490 ml 470 ml 610 ml Balance 380 ml 10 ml -90 ml -130 ml Intake Oral 380 ml 500 ml 380 ml 480 ml IV Total 0 ml 0 ml 0 ml Output Urine Total 350 ml 450 ml 600 ml Drainage Total 140 ml 20 ml 10 ml # Voids 2 1 # Bowel Movements 2 1 0 Result Diagram: 02/05/1752502/05/17525 Objective Remarks GENERAL: SKIN: Warm and dry. HEAD: Atraumatic. Normocephalic. EYES: Pupils equal and round. No scleral icterus. No injection or drainage. ENT: No nasal bleeding or discharge. Mucous membranes pink and moist. NECK: Trachea midline. No JVD. CARDIOVASCULAR: Regular rate and rhythm. RESPIRATORY: No accessory muscle use. SCATTERED RONCHI AT BASIS. GASTROINTESTINAL: Abdomen soft, non-tender, nondistended. Hepatic and splenic margins not palpable. MUSCULOSKELETAL: Extremities without clubbing, cyanosis, ++ edema. No obvious deformities. NEUROLOGICAL: Awake and alert. No obvious cranial nerve deficits. Motor grossly within normal limits. Five out of 5 muscle strength in the arms and legs. Normal speech. PSYCHIATRIC: Appropriate mood and affect; insight and judgment normal. Assessment and Plan Assessment and Plan RESPIRATORY FAILURE COPD PNA Improving ? CELESTINO PLAN: BIPAP NEEDED O2 NEEDED PUNL. TOILET ANTIBIOTIC THERAPY home soon Amelia Cisnerose MD February 05, 2017 08:23
[2017-02-05] MEDS: LISINOPRIL 5 MG TAB PO SCH (08:24)
--- NOTE | 2017-02-05 10:04 | HHI.PR ---
Subjective Remarks Follow-up diarrhea. No BM overnight. Now on 2 L nasal cannula denies shortness of breath and chest pain. Discussed with nurse Objective Vitals Vital Signs Date Time Temp Pulse Resp B/P Pulse Ox O2 Delivery O2 Flow Rate FiO2 02/05/17 09:07 91 Nasal Cannula 1.00 02/05/17 08:00 97.1 76 17 98/54 90 02/05/17 04:22 96.2 75 21 98/56 94 02/05/17 00:40 18 02/04/17 23:52 97.6 107 18 111/55 91 02/04/17 20:55 99 02/04/17 20:00 99.5 101 21 120/60 95 02/04/17 16:00 98.6 98 18 116/62 93 02/04/17 12:00 99.5 95 17 117/68 94 I/O 02/04/17 02/04/17 02/04/17 02/05/17 02/05/17 02/05/17 07:00 15:00 23:00 07:00 15:00 23:00 Intake Total 380 ml 500 ml 380 ml 480 ml Output Total 490 ml 470 ml 610 ml Balance 380 ml 10 ml -90 ml -130 ml Intake Oral 380 ml 500 ml 380 ml 480 ml IV Total 0 ml 0 ml 0 ml Output Urine Total 350 ml 450 ml 600 ml Drainage Total 140 ml 20 ml 10 ml # Voids 2 1 # Bowel Movements 2 1 0 Result Diagram: 02/05/17 0502/05/17 0526 Imaging Last Impressions Chest X-Ray 02/03/17 0000 Signed Impressions: Service Date/Time: Friday, February 03, 2017 06:25 - CONCLUSION: 1. Small left pleural effusion and left basilar consolidation. 2. Right basilar atelectasis. Walt Johnson MD Chest CT 01/23/17 0000 Signed Impressions: Service Date/Time: Monday, January 23, 2017 13:16 - CONCLUSION: 1. Consolidation is noted in both lung bases with air bronchograms. There is also consolidation along the posterior left major fissure. 2. Cardiomegaly and small pericardial effusion. Conrado Bhatti MD Abdomen/Pelvis CT 01/23/17 0000 Signed Impressions: Service Date/Time: Monday, January 23, 2017 13:16 - CONCLUSION: 1. Interval postsurgical changes status post abdominal hernia repair with soft tissue swelling and gas in the subcutaneous fat. There are surgical drains in place with no drainable fluid collection. 2. Abnormal bowel gas pattern of concern for early or partial small bowel obstruction. 3. New consolidation in both lung bases with minimal effusions. 4. Cardiomegaly with small amount of pericardial fluid. 5. Stable calcification pseudocyst in the tail of the pancreas. Conrado Bhatti MD Objective Remarks GENERAL: Well-nourished, well-developed patient in NAD sitting up on nasal cannula Skin: No rash no lesions HEENT: No jaundice pupils equally reactive to light. No signs of dehydration Neck: No JVD CARDIOVASCULAR: Regular rate and rhythm. No murmur appreciated. RESPIRATORY: No accessory muscle use. Clear to auscultation. Breath sounds equal bilaterally. GASTROINTESTINAL: Abdomen soft. Midline wound vac present, connected to continuous suction. MUSCULOSKELETAL: No obvious deformities. Extremities with bilateral pitting edema. NEUROLOGICAL: Awake and alert. No obvious cranial nerve deficits. Motor grossly within normal limits. Normal speech. Procedures 1. Exploratory laparotomy. 2. Lysis of adhesions greater than 60 minutes. 3. Reversal of end-ileostomy. 4. Complex scar revision. 5. Abdominal incisional hernia repair with left lateral component separation. A/P Problem List: (1) Hypoxia ICD Code: R09.02 Status: Acute Assessment and Plan Acute hypoxemic respiratory failure. Resolved Bibasilar pneumonia. Improved Acute COPD exacerbation. Resolved - Continue on BiPAP as needed. On NC during the day and wean oxygen. Oxygen walk test - d/c IV Solu-Medrol and switch to po prednisone 40mg po daily and continue taper- on budesonide/formoterol inhaled, Spiriva - Continue neb treatment - Broad-spectrum antibiotics per ID - Encourage use of acapella. Continue EzPAP. - Pulmonary following, appreciate input. Paroxysmal atrial fibrillation - Currently in sinus rhythm. - Continue metoprolol 100 mg Q12h. Leukocytosis. Worse slightly secondary to steroid. Repeat CBC in the morning. C. difficile negative 01/28 Sepsis most likely secondary to pneumonia verse possible surgical site infection - WBC trending down. 14.5.on 01/29 - ID signed off with antibiotic recommendations for discharge. on broad- spectrum antibiotic per ID. Levaquin 500 mg PO daily x 2 weeks. Continue Zyvox 500 mg PO BID x 2 weeks. - Sepsis most likely from pneumonia. Concerning for questionable surgical site infection per ID, VRE and Proteus. General surgery following. Status post reversal colectomy and incisional hernia repair - Management per general surgery. - Abdominal wound vac continued. Diarrhea, improving. - Stool negative for c-difficile. Start Lactinex. Monitor electrolytes Hypokalemia: Improved Monitor. Repeat K ordered for tomorrow DVT prophylaxis: Lovenox. GI prophylaxis: Pepcid Discharge Planning Stable for discharge from medical standpoint. ID has made recs for Abx management. CM is assisting w d/c planning. monitor potassium level and replace d/c per primary team (gen sx). Medardo Warner MD February 05, 2017 10:04
--- NOTE | 2017-02-05 10:56 | HHI.PR ---
Subjective Subjective Notes Up to chair No issues with Wound Vac overnight Objective Vitals/I&O Vital Signs Date Time Temp Pulse Resp B/P Pulse Ox O2 Delivery O2 Flow Rate FiO2 02/05/17 09:07 91 Nasal Cannula 1.00 02/05/17 08:00 97.1 76 17 98/54 Labs Laboratory Tests Test 02/04/17 02/05/17 11:21 05:26 White Blood Count 33.1 24.8 Red Blood Count 3.79 3.16 Hemoglobin 10.2 8.5 Hematocrit 32.8 27.3 Mean Corpuscular Volume 86.7 86.6 Mean Corpuscular Hemoglobin 27.0 27.1 Mean Corpuscular Hemoglobin 31.2 31.3 Concent Red Cell Distribution Width 15.1 14.6 Platelet Count 461 400 Mean Platelet Volume 8.7 8.5 Neutrophils (%) (Auto) 79.6 Lymphocytes (%) (Auto) 8.4 Monocytes (%) (Auto) 11.8 Eosinophils (%) (Auto) 0.1 Basophils (%) (Auto) 0.1 Neutrophils # (Auto) 19.8 Lymphocytes # (Auto) 2.1 Monocytes # (Auto) 2.9 Eosinophils # (Auto) 0.0 Basophils # (Auto) 0.0 CBC Comment AUTO DIFF AUTO DIFF Differential Total Cells 100 100 Counted Neutrophils % (Manual) 73 82 Band Neutrophils % 1 2 Lymphocytes % 8 9 Monocytes % 17 7 Eosinophils % 1 Neutrophils # (Manual) 24.5 20.8 Differential Comment FINAL DIFF FINAL DIFF MANUAL MANUAL Platelet Estimate HIGH NORMAL Platelet Morphology Comment NORMAL NORMAL Prealbumin 16 Red Cell Morphology Comment NORMAL Sodium Level 137 Potassium Level 3.8 Chloride Level 98 Carbon Dioxide Level 31.6 Anion Gap 7 Blood Urea Nitrogen 17 Creatinine 0.87 Estimat Glomerular Filtration 88 Rate Random Glucose 175 Calcium Level 8.7 Magnesium Level 2.1 Radiology Last Impressions Chest X-Ray 01/26/17 0600 Signed Impressions: Service Date/Time: Thursday, January 26, 2017 04:42 - CONCLUSION: Unchanged pleural effusions and bibasilar atelectasis versus infiltrates. Farhat Umana Jr., MD Chest CT 01/23/17 0000 Signed Impressions: Service Date/Time: Monday, January 23, 2017 13:16 - CONCLUSION: 1. Consolidation is noted in both lung bases with air bronchograms. There is also consolidation along the posterior left major fissure. 2. Cardiomegaly and small pericardial effusion. Conrado Bhatti MD Abdomen/Pelvis CT 01/23/17 0000 Signed Impressions: Service Date/Time: Monday, January 23, 2017 13:16 - CONCLUSION: 1. Interval postsurgical changes status post abdominal hernia repair with soft tissue swelling and gas in the subcutaneous fat. There are surgical drains in place with no drainable fluid collection. 2. Abnormal bowel gas pattern of concern for early or partial small bowel obstruction. 3. New consolidation in both lung bases with minimal effusions. 4. Cardiomegaly with small amount of pericardial fluid. 5. Stable calcification pseudocyst in the tail of the pancreas. Conrado Bhatti MD Cardiovascular: Regular Lungs: Clear Abdomen: Other (Wound Vac in place---good seal; no leaks; JORJE with SS drainage ) Extremities: No edema A/P Assessment and Plan 66 year old male c/p ex lap; incisional hernia repair; colostomy reversal -Breathing improved ---on NC now -Continue Wound Vac---Plan for bedside change tomorrow -Pain controlled -Regular diet -OOB and mobilize as tolerated -IS -Monitor JORJE Attending Statement patient see seen at bedside vac with good seal will plan to change tomorrow Attestation The exam, history, and the medical decision-making described in the above note were completed with the assistance of the mid-level provider. I reviewed and agree with the findings presented. I attest that I had a [id number] encounter with the patient on the same day, and personally performed and documented my assessment and findings in the medical record. Supriya Shankar February 05, 2017 10:56 Andreas Vernon MD February 14, 2017 22:22
[2017-02-05] MEDS: METOPROLOL TARTRATE 50 MG TAB PO SCH (12:00)
[2017-02-05] MEDS: ENOXAPARIN SODIUM 40 MG/0.4 ML SYRINGE SQ SCH (16:19)
[2017-02-05] MEDS ORDERED: OXYGENTANK NAS.CANULA (16:28)
[2017-02-05] MEDS: PANTOPRAZOLE SODIUM 40 MG VIAL IV SCH (21:20)
[2017-02-05] MEDS: TAMSULOSIN HCL 0.4 MG CAP PO SCH (21:21)
[2017-02-06] VITALS: BP 130/63; PULSE 93; RESP 20; TEMP 97; O2SAT 95
[2017-02-06] MEDS: LORazepam 2 MG/ML VIAL IV PUSH PRN (01:38)
[2017-02-06 05:41] LABS: AUTOMATED NEUTROPHIL # 14.4 TH/MM3 (1.8-7.7); BASOPHIL # 0.2 TH/MM3 (0-0.2); EOSINOPHIL % 0.2 % (0.0-4.0); HEMATOCRIT 28.8 % (39.0-51.0); LYMPH % 16.9 % (9.0-44.0); LYMPHOCYTE # 3.5 TH/MM3 (1.0-4.8); MEAN CELL VOLUME 87.3 FL (80.0-100.0); MEAN CORPUSCULAR HEMOGLOBIN 26.4 PG (27.0-34.0); MEAN CORPUSCULAR HGB CONC 30.3 % (32.0-36.0); MONO % 12.4 % (0.0-8.0); NEUT % 69.5 % (16.0-70.0); PLATELET COUNT 406 TH/MM3 (150-450); RED BLOOD COUNT 3.29 MIL/MM3 (4.50-5.90); RED CELL DISTRIBUTION WIDTH 14.8 % (11.6-17.2); WHITE BLOOD COUNT 20.8 TH/MM3 (4.0-11.0)
[2017-02-06 05:45] LABS: HEMO FLAGS AUTO DIFF
[2017-02-06 05:56] LABS: ALT (GPT) 24 U/L (12-78); ANION GAP 8 MEQ/L (5-15); AST (GOT) 16 U/L (15-37); BLOOD UREA NITROGEN 15 MG/DL (7-18); CHLORIDE 102 MEQ/L (98-107); GLOMERULAR FILTRATION RATE 91 ML/MIN (>89); POTASSIUM 4.2 MEQ/L (3.5-5.1); SODIUM (NA) 137 MEQ/L (136-145)
[2017-02-06 05:59] LABS: ALKALINE PHOSPHATASE 77 U/L (45-117); TOTAL BILIRUBIN ADULT 0.3 MG/DL (0.2-1.0)
[2017-02-06] MEDS: oxyCODONE/ACETAMINOPHEN 10 MG/325 MG TAB PO PRN ×3 (07:15→20:43)
--- NOTE | 2017-02-06 07:50 | HHI.PR ---
Subjective Subjective Notes up in chair, no complaints, anticipating DC Wednesday, for VAC change today. Objective Vitals/I&O Vital Signs Date Time Temp Pulse Resp B/P Pulse Ox O2 Delivery O2 Flow Rate FiO2 02/06/17 00:00 97.0 93 20 130/63 95 02/05/17 17:52 Nasal Cannula 1.00 Labs Laboratory Tests Test 02/06/17 04:42 White Blood Count 20.8 Red Blood Count 3.29 Hemoglobin 8.7 Hematocrit 28.8 Mean Corpuscular Volume 87.3 Mean Corpuscular Hemoglobin 26.4 Mean Corpuscular Hemoglobin 30.3 Concent Red Cell Distribution Width 14.8 Platelet Count 406 Mean Platelet Volume 8.1 Neutrophils (%) (Auto) 69.5 Lymphocytes (%) (Auto) 16.9 Monocytes (%) (Auto) 12.4 Eosinophils (%) (Auto) 0.2 Basophils (%) (Auto) 1.0 Neutrophils # (Auto) 14.4 Lymphocytes # (Auto) 3.5 Monocytes # (Auto) 2.6 Eosinophils # (Auto) 0.0 Basophils # (Auto) 0.2 CBC Comment AUTO DIFF Sodium Level 137 Potassium Level 4.2 Chloride Level 102 Carbon Dioxide Level 27.0 Anion Gap 8 Blood Urea Nitrogen 15 Creatinine 0.85 Estimat Glomerular Filtration 91 Rate Random Glucose 162 Calcium Level 8.7 Total Bilirubin 0.3 Aspartate Amino Transf 16 (AST/SGOT) Alanine Aminotransferase 24 (ALT/SGPT) Alkaline Phosphatase 77 Total Protein 6.5 Albumin 2.2 Radiology Last Impressions Chest X-Ray 01/26/17 0600 Signed Impressions: Service Date/Time: Thursday, January 26, 2017 04:42 - CONCLUSION: Unchanged pleural effusions and bibasilar atelectasis versus infiltrates. Farhat Umana Jr., MD Chest CT 01/23/17 0000 Signed Impressions: Service Date/Time: Monday, January 23, 2017 13:16 - CONCLUSION: 1. Consolidation is noted in both lung bases with air bronchograms. There is also consolidation along the posterior left major fissure. 2. Cardiomegaly and small pericardial effusion. Conrado Bhatti MD Abdomen/Pelvis CT 01/23/17 0000 Signed Impressions: Service Date/Time: Monday, January 23, 2017 13:16 - CONCLUSION: 1. Interval postsurgical changes status post abdominal hernia repair with soft tissue swelling and gas in the subcutaneous fat. There are surgical drains in place with no drainable fluid collection. 2. Abnormal bowel gas pattern of concern for early or partial small bowel obstruction. 3. New consolidation in both lung bases with minimal effusions. 4. Cardiomegaly with small amount of pericardial fluid. 5. Stable calcification pseudocyst in the tail of the pancreas. Conrado Bhatti MD Abdomen: Non-distended, Non-tender, Other (Vac intact, Drain with serous output. Protuberant abdomen.) Extremities: No edema, Perfused, SCD's on A/P Assessment and Plan s/p open repair Incisional hernia, colostomy takedown. Wound infection, VAC, abx. No changes. Making plans for DC, Vac at home Wednesday. Riley Kat MD February 06, 2017 07:49
[2017-02-06 08:00] VITALS: BP 119/62; PULSE 101; RESP 17; TEMP 96.2; O2SAT 92
[2017-02-06] MEDS: TIOTROPIUM BROMIDE 18 MCG INH INH SCH (09:00)
[2017-02-06] MEDS: SODIUM CHLORIDE 0.9% FLUSH 10 ML FLUSH IV FLUSH SCH ×2 (09:35→20:45)
[2017-02-06] MEDS: BUDESONIDE-FORMOTEROL 160/4.5 MCG INHALER INH SCH ×2 (09:36→20:44)
[2017-02-06 09:37] LABS: ACANTHOCYTES OCC (NORMAL); OVALOCYTES 1+ (NORMAL); SCAN/DIFF AUTO DIFF CONFIRMED; TARGET CELLS 1+ (NORMAL)
[2017-02-06] MEDS: ALLOPURINOL 100 MG TAB PO SCH (09:38)
[2017-02-06] MEDS: POTASSIUM CHLORIDE 10 MEQ CONTROLLED RELEASE TAB PO SCH ×2 (09:38→20:43)
[2017-02-06] MEDS: LEVOFLOXACIN 500 MG TAB PO SCH (09:38)
[2017-02-06] MEDS: LISINOPRIL 5 MG TAB PO SCH (09:38)
[2017-02-06] MEDS: LACTOBACILLUS ACIDOPHILUS TAB PO SCH ×3 (09:38→16:40)
[2017-02-06] MEDS: FUROSEMIDE 20 MG TAB PO SCH (09:38)
[2017-02-06] MEDS: LINEZOLID 600 MG TAB PO SCH ×2 (09:38→20:43)
[2017-02-06] MEDS: DOCUSATE SODIUM 100 MG CAP PO SCH ×2 (09:38→20:49)
[2017-02-06] MEDS: DILTIAZEM HCL 30 MG TAB PO SCH ×4 (09:39→20:44)
[2017-02-06] MEDS: predniSONE 20 MG TAB PO SCH (09:39)
--- NOTE | 2017-02-06 09:52 | HHI.PR ---
Subjective Remarks Follow-up pneumonia and diarrhea. States she is doing okay denies shortness of breath tolerating room air today. Form bowel movement this morning. Discussed with RN Objective Vitals Vital Signs Date Time Temp Pulse Resp B/P Pulse Ox O2 Delivery O2 Flow Rate FiO2 02/06/17 08:00 96.2 101 17 119/62 92 02/06/17 00:00 97.0 93 20 130/63 95 02/05/17 20:00 97.6 94 18 116/58 95 02/05/17 17:52 93 Nasal Cannula 1.00 02/05/17 16:00 98.0 82 18 111/55 93 02/05/17 12:18 93 02/05/17 12:00 97.3 94 15 112/58 93 I/O 02/05/17 02/05/17 02/05/17 02/06/17 02/06/17 02/06/17 07:00 15:00 23:00 07:00 15:00 23:00 Intake Total 480 ml 600 ml 240 ml 240 ml Output Total 610 ml 550 ml 390 ml 0 ml Balance -130 ml 50 ml -150 ml 240 ml Intake Oral 480 ml 600 ml 240 ml 240 ml IV Total 0 ml Output Urine Total 600 ml 500 ml 350 ml 0 ml Stool Total 0 ml Drainage Total 10 ml 50 ml 40 ml # Voids 1 # Bowel Movements 0 1 1 Result Diagram: 02/06/17 0442 02/06/17 0442 Imaging Last Impressions Chest X-Ray 02/03/17 0000 Signed Impressions: Service Date/Time: Friday, February 03, 2017 06:25 - CONCLUSION: 1. Small left pleural effusion and left basilar consolidation. 2. Right basilar atelectasis. Walt Johnson MD Chest CT 01/23/17 0000 Signed Impressions: Service Date/Time: Monday, January 23, 2017 13:16 - CONCLUSION: 1. Consolidation is noted in both lung bases with air bronchograms. There is also consolidation along the posterior left major fissure. 2. Cardiomegaly and small pericardial effusion. Conrado Bhatti MD Abdomen/Pelvis CT 01/23/17 0000 Signed Impressions: Service Date/Time: Monday, January 23, 2017 13:16 - CONCLUSION: 1. Interval postsurgical changes status post abdominal hernia repair with soft tissue swelling and gas in the subcutaneous fat. There are surgical drains in place with no drainable fluid collection. 2. Abnormal bowel gas pattern of concern for early or partial small bowel obstruction. 3. New consolidation in both lung bases with minimal effusions. 4. Cardiomegaly with small amount of pericardial fluid. 5. Stable calcification pseudocyst in the tail of the pancreas. Conrado Bhatti MD Objective Remarks GENERAL: Well-nourished, well-developed patient in NAD sitting up on room air Skin: No rash no lesions HEENT: No jaundice pupils equally reactive to light. No signs of dehydration Neck: No JVD CARDIOVASCULAR: Regular rate and rhythm. No murmur appreciated. RESPIRATORY: No accessory muscle use. Clear to auscultation. Breath sounds equal bilaterally. GASTROINTESTINAL: Abdomen soft. Midline wound vac present, connected to continuous suction. MUSCULOSKELETAL: No obvious deformities. Extremities with improving bilateral pitting edema. NEUROLOGICAL: Awake and alert. No obvious cranial nerve deficits. Motor grossly within normal limits. Normal speech. Procedures 1. Exploratory laparotomy. 2. Lysis of adhesions greater than 60 minutes. 3. Reversal of end-ileostomy. 4. Complex scar revision. 5. Abdominal incisional hernia repair with left lateral component separation. A/P Problem List: (1) Hypoxia ICD Code: R09.02 Status: Acute Assessment and Plan Acute hypoxemic respiratory failure. Resolved Bibasilar pneumonia. Improved Acute COPD exacerbation. Resolved - Continue on BiPAP as needed. On NC during the day and wean oxygen. Oxygen walk test - d/c IV Solu-Medrol and switch to po prednisone 40mg po daily day until tomorrow- on budesonide/formoterol inhaled, Spiriva - Continue neb treatment - Broad-spectrum antibiotics per ID - Encourage use of acapella. Continue EzPAP. - Pulmonary following, appreciate input. Paroxysmal atrial fibrillation - Currently in sinus rhythm. - Continue metoprolol 100 mg Q12h and Cardizem. Leukocytosis. C. difficile negative 01/28. Improving likely secondary to steroids Sepsis most likely secondary to pneumonia verse possible surgical site infection - WBC trending down. 14.5.on 01/29 - ID signed off with antibiotic recommendations for discharge. on broad- spectrum antibiotic per ID. Levaquin 500 mg PO daily x 2 weeks. Continue Zyvox 500 mg PO BID x 2 weeks. - Sepsis most likely from pneumonia. Concerning for questionable surgical site infection per ID, VRE and Proteus. General surgery following. Status post reversal colectomy and incisional hernia repair - Management per general surgery. - Abdominal wound vac continued. Diarrhea, improving. - Stool negative for c-difficile. Continue Lactinex. Monitor electrolytes Hypokalemia: Improved Monitor. DVT prophylaxis: Lovenox. GI prophylaxis: Pepcid Discharge Planning Stable for discharge from medical standpoint. ID has made recs for Abx management. CM is assisting w d/c planning. monitor potassium level and replace d/c per primary team (gen sx). Medardo Warner MD February 06, 2017 09:52
[2017-02-06 10:03] VITALS: O2SAT 93
[2017-02-06 12:00] VITALS: BP 123/64; PULSE 94; RESP 18; TEMP 96.5; O2SAT 94
[2017-02-06] MEDS: LORazepam 1 MG TAB PO PRN ×2 (13:22→23:36)
[2017-02-06] MEDS: METOPROLOL TARTRATE 50 MG TAB PO SCH ×3 (13:22→23:33)
[2017-02-06 16:00] VITALS: BP 128/60; PULSE 90; RESP 20; TEMP 96.9; O2SAT 94
[2017-02-06] MEDS: ENOXAPARIN SODIUM 40 MG/0.4 ML SYRINGE SQ SCH (16:40)
--- NOTE | 2017-02-06 16:41 | HHI.PR ---
Subjective Remarks ASS: NO sob at rest on o2 NC Objective Vital Signs Date Time Temp Pulse Resp B/P Pulse Ox O2 Delivery O2 Flow Rate FiO2 02/06/17 12:00 96.5 94 18 123/64 94 02/06/17 10:03 93 02/06/17 08:00 96.2 101 17 119/62 92 02/06/17 00:00 97.0 93 20 130/63 95 02/05/17 20:00 97.6 94 18 116/58 95 02/05/17 17:52 93 Nasal Cannula 1.00 I/O 02/05/17 02/05/17 02/05/17 02/06/17 02/06/17 02/06/17 06:59 14:59 22:59 06:59 14:59 22:59 Intake Total 480 ml 600 ml 240 ml 240 ml 480 ml Output Total 610 ml 550 ml 390 ml 0 ml 640 ml Balance -130 ml 50 ml -150 ml 240 ml -160 ml Intake Oral 480 ml 600 ml 240 ml 240 ml 480 ml IV Total 0 ml Output Urine Total 600 ml 500 ml 350 ml 0 ml 400 ml Stool Total 0 ml Drainage Total 10 ml 50 ml 40 ml 240 ml # Voids 1 # Bowel Movements 0 1 1 1 Result Diagram: 02/06/1744102/06/17441 Objective Remarks GENERAL: SKIN: Warm and dry. HEAD: Atraumatic. Normocephalic. EYES: Pupils equal and round. No scleral icterus. No injection or drainage. ENT: No nasal bleeding or discharge. Mucous membranes pink and moist. NECK: Trachea midline. No JVD. CARDIOVASCULAR: Regular rate and rhythm. RESPIRATORY: No accessory muscle use. SCATTERED RONCHI AT BASIS. GASTROINTESTINAL: Abdomen soft, non-tender, nondistended. Hepatic and splenic margins not palpable. MUSCULOSKELETAL: Extremities without clubbing, cyanosis, ++ edema. No obvious deformities. NEUROLOGICAL: Awake and alert. No obvious cranial nerve deficits. Motor grossly within normal limits. Five out of 5 muscle strength in the arms and legs. Normal speech. PSYCHIATRIC: Appropriate mood and affect; insight and judgment normal. Assessment and Plan Assessment and Plan RESPIRATORY FAILURE COPD PNA Improving ? CELESTINO PLAN: BIPAP NEEDED O2 NEEDED PUNL. TOILET ANTIBIOTIC THERAPY home soon Amelia Cisneros MD February 06, 2017 16:40
[2017-02-06 20:00] VITALS: BP 101/58; PULSE 77; RESP 18; TEMP 98.3; O2SAT 93
[2017-02-06] MEDS: TAMSULOSIN HCL 0.4 MG CAP PO SCH (20:42)
[2017-02-06] MEDS: PANTOPRAZOLE SODIUM 40 MG VIAL IV SCH (20:44)
[2017-02-06] MEDS: ZOLPIDEM TARTRATE 10 MG TAB PO PRN (23:36)
[2017-02-07] VITALS (8 sets, daily range): BP systolic 90–139; BP diastolic 57–70; PULSE 77–113; RESP 18–20; TEMP 95.7–99.3; O2SAT 91–96
[2017-02-07] MEDS: oxyCODONE/ACETAMINOPHEN 10 MG/325 MG TAB PO PRN ×3 (05:25→20:32)
[2017-02-07] MEDS: DOCUSATE SODIUM 100 MG CAP PO SCH ×2 (09:00→20:32)
[2017-02-07] MEDS: TIOTROPIUM BROMIDE 18 MCG INH INH SCH (09:00)
[2017-02-07] MEDS: POTASSIUM CHLORIDE 10 MEQ CONTROLLED RELEASE TAB PO SCH ×2 (09:16→20:32)
[2017-02-07] MEDS: LISINOPRIL 5 MG TAB PO SCH (09:17)
[2017-02-07] MEDS: LACTOBACILLUS ACIDOPHILUS TAB PO SCH ×3 (09:17→17:32)
[2017-02-07] MEDS: ALLOPURINOL 100 MG TAB PO SCH (09:17)
[2017-02-07] MEDS: LINEZOLID 600 MG TAB PO SCH ×2 (09:17→20:32)
[2017-02-07] MEDS: FUROSEMIDE 20 MG TAB PO SCH ×2 (09:17→17:33)
[2017-02-07] MEDS: LEVOFLOXACIN 500 MG TAB PO SCH (09:17)
[2017-02-07] MEDS: DILTIAZEM HCL 30 MG TAB PO SCH ×4 (09:17→20:32)
[2017-02-07] MEDS: BUDESONIDE-FORMOTEROL 160/4.5 MCG INHALER INH SCH ×2 (09:18→20:36)
[2017-02-07] MEDS: SODIUM CHLORIDE 0.9% FLUSH 10 ML FLUSH IV FLUSH SCH ×2 (09:18→20:33)
[2017-02-07] MEDS: LORazepam 1 MG TAB PO PRN ×2 (09:31→23:45)
[2017-02-07] MEDS: METOPROLOL TARTRATE 50 MG TAB PO SCH ×2 (13:00→23:47)
--- NOTE | 2017-02-07 13:38 | HHI.PR ---
Subjective Remarks Follow-up bilateral lower edema and diarrhea. Still with lower extremity edema and denies shortness of breath. Having formed stools. Seen with discussed with RN Objective Vitals Vital Signs Date Time Temp Pulse Resp B/P Pulse Ox O2 Delivery O2 Flow Rate FiO2 02/07/17 08:00 95.7 113 20 139/70 96 02/07/17 07:24 95 02/07/17 04:00 97.3 77 18 107/61 94 02/07/17 00:00 97.4 79 18 101/57 96 02/06/17 20:00 98.3 77 18 101/58 93 02/06/17 16:00 96.9 90 20 128/60 94 I/O 02/06/17 02/06/17 02/06/17 02/07/17 02/07/17 02/07/17 07:00 15:00 23:00 07:00 15:00 23:00 Intake Total 240 ml 480 ml 240 ml 360 ml Output Total 0 ml 640 ml 455 ml 420 ml Balance 240 ml -160 ml -215 ml -60 ml Intake Oral 240 ml 480 ml 240 ml 360 ml Output Urine Total 0 ml 400 ml 425 ml 400 ml Stool Total 0 ml Drainage Total 240 ml 30 ml 20 ml # Bowel Movements 1 1 0 Result Diagram: 02/06/17 0442 02/06/17 0442 Imaging Last Impressions Chest X-Ray 02/03/17 0000 Signed Impressions: Service Date/Time: Friday, February 03, 2017 06:25 - CONCLUSION: 1. Small left pleural effusion and left basilar consolidation. 2. Right basilar atelectasis. Walt Johnson MD Chest CT 01/23/17 0000 Signed Impressions: Service Date/Time: Monday, January 23, 2017 13:16 - CONCLUSION: 1. Consolidation is noted in both lung bases with air bronchograms. There is also consolidation along the posterior left major fissure. 2. Cardiomegaly and small pericardial effusion. Conrado Bhatti MD Abdomen/Pelvis CT 01/23/17 0000 Signed Impressions: Service Date/Time: Monday, January 23, 2017 13:16 - CONCLUSION: 1. Interval postsurgical changes status post abdominal hernia repair with soft tissue swelling and gas in the subcutaneous fat. There are surgical drains in place with no drainable fluid collection. 2. Abnormal bowel gas pattern of concern for early or partial small bowel obstruction. 3. New consolidation in both lung bases with minimal effusions. 4. Cardiomegaly with small amount of pericardial fluid. 5. Stable calcification pseudocyst in the tail of the pancreas. Conrado Bhatti MD Objective Remarks GENERAL: Well-nourished, well-developed patient in NAD sitting up on room air Skin: No rash no lesions HEENT: No jaundice pupils equally reactive to light. No signs of dehydration Neck: No JVD CARDIOVASCULAR: Regular rate and rhythm. No murmur appreciated. RESPIRATORY: No accessory muscle use. Clear to auscultation. Breath sounds equal bilaterally. GASTROINTESTINAL: Abdomen soft. Midline wound vac present, connected to continuous suction. MUSCULOSKELETAL: No obvious deformities. Extremities with improving bilateral pitting edema. NEUROLOGICAL: Awake and alert. No obvious cranial nerve deficits. Motor grossly within normal limits. Normal speech. Procedures 1. Exploratory laparotomy. 2. Lysis of adhesions greater than 60 minutes. 3. Reversal of end-ileostomy. 4. Complex scar revision. 5. Abdominal incisional hernia repair with left lateral component separation. A/P Problem List: (1) Hypoxia ICD Code: R09.02 Status: Acute Assessment and Plan Acute hypoxemic respiratory failure. Resolved Bibasilar pneumonia. Improved Acute COPD exacerbation. Resolved - Continue on BiPAP as needed. On NC during the day and wean oxygen. Passed Oxygen walk test - d/c IV Solu-Medrol and switched to po prednisone 40mg po daily last dose today- on budesonide/formoterol inhaled, Spiriva - Continue neb treatment - Broad-spectrum antibiotics per ID - Encourage use of acapella. Continue EzPAP. - Pulmonary following, appreciate input. Paroxysmal atrial fibrillation - Currently in sinus rhythm. - Continue metoprolol 100 mg Q12h and Cardizem. Leukocytosis. C. difficile negative 01/28. Improving likely secondary to steroids Sepsis most likely secondary to pneumonia verse possible surgical site infection - WBC trending down. 14.5.on 01/29 - ID signed off with antibiotic recommendations for discharge. on broad- spectrum antibiotic per ID. Levaquin 500 mg PO daily x 2 weeks. Continue Zyvox 500 mg PO BID x 2 weeks. - Sepsis most likely from pneumonia. Concerning for questionable surgical site infection per ID, VRE and Proteus. General surgery following. Status post reversal colectomy and incisional hernia repair - Management per general surgery. - Abdominal wound vac continued. Diarrhea, resolving. - Stool negative for c-difficile. Continue Lactinex. Monitor electrolytes Hypokalemia: Improved Monitor. Fluid overload. Increase Lasix and monitor electrolyte DVT prophylaxis: Lovenox. GI prophylaxis: Pepcid Discharge Planning Stable for discharge from medical standpoint. ID has made recs for Abx management. CM is assisting w d/c planning. monitor potassium level and replace d/c per primary team (gen sx). Medardo Warner MD February 07, 2017 13:38
--- NOTE | 2017-02-07 13:42 | HHI.PR ---
Subjective Remarks ASS: NO sob at rest on o2 NC Objective Vital Signs Date Time Temp Pulse Resp B/P Pulse Ox O2 Delivery O2 Flow Rate FiO2 02/07/17 12:00 97.3 93 18 136/65 91 02/07/17 08:00 95.7 113 20 139/70 96 02/07/17 07:24 95 02/07/17 04:00 97.3 77 18 107/61 94 02/07/17 00:00 97.4 79 18 101/57 96 02/06/17 20:00 98.3 77 18 101/58 93 02/06/17 16:00 96.9 90 20 128/60 94 I/O 02/06/17 02/06/17 02/06/17 02/07/17 02/07/17 02/07/17 07:00 15:00 23:00 07:00 15:00 23:00 Intake Total 240 ml 480 ml 240 ml 360 ml Output Total 0 ml 640 ml 455 ml 420 ml 300 ml Balance 240 ml -160 ml -215 ml -60 ml -300 ml Intake Oral 240 ml 480 ml 240 ml 360 ml Output Urine Total 0 ml 400 ml 425 ml 400 ml 300 ml Stool Total 0 ml Drainage Total 240 ml 30 ml 20 ml # Bowel Movements 1 1 0 Result Diagram: 02/06/1744102/06/17441 Objective Remarks GENERAL: SKIN: Warm and dry. HEAD: Atraumatic. Normocephalic. EYES: Pupils equal and round. No scleral icterus. No injection or drainage. ENT: No nasal bleeding or discharge. Mucous membranes pink and moist. NECK: Trachea midline. No JVD. CARDIOVASCULAR: Regular rate and rhythm. RESPIRATORY: No accessory muscle use. SCATTERED RONCHI AT BASIS. GASTROINTESTINAL: Abdomen soft, non-tender, nondistended. Hepatic and splenic margins not palpable. MUSCULOSKELETAL: Extremities without clubbing, cyanosis, ++ edema. No obvious deformities. NEUROLOGICAL: Awake and alert. No obvious cranial nerve deficits. Motor grossly within normal limits. Five out of 5 muscle strength in the arms and legs. Normal speech. PSYCHIATRIC: Appropriate mood and affect; insight and judgment normal. Assessment and Plan Assessment and Plan RESPIRATORY FAILURE COPD PNA Improving ? CELESTINO PLAN: BIPAP NEEDED O2 NEEDED PUNL. TOILET ANTIBIOTIC THERAPY HOPEFULLY HOME Amelia Dooley MD February 07, 2017 13:42
[2017-02-07] MEDS: ENOXAPARIN SODIUM 40 MG/0.4 ML SYRINGE SQ SCH (17:32)
[2017-02-07] MEDS: TAMSULOSIN HCL 0.4 MG CAP PO SCH (20:31)
[2017-02-07] MEDS: PANTOPRAZOLE SODIUM 40 MG VIAL IV SCH (20:33)
--- NOTE | 2017-02-07 21:34 | HHI.PR ---
Subjective Subjective Notes no issues, tolerating diet, pain controlled still with leukocytosis but trending down Objective Vitals/I&O Vital Signs Date Time Temp Pulse Resp B/P Pulse Ox O2 Delivery O2 Flow Rate FiO2 02/07/17 16:00 96.9 91 18 90/60 95 02/05/17 17:52 Nasal Cannula 1.00 Radiology Last Impressions Chest X-Ray 01/26/17 0600 Signed Impressions: Service Date/Time: Thursday, January 26, 2017 04:42 - CONCLUSION: Unchanged pleural effusions and bibasilar atelectasis versus infiltrates. Farhat Umana Jr., MD Chest CT 01/23/17 0000 Signed Impressions: Service Date/Time: Monday, January 23, 2017 13:16 - CONCLUSION: 1. Consolidation is noted in both lung bases with air bronchograms. There is also consolidation along the posterior left major fissure. 2. Cardiomegaly and small pericardial effusion. Conrado Bhatti MD Abdomen/Pelvis CT 01/23/17 0000 Signed Impressions: Service Date/Time: Monday, January 23, 2017 13:16 - CONCLUSION: 1. Interval postsurgical changes status post abdominal hernia repair with soft tissue swelling and gas in the subcutaneous fat. There are surgical drains in place with no drainable fluid collection. 2. Abnormal bowel gas pattern of concern for early or partial small bowel obstruction. 3. New consolidation in both lung bases with minimal effusions. 4. Cardiomegaly with small amount of pericardial fluid. 5. Stable calcification pseudocyst in the tail of the pancreas. Conrado Bhatti MD Abdomen: Other (soft, vac with good seal elizabeth serosang) A/P Assessment and Plan s/p ex lap, ana, hernia repair colostomy reversal cxr atelectasis, wbc trending down (pt is on steroids)- continue to monitor, transferred to floor PLAN encourage OOB a.fib rate control pain control ID for abx VRE dvt ppx lovenox elizabeth sxn- will d/c left elizabeth today VAC Change today will likely change as out pt appreciate medicine recs d/c planning likely tomorrow Andreas Vernon MD February 07, 2017 21:34
[2017-02-07] MEDS: ZOLPIDEM TARTRATE 10 MG TAB PO PRN (23:46)
[2017-02-08] VITALS (7 sets, daily range): BP systolic 91–136; BP diastolic 51–65; PULSE 104–118; RESP 20–24; TEMP 96.9–99.2; O2SAT 93–97
[2017-02-08] MEDS: oxyCODONE/ACETAMINOPHEN 10 MG/325 MG TAB PO PRN ×4 (03:12→21:58)
[2017-02-08 06:10] LABS: AUTOMATED NEUTROPHIL # 14.2 TH/MM3 (1.8-7.7); BASOPHIL # 0.1 TH/MM3 (0-0.2); BASOPHIL % 0.5 % (0.0-2.0); EOSINOPHIL # 0.1 TH/MM3 (0-0.4); EOSINOPHIL % 0.5 % (0.0-4.0); HEMATOCRIT 27.4 % (39.0-51.0); LYMPH % 16.6 % (9.0-44.0); LYMPHOCYTE # 3.4 TH/MM3 (1.0-4.8); MEAN CELL VOLUME 86.1 FL (80.0-100.0); MEAN CORPUSCULAR HEMOGLOBIN 27.2 PG (27.0-34.0); MEAN CORPUSCULAR HGB CONC 31.7 % (32.0-36.0); MONO % 13.2 % (0.0-8.0); NEUT % 69.2 % (16.0-70.0); PLATELET COUNT 446 TH/MM3 (150-450); RED BLOOD COUNT 3.18 MIL/MM3 (4.50-5.90); RED CELL DISTRIBUTION WIDTH 15.4 % (11.6-17.2); WHITE BLOOD COUNT 20.5 TH/MM3 (4.0-11.0)
[2017-02-08 06:22] LABS: HEMO FLAGS AUTO DIFF
[2017-02-08 06:39] LABS: BICARBONATE 26.2 MEQ/L (21.0-32.0); MAGNESIUM 1.9 MG/DL (1.5-2.5); POTASSIUM 4.3 MEQ/L (3.5-5.1)
[2017-02-08 07:18] LABS: SCAN/DIFF AUTO DIFF CONFIRMED
[2017-02-08] MEDS: LACTOBACILLUS ACIDOPHILUS TAB PO SCH ×3 (08:36→16:59)
[2017-02-08] MEDS: DILTIAZEM HCL 30 MG TAB PO SCH (08:36)
[2017-02-08] MEDS: LINEZOLID 600 MG TAB PO SCH ×2 (08:36→20:49)
[2017-02-08] MEDS: ALLOPURINOL 100 MG TAB PO SCH (08:37)
[2017-02-08] MEDS: LISINOPRIL 5 MG TAB PO SCH (08:37)
[2017-02-08] MEDS: FUROSEMIDE 20 MG TAB PO SCH ×2 (08:37→16:58)
[2017-02-08] MEDS: LEVOFLOXACIN 500 MG TAB PO SCH (08:37)
[2017-02-08] MEDS: POTASSIUM CHLORIDE 10 MEQ CONTROLLED RELEASE TAB PO SCH ×2 (08:37→20:49)
[2017-02-08] MEDS: DOCUSATE SODIUM 100 MG CAP PO SCH ×3 (08:38→20:51)
[2017-02-08] MEDS: BUDESONIDE-FORMOTEROL 160/4.5 MCG INHALER INH SCH ×2 (08:39→20:49)
[2017-02-08] MEDS: TIOTROPIUM BROMIDE 18 MCG INH INH SCH (08:39)
[2017-02-08] MEDS: SODIUM CHLORIDE 0.9% FLUSH 10 ML FLUSH IV FLUSH SCH ×2 (08:44→20:50)
[2017-02-08] MEDS: LORazepam 1 MG TAB PO PRN ×2 (08:44→21:58)
[2017-02-08] MEDS: DILTIAZEM-CD 180 MG CAP ER PO SCH (09:45)
--- NOTE | 2017-02-08 09:47 | HHI.PR ---
Objective Vitals Vital Signs Date Time Temp Pulse Resp B/P Pulse Ox O2 Delivery O2 Flow Rate FiO2 02/08/17 08:25 94 21 02/08/17 08:00 98.0 111 20 110/65 96 02/08/17 04:00 99.2 108 20 115/55 93 02/08/17 00:00 98.2 114 20 136/62 97 02/07/17 20:00 99.3 89 20 121/57 95 02/07/17 19:59 90 02/07/17 16:00 96.9 91 18 90/60 95 02/07/17 12:00 97.3 93 18 136/65 91 I/O 02/07/17 02/07/17 02/07/17 02/08/17 02/08/17 02/08/17 07:00 15:00 23:00 07:00 15:00 23:00 Intake Total 360 ml 960 ml 360 ml 240 ml Output Total 420 ml 1200 ml 775 ml 300 ml Balance -60 ml -240 ml -415 ml -60 ml Intake Oral 360 ml 960 ml 360 ml 240 ml Output Urine Total 400 ml 1200 ml 775 ml 300 ml Drainage Total 20 ml 0 ml # Bowel Movements 0 1 0 1 Result Diagram: 02/08/1743902/08/17439 Objective Remarks GENERAL: Well-nourished, well-developed patient in NAD sitting up on room air Skin: No rash no lesions HEENT: No jaundice pupils equally reactive to light. No signs of dehydration Neck: No JVD CARDIOVASCULAR: Regular rate and rhythm. No murmur appreciated. RESPIRATORY: No accessory muscle use. Clear to auscultation. Breath sounds equal bilaterally. GASTROINTESTINAL: Abdomen soft. Midline wound vac present, connected to continuous suction. MUSCULOSKELETAL: No obvious deformities. Extremities with improving bilateral pitting edema. NEUROLOGICAL: Awake and alert. No obvious cranial nerve deficits. Motor grossly within normal limits. Normal speech. Procedures 1. Exploratory laparotomy. 2. Lysis of adhesions greater than 60 minutes. 3. Reversal of end-ileostomy. 4. Complex scar revision. 5. Abdominal incisional hernia repair with left lateral component separation. A/P Problem List: (1) Hypoxia ICD Code: R09.02 Status: Acute Assessment and Plan Acute hypoxemic respiratory failure. Resolved Bibasilar pneumonia. Improved Acute COPD exacerbation. Resolved - Continue on BiPAP as needed. On NC during the day and wean oxygen. Passed Oxygen walk test - d/c IV Solu-Medrol and prednisone , ct budesonide/formoterol inhaled, Spiriva - Continue neb treatment - Broad-spectrum antibiotics per ID - Encourage use of acapella. Continue EzPAP. - Pulmonary following, appreciate input. Paroxysmal atrial fibrillation - Currently in sinus rhythm but tachycardic telemetry reviewed. - Continue metoprolol 100 mg Q12h and increase and switch to long-acting Cardizem 180 mg daily continue to monitor. Leukocytosis. C. difficile negative 01/28. Improving likely secondary to steroids Sepsis most likely secondary to pneumonia verse possible surgical site infection - WBC trending down. 14.5.on 01/29 - ID signed off with antibiotic recommendations for discharge. on broad- spectrum antibiotic per ID. Levaquin 500 mg PO daily x 2 weeks. Continue Zyvox 500 mg PO BID x 2 weeks. RN to clarify stop dates - Sepsis most likely from pneumonia. Concerning for questionable surgical site infection per ID, VRE and Proteus. General surgery following. Status post reversal colectomy and incisional hernia repair - Management per general surgery. - Abdominal wound vac continued. Diarrhea, resolving. - Stool negative for c-difficile. Continue Lactinex. Monitor electrolytes Hypokalemia: Improved Monitor. Fluid overload. Improving continue Lasix and monitor electrolyte DVT prophylaxis: Lovenox. GI prophylaxis: Pepcid Discharge Planning Stable for discharge from medical standpoint. ID has made recs for Abx management. CM is assisting w d/c planning. monitor potassium level and replace d/c per primary team (gen sx). Medardo Warner MD February 08, 2017 09:47
[2017-02-08] MEDS ORDERED: CARD180C5 PO (09:48)
[2017-02-08] MEDS ORDERED: LACT PO (09:50)
[2017-02-08] MEDS: METOPROLOL TARTRATE 50 MG TAB PO SCH (12:00)
--- NOTE | 2017-02-08 16:48 | HHI.PR ---
Subjective Remarks ASS: NO sob at rest on o2 NC Objective Vital Signs Date Time Temp Pulse Resp B/P Pulse Ox O2 Delivery O2 Flow Rate FiO2 02/08/17 12:00 96.9 118 20 91/51 95 02/08/17 08:25 94 21 02/08/17 08:00 98.0 111 20 110/65 96 02/08/17 04:00 99.2 108 20 115/55 93 02/08/17 00:00 98.2 114 20 136/62 97 02/07/17 20:00 99.3 89 20 121/57 95 02/07/17 19:59 90 I/O 02/07/17 02/07/17 02/07/17 02/08/17 02/08/17 02/08/17 07:00 15:00 23:00 07:00 15:00 23:00 Intake Total 360 ml 960 ml 360 ml 240 ml Output Total 420 ml 1200 ml 775 ml 300 ml 550 ml Balance -60 ml -240 ml -415 ml -60 ml -550 ml Intake Oral 360 ml 960 ml 360 ml 240 ml Output Urine Total 400 ml 1200 ml 775 ml 300 ml 500 ml Drainage Total 20 ml 0 ml 50 ml # Voids 1 # Bowel Movements 0 1 0 1 Result Diagram: 02/08/1743902/08/17439 Objective Remarks GENERAL: SKIN: Warm and dry. HEAD: Atraumatic. Normocephalic. EYES: Pupils equal and round. No scleral icterus. No injection or drainage. ENT: No nasal bleeding or discharge. Mucous membranes pink and moist. NECK: Trachea midline. No JVD. CARDIOVASCULAR: Regular rate and rhythm. RESPIRATORY: No accessory muscle use. SCATTERED RONCHI AT BASIS. GASTROINTESTINAL: Abdomen soft, non-tender, nondistended. Hepatic and splenic margins not palpable. MUSCULOSKELETAL: Extremities without clubbing, cyanosis, ++ edema. No obvious deformities. NEUROLOGICAL: Awake and alert. No obvious cranial nerve deficits. Motor grossly within normal limits. Five out of 5 muscle strength in the arms and legs. Normal speech. PSYCHIATRIC: Appropriate mood and affect; insight and judgment normal. Assessment and Plan Assessment and Plan RESPIRATORY FAILURE COPD PNA Improving ? CELESTINO PLAN: BIPAP NEEDED O2 NEEDED PUNL. TOILET ANTIBIOTIC THERAPY HOPEFULLY HOME Amelia Dooley MD February 08, 2017 16:48
[2017-02-08] MEDS: ENOXAPARIN SODIUM 40 MG/0.4 ML SYRINGE SQ SCH (16:59)
--- NOTE | 2017-02-08 17:09 | HHI.PR ---
Subjective Subjective Notes Resting in bed Objective Vitals/I&O Vital Signs Date Time Temp Pulse Resp B/P Pulse Ox O2 Delivery O2 Flow Rate FiO2 02/08/17 16:00 98.7 104 20 103/52 96 02/08/17 08:25 21 02/05/17 17:52 Nasal Cannula 1.00 Labs Laboratory Tests Test 02/08/17 04:40 White Blood Count 20.5 Red Blood Count 3.18 Hemoglobin 8.7 Hematocrit 27.4 Mean Corpuscular Volume 86.1 Mean Corpuscular Hemoglobin 27.2 Mean Corpuscular Hemoglobin 31.7 Concent Red Cell Distribution Width 15.4 Platelet Count 446 Mean Platelet Volume 8.0 Neutrophils (%) (Auto) 69.2 Lymphocytes (%) (Auto) 16.6 Monocytes (%) (Auto) 13.2 Eosinophils (%) (Auto) 0.5 Basophils (%) (Auto) 0.5 Neutrophils # (Auto) 14.2 Lymphocytes # (Auto) 3.4 Monocytes # (Auto) 2.7 Eosinophils # (Auto) 0.1 Basophils # (Auto) 0.1 CBC Comment AUTO DIFF Differential Comment AUTO DIFF CONFIRMED Sodium Level 138 Potassium Level 4.3 Chloride Level 104 Carbon Dioxide Level 26.2 Anion Gap 8 Blood Urea Nitrogen 14 Creatinine 0.91 Estimat Glomerular Filtration 84 Rate Random Glucose 94 Calcium Level 8.5 Magnesium Level 1.9 Radiology Last Impressions Chest X-Ray 01/26/17 0600 Signed Impressions: Service Date/Time: Thursday, January 26, 2017 04:42 - CONCLUSION: Unchanged pleural effusions and bibasilar atelectasis versus infiltrates. Farhat Umana Jr., MD Chest CT 01/23/17 0000 Signed Impressions: Service Date/Time: Monday, January 23, 2017 13:16 - CONCLUSION: 1. Consolidation is noted in both lung bases with air bronchograms. There is also consolidation along the posterior left major fissure. 2. Cardiomegaly and small pericardial effusion. Conrado Bhatti MD Abdomen/Pelvis CT 01/23/17 0000 Signed Impressions: Service Date/Time: Monday, January 23, 2017 13:16 - CONCLUSION: 1. Interval postsurgical changes status post abdominal hernia repair with soft tissue swelling and gas in the subcutaneous fat. There are surgical drains in place with no drainable fluid collection. 2. Abnormal bowel gas pattern of concern for early or partial small bowel obstruction. 3. New consolidation in both lung bases with minimal effusions. 4. Cardiomegaly with small amount of pericardial fluid. 5. Stable calcification pseudocyst in the tail of the pancreas. Conrado Bhatti MD Cardiovascular: Regular Lungs: Clear Abdomen: Other (Wound Vac in place with good seal; JORJE in place with SS drainage ) Extremities: No edema A/P Assessment and Plan 66 year old male c/p ex lap; incisional hernia repair; colostomy reversal -Breathing improved ---on NC now -Continue Wound Vac---Plan for bedside change tomorrow with possible closure of superficial skin -Pain controlled -Regular diet -OOB and mobilize as tolerated -IS -Monitor JORJE -CM consult for Wound Vac forms Attending Statement patient seen at bedside attempt partial closure tomorrow during vac change Attestation The exam, history, and the medical decision-making described in the above note were completed with the assistance of the mid-level provider. I reviewed and agree with the findings presented. I attest that I had a [id number] encounter with the patient on the same day, and personally performed and documented my assessment and findings in the medical record. Supriya Shankar February 08, 2017 17:09 Andreas Vernon MD Feb 20, 2017 13:09
[2017-02-08] MEDS ORDERED: LIDOCAINE 1%/EPINEPHrine 1:100,000 SOLN 50 ML VIAL INFIL PRN (20:30)
[2017-02-08] MEDS: TAMSULOSIN HCL 0.4 MG CAP PO SCH (20:50)
[2017-02-09] VITALS (7 sets, daily range): BP systolic 96–117; BP diastolic 51–67; PULSE 85–118; RESP 16–22; TEMP 98.2–99.9; O2SAT 92–96
[2017-02-09] MEDS: ZOLPIDEM TARTRATE 10 MG TAB PO PRN (01:00)
[2017-02-09 05:20] LABS: AUTOMATED NEUTROPHIL # 13.4 TH/MM3 (1.8-7.7); BASOPHIL % 0.2 % (0.0-2.0); EOSINOPHIL # 0.1 TH/MM3 (0-0.4); EOSINOPHIL % 0.7 % (0.0-4.0); HEMATOCRIT 27.6 % (39.0-51.0); HEMO FLAGS DIFF FINAL; LYMPH % 18.4 % (9.0-44.0); LYMPHOCYTE # 3.5 TH/MM3 (1.0-4.8); MEAN CELL VOLUME 86.1 FL (80.0-100.0); MEAN CORPUSCULAR HEMOGLOBIN 26.7 PG (27.0-34.0); MONO % 11.1 % (0.0-8.0); NEUT % 69.6 % (16.0-70.0); PLATELET COUNT 373 TH/MM3 (150-450); RED BLOOD COUNT 3.21 MIL/MM3 (4.50-5.90); WHITE BLOOD COUNT 19.2 TH/MM3 (4.0-11.0)
[2017-02-09] MEDS: oxyCODONE/ACETAMINOPHEN 10 MG/325 MG TAB PO PRN ×2 (05:41→12:30)
[2017-02-09 05:48] LABS: BICARBONATE 26.4 MEQ/L (21.0-32.0); MAGNESIUM 1.9 MG/DL (1.5-2.5)
[2017-02-09] MEDS: FUROSEMIDE 20 MG TAB PO SCH (08:40)
[2017-02-09] MEDS: DILTIAZEM-CD 180 MG CAP ER PO SCH ×2 (08:40→11:20)
[2017-02-09] MEDS: LISINOPRIL 5 MG TAB PO SCH (08:40)
[2017-02-09] MEDS: DOCUSATE SODIUM 100 MG CAP PO SCH (08:41)
[2017-02-09] MEDS: LEVOFLOXACIN 500 MG TAB PO SCH (08:42)
[2017-02-09] MEDS: POTASSIUM CHLORIDE 10 MEQ CONTROLLED RELEASE TAB PO SCH (08:42)
[2017-02-09] MEDS: LINEZOLID 600 MG TAB PO SCH (08:42)
[2017-02-09] MEDS: LACTOBACILLUS ACIDOPHILUS TAB PO SCH ×2 (08:42→12:31)
[2017-02-09] MEDS: ALLOPURINOL 100 MG TAB PO SCH (08:43)
--- NOTE | 2017-02-09 08:44 | HHI.PR ---
Subjective Remarks ASS: NO sob at rest on o2 NC eager to go home Objective Vital Signs Date Time Temp Pulse Resp B/P Pulse Ox O2 Delivery O2 Flow Rate FiO2 02/09/17 08:00 98.5 107 16 102/57 95 02/09/17 06:41 18 02/09/17 04:00 99.9 114 22 117/59 94 02/09/17 00:00 98.2 118 22 96/54 94 02/08/17 20:00 98.8 108 24 109/56 94 02/08/17 20:00 108 02/08/17 16:00 98.7 104 20 103/52 96 02/08/17 12:00 96.9 118 20 91/51 95 I/O 02/08/17 02/08/17 02/08/17 02/09/17 02/09/17 02/09/17 07:00 15:00 23:00 07:00 15:00 23:00 Intake Total 240 ml 240 ml 450 ml 240 ml Output Total 300 ml 550 ml 350 ml 500 ml Balance -60 ml -310 ml 100 ml -260 ml Intake Oral 240 ml 240 ml 450 ml 240 ml Output Urine Total 300 ml 500 ml 350 ml 500 ml Drainage Total 50 ml # Voids 4 # Bowel Movements 1 2 0 Result Diagram: 02/09/17 04502/09/17449 Objective Remarks GENERAL: SKIN: Warm and dry. HEAD: Atraumatic. Normocephalic. EYES: Pupils equal and round. No scleral icterus. No injection or drainage. ENT: No nasal bleeding or discharge. Mucous membranes pink and moist. NECK: Trachea midline. No JVD. CARDIOVASCULAR: Regular rate and rhythm. RESPIRATORY: No accessory muscle use. SCATTERED RONCHI AT BASIS. GASTROINTESTINAL: Abdomen soft, non-tender, nondistended. Hepatic and splenic margins not palpable. MUSCULOSKELETAL: Extremities without clubbing, cyanosis, ++ edema. No obvious deformities. NEUROLOGICAL: Awake and alert. No obvious cranial nerve deficits. Motor grossly within normal limits. Five out of 5 muscle strength in the arms and legs. Normal speech. PSYCHIATRIC: Appropriate mood and affect; insight and judgment normal. Assessment and Plan Assessment and Plan RESPIRATORY FAILURE COPD PNA Improving ? CELESTINO PLAN: BIPAP NEEDED O2 NEEDED PULM. TOILET ANTIBIOTIC THERAPY HOPEFULLY HOME Amelia Dooley MD February 09, 2017 08:44
[2017-02-09] MEDS: TIOTROPIUM BROMIDE 18 MCG INH INH SCH (08:46)
[2017-02-09] MEDS: BUDESONIDE-FORMOTEROL 160/4.5 MCG INHALER INH SCH (08:46)
[2017-02-09] MEDS: LORazepam 1 MG TAB PO PRN (08:49)
[2017-02-09] MEDS: SODIUM CHLORIDE 0.9% FLUSH 10 ML FLUSH IV FLUSH SCH (08:50)
[2017-02-09] MEDS ORDERED: PANTOPRAZOLE SOD 40 MG DELAYED RELEASE TAB PO SCH (09:00)
[2017-02-09] MEDS ORDERED: HYDROmorphone HCL PF 1 MG/ML VIAL IV PUSH STA (09:18)
[2017-02-09] MEDS ORDERED: OXYC1TAB36 PO (10:04)
--- NOTE | 2017-02-09 10:04 | HHI.FF ---
Face to Face Verification Diagnosis: (1) Abdominal wall hernia Home Health Nursing Order: Wound care and dressing changes Instructions: Wound Vac --midline incision --- change MWF--- Please have supplies delivered to home today ---patient coming to office to have Wound Vac placed on 02/[address] Vernon---patient to bring supplies in from home to office Black sponge with white sponge over---- drape to secure Sponge should do from top to bottom---- narrow area with sponge as well (black only in narrow area) Wet to dry dressings on two RIGHT lateral incisions I have seen patient Travis Hunt on 02/09/17. My clinical findings support the need for the requested home health care services because: Limited ability to care for self High risk of falls I certify that my clinical findings support that this patient is homebound because: Post-op weakness Supriya Shankar February 09, 2017 10:04
[2017-02-09] MEDS ORDERED: LORA-474 PO (10:09)
[2017-02-09] MEDS ORDERED: AMBI10TA PO (10:10)
--- NOTE | 2017-02-09 11:52 | HHI.PR ---
Subjective Remarks Follow-up sinus tachycardia. Telemetry shows sinus tachycardia in the low teens less than 110 and currently 107 patient denies palpitations. Review of medications patient has not been receiving calcium channel marge and Lopressor secondary to BP limitations. 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 Vitals Vital Signs Date Time Temp Pulse Resp B/P Pulse Ox O2 Delivery O2 Flow Rate FiO2 02/09/17 08:00 98.5 107 16 102/57 95 02/09/17 06:41 18 02/09/17 04:00 99.9 114 22 117/59 94 02/09/17 00:00 98.2 118 22 96/54 94 02/08/17 20:00 98.8 108 24 109/56 94 02/08/17 20:00 108 02/08/17 16:00 98.7 104 20 103/52 96 02/08/17 12:00 96.9 118 20 91/51 95 I/O 02/08/17 02/08/17 02/08/17 02/09/17 02/09/17 02/09/17 07:00 15:00 23:00 07:00 15:00 23:00 Intake Total 240 ml 240 ml 450 ml 240 ml Output Total 300 ml 550 ml 350 ml 500 ml Balance -60 ml -310 ml 100 ml -260 ml Intake Oral 240 ml 240 ml 450 ml 240 ml Output Urine Total 300 ml 500 ml 350 ml 500 ml Drainage Total 50 ml # Voids 4 # Bowel Movements 1 2 0 Result Diagram: 02/09/17 0450 02/09/17 0450 Imaging Last Impressions Chest X-Ray 02/03/17 0000 Signed Impressions: Service Date/Time: Friday, February 03, 2017 06:25 - CONCLUSION: 1. Small left pleural effusion and left basilar consolidation. 2. Right basilar atelectasis. Walt Johnson MD Chest CT 01/23/17 0000 Signed Impressions: Service Date/Time: Monday, January 23, 2017 13:16 - CONCLUSION: 1. Consolidation is noted in both lung bases with air bronchograms. There is also consolidation along the posterior left major fissure. 2. Cardiomegaly and small pericardial effusion. Conrado Bhatti MD Abdomen/Pelvis CT 01/23/17 0000 Signed Impressions: Service Date/Time: Monday, January 23, 2017 13:16 - CONCLUSION: 1. Interval postsurgical changes status post abdominal hernia repair with soft tissue swelling and gas in the subcutaneous fat. There are surgical drains in place with no drainable fluid collection. 2. Abnormal bowel gas pattern of concern for early or partial small bowel obstruction. 3. New consolidation in both lung bases with minimal effusions. 4. Cardiomegaly with small amount of pericardial fluid. 5. Stable calcification pseudocyst in the tail of the pancreas. Conrado Bhatti MD Objective Remarks GENERAL: Well-nourished, well-developed patient in NAD sitting up on room air Skin: No rash no lesions HEENT: No jaundice pupils equally reactive to light. No signs of dehydration Neck: No JVD CARDIOVASCULAR: Slightly tachycardic. No murmur appreciated. RESPIRATORY: No accessory muscle use. Clear to auscultation. Breath sounds equal bilaterally. GASTROINTESTINAL: Abdomen soft. Midline wound vac present, connected to continuous suction. MUSCULOSKELETAL: No obvious deformities. Extremities with improving bilateral pitting edema. NEUROLOGICAL: Awake and alert. No obvious cranial nerve deficits. Motor grossly within normal limits. Normal speech. Procedures 1. Exploratory laparotomy. 2. Lysis of adhesions greater than 60 minutes. 3. Reversal of end-ileostomy. 4. Complex scar revision. 5. Abdominal incisional hernia repair with left lateral component separation. A/P Problem List: (1) Hypoxia ICD Code: R09.02 Status: Acute Assessment and Plan Acute hypoxemic respiratory failure. Resolved Bibasilar pneumonia. Improved Acute COPD exacerbation. Resolved - Continue on BiPAP as needed. On NC during the day and wean oxygen. Passed Oxygen walk test - d/c IV Solu-Medrol and prednisone , ct budesonide/formoterol inhaled, Spiriva - Continue neb treatment - Broad-spectrum antibiotics per ID - Encourage use of acapella. Continue EzPAP. - Pulmonary following, appreciate input. Paroxysmal atrial fibrillation - Currently in sinus rhythm but tachycardic telemetry reviewed. Likely tachycardia secondary to missed doses - Continue metoprolol 100 mg Q12h and Cardizem 180 mg daily continue to monitor. Hold parameters adjusted Leukocytosis. C. difficile negative 01/28. Improving likely secondary to steroids Sepsis most likely secondary to pneumonia verse possible surgical site infection - WBC trending down. 14.5.on 01/29 - ID signed off with antibiotic recommendations for discharge. on broad- spectrum antibiotic per ID. Levaquin 500 mg PO daily x 2 weeks. Continue Zyvox 500 mg PO BID x 2 weeks. RN to clarify stop dates - Sepsis most likely from pneumonia. Concerning for questionable surgical site infection per ID, VRE and Proteus. General surgery following. Status post reversal colectomy and incisional hernia repair - Management per general surgery. - Abdominal wound vac continued. Diarrhea, resolving. - Stool negative for c-difficile. Continue Lactinex. Monitor electrolytes Hypokalemia: Improved Monitor. Fluid overload. Improving continue Lasix and monitor electrolyte DVT prophylaxis: Lovenox. GI prophylaxis: Pepcid Discharge Planning Stable for discharge from medical standpoint. ID has made recs for Abx management. CM is assisting w d/c planning. monitor potassium level and replace d/c per primary team (gen sx). Medardo Warner MD February 09, 2017 11:52
[2017-02-09] MEDS: METOPROLOL TARTRATE 50 MG TAB PO SCH ×2 (12:31)
--- NOTE | 2017-02-25 13:36 | HHI.DS ---
Discharge Summary Admission Date January 20, 2017 at 09:35 Discharge Date: February 09, 2017 Admitting Diagnosis Brief History 66 year old male c/p ex lap; incisional hernia repair; colostomy reversal PE at Discharge Alert and awake Cardio: RRR Resp: CTAB Abd: incision partially closed; minimal drainage; wet to dry dressing placed Hospital Course This is a 66 year old male c/p ex lap; incisional hernia repair; colostomy reversal. Post-operatively he was transferred to the [facility] due to respiratory issues. He was not intubated during the admission. He was stable and moved back to the medical surgical floor. His pain was controlled. He was able to tolerate a regular diet. A Wound Vac was place in the midline incision. 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 Arrangements were made for Wound Vac placement at home. Pt Condition on Discharge: Good Discharge Disposition: Discharge Home Discharge Instructions DIET: Follow Instructions for: As Tolerated, No Restrictions Activities you can perform: See Additionl Instruction Other Activity Instructions: Bring Wound Vac supplies to office to have Wound Vac placed on by Supriya Rodriguez Feb 25, 2017 13:36
== END 2017-02-09 16:47 | disposition home or self-care (01) | DRG 329 ==
LOC: HSDI 01-20 09:35 → N07A 01-20 20:40 → N03A 01-23 04:59 → N07A 01-29
PROVIDERS: ADMIT Surgery; ATTEND Surgery
PROC: 0DN80ZZ Release Small Intestine, Open Approach (ICD-10-PCS; 2017-01-20)
PROC: 0DQB0ZZ Repair Ileum, Open Approach (ICD-10-PCS; principal; 2017-01-20 14:46)
PROC: 0WQF0ZZ Repair Abdominal Wall, Open Approach (ICD-10-PCS; 2017-01-20 14:46)
PROC: 0JB80ZZ Excision of Abdomen Subcutaneous Tissue and Fascia, Open Approach (ICD-10-PCS; 2017-01-20 14:46)
PROC: 5A09357 Assistance with Respiratory Ventilation, Less than 24 Consecutive Hours, Continuous Positive Airway Pressure (ICD-10-PCS; 2017-01-23)
DX: K43.2 Incisional hernia without obstruction or gangrene (principal); J18.9 Pneumonia, unspecified organism; J96.01 Acute respiratory failure with hypoxia; A41.9 Sepsis, unspecified organism; I48.92 Unspecified atrial flutter; I48.0 Paroxysmal atrial fibrillation; J44.0 Chronic obstructive pulmonary disease with (acute) lower respiratory infection; J44.1 Chronic obstructive pulmonary disease with (acute) exacerbation; J98.11 Atelectasis; T81.4XXA Infection following a procedure, initial encounter; I48.91 Unspecified atrial fibrillation; E66.9 Obesity, unspecified; K66.0 Peritoneal adhesions (postprocedural) (postinfection); I10 Essential (primary) hypertension; L90.5 Scar conditions and fibrosis of skin; R73.9 Hyperglycemia, unspecified; E87.70 Fluid overload, unspecified; D64.9 Anemia, unspecified; E87.6 Hypokalemia; R19.7 Diarrhea, unspecified; T38.0X5A Adverse effect of glucocorticoids and synthetic analogues, initial encounter; G47.33 Obstructive sleep apnea (adult) (pediatric); F41.9 Anxiety disorder, unspecified; Z68.33 Body mass index [BMI] 33.0-33.9, adult; Z86.73 Personal history of transient ischemic attack (TIA), and cerebral infarction without residual deficits; Z88.6 Allergy status to analgesic agent; Z90.81 Acquired absence of spleen; Z93.3 Colostomy status
CPT/HCPCS: 36600; 71010; 71260; 74177; 76937; 80048; 80053; 80202; 82805; 83036; 83605; 83735; 83880; 84134; 84443; 84484; 85007; 85025; 85027; 86850; 86900; 86901; 86902; 86920; 86922; 87040; 87070; 87077; 87186; 87205; 87449; 87493; 87641; 88305; 88307; 93005; 94002; 94003; 94150; 94620; 94640; 94664; 94667; 94668; C9113; C9290; J0153; J0282; J0690; J0692; J1170; J1650; J2020; J2060; J2270; J2370; J2405; J2543; J2710; J2920; J2930; J3010; J3370; J3480; J7040; J7060; J7120; J7512; J7613; J7644; Q9963; Q9967

== ENCOUNTER 2017-03-15 15:47 | Inpatient (IN) | payer OTHER, MEDICARE ==
[~2017-03-15] VITALS: Ht 175.3 cm; Wt 97.0 kg
[~2017-03-15 15:47] MED LIST changes: +AMBI10TA PO; +CARD180C5 PO; +LACT PO; +LEVA500T PO; -LORA-373 PO; +LORA-474 PO; +METO-309 PO; +OXYC1TAB36 PO; +OXYGENTANK NAS.CANULA; +POTA-243 PO; +SPIRCAP INH; +SYMB160A INH; -ZOLP5TAB3 PO; +ZYVO600T PO
[2017-03-15 15:51] VITALS: BP 122/60; PULSE 116; RESP 24; TEMP 98.6; O2SAT 99
--- NOTE | 2017-03-15 16:43 | PD ---
Physical Exam Time Seen by Provider: 16:40 Narrative 66yo M sent by Dr. Vernon for CT scan of abdomen because he is having drainage from his surgical incision after reverse colostomy January 20. Low grade fever since Wednesday. +N w/o vomiting. Patient seen in triage. VS reviewed. Awaiting bed placement. Data Data Last Documented VS Vital Signs Date Time Temp Pulse Resp B/P Pulse Ox O2 Delivery O2 Flow Rate FiO2 03/15/17 15:51 98.6 116 24 122/60 99 Room Air MDM Supervised Visit with FIDE: Rachel Ling Mar 15, 2017 16:43
[2017-03-15 18:07] VITALS: TEMP 100.2
[2017-03-15] MEDS ORDERED: PIPERACIL-TAZO 4.5 GM PREMIX 100 ML IV STA (19:04)
[2017-03-15] MEDS ORDERED: VANCOMYCIN INJ 1,000 MG in SODIUM CHLOR 0.9% 250 ML INJ 250 ML IV STA (19:04)
--- NOTE | 2017-03-15 19:04 | PD ---
HPI Chief Complaint: Abdominal Pain Time Seen by Provider: 19:03 Travel History International Travel<30 days: No Contact w/Intl Traveler<30days: No Traveled to known affect area: No History of Present Illness HPI 66 year old male with history of TIA, anxiety, hypertension, and COPD who underwent distal colostomy in 2015 due to perforated viscus with, reversal of end ileostomy and, abdominal incisional hernia repair in January of this year by Dr. Vernon, presents to the ED today for evaluation of fever and leaking from a "pin hole" in his umbilicus. Pt states the home health nurse came to change his wound vac when they noticed the pin hole in his umbilicus. Dr. Vernon was called and advised the patient come to the ED. Pt reports on the way here, he began to leak a foul smelling drainage from this pin hole. Reports generalized lower abdominal pain, with weakness, and feeling febrile. Reports decreased urinary output. No bowel changes. No nausea, vomiting, or diarrhea. No other symptoms to report. Of note, patient just finished his last dose of levaquin. PFSH Past Medical History Arthritis: Yes (ankles, hands ) Asthma: Yes Autoimmune Disease: Yes (GOUT IN FEET) Blood Disorders: No Anxiety: Yes Depression: No Heart Rhythm Problems: No Cancer: No Cardiovascular Problems: Yes (CVA 2003) High Cholesterol: No Chemotherapy: No Chest Pain: No Congestive Heart Failure: No COPD: Yes (BRONCHITIS) Cerebrovascular Accident: Yes (stroke 2003.) Coronary Artery Disease: No Diabetes: No Diminished Hearing: No Endocrine: No Gastrointestinal Disorders: No GERD: Yes Glaucoma: No Gout: Yes Genitourinary: No Headaches: No Hepatitis: No Hiatal Hernia: Yes Hypertension: Yes Implanted Vascular Access Dvce: No Kidney Stones: No Musculoskeletal: Yes (arthritis) Neurologic: No Psychiatric: No Reproductive: No Respiratory: No Immunizations Current: Yes Myocardial Infarction: No Pneumonia: Yes Radiation Therapy: No Renal Failure: No Seizures: No Sickle Cell Disease: No Sleep Apnea: No Thyroid Disease: No Ulcer: Yes Past Surgical History Abdominal Surgery: Yes (Abdominal hernia repair ) AICD: No Body Medical Devices: N/A Cardiac Surgery: No Ear Surgery: No Endocrine Surgery: No Eye Surgery: No Genitourinary Surgery: No Gynecologic Surgery: No Joint Replacement: Yes (left hip ) Neurologic Surgery: No Oral Surgery: No Pacemaker: No Thoracic Surgery: No Other Surgery: Yes (splenectomy) Social History 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) Tobacco Use: No Substance Use: No Allergies-Medications (Allergen,Severity, Reaction): Coded Allergies: Aspirin (Verified Allergy, Unknown, 03/15/17) Nonsteroidal Anti-Inflammatory Agts (Verified Adverse Reaction, Intermediate, 03/15/17) *MDRO Multi-Drug Resistant Organism (Verified Adverse Reaction, Unknown, ) 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 Reported Meds & Prescriptions Reported Meds & Active Scripts Active Ambien (Zolpidem Tartrate) 10 Mg Tab 10 Mg PO HS PRN Ativan (Lorazepam) 1 Mg Tab 1 Mg PO Q8H PRN Oxycodone-Acetaminophen 10-325 mg Tab 1 Tab PO Q6H PRN Spiriva Handihaler (Tiotropium Inh) 18 Mcg Cap 18 Mcg INH DAILY Reported Levaquin (Levofloxacin) 500 Mg Tablet 500 Mg PO DAILY K-Tab (Potassium Chloride) 20 Meq Tab 20 Meq PO BID Symbicort Inh (Budesonide/Formoterol Fumarate) 160-4.5 Mcg/Act Aero 2 Puff INH DAILY IN THE EVENING Symbicort Inh (Budesonide/Formoterol Fumarate) 160-4.5 Mcg/Act Aero 1 Puff INH DAILY IN THE MORNING Vitamin D-1000 (Cholecalciferol) 1,000 Unit Tab 1,000 Units PO EVERY OTHER DAY Vitamin B12 (Cyanocobalamin) 100 Mcg Tab 100 Mcg PO EVERY OTHER DAY Lasix (Furosemide) 40 Mg Tab 40 Mg PO DAILY Omeprazole 20 Mg Tab 20 Mg PO DAILY Allopurinol 100 Mg Tab 100 Mg PO DAILY Hydroxyzine HCl 25 Mg Tab 25 Mg PO HS Flomax (Tamsulosin HCl) 0.4 Mg Cap 0.8 Mg PO HS Lisinopril 5 Mg Tab 5 Mg PO DAILY Review of Systems Except as stated in HPI: all other systems reviewed are Neg Physical Exam Narrative GENERAL: Obese, ill-appearing male patient, lying in bed in no acute distress SKIN: Focused skin assessment warm/dry. Superior to the umbilicus there are 2 fairly superficial wounds with pink granulated tissue that measure 6 cm by by 8 cm long. Within the umbilicus there is a pinhole draining purulent drainage. HEAD: Atraumatic. Normocephalic. EYES: Pupils equal and round. No scleral icterus. No injection or drainage. ENT: No nasal bleeding or discharge. Mucous membranes pink and moist. NECK: Trachea midline. No JVD. CARDIOVASCULAR: Tachycardic rate and rhythm. RESPIRATORY: No accessory muscle use. Diminished bases. Breath sounds equal bilaterally. GASTROINTESTINAL: Abdomen rotund, soft, tender to palpate. Wounds as described above. MUSCULOSKELETAL: No obvious deformities. No clubbing. No cyanosis. NEUROLOGICAL: Awake and alert. No obvious cranial nerve deficits. Motor grossly within normal limits. Normal speech. PSYCHIATRIC: Appropriate mood and affect; insight and judgment normal. Data Data Last Documented VS Vital Signs Date Time Temp Pulse Resp B/P Pulse Ox O2 Delivery O2 Flow Rate FiO2 03/15/17 19:35 102.1 03/15/17 19:20 26 93 Nasal Cannula 2 03/15/17 15:51 116 122/60 Orders Electrocardiogram (03/15/17 19:04) Complete Blood Count With Diff (03/15/17 19:04) Comprehensive Metabolic Panel (03/15/17 19:04) Prothrombin Time / Inr (Pt) (03/15/17 19:04) Act Partial Throm Time (Ptt) (03/15/17 19:04) Lactic Acid Sepsis Protocol (03/15/17 19:04) Urinalysis - C+S If Indicated (03/15/17 19:04) Blood Culture (03/15/17 19:04) Wound Culture And Gram Stain (03/15/17 19:04) Chest, Single Ap (03/15/17 19:04) Blood Glucose (03/15/17 19:04) Ecg Monitoring (03/15/17 19:04) Iv Access Insert/Monitor (03/15/17 19:04) Oximetry (03/15/17 19:04) Oxygen Administration (03/15/17 19:04) Ct Abd/Pel W Iv Contrast(Rout) (03/15/17 19:04) Vancomycin Inj (Vancomycin Inj) (03/15/17 19:04) Piperacil-Tazo 4.5 Gm Premix (Zosyn 4.5 (03/15/17 19:04) Oral Contrast - Adult (03/15/17 19:10) Diatrizoate Liq ( Gastroview Liq) (03/15/17 19:22) Acetaminophen (Tylenol) (03/15/17 19:45) Sodium Chlor 0.9% 1000 Ml Inj (Ns 1000 M (03/15/17 20:00) Sodium Chlor 0.9% 1000 Ml Inj (Ns 1000 M (03/15/17 20:00) Sodium Chlor 0.9% 1000 Ml Inj (Ns 1000 M (03/15/17 20:00) Iohexol 350 Inj (Omnipaque 350 Inj) (03/15/17 20:38) Lorazepam Inj (Ativan Inj) (03/15/17 21:15) Admit Order (Ed Use Only) (03/15/17 21:38) Consult General Surgery (03/15/17 ) Labs Laboratory Tests Test 03/15/17 03/15/17 19:15 19:20 White Blood Count 28.5 TH/MM3 Red Blood Count 3.02 MIL/MM3 Hemoglobin 8.4 GM/DL Hematocrit 26.1 % Mean Corpuscular Volume 86.5 FL Mean Corpuscular Hemoglobin 27.7 PG Mean Corpuscular Hemoglobin 32.0 % Concent Red Cell Distribution Width 19.0 % Platelet Count 654 TH/MM3 Mean Platelet Volume 8.0 FL Neutrophils (%) (Auto) 83.9 % Lymphocytes (%) (Auto) 4.0 % Monocytes (%) (Auto) 11.9 % Eosinophils (%) (Auto) 0.0 % Basophils (%) (Auto) 0.2 % Neutrophils # (Auto) 23.9 TH/MM3 Lymphocytes # (Auto) 1.1 TH/MM3 Monocytes # (Auto) 3.4 TH/MM3 Eosinophils # (Auto) 0.0 TH/MM3 Basophils # (Auto) 0.1 TH/MM3 CBC Comment AUTO DIFF Differential Total Cells 100 Counted Neutrophils % (Manual) 75 % Band Neutrophils % 14 % Lymphocytes % 2 % Monocytes % 7 % Neutrophils # (Manual) 25.9 TH/MM3 Metamyelocytes 2 % Differential Comment FINAL DIFF MANUAL Platelet Estimate HIGH Platelet Morphology Comment CLUMPED Prothrombin Time 12.4 SEC Prothromb Time International 1.1 RATIO Ratio Activated Partial 35.0 SEC Thromboplast Time Sodium Level 131 MEQ/L Potassium Level 3.6 MEQ/L Chloride Level 98 MEQ/L Carbon Dioxide Level 24.6 MEQ/L Anion Gap 8 MEQ/L Blood Urea Nitrogen 14 MG/DL Creatinine 1.01 MG/DL Estimat Glomerular Filtration 74 ML/MIN Rate Random Glucose 93 MG/DL Calcium Level 8.8 MG/DL Total Bilirubin 0.6 MG/DL Aspartate Amino Transf 13 U/L (AST/SGOT) Alanine Aminotransferase 13 U/L (ALT/SGPT) Alkaline Phosphatase 136 U/L Total Protein 7.3 GM/DL Albumin 2.8 GM/DL Lactic Acid Level 2.1 mmol/L MDM Medical Decision Making Medical Screen Exam Complete: Yes Emergency Medical Condition: Yes Medical Record Reviewed: Yes Differential Diagnosis post op infection versus abscess versus cellulitis versus fistula versus sepsis versus electrolyte imbalance Narrative Course 66-year-old male presents to emergency department for evaluation. Patient appears ill. He is febrile and tachycardic. His abdomen is tender. He does have 2 superficial wound superior to the umbilicus. There is a pinhole in the umbilicus draining purulent, malodorous drainage. Cultures obtained. Pt is given IV Zosyn and Vancomycin. Patient has leukocytosis of 28.5 with a bandemia of 14. Mild hyponatremia of 131. Patient's lactic acid is 2.1. Abdominal CT is ordered. Laboratory Tests Test 03/15/17 03/15/17 19:15 19:20 White Blood Count 28.5 TH/MM3 Red Blood Count 3.02 MIL/MM3 Hemoglobin 8.4 GM/DL Hematocrit 26.1 % Mean Corpuscular Volume 86.5 FL Mean Corpuscular Hemoglobin 27.7 PG Mean Corpuscular Hemoglobin 32.0 % Concent Red Cell Distribution Width 19.0 % Platelet Count 654 TH/MM3 Mean Platelet Volume 8.0 FL Neutrophils (%) (Auto) 83.9 % Lymphocytes (%) (Auto) 4.0 % Monocytes (%) (Auto) 11.9 % Eosinophils (%) (Auto) 0.0 % Basophils (%) (Auto) 0.2 % Neutrophils # (Auto) 23.9 TH/MM3 Lymphocytes # (Auto) 1.1 TH/MM3 Monocytes # (Auto) 3.4 TH/MM3 Eosinophils # (Auto) 0.0 TH/MM3 Basophils # (Auto) 0.1 TH/MM3 CBC Comment AUTO DIFF Differential Total Cells 100 Counted Neutrophils % (Manual) 75 % Band Neutrophils % 14 % Lymphocytes % 2 % Monocytes % 7 % Neutrophils # (Manual) 25.9 TH/MM3 Metamyelocytes 2 % Differential Comment FINAL DIFF MANUAL Platelet Estimate HIGH Platelet Morphology Comment CLUMPED Prothrombin Time 12.4 SEC Prothromb Time International 1.1 RATIO Ratio Activated Partial 35.0 SEC Thromboplast Time Sodium Level 131 MEQ/L Potassium Level 3.6 MEQ/L Chloride Level 98 MEQ/L Carbon Dioxide Level 24.6 MEQ/L Anion Gap 8 MEQ/L Blood Urea Nitrogen 14 MG/DL Creatinine 1.01 MG/DL Estimat Glomerular Filtration 74 ML/MIN Rate Random Glucose 93 MG/DL Calcium Level 8.8 MG/DL Total Bilirubin 0.6 MG/DL Aspartate Amino Transf 13 U/L (AST/SGOT) Alanine Aminotransferase 13 U/L (ALT/SGPT) Alkaline Phosphatase 136 U/L Total Protein 7.3 GM/DL Albumin 2.8 GM/DL Lactic Acid Level 2.1 mmol/L Last Impressions Chest X-Ray 03/15/171903 Signed Impressions: Service Date/Time: Wednesday, March 15, 2017 19:29 - CONCLUSION: 1. Mild patchy opacity at the lung bases which may represent scarring and/or atelectasis. 2. Normal residual blunting of left costophrenic angle which is improved. This could represent a small effusion. Conrado Bhatti MD Abdomen/Pelvis CT 03/15/171903 Signed Impressions: Service Date/Time: Wednesday, March 15, 2017 20:37 - CONCLUSION: 1. New large oval collection along the left anterior abdominal wall musculature with large air fluid level. The differential diagnosis includes abscess. This does not appear to communicate with the bowel. 2. Nonspecific bowel gas pattern with moderate gaseous dilatation of portions of the transverse colon. There are multiple loops of nondilated air-containing small bowel with air-fluid levels. This may represent an ileus. 3. Small to moderate pericardial effusion which appears mildly increased in size from the prior study. 4. 2 small areas of apparent splenic tissue without change. 5. Stable appearance of the pancreas with stable cystic structure in the tail and calcifications. Conrado Bhatti MD I discussed the findings of the CT with Dr. Vernon. He requested admission to medicine with a consult to him. I spoke with Dr. Mcclellan. [facility] Primary Impression: Sepsis Qualified Code: A41.9 - Sepsis, due to unspecified organism Additional Impressions: Abdominal abscess Pericardial effusion Admitting Information Admitting Physician Requests: Admit Condition: Stable Sandra Rodriguez Mar 15, 2017 19:04
[2017-03-15 19:20] VITALS: RESP 26; O2SAT 93
[2017-03-15] MEDS ORDERED: DIATRIZOATE MEGLUM/DIATRIZOATE SOD 9 ML CUP ONE (19:22)
[2017-03-15 19:35] VITALS: TEMP 102.1
--- NOTE | 2017-03-15 19:36 | RADRPT ---
EXAM DATE/TIME: 03/15/2017 19:29 [facility] COMPARISON: CHEST SINGLE AP, February 03, 2017, 6:25. INDICATIONS : Fever. MEDICAL HISTORY : Chronic obstructive pulmonary disease. Cardiovascular disease. SURGICAL HISTORY : Colostomy. ENCOUNTER: Initial ACUITY: 2 days PAIN SCORE: 0/10 LOCATION: Bilateral chest FINDINGS: A single AP erect portable view of the chest was obtained and again demonstrates mild blunting of the left costophrenic angle. There is mild patchy opacity at both lung bases left and right. The heart s ize remains at the upper limits of normal with no perihilar edema. There are multiple overlying left heart beats. The chest wall and thorax are intact. CONCLUSION: 1. Mild patchy opacity at the lung bases which may represent scarring and/or atelectasis. 2. Normal residual blunting of left costophrenic angle which is improved. This could represent a smal l effusion. Conrado Bhatti MD on March 15, 2017 at 19:32 Board Certified Radiologist. This report was verified electronically.
[2017-03-15] MEDS ORDERED: ACETAMINOPHEN 325 MG TAB PO ONE (19:45)
[2017-03-15 19:52] LABS: AUTOMATED NEUTROPHIL # 23.9 TH/MM3 (1.8-7.7); BASOPHIL # 0.1 TH/MM3 (0-0.2); BASOPHIL % 0.2 % (0.0-2.0); HEMATOCRIT 26.1 % (39.0-51.0); LYMPHOCYTE # 1.1 TH/MM3 (1.0-4.8); MEAN CELL VOLUME 86.5 FL (80.0-100.0); MEAN CORPUSCULAR HEMOGLOBIN 27.7 PG (27.0-34.0); MONO % 11.9 % (0.0-8.0); NEUT % 83.9 % (16.0-70.0); PLATELET COUNT 654 TH/MM3 (150-450); RED BLOOD COUNT 3.02 MIL/MM3 (4.50-5.90); WHITE BLOOD COUNT 28.5 TH/MM3 (4.0-11.0)
[2017-03-15 19:55] LABS: HEMO FLAGS AUTO DIFF
[2017-03-15 19:58] LABS: INTERNATIONAL NORMALIZED RATIO 1.1 RATIO; PROTHROMBIN TIME - PATIENT 12.4 SEC (9.8-11.6)
[2017-03-15] MEDS ORDERED: SODIUM CHLOR 0.9% 1000 ML INJ 1,000 ML IV ONE ×3 (20:00)
[2017-03-15 20:09] LABS: ANION GAP 8 MEQ/L (5-15); AST (GOT) 13 U/L (15-37); BICARBONATE 24.6 MEQ/L (21.0-32.0); BLOOD UREA NITROGEN 14 MG/DL (7-18); CHLORIDE 98 MEQ/L (98-107); GLOMERULAR FILTRATION RATE 74 ML/MIN (>89); POTASSIUM 3.6 MEQ/L (3.5-5.1); SODIUM (NA) 131 MEQ/L (136-145)
[2017-03-15 20:11] LABS: ALT (GPT) 13 U/L (12-78)
[2017-03-15 20:12] LABS: ALKALINE PHOSPHATASE 136 U/L (45-117); TOTAL BILIRUBIN ADULT 0.6 MG/DL (0.2-1.0)
[2017-03-15] MEDS ORDERED: IOHEXOL 350 MG/ML 10 ML VIAL (for RAD DIAG) IV ONE (20:38)
[2017-03-15 20:39] LABS: BANDS 14 % (0-6); METAMYELOCYTES 2 % (0-1); NEUTROPHIL # MANUAL DIFF 25.9 TH/MM3 (1.8-7.7); POLYS (SEG NEUTROPHILS) 75 % (16-70); WBC DIFF SAMPLE 100
[2017-03-15 20:40] LABS: PLATELET ESTIMATE SMEAR HIGH (NORMAL); PLATELET MORPHOLOGY CLUMPED (NORMAL); SCAN/DIFF FINAL DIFF MANUAL
--- NOTE | 2017-03-15 20:57 | RADRPT ---
EXAM DATE/TIME: 03/15/2017 20:37 [place] COMPARISON: CT ABDOMEN & PELVIS W CONTRAST, January 23, 2017, 13:16. INDICATIONS : Abdominal pain post-reverse colostomy on 01/20. Drainage at site today. IV CONTRAST: 98 cc Omnipaque 350 (iohexol) IV ORAL CONTRAST: Prescribed oral contrast ingested. RADIATION DOSE: 15.93 CTDIvol (mGy) MEDICAL HISTORY : Hypertension. Chronic obstructive pulmonary disease. Hernia, hiatal. CVA. GERD. Gout. SURGICAL HISTORY : Splenectomy. Left hip replacement. Hernia repair. ENCOUNTER: Initial ACUITY: 1 day PAIN SCALE: 4/10 LOCATION: Bilateral abdomen TECHNIQUE: Volumetric scanning of the abdomen and pelvis was performed. Using automated exposure control and ad justment of the mA and/or kV according to patient size, radiation dose was kept as low as reasonably achievable to obtain optimal diagnostic quality images. DICOM format image data is available electro nically for review and comparison. FINDINGS: LOWER LUNGS: The visualized lower lungs are clear. There is a small to moderate pericardial effusion which appears mildly increased compared to the prior study. LIVER: Homogeneous density without lesion. There is no dilation of the biliary tree. No calcified gallston es. SPLEEN: There are 2 small stable areas of splenic tissue which are unchanged in appearance. PANCREAS: Able appearance with calcification along the tail and stable cystic structure measuring approximately 2.3 x 1.7 cm. KIDNEYS: Normal in size and shape. There is no mass, stone or hydronephrosis. ADRENAL GLANDS: Within normal limits. VASCULAR: There is no aortic aneurysm. BOWEL/MESENTERY: There is an abnormal bowel gas pattern with multiple loops of nondilated air-containing small bowel w ith multiple small air-fluid levels. There is moderate gaseous dilatation of portions of the transver se colon. The distal colon is decompressed. There is apparent postsurgical change involving the desce nding colon. ABDOMINAL WALL: There is a new large oval collection along the left anterior abdominal wall musculature with large ai r-fluid level. This measures up to 14 x 4.8 cm in diameter and appears to extend to the midline. RETROPERITONEUM: There is no lymphadenopathy. BLADDER: No wall thickening or mass. REPRODUCTIVE: Within normal limits. INGUINAL: There is no lymphadenopathy or hernia. MUSCULOSKELETAL: Within normal limits for patient age. CONCLUSION: 1. New large oval collection along the left anterior abdominal wall musculature with large air fluid level. The differential diagnosis includes abscess. This does not appear to communicate with the cynthia l. 2. Nonspecific bowel gas pattern with moderate gaseous dilatation of portions of the transverse colon . There are multiple loops of nondilated air-containing small bowel with air-fluid levels. This may r epresent an ileus. 3. Small to moderate pericardial effusion which appears mildly increased in size from the prior study . 4. 2 small areas of apparent splenic tissue without change. 5. Stable appearance of the pancreas with stable cystic structure in the tail and calcifications. Conrado Bhatti MD on March 15, 2017 at 20:45 Board Certified Radiologist. This report was verified electronically.
[2017-03-15] MEDS ORDERED: LORazepam 2 MG/ML VIAL IV PUSH ONE (21:15)
[2017-03-15] MEDS ORDERED: SYMB160A INH ×2 (21:16)
[2017-03-15] MEDS ORDERED: POTA1TAB4 PO (21:16)
[2017-03-15] MEDS ORDERED: LEVA500T20 PO (21:20)
[2017-03-15 21:39] LABS: LACTIC ACID GHOST NOT REPORTABLE
[2017-03-15] MEDS ORDERED: ONDANSETRON HCL 4 MG/2 ML VIAL IVP PRN (21:45)
[2017-03-15] MEDS ORDERED: SODIUM CHLORIDE 0.9% FLUSH 10 ML FLUSH IV FLUSH PRN (21:45)
[2017-03-15] MEDS ORDERED: NALOXONE HCL 0.4 MG/ML AMP IV PRN (21:45)
[2017-03-15 22:00] VITALS: BP 90/52; PULSE 88; RESP 18; TEMP 98.5; O2SAT 98
[2017-03-15] MEDS ORDERED: Vancomycin Consult Pharmacy 1 EA OTHER SCH (22:00)
[2017-03-15] MEDS ORDERED: VANCOMYCIN 500 MG/NS 100 ML IV SCH ×2 (23:00)
--- NOTE | 2017-03-15 23:00 | HHI.HP ---
HPI Service [facility] Primary Care Physician Elías Greenberg MD Admission Diagnosis sepsis; abdominal abscess Diagnoses: (1) Sepsis (2) Abdominal abscess (3) Pericardial effusion Chief Complaint: Drainage from wound Travel History International Travel<30 Days: No Contact w/Intl Traveler <30 Da: No Traveled to Known Affected Are: No History of Present Illness Written by Paemla Martinez, acting as scribe for Dr. Mcclellan on 03/15/17 at 22:59. The patient states he was admitted here from January 20 - February 09. He underwent a reversal of colostomy on January 20 with complication of post-op pneumonia with respiratory failure requiring Bi-Pap in ISC unit. He says that the "emergency colostomy" was done in June 2016 for upper bowel obstruction. The patient states he came to the hospital after a visiting nurse did wound care in the a.m. and noticed something leaking from wound and a new "pinhole" in wound. He was also running a fever (tmax 102) relieved with p.o. Tylenol at home and accompanied by left sided-abdominal tenderness. Denies any associated diarrhea, syncope, sob, chest pain, dizziness, n/v, black or red stool, hematuria, or falls. 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 Past Surgical History Splenectomy Hernia repairs - inguinal and umbilical Colostomy - June 2016 Colostomy reversal - January 20, 2017 Left hip replacement Reported Medications Reported Meds & Active Scripts Active Ambien (Zolpidem Tartrate) 10 Mg Tab 10 Mg PO HS PRN Ativan (Lorazepam) 1 Mg Tab 1 Mg PO Q8H PRN Oxycodone-Acetaminophen 10-325 mg Tab 1 Tab PO Q6H PRN Spiriva Handihaler (Tiotropium Inh) 18 Mcg Cap 18 Mcg INH DAILY Reported Levaquin (Levofloxacin) 500 Mg Tablet 500 Mg PO DAILY K-Tab (Potassium Chloride) 20 Meq Tab 20 Meq PO BID Symbicort Inh (Budesonide/Formoterol Fumarate) 160-4.5 Mcg/Act Aero 2 Puff INH DAILY IN THE EVENING Symbicort Inh (Budesonide/Formoterol Fumarate) 160-4.5 Mcg/Act Aero 1 Puff INH DAILY IN THE MORNING Vitamin D-1000 (Cholecalciferol) 1,000 Unit Tab 1,000 Units PO EVERY OTHER DAY Vitamin B12 (Cyanocobalamin) 100 Mcg Tab 100 Mcg PO EVERY OTHER DAY Lasix (Furosemide) 40 Mg Tab 40 Mg PO DAILY Omeprazole 20 Mg Tab 20 Mg PO DAILY Allopurinol 100 Mg Tab 100 Mg PO DAILY Hydroxyzine HCl 25 Mg Tab 25 Mg PO HS Flomax (Tamsulosin HCl) 0.4 Mg Cap 0.8 Mg PO HS Lisinopril 5 Mg Tab 5 Mg PO DAILY . 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 Ordered Medications Current Medications Vancomycin HCl 1000 mg/Sodium Chloride 250 ml @ 250 mls/hr ONCE STAT IV Last administered on 03/15/17 20:12; Start 03/15/17 at 19:04; Stop 03/15/17 at 20:03 ; Status DC Piperacillin Sod/ Tazobactam Sod (Zosyn 4.5 Gm Premix) 100 ml @ 200 mls/hr ONCE STAT IV Last administered on 03/15/17 19:37; Start 03/15/17 at 19:04; Stop 03/15/17 at 19:33; Status DC Diatrizoate Meglum/ Diatrizoate Sod ( Gastrojamel Liq) 9 ml STK-MED ONCE .ROUTE Last administered on 03/15/17 19:38; Start 03/15/17 at 19:22; Stop at 19:23; Status DC Acetaminophen 650 mg 650 mg ONCE ONCE PO Last administered on 03/15/17 19:41 ; Start 03/15/17 at 19:45; Stop 03/15/17 at 19:46; Status DC Sodium Chloride 1,000 ml @ 1,000 mls/hr Q1H ONCE IV Last administered on 20:12; Start 03/15/17 at 20:00; Stop 03/15/17 at 20:59; Status DC Sodium Chloride 1,000 ml @ 1,000 mls/hr Q1H ONCE IV Last administered on 20:12; Start 03/15/17 at 20:00; Stop 03/15/17 at 20:59; Status DC Sodium Chloride (NS 1000 ml Inj) 1,000 ml @ 1,000 mls/hr Q1H ONCE IV Last administered on 03/15/17 20:12; Start 03/15/17 at 20:00; Stop 03/15/17 at 20:59 ; Status DC Iohexol (Omnipaque 350 Inj) 98 ml STK-MED ONCE IV Last administered on 20:38; Start 03/15/17 at 20:38; Stop 03/15/17 at 20:40; Status DC Lorazepam (Ativan Inj) 1 mg ONCE ONCE IV PUSH Last administered on 03/15/17 21:18; Start 03/15/17 at 21:15; Stop 03/15/17 at 21:16; Status DC Sodium Chloride (NS Flush) 2 ml UNSCH PRN IV FLUSH FLUSH AFTER USING IV ACCESS ; Start 03/15/17 at 21:45 Sodium Chloride (NS Flush) 2 ml BID IV FLUSH ; Start 03/16/17 at 09:00 Ondansetron HCl (Zofran Inj) 4 mg Q6H PRN IVP NAUSEA OR VOMITING; Start at 21:45 Naloxone HCl (Narcan Inj) 0.4 mg UNSCH PRN IV SEE LABEL COMMENTS; Start at 21:45 Tamsulosin HCl (Flomax) 0.8 mg HS PO ; Start 03/16/17 at 21:00 Tiotropium Winters 18 mcg 18 mcg DAILY INH ; Start 03/16/17 at 09:00 Pharmacy Profile Note 0 ml @ 0 mls/hr UNSCH OTHER ; Start 03/15/17 at 22:00 Piperacillin Sod/ Tazobactam Sod 100 ml @ 200 mls/hr Q6H IV ; Start 03/16/17 at 02:00 Vancomycin HCl/ Sodium Chloride (Vancomycin Inj/ NS Inj) 100 ml @ 200 mls/hr DAILY@23 IV Last administered on 03/15/17t 22:47; Start 03/15/17 at 23:00; Stop 03/16/17 at 02:00 . Family History Brother had DE - 38 years old - following massive DE Mother had lung cancer Father from complications related to aging . Social History Tobacco: history of smoking 2 - 3 cigarettes per daily for 2 - 3 years, and hasn 't smoked in at least 6 years Alcohol: denies Illicit Drugs: denies Physical Exam Vital Signs Vital Signs Date Time Temp Pulse Resp B/P Pulse Ox O2 Delivery O2 Flow Rate FiO2 03/15/17 22:00 98.5 88 18 90/52 98 Nasal Cannula 2 03/15/17 19:35 102.1 03/15/17 19:20 26 93 Nasal Cannula 2 03/15/17 19:20 93 Nasal Cannula 2 03/15/17 18:46 20 03/15/17 18:07 100.2 03/15/17 15:51 98.6 116 24 122/60 99 Room Air Physical Exam GENERAL: This is a well-nourished, well-developed patient, in no apparent distress. SKIN: Warm and diaphoretic. Yellow, foul-smelling discharge from pin-sized hole in lower abdomen; Laparotomy incisions without signs of infection on upper abdomen. HEAD: Atraumatic. Normocephalic. EYES: No scleral icterus. No injection or drainage. ENT: Nose without bleeding, purulent drainage. NECK: Trachea midline. No JVD or lymphadenopathy. CARDIOVASCULAR: Regular rate and rhythm without murmurs, gallops, or rubs. RESPIRATORY: Clear to auscultation. Breath sounds equal bilaterally. No wheezes , rales, or rhonchi. GASTROINTESTINAL: Abdomen soft, non-tender, protuberant. No guarding. MUSCULOSKELETAL: Extremities without clubbing, cyanosis, or edema. No calf tenderness. NEUROLOGICAL: Awake and alert. Motor and sensory grossly within normal limits. Normal speech. Laboratory Laboratory Tests Test 03/15/17 03/15/17 19:15 19:20 White Blood Count 28.5 Red Blood Count 3.02 Hemoglobin 8.4 Hematocrit 26.1 Mean Corpuscular Volume 86.5 Mean Corpuscular Hemoglobin 27.7 Mean Corpuscular Hemoglobin 32.0 Concent Red Cell Distribution Width 19.0 Platelet Count 654 Mean Platelet Volume 8.0 Neutrophils (%) (Auto) 83.9 Lymphocytes (%) (Auto) 4.0 Monocytes (%) (Auto) 11.9 Eosinophils (%) (Auto) 0.0 Basophils (%) (Auto) 0.2 Neutrophils # (Auto) 23.9 Lymphocytes # (Auto) 1.1 Monocytes # (Auto) 3.4 Eosinophils # (Auto) 0.0 Basophils # (Auto) 0.1 CBC Comment AUTO DIFF Differential Total Cells 100 Counted Neutrophils % (Manual) 75 Band Neutrophils % 14 Lymphocytes % 2 Monocytes % 7 Neutrophils # (Manual) 25.9 Metamyelocytes 2 Differential Comment FINAL DIFF MANUAL Platelet Estimate HIGH Platelet Morphology Comment CLUMPED Prothrombin Time 12.4 Prothromb Time International 1.1 Ratio Activated Partial 35.0 Thromboplast Time Sodium Level 131 Potassium Level 3.6 Chloride Level 98 Carbon Dioxide Level 24.6 Anion Gap 8 Blood Urea Nitrogen 14 Creatinine 1.01 Estimat Glomerular Filtration 74 Rate Random Glucose 93 Calcium Level 8.8 Total Bilirubin 0.6 Aspartate Amino Transf 13 (AST/SGOT) Alanine Aminotransferase 13 (ALT/SGPT) Alkaline Phosphatase 136 Total Protein 7.3 Albumin 2.8 Lactic Acid Level 2.1 Date/Time Procedure Status Source Growth 03/15/17 19:20 Aerobic Blood Culture Received Blood Peripheral Pending 03/15/17 19:20 Anaerobic Blood Culture Received Blood Peripheral Pending 03/15/17 19:00 Gram Stain Received Wound Abdomen Pending 03/15/17 19:00 Wound Culture Received Wound Abdomen Pending Result Diagram: 03/15/17191403/15/171914 Imaging Last Impressions Chest X-Ray 03/15/171903 Signed Impressions: Service Date/Time: Wednesday, March 15, 2017 19:29 - CONCLUSION: 1. Mild patchy opacity at the lung bases which may represent scarring and/or atelectasis. 2. Normal residual blunting of left costophrenic angle which is improved. This could represent a small effusion. Conrado Bhatti MD Abdomen/Pelvis CT 03/15/171903 Signed Impressions: Service Date/Time: [place], March 15, 2017 20:37 - CONCLUSION: 1. New large oval collection along the left anterior abdominal wall musculature with large air fluid level. The differential diagnosis includes abscess. This does not appear to communicate with the bowel. 2. Nonspecific bowel gas pattern with moderate gaseous dilatation of portions of the transverse colon. There are multiple loops of nondilated air-containing small bowel with air-fluid levels. This may represent an ileus. 3. Small to moderate pericardial effusion which appears mildly increased in size from the prior study. 4. 2 small areas of apparent splenic tissue without change. 5. Stable appearance of the pancreas with stable cystic structure in the tail and calcifications. Conrado Bhatti MD Assessment and Plan Problem List: (1) Sepsis ICD Code: A41.9 Status: Resolved (2) Abdominal abscess ICD Code: K65.1 Status: Acute (3) Pericardial effusion ICD Code: I31.3 Status: Acute Assessment and Plan Sepsis likely secondary to abdominal wall abscess in immunocompromised patient with history of splenectomy - Zosyn 4.5 mg IV every 6 hours and IV vancomycin with pharmacy consult to assist with therapeutic dosing and monitoring - General surgery consultation - Nothing by mouth until seen by general surgery Pericardial effusion and diastolic congestive heart failure - Per abdominal and pelvis CT, pericardial effusion is mildly increased than seen on previous studies - Will repeat echocardiogram - Consult cardiology - assistance appreciated - Continuous cardiac telemetry to monitor for arrhythmias SCD prophylaxis - SCDs/JASON lopez . Discussed Condition With ER physician, patient, and RN Physician Certification 2 Midnight Certification Type: Admission for Inpatient Services Order for Inpatient Services The services are ordered in accordance with Medicare regulations or non- Medicare payer requirements, as applicable. In the case of services not specified as inpatient-only, they are appropriately provided as inpatient services in accordance with the 2-midnight benchmark. Estimated LOS (days): 4 days is the estimated time the patient will need to remain in the hospital, assuming treatment plan goals are met and no additional complications. Post-Hospital Plan: Home Problem Qualifiers (1) Sepsis: Qualified Code: A41.9 - Sepsis, due to unspecified organism Pamela Martinez Mar 15, 2017 23:00
[2017-03-16] VITALS (20 sets, daily range): BP systolic 93–113; BP diastolic 49–67; PULSE 68–90; RESP 18; TEMP 98.2–98.8; O2SAT 96–97
[2017-03-16] MEDS: PIPERACIL-TAZO 4.5 GM PREMIX 100 ML IV SCH ×4 (02:00→20:47)
[2017-03-16 07:32] LABS: AUTOMATED NEUTROPHIL # 16.4 TH/MM3 (1.8-7.7); BASOPHIL # 0.1 TH/MM3 (0-0.2); BASOPHIL % 0.6 % (0.0-2.0); EOSINOPHIL % 0.2 % (0.0-4.0); HEMATOCRIT 23.5 % (39.0-51.0); LYMPH % 9.4 % (9.0-44.0); MEAN CELL VOLUME 87.4 FL (80.0-100.0); MEAN CORPUSCULAR HEMOGLOBIN 27.7 PG (27.0-34.0); MEAN CORPUSCULAR HGB CONC 31.7 % (32.0-36.0); MONO % 14.6 % (0.0-8.0); NEUT % 75.2 % (16.0-70.0); PLATELET COUNT 580 TH/MM3 (150-450); RED BLOOD COUNT 2.69 MIL/MM3 (4.50-5.90); WHITE BLOOD COUNT 21.8 TH/MM3 (4.0-11.0)
[2017-03-16 07:34] LABS: HEMO FLAGS AUTO DIFF
[2017-03-16 07:54] LABS: BICARBONATE 22.3 MEQ/L (21.0-32.0); POTASSIUM 3.7 MEQ/L (3.5-5.1)
[2017-03-16] MEDS ORDERED: MORPHINE SULFATE 4 MG/ML INJ IV PUSH PRN (08:00)
[2017-03-16 09:00] LABS: BANDS 15 % (0-6); NEUTROPHIL # MANUAL DIFF 18.5 TH/MM3 (1.8-7.7); POLYS (SEG NEUTROPHILS) 70 % (16-70); WBC DIFF SAMPLE 100
[2017-03-16 09:02] LABS: PLATELET ESTIMATE SMEAR HIGH (NORMAL); PLATELET MORPHOLOGY NORMAL (NORMAL); SCAN/DIFF FINAL DIFF MANUAL
[2017-03-16] MEDS: TIOTROPIUM BROMIDE 18 MCG INH INH SCH (09:22)
[2017-03-16] MEDS: oxyCODONE/ACETAMINOPHEN 7.5 MG/325 MG TAB PO PRN ×3 (09:22→20:46)
--- NOTE | 2017-03-16 11:45 | PD.ID.CON ---
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 He was treated with zyvox and levaquine He developped fever and chills on Wednesday and drainage from incision and presented with it yday in ER. He had fever of 102 and WBC of 28 K. He has a mild pain in LUQ His CT showed large oval collection along the left anterior abdominal wall musculature with large air fluid level. It does not appear to communicate with the bowel; ileus. He was started on broad spectrum abx and dseen by Dr Vernon who recommended percutaneous aspiration G stain showing GPC in pairs He denies diarreh, nausea or vomiting pt emians afebrile since admission Review of Systems Constitutional: COMPLAINS OF: Fever, Chills, Night Sweats Gastrointestinal: COMPLAINS OF: Abdominal pain Except as stated in HPI: all other systems reviewed are Neg Past Family Social History Allergies: Coded Allergies: Aspirin (Verified Allergy, Unknown, 03/15/17) Nonsteroidal Anti-Inflammatory Agts (Verified Adverse Reaction, Intermediate, 03/15/17) *MDRO Multi-Drug Resistant Organism (Verified Adverse Reaction, Unknown, ) 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 Past Medical History Gout Anxiety Bronchitis versus COPD Stroke in 2003 GERD Hypertension Hiatal hernia Past Surgical History Left inguinal hernia repair Splenectomy due to physical trauma while playing football Active Ordered Medications Medications where reviewed in EMR Antibiotics Include: vee baptiste Family History Grandmother had cancer he stated it is "belly cancer " Social History Used to smoke 5 cigarettes per day for 3 years he quit 2 years ago Used to drink beer every day but now the pack will last him 2 weeks Denied illicit drug abuse Physical Exam Vital Signs Vital Signs Date Time Temp Pulse Resp B/P Pulse Ox O2 Delivery O2 Flow Rate FiO2 03/16/17 06:00 75 03/16/17 05:00 75 03/16/17 04:00 98.4 80 18 102/67 97 03/16/17 04:00 78 03/16/17 03:00 78 03/16/17 02:00 75 03/16/17 01:09 98.2 76 18 93/57 96 03/16/17 01:00 78 03/15/17 22:00 98.5 88 18 90/52 98 Nasal Cannula 2 03/15/17 19:35 102.1 03/15/17 19:20 26 93 Nasal Cannula 2 03/15/17 19:20 93 Nasal Cannula 2 03/15/17 18:46 20 03/15/17 18:07 100.2 03/15/17 15:51 98.6 116 24 122/60 99 Room Air Physical Exam CONSTITUTIONAL/GENERAL: This is an obese lederly male patient, in no apparent distress. TUBES/LINES/DRAINS: SKIN: No jaundice, rashes, or lesions. Skin temperature appropriate. Not diaphoretic. HEAD: Atraumatic. Normocephalic. EYES: Pupils equal and round and reactive. Extraocular motions intact. No scleral icterus. No injection or drainage. Fundi not examined. ENT: Hearing grossly normal. Nose without bleeding or purulent drainage. Oral mucosae without visible erythema, exudates, masses, or lesions. NECK: Trachea midline. Supple, nontender. CARDIOVASCULAR: Regular rate and rhythm without murmurs, gallops, or rubs. No JVD. Peripheral pulses symmetric. RESPIRATORY/CHEST: Symmetric, unlabored respirations. Clear to auscultation. Breath sounds equal bilaterally. No wheezes, rales, or rhonchi. GASTROINTESTINAL: Abdomen soft, LUQ minimally tender without guarding/rebound , markedly distended. Small opening in lower part of the incision is draining large amount of colorless odorless thin fluid No hepato-splenomegaly, or palpable masses. No guarding. Bowel sounds present. GENITOURINARY: Without palpable bladder distension. MUSCULOSKELETAL: Extremities without clubbing, cyanosis, or edema. No joint tenderness or effusion noted. No calf tenderness. No mottling or clubbing. LYMPHATICS: No palpable cervical or supraclavicular adenopathy. NEUROLOGICAL: Awake and alert. Motor and sensory grossly within normal limits. Follows commands. Clear speech . Moves all extremities. PSYCHIATRIC: No obvious anxiety/depression. no apparent hallucinations or other psychotic thought process. Laboratory Laboratory Tests Test 03/15/17 03/15/17 03/15/17 03/16/17 19:15 19:20 22:50 06:28 White Blood Count 28.5 21.8 Red Blood Count 3.02 2.69 Hemoglobin 8.4 7.4 Hematocrit 26.1 23.5 Mean Corpuscular Volume 86.5 87.4 Mean Corpuscular Hemoglobin 27.7 27.7 Mean Corpuscular Hemoglobin 32.0 31.7 Concent Red Cell Distribution Width 19.0 19.0 Platelet Count 654 580 Mean Platelet Volume 8.0 7.7 Neutrophils (%) (Auto) 83.9 75.2 Lymphocytes (%) (Auto) 4.0 9.4 Monocytes (%) (Auto) 11.9 14.6 Eosinophils (%) (Auto) 0.0 0.2 Basophils (%) (Auto) 0.2 0.6 Neutrophils # (Auto) 23.9 16.4 Lymphocytes # (Auto) 1.1 2.0 Monocytes # (Auto) 3.4 3.2 Eosinophils # (Auto) 0.0 0.0 Basophils # (Auto) 0.1 0.1 CBC Comment AUTO DIFF AUTO DIFF Differential Total Cells 100 100 Counted Neutrophils % (Manual) 75 70 Band Neutrophils % 14 15 Lymphocytes % 2 6 Monocytes % 7 9 Neutrophils # (Manual) 25.9 18.5 Metamyelocytes 2 Differential Comment FINAL DIFF FINAL DIFF MANUAL MANUAL Platelet Estimate HIGH HIGH Platelet Morphology Comment CLUMPED NORMAL Prothrombin Time 12.4 Prothromb Time International 1.1 Ratio Activated Partial 35.0 Thromboplast Time Sodium Level 131 141 Potassium Level 3.6 3.7 Chloride Level 98 108 Carbon Dioxide Level 24.6 22.3 Anion Gap 8 11 Blood Urea Nitrogen 14 11 Creatinine 1.01 0.71 Estimat Glomerular Filtration 74 112 Rate Random Glucose 93 85 Calcium Level 8.8 8.2 Total Bilirubin 0.6 Aspartate Amino Transf 13 (AST/SGOT) Alanine Aminotransferase 13 (ALT/SGPT) Alkaline Phosphatase 136 Total Protein 7.3 Albumin 2.8 Lactic Acid Level 2.1 1.0 Date/Time Procedure Status Source Growth 03/15/17 19:20 Aerobic Blood Culture - Preliminary Resulted Blood Peripheral NO GROWTH IN 1 DAY 03/15/17 19:20 Anaerobic Blood Culture - Preliminary Resulted Blood Peripheral NO GROWTH IN 1 DAY 03/15/17 19:15 Aerobic Blood Culture Received Blood Peripheral Pending 03/15/17 19:15 Anaerobic Blood Culture Received Blood Peripheral Pending 03/15/17 19:00 Gram Stain - Final Resulted Wound Abdomen 03/15/17 19:00 Wound Culture Resulted Wound Abdomen Pending Result Diagram: 03/16/17 0628 03/16/17627 Imaging Last Impressions Chest X-Ray 03/15/171903 Signed Impressions: Service Date/Time: Wednesday, March 15, 2017 19:29 - CONCLUSION: 1. Mild patchy opacity at the lung bases which may represent scarring and/or atelectasis. 2. Normal residual blunting of left costophrenic angle which is improved. This could represent a small effusion. Conrado Bhatti MD Abdomen/Pelvis CT 03/15/171903 Signed Impressions: Service Date/Time: Wednesday, March 15, 2017 20:37 - CONCLUSION: 1. New large oval collection along the left anterior abdominal wall musculature with large air fluid level. The differential diagnosis includes abscess. This does not appear to communicate with the bowel. 2. Nonspecific bowel gas pattern with moderate gaseous dilatation of portions of the transverse colon. There are multiple loops of nondilated air-containing small bowel with air-fluid levels. This may represent an ileus. 3. Small to moderate pericardial effusion which appears mildly increased in size from the prior study. 4. 2 small areas of apparent splenic tissue without change. 5. Stable appearance of the pancreas with stable cystic structure in the tail and calcifications. Conrado Bhatti MD Assessment and Plan Assessment and Plan Abdominal wall abscess - growing GNB in clx High fever , resolved on current abx H/o VRE recently agree with plan for drainage cont current abx (zosyn, vanco) if fever recurs before clx are available will change to zyvox or daptomycin will chack routine, AFB and fungal clx will adjust abx per clx report Sheridan Benjamin MD Mar 16, 2017 11:45
[2017-03-16] MEDS: VANCOMYCIN INJ 1,500 MG in SODIUM CHLORID 0.9% 500 ML INJ 500 ML IV SCH ×2 (12:17→21:57)
--- NOTE | 2017-03-16 12:34 | HHI.PR ---
Subjective Remarks awake and alert no chills complains of abdominal discomfort Objective Vitals Vital Signs Date Time Temp Pulse Resp B/P Pulse Ox O2 Delivery O2 Flow Rate FiO2 03/16/17 06:00 75 03/16/17 05:00 75 03/16/17 04:00 98.4 80 18 102/67 97 03/16/17 04:00 78 03/16/17 03:00 78 03/16/17 02:00 75 03/16/17 01:09 98.2 76 18 93/57 96 03/16/17 01:00 78 03/15/17 22:00 98.5 88 18 90/52 98 Nasal Cannula 2 03/15/17 19:35 102.1 03/15/17 19:20 26 93 Nasal Cannula 2 03/15/17 19:20 93 Nasal Cannula 2 03/15/17 18:46 20 03/15/17 18:07 100.2 03/15/17 15:51 98.6 116 24 122/60 99 Room Air I/O 03/15/17 03/15/17 03/15/17 03/16/17 03/16/17 03/16/17 07:00 15:00 23:00 07:00 15:00 23:00 Output Total 700 ml Balance -700 ml Output Urine Total 700 ml Result Diagram: 03/16/1728 03/16/17627 Imaging Last Impressions Chest X-Ray 03/15/171903 Signed Impressions: Service Date/Time: Wednesday, March 15, 2017 19:29 - CONCLUSION: 1. Mild patchy opacity at the lung bases which may represent scarring and/or atelectasis. 2. Normal residual blunting of left costophrenic angle which is improved. This could represent a small effusion. Conrado Bhatti MD Abdomen/Pelvis CT 03/15/171903 Signed Impressions: Service Date/Time: Wednesday, March 15, 2017 20:37 - CONCLUSION: 1. New large oval collection along the left anterior abdominal wall musculature with large air fluid level. The differential diagnosis includes abscess. This does not appear to communicate with the bowel. 2. Nonspecific bowel gas pattern with moderate gaseous dilatation of portions of the transverse colon. There are multiple loops of nondilated air-containing small bowel with air-fluid levels. This may represent an ileus. 3. Small to moderate pericardial effusion which appears mildly increased in size from the prior study. 4. 2 small areas of apparent splenic tissue without change. 5. Stable appearance of the pancreas with stable cystic structure in the tail and calcifications. Conrado Bhatti MD Objective Remarks NAD, obese awake and alert, oriented x 3 lungs no rales or wheezes regular rhythm abdomen- globularly soft, _ multiple post op surgical wounds- some with drainage extremites no edema A/P Problem List: (1) Sepsis ICD Code: A41.9 Status: Resolved (2) Abdominal abscess ICD Code: K65.1 Status: Acute (3) Pericardial effusion ICD Code: I31.3 Status: Acute Assessment and Plan Sepsis likely secondary to abdominal wall abscess in immunocompromised patient with history of splenectomy - Zosyn 4.5 mg IV every 6 hours and IV vancomycin with pharmacy consult to assist with therapeutic dosing and monitoring - General surgery ff - IR consulted - Nothing by mouth until seen by general surgery Pericardial effusion and diastolic congestive heart failure - Per abdominal and pelvis CT, pericardial effusion is mildly increased than seen on previous studies- 01/2017 - GEt echocardiogram to verify- small minimal pericardial effusion. - Continuous cardiac telemetry to monitor for arrhythmias - continue on JERICHO,Lasix Anemia - check iron studies continue home meds- Flomax SCD prophylaxis - SCDs/JASON hose ADD- echo pericardial fluid minimal- cancel cardiology consult . Problem Qualifiers (1) Sepsis: Qualified Code: A41.9 - Sepsis, due to unspecified organism Tristan Daily MD Mar 16, 2017 12:34
[2017-03-16] MEDS ORDERED: ZOLPIDEM TARTRATE 10 MG TAB PO PRN (16:45)
--- NOTE | 2017-03-16 16:59 | ECHRPT ---
Indication: Pericardial effusion (noninflammatory) CONCLUSIONS Normal left ventricular size and wall thickness. The left ventricular systolic function is normal wi th an estimated ejection fraction in the range of 60-65%. Left ventricular diastolic function parameters a re normal. Normal wall motion. [id number] mitral valve regurgitation. Mitral annular calcification is present. Structurally normal tricuspid valve. There is trace tricuspid valve regurgitation. There is a small pericardial effusion present. No hemodynamically significant echocardiographic features were observed (no pre-tamponade physiology). BP: 102 / 67 HR: 80 Rhythm: Sinus MEASUREMENTS (Male / Female) Normal Values Technical Quality:Technically difficult study 2D ECHO LV Diastolic Diameter PLAX 4.5 cm 4.2 - 5.9 / 3.9 - 5.3 cm LV Systolic Diameter PLAX 3.4 cm IVS Diastolic Thickness 1.1 cm 0.6 - 1.0 / 0.6 - 0.9 cm LVPW Diastolic Thickness 0.9 cm 0.6 - 1.0 / 0.6 - 0.9 cm LV Relative Wall Thickness 0.4 RV Internal Dim ED PLAX 3.1 cm LA Systolic Diameter LX 3.8 cm 3.0 - 4.0 / 2.7 - 3.8 cm M-MODE Aortic Root Diameter MM 3.6 cm AV Cusp Separation MM 2.2 cm DOPPLER MV Peak Velocity 139.0 cm/s MV Peak Gradient 7.7 mmHg MV Mean Velocity 71.7 cm/s MV Mean Gradient 2.0 mmHg Mitral E Point Velocity 91.3 cm/s Mitral A Point Velocity 80.9 cm/s Mitral E to A Ratio 1.1 TR Peak Velocity 274.0 cm/s TR Peak Gradient 30.0 mmHg FINDINGS LEFT VENTRICLE Normal left ventricular size and wall thickness. The left ventricular systolic function is normal wi th an estimated ejection fraction in the range of 60-65%. Left ventricular diastolic function parameters a re normal. Normal wall motion. RIGHT VENTRICLE Normal right ventricular size and systolic function. LEFT ATRIUM The left atrial size is normal. RIGHT ATRIUM The right atrial size is upper limits of normal. ATRIAL SEPTUM Normal atrial septal thickness without atrial level shunting by limited color doppler interrogation. AORTA The aortic root and proximal ascending aorta are normal in size on limited imaging. MITRAL VALVE [id number] mitral valve regurgitation. Mitral annular calcification is present. AORTIC VALVE Trileaflet aortic valve. No aortic valve stenosis or regurgitation. TRICUSPID VALVE Structurally normal tricuspid valve. There is trace tricuspid valve regurgitation. PULMONARY VALVE The pulmonary valve is not well visualized. VESSELS The inferior vena cava is normal in size. PERICARDIUM There is a small pericardial effusion present. No hemodynamically significant echocardiographic features were observed (no pre-tamponade physiology). Malcom Woods MD (Electronically Signed) Final Date:16 March 2017 16:58
--- NOTE | 2017-03-16 17:18 | EKG ---
Date Performed: 03/15/2017 Time Performed: 19:30:17 PTAGE: 66 years EKG: SINUS TACHYCARDIA WITH OCCASIONAL SUPRAVENTRICULAR PREMATURE COMPLEXES NONSPECIFIC T-WAVE A BNORMALITY ABNORMAL RHYTHM ECG PREVIOUS TRACING 01/23/2017 @04.14 Compared to prior tracing no significant change DOCTOR: Siddharth Benjamin Interpretating Date/Time 03/16/2017 17:15:27
--- NOTE | 2017-03-16 19:35 | MB ---
cc: AJ ALAN DATE OF CONSULTATION 03/16/17 REASON FOR CONSULTATION Pericardial effusion. HISTORY OF PRESENT ILLNESS The patient is a very pleasant 66-year-old white male, followed in our office by Dr. Prem Cardona with a history of asthma/COPD, peptic ulcer disease, CVA, hypertension, chronic pericardial effusion who was admitted with increasing abdominal pain. He has been found to have abdominal abscess. CT of the abdomen incidentally showed a small to moderate-sized pericardial effusion possibly mildly increased in size from a prior study. The patient denies any chest pain, shortness of breath, syncope, near-syncope, palpitations, pedal edema, paroxysmal nocturnal dyspnea. At times, he has mild brief lightheadedness upon standing. The patient does report fevers over the last 3-4 days as high as 102 degrees. PAST MEDICAL HISTORY 1. Asthma/COPD. 2. Peptic ulcer disease with a gastric ulcer demonstrated by endoscopy 2004. 3. CVA 2003. 4. Hypertension 5. Gout. 6. Right upper extremity cellulitis December 2006. 7. Moderate size pericardial effusion by echo 07/08/16 at which time interventional radiology felt the effusion to be too small for pericardiocentesis. 8. Possible diastolic dysfunction congestive heart failure July 2016 PAST SURGICAL HISTORY 1. Umbilical hernia repair 04/11/2014. 2. Left inguinal hernia repair. 3. Splenectomy after trauma playing football 4. Right hemicolectomy and end ileostomy, distal colostomy after a cecal perforation 07/16/2016. 5. Exploratory laparotomy, adhesiolysis, ileostomy reversal, incisional hernia repair 01/20/2017 MEDICATIONS Cardiac medications at home 1. Lisinopril 5 mg daily. 2. Lasix 40 mg daily. 3. Potassium chloride 20 Jamee b.i.d. ALLERGIES ASPIRIN NSAIDs FAMILY HISTORY Noncontributory. SOCIAL HISTORY The patient denies alcohol abuse. He did smoke cigarettes for about three years, none since 2013. REVIEW OF SYSTEMS As in the history of present illness, otherwise, negative or noncontributory. He also denies headache, visual changes, melena, bright red blood per rectum, dyspepsia, chills. PHYSICAL EXAMINATION VITAL SIGNS: Blood pressure 110/63 with a pulse of 78, respirations 18. GENERAL: He is a well-developed, well-nourished white male in no acute distress. HEENT: Jugular venous pressure is normal. Carotid pulses are 2+ bilaterally and without bruits. LUNGS: Examination of the chest reveals clear lung cantu. CARDIAC: He has a regular rhythm and rate without S3-S4 murmur or rub. ABDOMEN: He has a soft abdomen. Aggressive palpation was not pursued. Bowel sounds are present. EXTREMITIES: No clubbing, cyanosis or edema. LABORATORY DATA WBC 21.8, hemoglobin 7.4, platelets 580, potassium 3.7, BUN 11, creatinine 0.71, INR 1.1. IMAGING STUDIES Chest x-ray shows possible tiny left pleural effusion, possible bilateral basilar atelectasis. CARDIOLOGY STUDIES EKG shows sinus tachycardia, nonspecific T-wave abnormalities. IMPRESSION Small to moderate size pericardial effusion incidentally seen on abdominal CT this admission in this 66-year-old white male with a history of known pericardial effusion dating back to at least June 2016, history of hypertension, peptic ulcer disease, asthma/COPD, possible diastolic dysfunction congestive heart failure July 2016. Echocardiogram is currently pending. Overall, I suspect the effusion is still too small for interventional radiology to do a CT-guided pericardiocentesis. There is no evidence clinically or hemodynamically for tamponade. His last echo similarly did not show any echocardiographic evidence for tamponade. It appears his sepsis is due to an abdominal abscess. RECOMMENDATIONS Await his 2-D echo. Unless the echo shows evidence for tamponade physiology, would not recommend any intervention. He can follow up as needed with his primary engine setter, Dr. Cardona in [place]. We will follow up as needed here in the hospital. MD DENILSON Caputo/ /3:13 PM /7:28 PM BEAN
[2017-03-16] MEDS: TAMSULOSIN HCL 0.4 MG CAP PO SCH (20:46)
[2017-03-16] MEDS: LORazepam 1 MG TAB PO PRN (20:47)
[2017-03-16] MEDS: POTASSIUM CHLORIDE 20 MEQ CONTROLLED RELEASE TAB PO SCH (20:47)
[2017-03-16] MEDS: BUDESONIDE-FORMOTEROL 160/4.5 MCG INHALER INH SCH (20:48)
[2017-03-16] MEDS: SODIUM CHLORIDE 0.9% FLUSH 10 ML FLUSH IV FLUSH SCH (21:00)
--- NOTE | 2017-03-16 22:37 | MB ---
cc: MAYLIN GREENE MD DATE OF CONSULTATION 03/16/17 REASON FOR CONSULTATION The patient known to service, concern for abdominal abscess. HISTORY OF PRESENT ILLNESS The patient is a 66-year-old male who has a history of a perforated cecum, septic shock about seven months ago status post reversal of colostomy mucous fistula with development of a wound infection. The patient was undergoing VAC treatments for this abdominal wound care when the patient developed at home fever, increased left-sided pain and increased drainage. The patient then decided to come to the emergency department for further evaluation. He had a CT scan showing a significant abdominal wall abscess in the left side. The patient was noted to be febrile in the emergency department with a leukocytosis of 27,000. He was admitted with IV antibiotics, pain control and further evaluation. PAST MEDICAL HISTORY 1. Hypertension, 2. Cecal perforation 3. MDRO 4. Pericardial effusion 5. CHF. PAST SURGICAL HISTORY 1. Splenectomy 2. Hernia repair 3. Colostomy June 2016 4. Colostomy reversal 01/20/17 5. Left hip replacement. MEDICATIONS See EMR. FAMILY HISTORY Denies hypertension, diabetes. ALLERGIES ASPIRIN NSAIDs SOCIAL HISTORY Denies smoking, ETOH or IVDA. REVIEW OF SYSTEMS GENERAL: The patient denies headaches, ____ fever. HEENT: Denies eye pain, ear pain. NECK: Denies swelling or pain. CARDIOVASCULAR: Denies palpitations or tachycardia. LUNGS: Denied cough or wheeze. ABDOMEN: Complained of abdominal pain. Denies nausea, vomiting. : Denies dysuria, hematuria. ENDOCRINE: Denies polyuria, polydipsia. MUSCULOSKELETAL: Complained of arthralgias. Denies myalgia. NEUROLOGIC: Denies numbness or tingling. PHYSICAL EXAMINATION GENERAL: The patient in no acute distress. VITAL SIGNS: Temperature 102.1, respirations 26, blood pressure 122/60, saturations 93% on 2 liters. HEENT: Pupils equal, round, reactive to light and accommodation NECK: Supple. Trachea midline. LUNGS: Bilateral expansion. Clear. HEART: S1-S2 regular. ABDOMEN: Soft, mild distension. Positive tenderness to palpation left-side, midline wound with good granulation, marked improvement distal aspect with purulent drainage. EXTREMITIES: Warm, well-perfused. NEUROLOGIC: Alert and oriented times four, 5/5 motor all extremities. INTEGUMENT: Lesion as above on abdomen, otherwise, no obvious masses or lesions. LABORATORY AND DIAGNOSTIC DATA WBC 28.5, hemoglobin 8.4, hematocrit 26.1, platelets 654. Sodium 131, potassium 3.6, CO2 24.9, chloride 98, BUN 14, creatinine one, AST 13, ALT 13, alk phos 136, protein 7.3, albumin 2.8, INR 1.1. CT reviewed by myself - 14 2 cm anterior abdominal wall abscess with air fluid level. No evidence of intra-abdominal abscess, stable pancreatic cyst. ASSESSMENT The patient is a 66-year-old male, complicated medical-surgical history, history of perforated cecum status post colostomy with reversal, development of wound infection now with new intra-abdominal abscess. PLAN After full clinical, radiologic, and laboratory workup, the patient with above-named issues including an intra-abdominal abscess. At this point in time, agree with IV antibiotics, pain control. We will make the patient n.p.o. We will discuss with interventional radiology for drain placement. The patient will need his negative pressure VAC replaced to the midline and we will facilitate this. Would recommend consultation to Infectious Disease as has a complicated organism and infection in the past. We will continue to follow. Thanks for the consultation. MD DWAYNE Christianson/ /9:55 PM /10:27 PM
[2017-03-17] VITALS (18 sets, daily range): BP systolic 112–128; BP diastolic 60–79; PULSE 66–86; RESP 18–22; TEMP 97.9–98.8; O2SAT 94–98
[2017-03-17] MEDS: PIPERACIL-TAZO 4.5 GM PREMIX 100 ML IV SCH ×4 (02:00→22:06)
[2017-03-17] MEDS: oxyCODONE/ACETAMINOPHEN 7.5 MG/325 MG TAB PO PRN ×4 (04:54→22:14)
[2017-03-17 06:53] LABS: TRANSFERRIN IRON PROFILE 141 MG/DL (200-360)
[2017-03-17 06:56] LABS: FERRITIN 101 NG/ML (26-388)
[2017-03-17] MEDS ORDERED: LIDOCAINE 1%/EPINEPHrine 1:100,000 SOLN 20 ML VIAL ONE (06:57)
[2017-03-17 07:38] LABS: AUTOMATED NEUTROPHIL # 10.4 TH/MM3 (1.8-7.7); BASOPHIL # 0.2 TH/MM3 (0-0.2); BASOPHIL % 1.3 % (0.0-2.0); EOSINOPHIL # 0.3 TH/MM3 (0-0.4); EOSINOPHIL % 1.7 % (0.0-4.0); HEMO FLAGS DIFF FINAL; LYMPH % 21.7 % (9.0-44.0); LYMPHOCYTE # 3.6 TH/MM3 (1.0-4.8); MEAN CELL VOLUME 86.8 FL (80.0-100.0); MEAN CORPUSCULAR HGB CONC 31.1 % (32.0-36.0); MONO % 12.7 % (0.0-8.0); NEUT % 62.6 % (16.0-70.0); PLATELET COUNT 602 TH/MM3 (150-450); RED BLOOD COUNT 2.88 MIL/MM3 (4.50-5.90); RED CELL DISTRIBUTION WIDTH 19.6 % (11.6-17.2); WHITE BLOOD COUNT 16.7 TH/MM3 (4.0-11.0)
[2017-03-17] MEDS ORDERED: MIDAZOLAM HCL 5 MG/5 ML VIAL ONE (07:45)
[2017-03-17] MEDS ORDERED: fentaNYL CITRATE 250 MCG/5 ML AMP ONE (07:45)
[2017-03-17] MEDS ORDERED: NON-FORMULARY DRUG (Omeprazole 20 MG) PO SCH (09:00)
[2017-03-17] MEDS: FUROSEMIDE 20 MG TAB PO SCH (09:25)
[2017-03-17] MEDS: PANTOPRAZOLE SOD 20 MG DELAYED RELEASE TAB PO SCH (09:25)
[2017-03-17] MEDS: LISINOPRIL 5 MG TAB PO SCH (09:25)
[2017-03-17] MEDS: POTASSIUM CHLORIDE 20 MEQ CONTROLLED RELEASE TAB PO SCH ×2 (09:25→22:07)
[2017-03-17] MEDS: TIOTROPIUM BROMIDE 18 MCG INH INH SCH (09:40)
[2017-03-17] MEDS: BUDESONIDE-FORMOTEROL 160/4.5 MCG INHALER INH SCH ×2 (09:40→21:00)
[2017-03-17] MEDS: SODIUM CHLORIDE 0.9% FLUSH 10 ML FLUSH IV FLUSH SCH ×2 (09:40→22:08)
--- NOTE | 2017-03-17 09:41 | RADRPT ---
EXAM DATE/TIME: 03/17/2017 07:56 [facility] COMPARISON: CT ASSISTED ABSCESS DRAIN, July 28, 2016, 13:49. INDICATIONS : Abdominal abscess. DEVICE(S): 1.) 8 Fr Skater FLUID: Total volume of 20 cc of bloody pus was removed. Fluid was sent for laboratory ordered studies. MEDICAL HISTORY : Cardiovascular disease. Hypertension. SURGICAL HISTORY : Splenectomy. Abdominal hernia repair. ENCOUNTER: Initial ACUITY: 1 day PAIN SCORE: 5/10 LOCATION: Left abdomen PROCEDURE: 1.) Conscious sedation with continuous EKG and oximetry monitoring. 2.) EKG and oximetry remained stable throughout the procedure. PROCEDURE : 1. CT guided drainage of the left anterior abdominal wall 2. Conscious sedation with continuous EKG and oximetry monitoring. The risks, benefits and alternatives to the procedure were explained and verbal and written consent w as obtained. Using automated exposure control and adjustment of the mA and/or kV according to patient size, radiation dose was kept as low as reasonably achievable to obtain optimal diagnostic quality i mages. The site was prepped in sterile fashion. Full sterile technique was used, including cap, ma sk, sterile gloves and gown and a large sterile sheet. Hand hygiene and 2% chlorhexidine and/or beta dine/alcohol prep was utilized per protocol for cutaneous antisepsis. The skin and subcutaneous tiss ues were infiltrated with local anesthetic solution. DICOM format image data is available electronic ally for review and comparison. Using CT guidance the prescribed site was localized. Drainage was performed using the prescribed cat heter The patient tolerated the procedure well and there were no complications. Conscious sedation was per formed with the prescribed dosages and duration as above in the presence of an independent trained ra diology nurse to assist in the monitoring of the patient. EKG and oximetry remained stable throughou t the procedure. The patient tolerated the procedure well and there were no complications. The patient was sent to pos t anesthesia recovery in stable condition. CONCLUSION: Uncomplicated CT guided drainage. Jung Roman MD on March 17, 2017 at 9:37 Board Certified Radiologist. This report was verified electronically.
[2017-03-17] MEDS: LORazepam 1 MG TAB PO PRN ×2 (09:44→22:14)
[2017-03-17] MEDS: VANCOMYCIN INJ 1,500 MG in SODIUM CHLORID 0.9% 500 ML INJ 500 ML IV SCH ×2 (10:20→22:07)
--- NOTE | 2017-03-17 14:43 | HHI.PR ---
Subjective Remarks pain much better no nausea or vomiting Objective Vitals Vital Signs Date Time Temp Pulse Resp B/P Pulse Ox O2 Delivery O2 Flow Rate FiO2 03/17/17 09:41 68 20 120/71 03/17/17 09:30 67 22 112/71 03/17/17 09:15 68 18 117/64 03/17/17 09:00 67 20 119/68 94 03/17/17 07:00 98.7 68 20 118/65 97 03/17/17 06:00 68 03/17/17 05:00 69 03/17/17 04:00 68 03/17/17 04:00 98.8 82 18 128/79 97 03/17/17 03:00 86 03/17/17 02:00 80 03/17/17 01:00 82 03/17/17 00:00 77 03/17/17 00:00 98.4 78 18 126/60 97 03/16/17 23:00 82 03/16/17 22:00 86 03/16/17 21:00 82 03/16/17 20:00 82 03/16/17 20:00 98.8 86 18 113/60 97 03/16/17 19:00 90 03/16/17 17:00 68 03/16/17 16:18 98.4 71 18 108/65 97 03/16/17 14:34 98.8 78 18 110/63 97 I/O 03/16/17 03/16/17 03/16/17 03/17/17 03/17/17 03/17/17 07:00 15:00 23:00 07:00 15:00 23:00 Intake Total 960 ml 940 ml Output Total 700 ml 800 ml 1000 ml Balance -700 ml 160 ml -60 ml Intake Oral 240 ml IV Total 960 ml 700 ml Output Urine Total 700 ml 800 ml 1000 ml Result Diagram: 03/17/17 0555 03/16/17 0628 Imaging Last Impressions Abscess Drainage CT 03/17/17 0000 Signed Impressions: Service Date/Time: Friday, March 17, 2017 07:56 - CONCLUSION: Uncomplicated CT guided drainage. Jung Roman MD Chest X-Ray 03/15/17 1904 Signed Impressions: Service Date/Time: Wednesday, March 15, 2017 19:29 - CONCLUSION: 1. Mild patchy opacity at the lung bases which may represent scarring and/or atelectasis. 2. Normal residual blunting of left costophrenic angle which is improved. This could represent a small effusion. Conrado Bhatti MD Abdomen/Pelvis CT 03/15/17 1904 Signed Impressions: Service Date/Time: Wednesday, March 15, 2017 20:37 - CONCLUSION: 1. New large oval collection along the left anterior abdominal wall musculature with large air fluid level. The differential diagnosis includes abscess. This does not appear to communicate with the bowel. 2. Nonspecific bowel gas pattern with moderate gaseous dilatation of portions of the transverse colon. There are multiple loops of nondilated air-containing small bowel with air-fluid levels. This may represent an ileus. 3. Small to moderate pericardial effusion which appears mildly increased in size from the prior study. 4. 2 small areas of apparent splenic tissue without change. 5. Stable appearance of the pancreas with stable cystic structure in the tail and calcifications. Conrado Bhatti MD Objective Remarks NAD, obese awake and alert, oriented x 3 lungs no rales or wheezes regular rhythm abdomen- globularly soft,- dressing in place- JORJE bulb in place - draining serosanguinous thick pus like fluid extremites no edema A/P Problem List: (1) Sepsis ICD Code: A41.9 Status: Resolved (2) Abdominal abscess ICD Code: K65.1 Status: Acute (3) Pericardial effusion ICD Code: I31.3 Status: Acute Assessment and Plan Sepsis likely secondary to abdominal wall abscess in immunocompromised patient with history of splenectomy - Zosyn 4.5 mg IV every 6 hours and IV vancomycin with pharmacy consult to assist with therapeutic dosing and monitoring - General surgery ff- plan to replace VAC Pericardial effusion- insignificant diastolic congestive heart failure- not in clinical failure - Per abdominal and pelvis CT, pericardial effusion is mildly increased than seen on previous studies- 01/2017 - echocardiogram to verify- small minimal pericardial effusion. - Continuous cardiac telemetry to monitor for arrhythmias - continue on JERICHO,Lasix Anemia - H and H stable continue home meds- Flomax - SCDs/JASON hose . Problem Qualifiers (1) Sepsis: Qualified Code: A41.9 - Sepsis, due to unspecified organism Tristan Daily MD Mar 17, 2017 14:43
--- NOTE | 2017-03-17 15:33 | HHI.PR ---
Subjective Subjective Notes Resting in bed Hungry Objective Vitals/I&O Vital Signs Date Time Temp Pulse Resp B/P Pulse Ox O2 Delivery O2 Flow Rate FiO2 03/17/17 09:41 68 20 120/71 03/17/17 09:00 94 03/17/17 07:00 98.7 03/15/17 22:00 Nasal Cannula 2 Labs Laboratory Tests Test 03/17/17 05:55 White Blood Count 16.7 Red Blood Count 2.88 Hemoglobin 7.8 Hematocrit 25.0 Mean Corpuscular Volume 86.8 Mean Corpuscular Hemoglobin 27.0 Mean Corpuscular Hemoglobin 31.1 Concent Red Cell Distribution Width 19.6 Platelet Count 602 Mean Platelet Volume 7.9 Neutrophils (%) (Auto) 62.6 Lymphocytes (%) (Auto) 21.7 Monocytes (%) (Auto) 12.7 Eosinophils (%) (Auto) 1.7 Basophils (%) (Auto) 1.3 Neutrophils # (Auto) 10.4 Lymphocytes # (Auto) 3.6 Monocytes # (Auto) 2.1 Eosinophils # (Auto) 0.3 Basophils # (Auto) 0.2 CBC Comment DIFF FINAL Differential Comment Iron Level 13 Total Iron Binding Capacity 197 Percent Iron Saturation 6.6 Ferritin 101 Date/Time Procedure Status Source Growth 03/17/17 07:31 Gram Stain Received Abscess Abdomen Pending 03/17/17 07:31 Wound Culture Received Abscess Abdomen Pending 03/15/17 19:20 Aerobic Blood Culture - Preliminary Resulted Blood Peripheral NO GROWTH IN 2 DAYS 03/15/17 19:20 Anaerobic Blood Culture - Preliminary Resulted Blood Peripheral NO GROWTH IN 2 DAYS 03/15/17 19:00 Gram Stain - Final Complete Wound Abdomen 03/15/17 19:00 Wound Culture - Final Complete Klebsiella Pneumoniae Gram Positive Cocci Cardiovascular: Regular Lungs: Clear Abdomen: Other (midline wound with two lateral wounds---open---minimal exudate ; accodiran drain in place with purulent drainage in collection bag ) Extremities: Other (minimal edema ) A/P Assessment and Plan 66 year old male s/p VHR with colostomy takedown; delayed healing requiring prolonged Wound Vac placement; now with intra-abdominal abscess -s/p CT guided drainage -Monitor fevers/WBC -Plan to place Wound Vac tomorrow with home vac -Discussed with Supriya Beach Mar 17, 2017 15:33
[2017-03-17] MEDS: TAMSULOSIN HCL 0.4 MG CAP PO SCH (22:07)
[2017-03-18] VITALS (15 sets, daily range): BP systolic 108–126; BP diastolic 63–92; PULSE 56–107; RESP 19–20; TEMP 97.5–97.8; O2SAT 95–97
[2017-03-18] MEDS: PIPERACIL-TAZO 4.5 GM PREMIX 100 ML IV SCH ×2 (02:00→08:17)
[2017-03-18] MEDS: oxyCODONE/ACETAMINOPHEN 7.5 MG/325 MG TAB PO PRN ×2 (04:41→09:11)
[2017-03-18] MEDS: FUROSEMIDE 20 MG TAB PO SCH (08:16)
[2017-03-18] MEDS: POTASSIUM CHLORIDE 20 MEQ CONTROLLED RELEASE TAB PO SCH (08:16)
[2017-03-18] MEDS: TIOTROPIUM BROMIDE 18 MCG INH INH SCH (08:16)
[2017-03-18] MEDS: SODIUM CHLORIDE 0.9% FLUSH 10 ML FLUSH IV FLUSH SCH (08:16)
[2017-03-18] MEDS: PANTOPRAZOLE SOD 20 MG DELAYED RELEASE TAB PO SCH (08:16)
[2017-03-18] MEDS: BUDESONIDE-FORMOTEROL 160/4.5 MCG INHALER INH SCH (08:16)
[2017-03-18] MEDS: LISINOPRIL 5 MG TAB PO SCH (08:16)
[2017-03-18] MEDS ORDERED: CHOLECALCIFEROL (VIT D3) 1000 UNIT TAB PO SCH (09:00)
[2017-03-18] MEDS ORDERED: CYANOCOBALAMIN 100 MCG TAB PO SCH (09:00)
[2017-03-18] MEDS ORDERED: PHARMACY ORDERED LAB ONE (09:45)
--- NOTE | 2017-03-18 10:37 | HHI.FF ---
Face to Face Verification Diagnosis: (1) Abdominal wall hernia (2) Abdominal abscess Home Health Nursing Order: Wound care and dressing changes Instructions: Resumption of care Wound vac change ---- Wednesday Monitor and drain accordion drain I have seen patient Travis Hunt on 03/18/17. My clinical findings support the need for the requested home health care services because: Limited ability to care for self I certify that my clinical findings support that this patient is homebound because: Post-op weakness Supriya Shankar MANAGER BRIDGE Mar 18, 2017 10:37
--- NOTE | 2017-03-18 11:07 | HHI.PR ---
Subjective Remarks for VAC change today Objective Vitals Vital Signs Date Time Temp Pulse Resp B/P Pulse Ox O2 Delivery O2 Flow Rate FiO2 03/18/17 07:15 97.5 62 19 126/92 96 03/18/17 05:00 58 03/18/17 04:00 64 03/18/17 04:00 97.5 107 20 108/78 97 03/18/17 03:00 56 03/18/17 02:00 68 03/18/17 01:00 68 03/18/17 00:00 62 03/18/17 00:00 97.8 65 20 121/63 96 03/17/17 23:00 72 03/17/17 22:00 72 03/17/17 21:00 72 03/17/17 20:00 66 03/17/17 20:00 97.9 82 20 119/71 98 03/17/17 17:41 70 20 122/68 03/17/17 13:41 98.6 71 18 118/68 I/O 03/17/17 03/17/17 03/17/17 03/18/17 03/18/17 03/18/17 07:00 15:00 23:00 07:00 15:00 23:00 Intake Total 940 ml 1025 ml 480 ml Output Total 1000 ml 50 ml 760 ml Balance -60 ml 975 ml -280 ml Intake Oral 240 ml 400 ml 480 ml IV Total 700 ml 625 ml Output Urine Total 1000 ml 700 ml Drainage Total 50 ml 60 ml # Voids 2 # Bowel Movements 1 Result Diagram: 03/17/17 0555 03/18/17 0708 Objective Remarks NAD, obese awake and alert, oriented x 3 lungs no rales or wheezes regular rhythm abdomen- globularly soft,- dressing in place- JORJE bulb in place - draining serosanguinous thick pus like fluid extremites no edema A/P Problem List: (1) Sepsis ICD Code: A41.9 Status: Resolved (2) Abdominal abscess ICD Code: K65.1 Status: Acute (3) Pericardial effusion ICD Code: I31.3 Status: Acute Assessment and Plan Sepsis likely secondary to abdominal wall abscess in immunocompromised patient with history of splenectomy - Zosyn 4.5 mg IV every 6 hours and IV vancomycin with pharmacy consult to assist with therapeutic dosing and monitoring - General surgery ff- plan to replace VAC today Pericardial effusion- insignificant diastolic congestive heart failure- not in clinical failure - Per abdominal and pelvis CT, pericardial effusion is mildly increased than seen on previous studies- 01/2017 - echocardiogram to verify- small minimal pericardial effusion. - Continuous cardiac telemetry to monitor for arrhythmias - continue on JERICHO,Lasix Anemia - H and H stable continue home meds- Flomax - SCDs/AJSON hose Possible DC today- with VAC- po antibiotics- will d/w with ID . Problem Qualifiers (1) Sepsis: Qualified Code: A41.9 - Sepsis, due to unspecified organism Tristan Daily MD Mar 18, 2017 11:07
[2017-03-18] MEDS: LORazepam 1 MG TAB PO PRN (11:31)
--- NOTE | 2017-03-18 11:36 | HHI.IDPN ---
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 Vital Signs Date Time Temp Pulse Resp B/P Pulse Ox O2 Delivery O2 Flow Rate FiO2 03/18/17 07:15 97.5 62 19 126/92 96 03/18/17 05:00 58 03/18/17 04:00 64 03/18/17 04:00 97.5 107 20 108/78 97 03/18/17 03:00 56 03/18/17 02:00 68 03/18/17 01:00 68 03/18/17 00:00 62 03/18/17 00:00 97.8 65 20 121/63 96 03/17/17 23:00 72 03/17/17 22:00 72 03/17/17 21:00 72 03/17/17 20:00 66 03/17/17 20:00 97.9 82 20 119/71 98 03/17/17 17:41 70 20 122/68 03/17/17 13:41 98.6 71 18 118/68 03/17/17 03/17/17 03/18/17 15:00 23:00 07:00 Intake Total 1025 ml 480 ml Output Total 50 ml 760 ml Balance 975 ml -280 ml Intake Oral 400 ml 480 ml IV Total 625 ml Output Urine Total 700 ml Drainage Total 50 ml 60 ml # Voids 2 # Bowel Movements 1 . Laboratory Tests Test 03/17/17 05:55 White Blood Count 16.7 TH/MM3 Red Blood Count 2.88 MIL/MM3 Hemoglobin 7.8 GM/DL Hematocrit 25.0 % Mean Corpuscular Volume 86.8 FL Mean Corpuscular Hemoglobin 27.0 PG Mean Corpuscular Hemoglobin 31.1 % Concent Red Cell Distribution Width 19.6 % Platelet Count 602 TH/MM3 Mean Platelet Volume 7.9 FL Neutrophils (%) (Auto) 62.6 % Lymphocytes (%) (Auto) 21.7 % Monocytes (%) (Auto) 12.7 % Eosinophils (%) (Auto) 1.7 % Basophils (%) (Auto) 1.3 % Neutrophils # (Auto) 10.4 TH/MM3 Lymphocytes # (Auto) 3.6 TH/MM3 Monocytes # (Auto) 2.1 TH/MM3 Eosinophils # (Auto) 0.3 TH/MM3 Basophils # (Auto) 0.2 TH/MM3 CBC Comment DIFF FINAL Differential Comment Laboratory Tests Test 03/17/17 03/18/17 05:55 07:08 Iron Level 13 MCG/DL Total Iron Binding Capacity 197 MCG/DL Percent Iron Saturation 6.6 % Ferritin 101 NG/ML Creatinine 0.63 MG/DL Estimat Glomerular Filtration 128 ML/MIN Rate Microbiology Date/Time Procedure Status Source Growth 03/15/17 19:00 Gram Stain - Final Complete Wound Abdomen 03/15/17 19:00 Wound Culture - Final Complete Klebsiella Pneumoniae 03/15/17 19:15 Aerobic Blood Culture - Preliminary Resulted Blood Peripheral NO GROWTH IN 3 DAYS 03/15/17 19:15 Anaerobic Blood Culture - Preliminary Resulted Blood Peripheral NO GROWTH IN 3 DAYS 03/15/17 19:20 Aerobic Blood Culture - Preliminary Resulted Blood Peripheral NO GROWTH IN 3 DAYS 03/15/17 19:20 Anaerobic Blood Culture - Preliminary Resulted Blood Peripheral NO GROWTH IN 3 DAYS 03/17/17 07:31 Gram Stain - Final Resulted Abscess Abdomen 03/17/17 07:31 Wound Culture Resulted Abscess Abdomen Pending Imaging Last Impressions Abscess Drainage CT 03/17/17 0000 Signed Impressions: Service Date/Time: Friday, March 17, 2017 07:56 - CONCLUSION: Uncomplicated CT guided drainage. Jung Roman MD Chest X-Ray 03/15/171903 Signed Impressions: Service Date/Time: Wednesday, March 15, 2017 19:29 - CONCLUSION: 1. Mild patchy opacity at the lung bases which may represent scarring and/or atelectasis. 2. Normal residual blunting of left costophrenic angle which is improved. This could represent a small effusion. Conrado Bhatti MD Abdomen/Pelvis CT 03/15/171903 Signed Impressions: Service Date/Time: Wednesday, March 15, 2017 20:37 - CONCLUSION: 1. New large oval collection along the left anterior abdominal wall musculature with large air fluid level. The differential diagnosis includes abscess. This does not appear to communicate with the bowel. 2. Nonspecific bowel gas pattern with moderate gaseous dilatation of portions of the transverse colon. There are multiple loops of nondilated air-containing small bowel with air-fluid levels. This may represent an ileus. 3. Small to moderate pericardial effusion which appears mildly increased in size from the prior study. 4. 2 small areas of apparent splenic tissue without change. 5. Stable appearance of the pancreas with stable cystic structure in the tail and calcifications. Conrado Bhatti MD Physical Exam CONSTITUTIONAL/GENERAL: This is an obese lederly male patient, in no apparent distress. TUBES/LINES/DRAINS: SKIN: No jaundice, rashes, or lesions. CARDIOVASCULAR: Regular rate and rhythm without murmurs, gallops, or rubs. RESPIRATORY/CHEST: Symmetric, unlabored respirations. Clear to auscultation. GASTROINTESTINAL: Abdomen soft, no longer tender to palpation , markedly distended. VAC in place with serosang dc Accordeon drain in place with puruent and bloody brainage No hepato-splenomegaly, or palpable masses. No guarding. Bowel sounds present. MUSCULOSKELETAL: Extremities without clubbing, cyanosis, or edema. NEUROLOGICAL: Awake and alert. 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
--- NOTE | 2017-03-18 11:40 | HHI.PR ---
Subjective Subjective Notes Up to chair Wound Vac applied last night but malfunctioned this morning due to loss of charge of machine Objective Vitals/I&O Vital Signs Date Time Temp Pulse Resp B/P Pulse Ox O2 Delivery O2 Flow Rate FiO2 03/18/17 07:15 97.5 62 19 126/92 96 03/15/17 22:00 Nasal Cannula 2 Labs Laboratory Tests Test 03/18/17 07:08 Creatinine 0.63 Estimat Glomerular Filtration 128 Rate Date/Time Procedure Status Source Growth 03/17/17 07:31 Gram Stain - Final Resulted Abscess Abdomen 03/17/17 07:31 Wound Culture Resulted Abscess Abdomen Pending 03/15/17 19:20 Aerobic Blood Culture - Preliminary Resulted Blood Peripheral NO GROWTH IN 3 DAYS 03/15/17 19:20 Anaerobic Blood Culture - Preliminary Resulted Blood Peripheral NO GROWTH IN 3 DAYS Cardiovascular: Regular Lungs: Clear Abdomen: Other (Wound Vac in place but suction lost; Accodian drain in place with purulent drainage ) Extremities: No edema A/P Assessment and Plan 66 year old male s/p VHR with colostomy takedown; delayed healing requiring prolonged Wound Vac placement; now with intra-abdominal abscess -s/p CT guided drainage -ID consulted for antibiotics -Maureen with Wound Team will place Wound Vac when power cord brought in from home -GS clear for DC when okay with ID -CM consult for resumption of HHC -Discussed with Supriya Beach Mar 18, 2017 11:40
[2017-03-18] MEDS: VANCOMYCIN INJ 1,500 MG in SODIUM CHLORID 0.9% 500 ML INJ 500 ML IV SCH (12:07)
[2017-03-18] MEDS ORDERED: AUGM500T7 PO (12:08)
[2017-03-18] MEDS ORDERED: FURO20TA PO (12:11)
[2017-03-18] MEDS ORDERED: POTA20TA5 PO (12:13)
--- NOTE | 2017-03-18 12:19 | HHI.DS ---
Discharge Summary Admission Date Mar 15, 2017 at 21:40 Discharge Date: Mar 18, 2017 Admitting Diagnosis sepsis; abdominal abscess (1) Sepsis ICD Code: A41.9 Diagnosis: Principal (2) Abdominal abscess ICD Code: K65.1 Diagnosis: Principal (3) Pericardial effusion ICD Code: I31.3 Diagnosis: Secondary Procedures VAC changes Brief History - From Admission Written by Pamela Martinez, acting as scribe for Dr. Mcclellan on 03/15/17 at 22:59. The patient states he was admitted here from January 20 - February 09. He underwent a reversal of colostomy on January 20 with complication of post-op pneumonia with respiratory failure requiring Bi-Pap in ISC unit. He says that the "emergency colostomy" was done in June 2016 for upper bowel obstruction. The patient states he came to the hospital after a visiting nurse did wound care in the a.m. and noticed something leaking from wound and a new "pinhole" in wound. He was also running a fever (tmax 102) relieved with p.o. Tylenol at home and accompanied by left sided-abdominal tenderness. Denies any associated diarrhea, syncope, sob, chest pain, dizziness, n/v, black or red stool, hematuria, or falls. CBC/BMP: 03/17/17 0555 03/18/17 0708 Significant Findings Laboratory Tests Test 03/15/17 03/15/17 03/16/17 03/17/17 19:15 19:20 06:28 05:55 White Blood Count 28.5 TH/MM3 21.8 TH/MM3 16.7 TH/MM3 (4.0-11.0) (4.0-11.0) (4.0-11.0) Red Blood Count 3.02 MIL/MM3 2.69 MIL/MM3 2.88 MIL/MM3 (4.50-5.90) (4.50-5.90) (4.50-5.90) Hemoglobin 8.4 GM/DL 7.4 GM/DL 7.8 GM/DL (13.0-17.0) (13.0-17.0) (13.0-17.0) Hematocrit 26.1 % 23.5 % 25.0 % (39.0-51.0) (39.0-51.0) (39.0-51.0) Red Cell Distribution Width 19.0 % 19.0 % 19.6 % (11.6-17.2) (11.6-17.2) (11.6-17.2) Platelet Count 654 TH/MM3 580 TH/MM3 602 TH/MM3 (150-450) (150-450) (150-450) Neutrophils (%) (Auto) 83.9 % 75.2 % (16.0-70.0) (16.0-70.0) Lymphocytes (%) (Auto) 4.0 % (9.0-44.0) Monocytes (%) (Auto) 11.9 % 14.6 % 12.7 % (0.0-8.0) (0.0-8.0) (0.0-8.0) Neutrophils # (Auto) 23.9 TH/MM3 16.4 TH/MM3 10.4 TH/MM3 (1.8-7.7) (1.8-7.7) (1.8-7.7) Monocytes # (Auto) 3.4 TH/MM3 3.2 TH/MM3 2.1 TH/MM3 (0-0.9) (0-0.9) (0-0.9) Neutrophils % (Manual) 75 % (16-70) Band Neutrophils % 14 % (0-6) 15 % (0-6) Lymphocytes % 2 % (9-44) 6 % (9-44) Neutrophils # (Manual) 25.9 TH/MM3 18.5 TH/MM3 (1.8-7.7) (1.8-7.7) Metamyelocytes 2 % (0-1) Platelet Estimate HIGH (NORMAL) HIGH (NORMAL) Platelet Morphology Comment CLUMPED (NORMAL) Prothrombin Time 12.4 SEC (9.8-11.6) Activated Partial 35.0 SEC Thromboplast Time (24.3-30.1) Sodium Level 131 MEQ/L (136-145) Estimat Glomerular Filtration 74 ML/MIN (>89) Rate Aspartate Amino Transf 13 U/L (15-37) (AST/SGOT) Alkaline Phosphatase 136 U/L (45-117) Albumin 2.8 GM/DL (3.4-5.0) Lactic Acid Level 2.1 mmol/L (0.4-2.0) Mean Corpuscular Hemoglobin 31.7 % 31.1 % Concent (32.0-36.0) (32.0-36.0) Monocytes % 9 % (0-8) Chloride Level 108 MEQ/L (98-107) Calcium Level 8.2 MG/DL (8.5-10.1) Iron Level 13 MCG/DL (65-175) Total Iron Binding Capacity 197 MCG/DL (250-450) Percent Iron Saturation 6.6 % (20-50) Imaging Last Impressions Abscess Drainage CT 03/17/17 0000 Signed Impressions: Service Date/Time: Friday, March 17, 2017 07:56 - CONCLUSION: Uncomplicated CT guided drainage. Jung Roman MD Chest X-Ray 03/15/171903 Signed Impressions: Service Date/Time: Wednesday, March 15, 2017 19:29 - CONCLUSION: 1. Mild patchy opacity at the lung bases which may represent scarring and/or atelectasis. 2. Normal residual blunting of left costophrenic angle which is improved. This could represent a small effusion. Conrado Bhatti MD Abdomen/Pelvis CT 03/15/171903 Signed Impressions: Service Date/Time: Wednesday, March 15, 2017 20:37 - CONCLUSION: 1. New large oval collection along the left anterior abdominal wall musculature with large air fluid level. The differential diagnosis includes abscess. This does not appear to communicate with the bowel. 2. Nonspecific bowel gas pattern with moderate gaseous dilatation of portions of the transverse colon. There are multiple loops of nondilated air-containing small bowel with air-fluid levels. This may represent an ileus. 3. Small to moderate pericardial effusion which appears mildly increased in size from the prior study. 4. 2 small areas of apparent splenic tissue without change. 5. Stable appearance of the pancreas with stable cystic structure in the tail and calcifications. Conrado Bhatti MD PE at Discharge NAD, obese awake and alert, oriented x 3 lungs no rales or wheezes regular rhythm abdomen- globularly soft,- dressing in place- /accordion drain in place - draining serosanguinous extremites no edema Pt update on day of discharge awake and alert, afebrile no pain no nausea or vomiting Hospital Course Sepsis likely secondary to abdominal wall abscess in immunocompromised patient with history of splenectomy - Zosyn 4.5 mg IV every 6 hours and IV vancomycin with pharmacy consult to assist with therapeutic dosing and monitoring - General surgery ff- plan to replace VAC today - d/w CM- home health already set up- VAC changes -d/w ID- DC home on augmentin 500 mg po tid x 2 weeks Pericardial effusion- insignificant diastolic congestive heart failure- not in clinical failure - Per abdominal and pelvis CT, pericardial effusion is mildly increased than seen on previous studies- 01/2017 - echocardiogram to verify- small minimal pericardial effusion. - Continuous cardiac telemetry to monitor for arrhythmias - continue on JERICHO,Lasix Anemia - H and H stable continue home meds- Flomax DC today with home health care Pt Condition on Discharge: Stable Discharge Disposition: Discharge Home Discharge Time: <= 30 minutes Discharge Instructions DIET: Follow Instructions for: As Tolerated, No Restrictions, Heart Healthy Diet Speech Therapy-Diet Recommends: Regular Activities you can perform: Weight Bearing as Alida Follow up Referrals: PCP Follow-up - 3-5 Days with [facility] - 1 Week with Andreas Vernon MD New Orders: BASIC METABOLIC PROF - 03/22/17 New Medications: Amoxicillin-Clavulanate (Augmentin) 500-125 mg Tab 500 MG PO Q8H Infection Days 14 Ref 0 TAB Furosemide (Furosemide) 20 Mg Tab 20 MG PO DAILY DENNY Days 30 TAB Potassium Chloride Microencaps (Potassium Chloride Microencaps) 20 Meq Tab 20 MEQ PO DAILY elec Days 30 TAB Continued Medications: Allopurinol (Allopurinol) 100 Mg Tab 100 MG PO DAILY Gout #30 Ref 0 TAB Budesonide-Formoterol Inh (Symbicort Inh) 160-4.5 Mcg/Act Aero 1 PUFF INH DAILY IN THE MORNING #1 Ref 0 INHALER Budesonide-Formoterol Inh (Symbicort Inh) 160-4.5 Mcg/Act Aero 2 PUFF INH DAILY IN THE EVENING #1 Ref 0 INHALER Cholecalciferol (Vitamin D-1000) 1,000 Unit Tab 1000 UNITS PO EVERY OTHER DAY Nutritional Supplement #1 Ref 0 BOTTLE Cyanocobalamin (Vitamin B12) 100 Mcg Tab 100 MCG PO EVERY OTHER DAY #1 BOTTLE Lisinopril (Lisinopril) 5 Mg Tab 5 MG PO DAILY Blood Pressure Management #30 Ref 0 TAB Lorazepam (Ativan) 1 Mg Tab 1 MG PO Q8H PRN ANXIETY #30 TAB Omeprazole (Omeprazole) 20 Mg Tab 20 MG PO DAILY #30 Ref 0 TAB Tamsulosin (Flomax) 0.4 Mg Cap 0.8 MG PO HS Manage Prostate Problems #60 Ref 0 CAP Tiotropium Inh (Spiriva Handihaler) 18 Mcg Cap 18 MCG INH DAILY Breathing Treatment #1 CAP Zolpidem (Ambien) 10 Mg Tab 10 MG PO HS PRN sleep #15 TAB Discontinued Medications: Furosemide (Lasix) 40 Mg Tab 40 MG PO DAILY #30 Ref 0 TAB Hydroxyzine HCl (Hydroxyzine HCl) 25 Mg Tab 25 MG PO HS Ref 0 TAB Potassium Chloride ER (K-Tab) 20 Meq Tab 20 MEQ PO BID Electrolyte Replacement #60 Ref 0 TAB Tristan Daily MD Mar 18, 2017 12:19
--- NOTE | 2017-03-18 14:11 | PD.WCN.NOT ---
Wound Consult Description: Consult for VAC management of abdomen for discharge per TULIO Shankar Communicated with: ABDI Kan RN home health care nurse Recommendation: Follow instructions on discharge for wound VAC changes with [facility] Nurse Additional Information: Patient seen on [facility] for patients home wound vac change to midline abdomen. Upon entering room patient is noted with his [place] home wound vac in place. This was removed to reveal 3 wounds by <3cm of intact skin that was measured as one wound ~24cm x ~6cm x ~1cm which was window paned to apply 2 pieces of green foam to wound beds without touching intact skin. Trac pad was placed distally over wound bed after cutting hole in drape for contact with suction and foam dressing. Home vac machine settings @140mmHg continuous suction. No leaks noted. Patient tolerated wound vac dressing well with significant other at bedside during dressing change. ABDI Rojas home healthcare nurse stopped by during dressing change as well. Neg Pressure Wound Therapy Wound Location Wound Location: midline abdomen Settings Suction: Continuous Other Information: Windowpaned Additonal Information Wound vac applied as ordered for patient discharge with home wound vac to be changed by home health care Maureen Sher REBA Mar 18, 2017 14:11
[2017-03-18] MEDS ORDERED: VANCOMYCIN INJ 1,250 MG in SODIUM CHLOR 0.9% 250 ML INJ 250 ML IV SCH (22:00)
[2017-03-20] MEDS ORDERED: PHARMACY ORDERED LAB ONE (09:45)
== END 2017-03-18 15:46 | disposition home or self-care (01) | DRG 862 ==
LOC: NEPC 15:47 → NEDA 21:40 → HCIS 03-16 00:20
PROVIDERS: ADMIT Internal Medicine; ATTEND Internal Medicine
PROC: 0W9F3ZZ Drainage of Abdominal Wall, Percutaneous Approach (ICD-10-PCS; principal; 2017-03-17)
DX: T81.4XXA Infection following a procedure, initial encounter (principal); K65.1 Peritoneal abscess; A41.4 Sepsis due to anaerobes; I50.32 Chronic diastolic (congestive) heart failure; I31.3 Pericardial effusion (noninflammatory); E87.1 Hypo-osmolality and hyponatremia; I11.0 Hypertensive heart disease with heart failure; D64.9 Anemia, unspecified; M10.9 Gout, unspecified; K21.9 Gastro-esophageal reflux disease without esophagitis; E66.9 Obesity, unspecified; J44.9 Chronic obstructive pulmonary disease, unspecified; F41.9 Anxiety disorder, unspecified; Z68.31 Body mass index [BMI] 31.0-31.9, adult; Z86.73 Personal history of transient ischemic attack (TIA), and cerebral infarction without residual deficits; Z87.11 Personal history of peptic ulcer disease; Z87.891 Personal history of nicotine dependence; Z90.81 Acquired absence of spleen; Z88.6 Allergy status to analgesic agent; Z96.642 Presence of left artificial hip joint
CPT/HCPCS: 71010; 74177; 75989; 76937; 80048; 80053; 80202; 82565; 82728; 83540; 83550; 83605; 85007; 85025; 85027; 85610; 85730; 87040; 87070; 87077; 87186; 87205; 93005; 93306; 96365; 96367; 96375; C1729; J2060; J2250; J2543; J3010; J3370; J7030; J7040; J7050; Q9963; Q9967

== ENCOUNTER 2017-05-12 09:05 | Inpatient (IN) | payer OTHER, MEDICARE ==
[~2017-05-12] VITALS: Ht 175.3 cm; Wt 100.1 kg
[~2017-05-12 09:05] MED LIST changes: +AUGM500T7 PO; -CARD180C5 PO; -CYCL1TAB29 PO; -FURO1TAB60 PO; +FURO20TA PO; -HYDR-3133 PO; -LACT PO; -LEVA500T PO; -METO-309 PO; -OXYC1TAB36 PO; -OXYC1TAB63 PO; -OXYGENTANK NAS.CANULA; -POTA-243 PO; -POTA10TA15 PO; +POTA20TA5 PO; -ZYVO600T PO
[2017-05-12] MEDS ORDERED: IOHEXOL 350 MG/ML 10 ML VIAL (for RAD DIAG) IVCONTRAST ONE (09:06)
[2017-05-12 09:08] VITALS: BP 140/80; PULSE 100; RESP 24; TEMP 97.5; O2SAT 96
[2017-05-12 09:20] VITALS: BP 189/121; PULSE 107; RESP 16; O2SAT 94
[2017-05-12 09:36] VITALS: BP 122/64; PULSE 102; RESP 16; O2SAT 95
--- NOTE | 2017-05-12 09:45 | PD ---
HPI Chief Complaint: Abdominal Pain Time Seen by Provider: 09:29 Travel History International Travel<30 days: No Contact w/Intl Traveler<30days: No Traveled to known affect area: No History of Present Illness HPI 66y/o male presents with abdominal pain and distention that he has been experiencing over the past couple weeks. He states he had an outpatient x-ray about a week or so ago and is finishing up his last day or so of his antibiotic. It is Flagyl. He states that this was after his CAT scan result. He states that over the past couple of days his pain and distention got worse. He states Dr. Fair is his surgeon and he had the colostomy after he had a bowel blockage. He states that he has had that reversed and follows with him. He states that otherwise before that he didn't have any major issues and had only had a spleen surgery. He denies any other significant complaints. PFSH Past Medical History Arthritis: Yes (ankles, hands ) Asthma: Yes Autoimmune Disease: Yes (GOUT IN FEET) Blood Disorders: No Anxiety: Yes Depression: No Heart Rhythm Problems: No Cancer: No Cardiovascular Problems: Yes (CVA 2003) High Cholesterol: No Chemotherapy: No Chest Pain: No Congestive Heart Failure: No COPD: Yes (BRONCHITIS) Cerebrovascular Accident: Yes (stroke 12 yrs ago) Coronary Artery Disease: No Diabetes: No Diminished Hearing: No Endocrine: No Gastrointestinal Disorders: No GERD: Yes Glaucoma: No Gout: Yes Genitourinary: No Headaches: No Hepatitis: No Hiatal Hernia: Yes Hypertension: Yes Implanted Vascular Access Dvce: No Kidney Stones: No Musculoskeletal: Yes (arthritis) Neurologic: No Psychiatric: No Reproductive: No Respiratory: No Immunizations Current: Yes Myocardial Infarction: No Pneumonia: Yes Radiation Therapy: No Renal Failure: No Seizures: No Sickle Cell Disease: No Sleep Apnea: No Thyroid Disease: No Ulcer: Yes Tetanus Vaccination: < 5 Years Influenza Vaccination: Yes Past Surgical History Abdominal Surgery: Yes AICD: No Body Medical Devices: N/A Cardiac Surgery: No Ear Surgery: No Endocrine Surgery: No Eye Surgery: No Genitourinary Surgery: No Gynecologic Surgery: No Joint Replacement: Yes (left hip ) Neurologic Surgery: No Oral Surgery: No Pacemaker: No Thoracic Surgery: No Other Surgery: Yes (splenectomy) Social History Alcohol Use: No Tobacco Use: No Substance Use: No Allergies-Medications (Allergen,Severity, Reaction): Coded Allergies: aspirin (Unverified Allergy, Unknown, 05/12/17) diclofenac (Unverified Adverse Reaction, Intermediate, 05/12/17) etodolac (Unverified Adverse Reaction, Intermediate, 05/12/17) flurbiprofen (Unverified Adverse Reaction, Intermediate, 05/12/17) ibuprofen (Unverified Adverse Reaction, Intermediate, 05/12/17) indomethacin (Unverified Adverse Reaction, Intermediate, 05/12/17) ketoprofen (Unverified Adverse Reaction, Intermediate, 05/12/17) ketorolac (Unverified Adverse Reaction, Intermediate, 05/12/17) naproxen (Unverified Adverse Reaction, Intermediate, 05/12/17) oxaprozin (Unverified Adverse Reaction, Intermediate, 05/12/17) *MDRO Multi-Drug Resistant Organism (Verified Adverse Reaction, Unknown, ) 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 Reported Meds & Prescriptions Reported Meds & Active Scripts Active Potassium Chloride Microencaps 20 Meq Tab 20 Meq PO DAILY 30 Days Furosemide 20 Mg Tab 20 Mg PO DAILY 30 Days Augmentin (Amoxicillin-Clavulanate) 500-125 mg Tab 500 Mg PO Q8H 14 Days Ambien (Zolpidem Tartrate) 10 Mg Tab 10 Mg PO HS PRN Ativan (Lorazepam) 1 Mg Tab 1 Mg PO Q8H PRN Spiriva Handihaler (Tiotropium Inh) 18 Mcg Cap 18 Mcg INH DAILY Reported Symbicort Inh (Budesonide/Formoterol Fumarate) 160-4.5 Mcg/Act Aero 2 Puff INH DAILY IN THE EVENING Symbicort Inh (Budesonide/Formoterol Fumarate) 160-4.5 Mcg/Act Aero 1 Puff INH DAILY IN THE MORNING Vitamin D-1000 (Cholecalciferol) 1,000 Unit Tab 1,000 Units PO EVERY OTHER DAY Vitamin B12 (Cyanocobalamin) 100 Mcg Tab 100 Mcg PO EVERY OTHER DAY Omeprazole 20 Mg Tab 20 Mg PO DAILY Allopurinol 100 Mg Tab 100 Mg PO DAILY Flomax (Tamsulosin HCl) 0.4 Mg Cap 0.8 Mg PO HS Lisinopril 5 Mg Tab 5 Mg PO DAILY Review of Systems Except as stated in HPI: all other systems reviewed are Neg Physical Exam Narrative GENERAL: Well-nourished, well-developed patient. SKIN: Warm and dry. HEAD: Normocephalic and atraumatic. EYES: No injection or drainage. ENT: No nasal drainage noted. NECK: Supple, trachea midline. CARDIOVASCULAR: Regular rate and rhythm RESPIRATORY: No increased effort. No accessory muscle use. GASTROINTESTINAL: Abdomen soft, mild tenderness diffusely, moderate distention BACK: Nontender without obvious deformity. NEUROLOGICAL: Awake and alert. Motor and sensory grossly within normal limits. Normal speech. Data Data Last Documented VS Vital Signs Date Time Temp Pulse Resp B/P (MAP) Pulse Ox O2 Delivery O2 Flow Rate FiO2 05/12/17 09:36 102 16 122/64 (83) 95 Room Air 05/12/17 09:08 97.5 Orders Orders Complete Blood Count With Diff (05/12/17 09:29) Comprehensive Metabolic Panel (05/12/17 09:29) Urinalysis - C+S If Indicated (05/12/17 09:29) Lipase (05/12/17 09:29) Iv Access Insert/Monitor (05/12/17 09:29) Oximetry (05/12/17 09:29) Oral Contrast - Adult (05/12/17 09:41) Diatrizoate Liq ( Gastroview Liq) (05/12/17 10:04) C Diff Toxin Pcr (05/12/17 11:19) Ct Abd/Pel W/O Iv Contrast (05/12/17 ) Ct Abd/Pel W Iv Contrast(Rout) (05/12/17 ) Vascular Access Team Consult/P PRN (05/12/17 14:16) Vascular Poc Ultrasound (05/12/17 ) Iohexol 350 Inj (Omnipaque 350 Inj) (05/12/17 09:06) Morphine Inj (Morphine Inj) (05/12/17 15:30) Place In Observation (05/12/17 ) Code Status (05/12/17 15:33) Vital Signs (Adult) Q4H (05/12/17 15:33) Activity Oob With Assistance (05/12/17 15:33) Diet Npo (05/12/17 Dinner) Sodium Chlor 0.9% 1000 Ml Inj (Ns 1000 M (05/12/17 15:33) Sodium Chloride 0.9% Flush (Ns Flush) (05/12/17 15:45) Sodium Chloride 0.9% Flush (Ns Flush) (05/12/17 21:00) Temazepam (Restoril) (05/12/17 15:45) Comprehensive Metabolic Panel (05/13/17 06:00) Complete Blood Count With Diff (05/13/17 06:00) Case Management Consult (05/12/17 15:33) Scd Bilateral/Knee High IZABELLA.BID (05/12/17 15:33) Albuterol-Ipratropium Neb (Duoneb Neb) (05/12/17 15:45) Enalaprilat Inj (Vasotec Inj) (05/12/17 15:45) Admit Order (Ed Use Only) (05/12/17 15:41) Labs Laboratory Tests Test 05/12/17 09:56 05/12/17 10:22 Urine Color LIGHT-YELLOW Urine Turbidity CLEAR Urine pH 6.0 Urine Specific [place] 1.006 Urine Protein NEG mg/dL Urine Glucose (UA) NEG mg/dL Urine Ketones NEG mg/dL Urine Occult Blood NEG Urine Nitrite NEG Urine Bilirubin NEG Urine Urobilinogen LESS THAN 2.0 MG/DL Urine Leukocyte Esterase NEG Microscopic Urinalysis Comment CULT NOT INDICATED White Blood Count 15.7 TH/MM3 Red Blood Count 4.00 MIL/MM3 Hemoglobin 9.5 GM/DL Hematocrit 31.1 % Mean Corpuscular Volume 77.8 FL Mean Corpuscular Hemoglobin 23.7 PG Mean Corpuscular Hemoglobin Concent 30.4 % Red Cell Distribution Width 20.8 % Platelet Count 770 TH/MM3 Mean Platelet Volume 7.1 FL CBC Comment AUTO DIFF Differential Total Cells Counted 100 Neutrophils % (Manual) 67 % Band Neutrophils % 2 % Lymphocytes % 18 % Monocytes % 10 % Eosinophils % 1 % Basophils % 1 % Neutrophils # (Manual) 11.0 TH/MM3 Myelocytes 1 % Differential Comment FINAL DIFF MANUAL Platelet Estimate HIGH Platelet Morphology Comment NORMAL Target Cells 1+ Blood Urea Nitrogen 12 MG/DL Creatinine 0.86 MG/DL Random Glucose 128 MG/DL Total Protein 9.2 GM/DL Albumin 4.1 GM/DL Calcium Level 9.3 MG/DL Alkaline Phosphatase 63 U/L Aspartate Amino Transf (AST/SGOT) 20 U/L Alanine Aminotransferase (ALT/SGPT) 18 U/L Total Bilirubin 0.4 MG/DL Sodium Level 130 MEQ/L Potassium Level 3.3 MEQ/L Chloride Level 93 MEQ/L Carbon Dioxide Level 26.0 MEQ/L Anion Gap 11 MEQ/L Estimat Glomerular Filtration Rate 90 ML/MIN Lipase 140 U/L MDM Medical Decision Making Medical Screen Exam Complete: Yes Emergency Medical Condition: Yes Medical Record Reviewed: Yes (past history confirmed) Interpretation(s) CBC & BMP Diagram 05/12/17 10:22 Total Protein 9.2 H, Albumin 4.1, Calcium Level 9.3, Alkaline Phosphatase 63, Aspartate Amino Transf (AST/SGOT) 20, Alanine Aminotransferase (ALT/SGPT) 18, Total Bilirubin 0.4 Last 24 hours Impressions Abdomen/Pelvis CT 05/12/17 0000 Signed Impressions: Service Date/Time: Friday, May 12, 2017 12:29 - CONCLUSION: 1. Cystic mass distally as stable to slightly increased in size. Pancreatic calcification distally is also stable. 2. Diffuse bowel dilatation most likely represents an ileus there is moderate abdominal distention. 3. Small pericardial effusion is stable. Isac Vega MD Differential Diagnosis Obstruction, stone, diverticulitis, abscess Narrative Course Will check blood work, urinalysis, CT scan and discuss with his surgeon CT without contrast shows ileus will discuss with his surgeon Patient agrees to observation Physician Communication Physician Communication dr fair states will review ct and requests with iv if possible dr fair agrees to medical observation while waiting iv ct given pain persisting dr spaulding agrees to admit Diagnosis Primary Impression: Ileus Additional Impression: Abdominal pain Qualified Codes: R10.9 - Unspecified abdominal pain Admitting Information Admitting Physician Requests: Observation Charleen Becker MD May 12, 2017 09:45
[2017-05-12] MEDS ORDERED: DIATRIZOATE MEGLUM/DIATRIZOATE SOD 9 ML CUP ONE (10:04)
[2017-05-12 10:30] LABS: BLOOD, URINE NEG (NEG); GLUCOSE,URINE NEG (NEG); KETONE, URINE NEG (NEG); NITRITE,URINE NEG (NEG); URINE COLOR LIGHT-YELLOW (YELLW/STRAW)
[2017-05-12 10:32] LABS: HEMATOCRIT 31.1 % (39.0-51.0); MEAN CELL VOLUME 77.8 FL (80.0-100.0); MEAN CORPUSCULAR HEMOGLOBIN 23.7 PG (27.0-34.0); MEAN CORPUSCULAR HGB CONC 30.4 % (32.0-36.0); PLATELET COUNT 770 TH/MM3 (150-450); RED CELL DISTRIBUTION WIDTH 20.8 % (11.6-17.2); WHITE BLOOD COUNT 15.7 TH/MM3 (4.0-11.0)
[2017-05-12 10:34] LABS: COMMENT (UR) CULT NOT INDICATED; CULTURE IF INDICATED CULT NOT INDICATED
[2017-05-12 10:37] LABS: HEMO FLAGS AUTO DIFF
[2017-05-12 10:59] LABS: ANION GAP 11 MEQ/L (5-15); AST (GOT) 20 U/L (15-37); BLOOD UREA NITROGEN 12 MG/DL (7-18); CHLORIDE 93 MEQ/L (98-107); GLOMERULAR FILTRATION RATE 90 ML/MIN (>89); POTASSIUM 3.3 MEQ/L (3.5-5.1); SODIUM (NA) 130 MEQ/L (136-145)
[2017-05-12 11:02] LABS: ALKALINE PHOSPHATASE 63 U/L (45-117); ALT (GPT) 18 U/L (12-78); TOTAL BILIRUBIN ADULT 0.4 MG/DL (0.2-1.0)
[2017-05-12 11:18] LABS: BANDS 2 % (0-6); BASOPHILS 1 % (0-2); EOSINOPHILS 1 % (0-4); MYELOCYTES 1 % (0-0); POLYS (SEG NEUTROPHILS) 67 % (16-70); WBC DIFF SAMPLE 100
[2017-05-12 11:19] LABS: PLATELET ESTIMATE SMEAR HIGH (NORMAL); PLATELET MORPHOLOGY NORMAL (NORMAL); SCAN/DIFF FINAL DIFF MANUAL; TARGET CELLS 1+ (NORMAL)
--- NOTE | 2017-05-12 13:21 | RADRPT ---
EXAM DATE/TIME: 05/12/2017 12:29 [facility] COMPARISON: No previous studies available for comparison. INDICATIONS : Abdominal pain and distention. ORAL CONTRAST: Prescribed oral contrast ingested. RADIATION DOSE: 16.04 CTDIvol (mGy) MEDICAL HISTORY : Hernia, hiatal. Chronic obstructive pulmonary disease. Hypertension. SURGICAL HISTORY : Splenectomy. ENCOUNTER: Initial ACUITY: 1 day PAIN SCALE: 4/10 LOCATION: diffuse abdomen. TECHNIQUE: Volumetric scanning of the abdomen and pelvis was performed. Using automated exposure control and ad justment of the mA and/or kV according to patient size, radiation dose was kept as low as reasonably achievable to obtain optimal diagnostic quality images. DICOM format image data is available electro nically for review and comparison. FINDINGS: There is prominent abdominal distention with multiple dilated loops of bowel identified. There is a s mall cardial effusion. Liver, gallbladder, bilateral kidneys are unremarkable. There is diffuse bowel dilatation with multiple dilated loops of small bowel as well as moderately distended transverse col on. The appearance is felt to represent an ileus. Prostate gland and urinary bladder are unremarkable . Atherosclerotic calcifications of the aorta and iliac vessels are present. At the tail of the pancr eas, a hypodense mass is identified measuring 2.4 x 2.4 cm, slightly increased in size. Lung bases ar e clear. Osseous structures demonstrate degenerative changes of the spine. Left hip arthroplasty. CONCLUSION: 1. Cystic mass distally as stable to slightly increased in size. Pancreatic calcification distally is also stable. 2. Diffuse bowel dilatation most likely represents an ileus there is moderate abdominal distention. 3. Small pericardial effusion is stable. Isac Vega MD on May 12, 2017 at 13:15 Board Certified Radiologist. This report was verified electronically.
[2017-05-12] MEDS ORDERED: MORPHINE SULFATE 4 MG/ML INJ IV PUSH ONE (15:30)
[2017-05-12] MEDS ORDERED: TEMAZEPAM 15 MG CAP PO PRN (15:45)
[2017-05-12] MEDS ORDERED: SODIUM CHLORIDE 0.9% FLUSH 10 ML FLUSH IV FLUSH PRN (15:45)
[2017-05-12] MEDS ORDERED: ENALAPRILAT 1.25 MG/ML VIAL IV PUSH PRN (15:45)
--- NOTE | 2017-05-12 16:36 | HHI.HP ---
[facility] Service [facility] Primary Care Physician Elías Greenberg MD Admission Diagnosis intractable abdominal pain, ileus Diagnoses: (1) Intractable abdominal pain (2) Ileus Chief Complaint: Abdominal pain Travel History International Travel<30 Days: No Contact w/Intl Traveler <30 Da: No Traveled to Known Affected Are: No History of Present Illness 66-year-old male with a history of reversal of colostomy present to the ED for evaluation of worsening intractable abdominal pain associated with distention over the past 5 days without any complaint of nausea or vomiting. Patient was diagnosed with C. difficile diarrhea for which he is currently on Flagyl, and he'll complete therapy in [address] abdomen/pelvics with finding of diffuse bowel dilatation. Electrolyte abnormality include sodium of 1:30 and potassium of 3.3. Dr. 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 Past Surgical History Splenectomy Hernia repairs - inguinal and umbilical Colostomy - June 2016 Colostomy reversal - January 20, 2017 Left hip replacement Reported Medications Potassium Chloride Microencaps 20 Meq Tab 20 Meq PO DAILY 30 Days Furosemide 20 Mg Tab 20 Mg PO DAILY 30 Days Augmentin (Amoxicillin-Clavulanate) 500-125 mg Tab 500 Mg PO Q8H 14 Days Ambien (Zolpidem Tartrate) 10 Mg Tab 10 Mg PO HS PRN Ativan (Lorazepam) 1 Mg Tab 1 Mg PO Q8H PRN Spiriva Handihaler (Tiotropium Inh) 18 Mcg Cap 18 Mcg INH DAILY Reported Symbicort Inh (Budesonide/Formoterol Fumarate) 160-4.5 Mcg/Act Aero 2 Puff INH DAILY IN THE EVENING Symbicort Inh (Budesonide/Formoterol Fumarate) 160-4.5 Mcg/Act Aero 1 Puff INH DAILY IN THE MORNING Vitamin D-1000 (Cholecalciferol) 1,000 Unit Tab 1,000 Units PO EVERY OTHER DAY Vitamin B12 (Cyanocobalamin) 100 Mcg Tab 100 Mcg PO EVERY OTHER DAY Omeprazole 20 Mg Tab 20 Mg PO DAILY Allopurinol 100 Mg Tab 100 Mg PO DAILY Flomax (Tamsulosin HCl) 0.4 Mg Cap 0.8 Mg PO HS Lisinopril 5 Mg Tab 5 Mg PO DAILY Allergies: Coded Allergies: aspirin (Unverified Allergy, Unknown, 05/12/17) diclofenac (Unverified Adverse Reaction, Intermediate, 05/12/17) etodolac (Unverified Adverse Reaction, Intermediate, 05/12/17) flurbiprofen (Unverified Adverse Reaction, Intermediate, 05/12/17) ibuprofen (Unverified Adverse Reaction, Intermediate, 05/12/17) indomethacin (Unverified Adverse Reaction, Intermediate, 05/12/17) ketoprofen (Unverified Adverse Reaction, Intermediate, 05/12/17) ketorolac (Unverified Adverse Reaction, Intermediate, 05/12/17) naproxen (Unverified Adverse Reaction, Intermediate, 05/12/17) oxaprozin (Unverified Adverse Reaction, Intermediate, 05/12/17) *MDRO Multi-Drug Resistant Organism (Verified Adverse Reaction, Unknown, ) 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 Family History Brother had SD - 38 years old - following massive SD Mother had lung cancer Father from complications related to aging Social History Tobacco: history of smoking 2 - 3 cigarettes per daily for 2 - 3 years, and hasn 't smoked in at least 6 years Alcohol: denies Illicit Drugs: denies Physical Exam Vital Signs Vital Signs Date Time Temp Pulse Resp B/P (MAP) Pulse Ox O2 Delivery O2 Flow Rate FiO2 05/12/17 09:36 102 16 122/64 (83) 95 Room Air 05/12/17 09:25 16 05/12/17 09:20 107 16 189/121 (143) 94 05/12/17 09:08 97.5 100 24 140/80 (100) 96 Room Air Physical Exam GENERAL: This is a well-nourished, well-developed patient, in no apparent distress. SKIN: No rashes, ecchymoses or lesions. Cool and dry. HEAD: Atraumatic. Normocephalic. No temporal or scalp tenderness. EYES: Pupils equal round and reactive. Extraocular motions intact. No scleral icterus. No injection or drainage. ENT: Nose without bleeding, purulent drainage or septal hematoma. Throat without erythema, tonsillar hypertrophy or exudate. Uvula midline. Airway patent. NECK: Trachea midline. No JVD or lymphadenopathy. Supple, nontender, no meningeal signs. CARDIOVASCULAR: Regular rate and rhythm without murmurs, gallops, or rubs. RESPIRATORY: Clear to auscultation. Breath sounds equal bilaterally. No wheezes , rales, or rhonchi. GASTROINTESTINAL: Abdomen soft, mild tenderness diffusely, moderate distention. Dressing over incision MUSCULOSKELETAL: Extremities without clubbing, cyanosis, or edema. No joint tenderness, effusion, or edema noted. No calf tenderness. Negative Homans sign bilaterally. NEUROLOGICAL: Awake and alert. Cranial nerves II through XII intact. Motor and sensory grossly within normal limits. Five out of 5 muscle strength in all muscle groups. Normal speech. Laboratory Laboratory Tests Test 05/12/17 09:56 05/12/17 10:22 Urine Color LIGHT-YELLOW Urine Turbidity CLEAR Urine pH 6.0 Urine Specific [place] 1.006 Urine Protein NEG Urine Glucose (UA) NEG Urine Ketones NEG Urine Occult Blood NEG Urine Nitrite NEG Urine Bilirubin NEG Urine Urobilinogen LESS THAN 2.0 Urine Leukocyte Esterase NEG Microscopic Urinalysis Comment CULT NOT INDICATED White Blood Count 15.7 Red Blood Count 4.00 Hemoglobin 9.5 Hematocrit 31.1 Mean Corpuscular Volume 77.8 Mean Corpuscular Hemoglobin 23.7 Mean Corpuscular Hemoglobin Concent 30.4 Red Cell Distribution Width 20.8 Platelet Count 770 Mean Platelet Volume 7.1 CBC Comment AUTO DIFF Differential Total Cells Counted 100 Neutrophils % (Manual) 67 Band Neutrophils % 2 Lymphocytes % 18 Monocytes % 10 Eosinophils % 1 Basophils % 1 Neutrophils # (Manual) 11.0 Myelocytes 1 Differential Comment FINAL DIFF MANUAL Platelet Estimate HIGH Platelet Morphology Comment NORMAL Target Cells 1+ Blood Urea Nitrogen 12 Creatinine 0.86 Random Glucose 128 Total Protein 9.2 Albumin 4.1 Calcium Level 9.3 Alkaline Phosphatase 63 Aspartate Amino Transf (AST/SGOT) 20 Alanine Aminotransferase (ALT/SGPT) 18 Total Bilirubin 0.4 Sodium Level 130 Potassium Level 3.3 Chloride Level 93 Carbon Dioxide Level 26.0 Anion Gap 11 Estimat Glomerular Filtration Rate 90 Lipase 140 Result Diagram: 05/12/17 1022 05/12/17 1022 Imaging Last Impressions Abdomen/Pelvis CT 05/12/17 0000 Signed Impressions: Service Date/Time: Friday, May 12, 2017 12:29 - CONCLUSION: 1. Cystic mass distally as stable to slightly increased in size. Pancreatic calcification distally is also stable. 2. Diffuse bowel dilatation most likely represents an ileus there is moderate abdominal distention. 3. Small pericardial effusion is stable. MD Gelacio Ross VTE Risk Assessment Caprini Risk Assessment Model Point Value = 1 Point Value = 2 Point Value = 3 Point Value = 5 Age 41-60 Minor surgery BMI > 25 kg/m2 Swollen legs Varicose veins or History of unexplained or recurrent spontaneous Oral contraceptives or hormone replacement Sepsis (< 1 month) Serious lung disease, including pneumonia (< 1 month) Abnormal pulmonary function Acute myocardial infarction Congestive heart failure (< 1 month) History of inflammatory bowel disease Medical patient at bed rest Age 61-74 Arthroscopic surgery Major open surgery (> 45 min) Laparoscopic surgery (> 45 min) Malignancy Confined to bed (> 72 hours) Immobilizing plaster cast Central venous access Age >= 75 History of VTE Family history of VTE Factor V Leiden Prothrombin [id number] Lupus anticoagulant Anticardiolipin antibodies Elevated serum homocysteine Heparin-induced thrombocytopenia Other congenital or acquired thrombophilia Stroke (< 1 month) Elective arthroplasty Hip, pelvis, or leg fracture Acute spinal cord injury (< 1 month) Prophylaxis Regimen Total Risk Factor Score Risk Level Prophylaxis Regimen 0-1 Low Early ambulation 2 Moderate Order ONE of the following: *Sequential Compression Device (SCD) *Heparin 5000 units SQ BID 3-4 Higher Order ONE of the following medications: *Heparin 5000 units SQ TID *Enoxaparin/Lovenox 40 mg SQ daily (WT < 150 kg, CrCl > 30 mL/min) *Enoxaparin/Lovenox 30 mg SQ daily (WT < 150 kg, CrCl > 10-29 mL/min) *Enoxaparin/Lovenox 30 mg SQ BID (WT < 150 kg, CrCl > 30 mL/min) AND/OR *Sequential Compression Device (SCD) 5 or more Highest Order ONE of the following medications: *Heparin 5000 units SQ TID (Preferred with Epidurals) *Enoxaparin/Lovenox 40 mg SQ daily (WT < 150 kg, CrCl > 30 mL/min) *Enoxaparin/Lovenox 30 mg SQ daily (WT < 150 kg, CrCl > 10-29 mL/min) *Enoxaparin/Lovenox 30 mg SQ BID (WT < 150 kg, CrCl > 30 mL/min) AND *Sequential Compression Device (SCD) Assessment and Plan Problem List: (1) Intractable abdominal pain ICD Code: R10.9 - Unspecified abdominal pain (2) Ileus ICD Code: K56.7 - Ileus, unspecified Status: Acute Assessment and Plan 66-year-old man with Ileus Intractable abdominal pain CT abdomen/pelvics noted with finding of diffuse bowel dilatation Will need IV contrast CT abdomen/pelvis for further evaluation Case discussed with Dr. Vernon, general surgery Keep nothing by mouth, IV fluid hydration Hyponatremia Gentle IV fluid hydration Hypokalemia Give potassium 60 mEq 1 now Current history of C. difficile diarrhea C. difficile PCR To Complete oral antibiotic, Flagyl 500 mg by mouth 3 times a day Other chronic medical conditions Resume outpatient medications DVT prophylaxis: Bilateral SCDs Code Status Full code Discussed Condition With Patient, , ED physician Walt Novak MD May 12, 2017 16:36
--- NOTE | 2017-05-12 16:55 | RADRPT ---
EXAM DATE/TIME: 05/12/2017 14:59 [facility] COMPARISON: CT ABDOMEN & PELVIS W CONTRAST, March 15, 2017, 20:37. INDICATIONS : Abdominal pain and distention. IV CONTRAST: 96 cc Omnipaque 350 (iohexol) IV ORAL CONTRAST: Prescribed oral contrast ingested. RADIATION DOSE: 16.42 CTDIvol (mGy) MEDICAL HISTORY : Hernia, hiatal. Hypertension. SURGICAL HISTORY : None. ENCOUNTER: Initial ACUITY: 1 day PAIN SCALE: 4/10 LOCATION: diffuse abdomen. TECHNIQUE: Volumetric scanning of the abdomen and pelvis was performed. Using automated exposure control and ad justment of the mA and/or kV according to patient size, radiation dose was kept as low as reasonably achievable to obtain optimal diagnostic quality images. DICOM format image data is available electro nically for review and comparison. FINDINGS: LOWER LUNGS: Visualized lung bases demonstrate minimal bibasal atelectasis/scarring. Visualized portions of the he art demonstrate small pericardial effusion unchanged from prior exam. LIVER: Homogeneous without focal intrapelvic ductal dilatation or mass. Gallbladder is mildly distended but otherwise unremarkable. SPLEEN: 2 small regions of splenic tissue unchanged from prior exam. PANCREAS: Pancreatic calcifications with stable cystic lesion near the pancreatic tail measuring approximately 1.8 x 2.3 cm KIDNEYS: Kidneys demonstrate symmetrical enhancement without evidence for hydronephrosis or radiopaque renal c alculi. ADRENAL GLANDS: Within normal limits. VASCULAR: There is no aortic aneurysm. BOWEL/MESENTERY: Postsurgical sutures are noted in the descending colon. Small bowel is diffusely distended with appar ent transition in the right lower quadrant with decompressed distal ileal loops. Small bowel loops me asure up to 4.4 cm. Proximal colon is decompressed but fluid-filled. There is gaseous distention of t he transverse colon extending to the splenic flexure. Colon in this region is decompressed but fluid- filled. Again, there is distention of the descending colon to the sigmoid junction. Sigmoid and rectu m are fluid filled although not significantly distended. There are air-fluid levels involving both th e small bowel and colon. Overall appearance of the colon is similar to prior exam. No definitive evid ence for pneumatosis or free air. No drainable fluid collection. ABDOMINAL WALL: Within normal limits. RETROPERITONEUM: There is no lymphadenopathy. BLADDER: No wall thickening or mass. REPRODUCTIVE: Within normal limits. INGUINAL: There is no lymphadenopathy or hernia. MUSCULOSKELETAL: Within normal limits for patient age. CONCLUSION: 1. Interval development of diffuse small bowel distention with transition point in the right lower qu adrant in the distal ileum. There is redemonstration of diffusely fluid filled colon with gaseous dis tention of the transverse colon similar to previous examination. Overall findings are consistent with interval development of partial small bowel obstruction with more chronic colonic distention. No radha dence for perforation, bowel infarction, or drainable fluid collection. 2. Remainder of examination is unchanged with stable changes of prior pancreatitis with 2.3 cm cystic lesion near the pancreatic tail like reflecting a pseudocyst, small pericardial effusion, and bibasi lar atelectasis/scarring. Chaim Sepulveda MD on May 12, 2017 at 16:36 Board Certified Radiologist. This report was verified electronically.
[2017-05-12] MEDS ORDERED: ZOLPIDEM TARTRATE 10 MG TAB PO PRN (17:00)
[2017-05-12] MEDS ORDERED: RESP: ALBUTEROL 2.5 MG/3 ML NEB (PRN) NEB (17:45)
[2017-05-12 18:37] VITALS: BP 130/71; PULSE 82; RESP 16; TEMP 98.9; O2SAT 99
[2017-05-12] MEDS: SODIUM CHLOR 0.9% 1000 ML INJ 1,000 ML IV SCH (18:50)
[2017-05-12] MEDS ORDERED: LORazepam 2 MG/ML VIAL IV PUSH PRN (19:00)
[2017-05-12 20:57] VITALS: BP 124/58; PULSE 93; RESP 18; TEMP 98.5; O2SAT 93
[2017-05-12] MEDS: SODIUM CHLORIDE 0.9% FLUSH 10 ML FLUSH IV FLUSH SCH (22:28)
[2017-05-12] MEDS: TAMSULOSIN HCL 0.4 MG CAP PO SCH (22:28)
[2017-05-12] MEDS: metroNIDAZOLE 500 MG TAB PO SCH (22:28)
[2017-05-12] MEDS: BUDESONIDE-FORMOTEROL 160/4.5 MCG INHALER INH SCH (23:22)
[2017-05-13 00:28] VITALS: BP 118/61; PULSE 89; RESP 20; TEMP 98.1; O2SAT 92
[2017-05-13 04:13] VITALS: BP 118/59; PULSE 86; RESP 18; TEMP 97.4; O2SAT 93
[2017-05-13 05:34] LABS: AUTOMATED NEUTROPHIL # 8.2 TH/MM3 (1.8-7.7); BASOPHIL # 0.3 TH/MM3 (0-0.2); BASOPHIL % 1.9 % (0.0-2.0); EOSINOPHIL # 0.3 TH/MM3 (0-0.4); EOSINOPHIL % 2.4 % (0.0-4.0); HEMATOCRIT 29.1 % (39.0-51.0); LYMPH % 18.5 % (9.0-44.0); LYMPHOCYTE # 2.6 TH/MM3 (1.0-4.8); MEAN CELL VOLUME 76.9 FL (80.0-100.0); MEAN CORPUSCULAR HEMOGLOBIN 24.5 PG (27.0-34.0); MEAN CORPUSCULAR HGB CONC 31.9 % (32.0-36.0); MONO % 17.9 % (0.0-8.0); NEUT % 59.3 % (16.0-70.0); PLATELET COUNT 690 TH/MM3 (150-450); RED BLOOD COUNT 3.79 MIL/MM3 (4.50-5.90); RED CELL DISTRIBUTION WIDTH 20.3 % (11.6-17.2); WHITE BLOOD COUNT 13.9 TH/MM3 (4.0-11.0)
[2017-05-13 05:36] LABS: HEMO FLAGS AUTO DIFF
[2017-05-13 05:58] LABS: ANION GAP 10 MEQ/L (5-15); AST (GOT) 16 U/L (15-37); BICARBONATE 26.4 MEQ/L (21.0-32.0); BLOOD UREA NITROGEN 10 MG/DL (7-18); CHLORIDE 98 MEQ/L (98-107); GLOMERULAR FILTRATION RATE 88 ML/MIN (>89); SODIUM (NA) 134 MEQ/L (136-145)
[2017-05-13 05:59] LABS: ALKALINE PHOSPHATASE 57 U/L (45-117); ALT (GPT) 15 U/L (12-78); TOTAL BILIRUBIN ADULT 0.4 MG/DL (0.2-1.0)
[2017-05-13] MEDS: metroNIDAZOLE 500 MG TAB PO SCH ×3 (06:06→21:43)
[2017-05-13 07:06] LABS: BASOPHILS 1 % (0-2); EOSINOPHILS 2 % (0-4); NEUTROPHIL # MANUAL DIFF 8.1 TH/MM3 (1.8-7.7); PLATELET ESTIMATE SMEAR HIGH (NORMAL); PLATELET MORPHOLOGY NORMAL (NORMAL); POLYS (SEG NEUTROPHILS) 58 % (16-70); SCAN/DIFF FINAL DIFF MANUAL; WBC DIFF SAMPLE 100
[2017-05-13] MEDS: SODIUM CHLORIDE 0.9% FLUSH 10 ML FLUSH IV FLUSH SCH ×2 (07:47→21:43)
[2017-05-13 08:57] VITALS: BP 113/68; PULSE 97; RESP 18; TEMP 97.8
[2017-05-13] MEDS: SODIUM CHLOR 0.9% 1000 ML INJ 1,000 ML IV SCH ×2 (08:59→21:44)
[2017-05-13] MEDS: ALLOPURINOL 100 MG TAB PO SCH (09:00)
[2017-05-13] MEDS ORDERED: POTASSIUM CHLORIDE 10 MEQ CONTROLLED RELEASE TAB PO ONE (09:00)
[2017-05-13] MEDS: PANTOPRAZOLE SOD 20 MG DELAYED RELEASE TAB PO SCH (09:01)
[2017-05-13] MEDS: POTASSIUM CHLORIDE 20 MEQ CONTROLLED RELEASE TAB PO SCH (09:01)
[2017-05-13] MEDS: FUROSEMIDE 20 MG TAB PO SCH (09:01)
[2017-05-13] MEDS: BUDESONIDE-FORMOTEROL 160/4.5 MCG INHALER INH SCH ×2 (09:05→21:43)
[2017-05-13] MEDS: LISINOPRIL 5 MG TAB PO SCH (09:05)
--- NOTE | 2017-05-13 09:28 | HHI.PR ---
Subjective Remarks Follow up intractable abdominal pain/ileus 05/13/17-patient seen and examined; states overnight the abdominal swollen went down however this Am, it has gone right back up again causing more pain and distension.Patient is requesting pain med Objective Vitals Vital Signs Date Time Temp Pulse Resp B/P (MAP) Pulse Ox O2 Delivery O2 Flow Rate FiO2 05/13/17 08:57 Room Air 05/13/17 08:57 97.8 97 18 113/68 (83) 05/13/17 04:13 97.4 86 18 118/59 (78) 93 05/13/17 00:28 98.1 89 20 118/61 (80) 92 05/12/17 20:57 98.5 93 18 124/58 (80) 93 05/12/17 19:45 Room Air 05/12/17 19:02 05/12/17 16:58 16 05/12/17 09:36 102 16 122/64 (83) 95 Room Air Result Diagram: 05/13/17 0508 05/13/17 0508 Imaging Last Impressions Abdomen/Pelvis CT 05/12/17 0000 Signed Impressions: Service Date/Time: Friday, May 12, 2017 14:59 - CONCLUSION: 1. Interval development of diffuse small bowel distention with transition point in the right lower quadrant in the distal ileum. There is redemonstration of diffusely fluid filled colon with gaseous distention of the transverse colon similar to previous examination. Overall findings are consistent with interval development of partial small bowel obstruction with more chronic colonic distention. No evidence for perforation, bowel infarction, or drainable fluid collection. 2. Remainder of examination is unchanged with stable changes of prior pancreatitis with 2.3 cm cystic lesion near the pancreatic tail like reflecting a pseudocyst , small pericardial effusion, and bibasilar atelectasis/scarring. Chaim Sepulveda MD Objective Remarks GENERAL: NAD SKIN: Warm and dry. HEAD: Normocephalic. EYES: No scleral icterus. No injection or drainage. NECK: Supple, trachea midline. No JVD or lymphadenopathy. CARDIOVASCULAR: Regular rate and rhythm without murmurs, gallops, or rubs. RESPIRATORY: Breath sounds equal bilaterally. No accessory muscle use. GASTROINTESTINAL: Abdomen soft, mildly tender, distended. dressing over incision MUSCULOSKELETAL: No cyanosis, or edema. BACK: Nontender without obvious deformity. No CVA tenderness. A/P Problem List: (1) Intractable abdominal pain ICD Code: R10.9 - Unspecified abdominal pain (2) Ileus ICD Code: K56.7 - Ileus, unspecified Status: Acute Assessment and Plan 66-year-old man with Ileus Intractable abdominal pain CT abdomen/pelvics noted with finding of diffuse bowel dilatation Case discussed with Dr. Vernon, general surgery yesterday Flat and upright now Conservative management Hyponatremia Improving with Gentle IV fluid hydration Hypokalemia Give potassium 60 mEq 1 Current history of C. difficile diarrhea C. difficile PCR On Flagyl 500 mg by mouth 3 times a day Other chronic medical conditions continue outpatient medications DVT prophylaxis: Bilateral SCDs Walt Novak MD May 13, 2017 09:28
[2017-05-13] MEDS ORDERED: ACETAMINOPHEN/HYDROcodone 325 MG/5 MG TAB PO PRN (09:30)
[2017-05-13] MEDS: TIOTROPIUM BROMIDE 18 MCG INH INH SCH (09:52)
[2017-05-13] MEDS: LORazepam 1 MG TAB PO PRN (09:56)
--- NOTE | 2017-05-13 10:11 | MB ---
cc: MAYLIN GREENE MD DATE OF CONSULTATION 05/12/2017 REASON FOR CONSULTATION The patient is known to this service, abdominal pain, ileus. HISTORY OF PRESENT ILLNESS The patient is a 66-year-old male with a complicated medical-surgical history who presents with acute onset of worsening abdominal pain. The patient states the pain started recently over the past five days and has continued to get worse. The pain is currently an 8/10, some relief with IV pain medications. It is constant, worse with movement, some improvement with lying still. The patient denies any recent fevers or chills, nausea, or vomiting. He does complained of some associated constipation as well. Patient with a history of the cecal perforation status post colostomy in June 2016. He underwent reversal January 25, 2017. He was doing relatively well. The patient had difficulty with complications and wound infection of the anterior abdominal wall for which she was treated with a complex Vac and under antibiotic therapy for a wound infection. This slowly improved. The patient developed significant abdominal wall herniation and was noted somewhat recently to have recurrence of abdominal pain for which he underwent CT scanning showing diffuse colitis with stool positive for C. difficile. The patient has been undergoing antibiotic treatment with Flagyl and has noted improvement. He was seen in the office and noted to be doing relatively well and pain has improved fairly well also, however, the patient has had somewhat long intractable pain. He has been seen in consultation with pain management clinic for this. The patient notes recently that his pain did, however, get significantly worse and the patient has had difficulty with having bowel movements and passing gas. This prompted him to come to the emergency department. He had further workup including labs with a leukocytosis of 15,[address] scan showing diffuse bowel dilation and concern for ileus. PAST MEDICAL HISTORY 1. Hypertension 2. Mini-Stroke 3. Pericardial effusion 4. CHF PAST SURGICAL HISTORY 1. Splenectomy 2. Hernia repairs 3. Ventral inguinal colostomy, mucous fistula status post reversal 4. Left hip surgery MEDICATIONS See EMR. ALLERGIES ASPIRIN, DICLOFENAC, ETODOLAC, FLURBIPROFEN, IBUPROFEN, INDOMETHACINE, KETOPROFEN, KETOROLAC NAPROSYN, OXAPROZIN. FAMILY HISTORY Mother had an [place]. Mother lung cancer. Father healthy. SOCIAL HISTORY Previous history of smoking, but has previously quit. Denies ETOH or IVDA. REVIEW OF SYSTEMS GENERAL: The patient denies fevers. HEENT: Denies eye pain, ear pain. NECK: Denies swelling or pain. LUNGS: Denies cough or wheeze. HEART: Denies palpitations, chest pain. ABDOMEN: Complained of abdominal pain. Denies nausea. ENDOCRINE: Denies polyuria or polydipsia. NEUROLOGIC: Denies numbness or tingling. : Denies dysuria or hematuria. PHYSICAL EXAMINATION VITAL SIGNS: Temperature 97.5, pulse 100, respiration 24, blood pressure 124/80, saturation 96%. GENERAL: In no acute distress. HEENT: Pupils equal, round and reactive. Normocephalic, atraumatic. NECK: Supple. Trachea midline. LUNGS: S1-S2 regular. HEART: S1-S2 regular. No murmur. ABDOMEN: Soft, minimal granulation tissue to midline, large abdominal wall hernia. Positive tenderness to palpation. No rebound, tympanitic. EXTREMITIES: Warm, well-perfused. NEUROLOGIC: GCS of 15, 5/5 motor all extremities. INTEGUMENT: As above. LABORATORY AND DIAGNOSTIC DATA WBC 15.7, hemoglobin 9.5, hematocrit 31.1, platelet 7700. Sodium 138, potassium 3.3, chloride 93, BUN 12, creatinine 0.8, glucose 128, bilirubin 0.4, AST 20, ALT 18, lipase 140. CT reviewed by myself, diffuse bowel dilation, concern for ileus, small pericardial effusion, cystic pancreatic mass, slight increase in size. ASSESSMENT The patient is a 66-year-old male with a complex medical-surgical history who presents with acute onset of severe abdominal pain likely related to ileus and constipation. PLAN After a full clinical, radiologic and laboratory workup of the patient with the above-named issues, at this point, okay for the patient to have a liquid diet. The patient will need adequate pain control, IV fluid hydration. Recommend a bowel regimen, continued abdominal exams. No surgical intervention at this time. I discussed the long-term potential need for complex abdominal wall hernia revision. We will continue to follow. Thank you for this consultation. MD DWAYNE Christianson/STEPH /10:18 PM /9:45 AM
[2017-05-13] MEDS ORDERED: MAGNESIUM HYDROXIDE SUSP 30 ML CUP PO ONE (10:30)
--- NOTE | 2017-05-13 11:14 | RADRPT ---
EXAM DATE/TIME: 05/13/2017 10:41 [facility] COMPARISON: CT ABDOMEN & PELVIS W CONTRAST, May 12, 2017, 14:59. INDICATIONS : Ileus MEDICAL HISTORY : Hypertension. Hiatal hernia SURGICAL HISTORY : None. ENCOUNTER: Initial ACUITY: 1 day PAIN SCORE: 9/10 LOCATION: Bilateral abdomen FINDINGS: There are multiple distended small bowel loops maximum diameter of 5.3 cm. The colon is also distende d maximum diameter 11.3 cm involving the transverse colon. No definite free air is identified for sammy hnique. CONCLUSION: Significant distention of loops of large and small bowel could be due to ileus, however the patient's prior CT examination demonstrated transition to small bowel loops distally and possibility of partia l small bowel obstruction is not excluded. Marquise Eastman MD on May 13, 2017 at 11:09 Board Certified Radiologist. This report was verified electronically.
[2017-05-13 11:46] VITALS: BP 116/55; PULSE 98; RESP 20; TEMP 98; O2SAT 97
--- NOTE | 2017-05-13 11:49 | HHI.PR ---
Subjective Subjective Notes still with pain and distension, several episodes of diarrhea today, no fevers Objective Vitals/I&O Vital Signs Date Time Temp Pulse Resp B/P (MAP) Pulse Ox O2 Delivery O2 Flow Rate FiO2 05/13/17 08:57 Room Air 05/13/17 08:57 97.8 97 18 113/68 (83) 05/13/17 04:13 93 Labs Laboratory Tests Test 05/13/17 05:08 White Blood Count 13.9 Red Blood Count 3.79 Hemoglobin 9.3 Hematocrit 29.1 Mean Corpuscular Volume 76.9 Mean Corpuscular Hemoglobin 24.5 Mean Corpuscular Hemoglobin Concent 31.9 Red Cell Distribution Width 20.3 Platelet Count 690 Mean Platelet Volume 7.7 Neutrophils (%) (Auto) 59.3 Lymphocytes (%) (Auto) 18.5 Monocytes (%) (Auto) 17.9 Eosinophils (%) (Auto) 2.4 Basophils (%) (Auto) 1.9 Neutrophils # (Auto) 8.2 Lymphocytes # (Auto) 2.6 Monocytes # (Auto) 2.5 Eosinophils # (Auto) 0.3 Basophils # (Auto) 0.3 CBC Comment AUTO DIFF Differential Total Cells Counted 100 Neutrophils % (Manual) 58 Lymphocytes % 26 Monocytes % 13 Eosinophils % 2 Basophils % 1 Neutrophils # (Manual) 8.1 Differential Comment FINAL DIFF MANUAL Platelet Estimate HIGH Platelet Morphology Comment NORMAL Blood Urea Nitrogen 10 Creatinine 0.87 Random Glucose 124 Total Protein 8.0 Albumin 3.5 Calcium Level 8.4 Alkaline Phosphatase 57 Aspartate Amino Transf (AST/SGOT) 16 Alanine Aminotransferase (ALT/SGPT) 15 Total Bilirubin 0.4 Sodium Level 134 Potassium Level 3.0 Chloride Level 98 Carbon Dioxide Level 26.4 Anion Gap 10 Estimat Glomerular Filtration Rate 88 Cardiovascular: Regular Lungs: Clear Abdomen: Other (soft distended, granulation tissue) A/P Assessment and Plan abdominal pain PLAN Reg diet c diff cx pending pain control wound care, abdominal binder d/c planning when pain better, and regular Andreas Vernon MD May 13, 2017 11:49
[2017-05-13] MEDS: oxyCODONE/ACETAMINOPHEN 7.5 MG/325 MG TAB PO PRN ×2 (12:46→18:09)
--- NOTE | 2017-05-13 13:59 | PD.WCN.NOT ---
Wound Consult Description: Consult received from Doctor Novak for wound management of Abdomen Communicated with: ABDI [facility]. Call placed to Doctor Novak for orders Recommendation: Please cleanse open wound to medial abdomen with normal saline and pat dry. Apply Xeroform in single layer just over wound bed and cover with dry 4x4 gauze pads. Secure dressing with ABD pad and tape. Change dressing every other day or PRN if saturated or dislodged Additional Information: Patient seen on [facility] H pod for evaluation of wound to abdomen. Removed ABD pads and tape in place to reveal open wound to medial Abdomen from previous abdominal surgery. Patient has recently closed wounds to upper medial abdominal area and diffuse scabs and scars to periwound. Open wound to medial abdomen presents with 90% clean red tissue and ~10% pale yellow tissue. Wound bed is moist without active drainage. Minimal sero-sanguninous drainage is noted to old dressing without odor. Cleansed wound with normal saline and applied Xeroform in single layer just over open wound to abdomen applied skin prep to periwound before applying dry 4x4 gauze pads, ABD pad and paper tape. Carey Bautista [facility] May 13, 2017 13:59
[2017-05-13 16:02] VITALS: BP 114/59; PULSE 107; RESP 20; TEMP 98; O2SAT 97
[2017-05-13] MEDS: TAMSULOSIN HCL 0.4 MG CAP PO SCH (21:44)
[2017-05-13 22:55] VITALS: BP 115/65; PULSE 78; RESP 18; TEMP 97.9; O2SAT 98
[2017-05-14] MEDS: oxyCODONE/ACETAMINOPHEN 7.5 MG/325 MG TAB PO PRN ×4 (00:53→19:56)
[2017-05-14 03:17] VITALS: BP 118/65; PULSE 78; RESP 18; TEMP 98; O2SAT 98
[2017-05-14 04:09] LABS: C. DIFF EPI 027 PRESUMPTIVE NEGATIVE (NEGATIVE)
[2017-05-14 06:51] LABS: BICARBONATE 23.9 MEQ/L (21.0-32.0); POTASSIUM 3.4 MEQ/L (3.5-5.1)
[2017-05-14 07:57] VITALS: BP 118/67; PULSE 81; RESP 18; TEMP 97.6; O2SAT 99
[2017-05-14] MEDS: LISINOPRIL 5 MG TAB PO SCH (08:58)
[2017-05-14] MEDS: POTASSIUM CHLORIDE 20 MEQ CONTROLLED RELEASE TAB PO SCH (08:58)
[2017-05-14] MEDS: ALLOPURINOL 100 MG TAB PO SCH (08:59)
[2017-05-14] MEDS: FUROSEMIDE 20 MG TAB PO SCH (09:00)
[2017-05-14] MEDS: PANTOPRAZOLE SOD 20 MG DELAYED RELEASE TAB PO SCH (09:00)
[2017-05-14] MEDS: BUDESONIDE-FORMOTEROL 160/4.5 MCG INHALER INH SCH ×2 (09:01→19:54)
[2017-05-14] MEDS: SODIUM CHLORIDE 0.9% FLUSH 10 ML FLUSH IV FLUSH SCH ×2 (09:01→19:55)
[2017-05-14] MEDS: TIOTROPIUM BROMIDE 18 MCG INH INH SCH (09:02)
--- NOTE | 2017-05-14 09:27 | RADRPT ---
EXAM DATE/TIME: 05/14/2017 08:20 [facility] COMPARISON: CT ABDOMEN & PELVIS W CONTRAST, May 12, 2017, 14:59. ABDOMEN FLAT & UPRIGHT, May 13, 2017, 10: 41. INDICATIONS : Abdominal pain and distention. MEDICAL HISTORY : Hypertension. Hiatal hernia SURGICAL HISTORY : None. ENCOUNTER: Subsequent ACUITY: 3 days PAIN SCORE: 9/10 LOCATION: Bilateral upper quadrant FINDINGS: Supine and upright views of the abdomen show no interval change. Dilated loops of gas-filled large an d small bowel observed. Gas is seen to the distal sigmoid colon. The small bowel reaches a maximum di ameter of 5 cm. Colon reaches a maximum diameter of 7 cm. No pneumoperitoneum. A few small air-fluid levels. No organomegaly. No worrisome calcifications. Left hip prosthesis partially seen. Lung bases are clear. CONCLUSION: Unchanged dilated bowel in a radiographic appearance most consistent with an ileus. Farhat Umana Jr., MD on May 14, 2017 at 9:20 Board Certified Radiologist. This report was verified electronically.
[2017-05-14 12:00] VITALS: BP 125/66; PULSE 86; RESP 18; TEMP 96.8; O2SAT 96
[2017-05-14] MEDS ORDERED: LACTULOSE SYRUP 20 GM/30 ML CUP PO ONE (12:15)
[2017-05-14] MEDS: LORazepam 1 MG TAB PO PRN ×2 (12:19→19:56)
[2017-05-14] MEDS: SODIUM CHLOR 0.9% 1000 ML INJ 1,000 ML IV SCH (12:19)
--- NOTE | 2017-05-14 12:34 | HHI.PR ---
Subjective Remarks Follow up intractable abdominal pain/ileus 05/13/17-patient seen and examined; states overnight the abdominal swollen went down however this Am, it has gone right back up again causing more pain and distension.Patient is requesting pain med 05/14/17-patient seen and examined, he with some abdominal distention and swelling however the pain is much improved today Objective Vitals Vital Signs Date Time Temp Pulse Resp B/P (MAP) Pulse Ox O2 Delivery O2 Flow Rate FiO2 05/14/17 09:00 Room Air 05/14/17 07:57 97.6 81 18 118/67 (84) 99 05/14/17 03:17 98.0 78 18 118/65 (82) 98 05/14/17 01:53 12 05/13/17 22:55 97.9 78 18 115/65 (82) 98 05/13/17 20:00 Room Air 05/13/17 16:02 98.0 107 20 114/59 (77) 97 I/O 05/13/17 05/13/17 05/13/17 05/14/17 05/14/17 05/14/17 06:59 14:59 22:59 06:59 14:59 22:59 Intake Total 950 ml Balance 950 ml Intake IV Total 950 ml # Voids 2 4 # Bowel Movements 2 Result Diagram: 05/13/17 0508 05/14/17 0437 Objective Remarks GENERAL: NAD SKIN: Warm and dry. HEAD: Normocephalic. EYES: No scleral icterus. No injection or drainage. NECK: Supple, trachea midline. No JVD or lymphadenopathy. CARDIOVASCULAR: Regular rate and rhythm without murmurs, gallops, or rubs. RESPIRATORY: Breath sounds equal bilaterally. No accessory muscle use. GASTROINTESTINAL: Abdomen soft, mildly tender, distended. dressing over incision MUSCULOSKELETAL: No cyanosis, or edema. BACK: Nontender without obvious deformity. No CVA tenderness. A/P Problem List: (1) Intractable abdominal pain ICD Code: R10.9 - Unspecified abdominal pain (2) Ileus ICD Code: K56.7 - Ileus, unspecified Status: Acute Assessment and Plan 66-year-old man with Ileus Intractable abdominal pain CT abdomen/pelvics noted with finding of diffuse bowel dilatation Repeat Flat and upright in a.m. Conservative management Hyponatremia Improving with Gentle IV fluid hydration Hypokalemia Monitor electrolyte Current history of C. difficile diarrhea C. difficile PCR negative Completed Flagyl 500 mg by mouth 3 times a day Other chronic medical conditions continue outpatient medications DVT prophylaxis: Bilateral SCDs Walt Novak MD May 14, 2017 12:34
[2017-05-14 16:00] VITALS: BP 119/69; PULSE 83; RESP 18; O2SAT 99
[2017-05-14] MEDS: TAMSULOSIN HCL 0.4 MG CAP PO SCH (19:54)
[2017-05-14] MEDS: DOCUSATE SODIUM 50 MG/SENNA 8.6 MG TAB PO PRN (19:59)
[2017-05-14 20:00] VITALS: BP 107/58; PULSE 80; RESP 16; TEMP 97; O2SAT 92
[2017-05-15] VITALS: BP 114/58; PULSE 83; RESP 18; TEMP 97.6; O2SAT 100
[2017-05-15] MEDS: oxyCODONE/ACETAMINOPHEN 7.5 MG/325 MG TAB PO PRN ×5 (01:28→23:33)
[2017-05-15 05:21] LABS: BICARBONATE 24.5 MEQ/L (21.0-32.0); POTASSIUM 3.6 MEQ/L (3.5-5.1)
[2017-05-15] MEDS: DOCUSATE SODIUM 50 MG/SENNA 8.6 MG TAB PO PRN ×2 (05:27→20:15)
[2017-05-15] MEDS: SODIUM CHLOR 0.9% 1000 ML INJ 1,000 ML IV SCH ×2 (05:28→20:13)
[2017-05-15 05:42] LABS: HEMATOCRIT 27.8 % (39.0-51.0); MEAN CELL VOLUME 78.6 FL (80.0-100.0); MEAN CORPUSCULAR HEMOGLOBIN 23.9 PG (27.0-34.0); MEAN CORPUSCULAR HGB CONC 30.4 % (32.0-36.0); PLATELET COUNT 627 TH/MM3 (150-450); RED BLOOD COUNT 3.53 MIL/MM3 (4.50-5.90); RED CELL DISTRIBUTION WIDTH 20.7 % (11.6-17.2); WHITE BLOOD COUNT 10.4 TH/MM3 (4.0-11.0)
[2017-05-15 06:10] LABS: HEMO FLAGS AUTO DIFF
[2017-05-15] MEDS: LORazepam 1 MG TAB PO PRN ×2 (06:21→20:21)
[2017-05-15 08:00] VITALS: BP 121/63; PULSE 84; RESP 18; TEMP 96.4; O2SAT 99
[2017-05-15] MEDS: POTASSIUM CHLORIDE 20 MEQ CONTROLLED RELEASE TAB PO SCH (08:17)
[2017-05-15] MEDS: LISINOPRIL 5 MG TAB PO SCH (08:17)
[2017-05-15] MEDS: ALLOPURINOL 100 MG TAB PO SCH (08:17)
[2017-05-15] MEDS: PANTOPRAZOLE SOD 20 MG DELAYED RELEASE TAB PO SCH (08:17)
[2017-05-15] MEDS: FUROSEMIDE 20 MG TAB PO SCH (08:18)
[2017-05-15 08:20] LABS: EOSINOPHILS 5 % (0-4); NEUTROPHIL # MANUAL DIFF 4.5 TH/MM3 (1.8-7.7); POLYS (SEG NEUTROPHILS) 43 % (16-70); WBC DIFF SAMPLE 100
[2017-05-15] MEDS: SODIUM CHLORIDE 0.9% FLUSH 10 ML FLUSH IV FLUSH SCH ×2 (08:20→20:15)
[2017-05-15 08:21] LABS: PLATELET ESTIMATE SMEAR HIGH (NORMAL)
[2017-05-15 08:22] LABS: OVALOCYTES 1+ (NORMAL); PLATELET MORPHOLOGY NORMAL (NORMAL); SCAN/DIFF FINAL DIFF MANUAL
[2017-05-15] MEDS ORDERED: LACTULOSE SYRUP 20 GM/30 ML CUP PO ONE (08:45)
[2017-05-15] MEDS: BUDESONIDE-FORMOTEROL 160/4.5 MCG INHALER INH SCH ×2 (09:00→20:16)
[2017-05-15] MEDS: TIOTROPIUM BROMIDE 18 MCG INH INH SCH (09:00)
--- NOTE | 2017-05-15 09:05 | RADRPT ---
EXAM DATE/TIME: 05/15/2017 08:34 [facility] COMPARISON: ABDOMEN FLAT & UPRIGHT, May 13, 2017, 10:41. ABDOMEN FLAT & UPRIGHT, May 14, 2017, 8:20. INDICATIONS : Abdominal pain, distension MEDICAL HISTORY : Hypertension. Hiatal hernia SURGICAL HISTORY : None. ENCOUNTER: Subsequent ACUITY: 4 - 6 days PAIN SCORE: 9/10 LOCATION: Bilateral abdomen FINDINGS: Supine and upright views of the abdomen were performed. Compared to the prior 2 examinations there carreon s been no change in the diffuse gaseous distention of large and small bowel in the mid to upper abdom en. No free air is seen. There has been no new or significant changes. The lung bases remain clear.. CONCLUSION: No significant interval change compared to the prior 2 examinations. Paramjit Rogel MD on May 15, 2017 at 9:01 Board Certified Radiologist. This report was verified electronically.
--- NOTE | 2017-05-15 10:56 | HHI.PR ---
Subjective Subjective Notes wants to eat. reports BM and flatus Objective Vitals/I&O Vital Signs Date Time Temp Pulse Resp B/P (MAP) Pulse Ox O2 Delivery O2 Flow Rate FiO2 05/15/17 08:20 Room Air 05/15/17 00:00 97.6 83 18 114/58 (76) 100 Labs Laboratory Tests Test 05/15/17 04:09 White Blood Count 10.4 Red Blood Count 3.53 Hemoglobin 8.4 Hematocrit 27.8 Mean Corpuscular Volume 78.6 Mean Corpuscular Hemoglobin 23.9 Mean Corpuscular Hemoglobin Concent 30.4 Red Cell Distribution Width 20.7 Platelet Count 627 Mean Platelet Volume 8.0 CBC Comment AUTO DIFF Differential Total Cells Counted 100 Neutrophils % (Manual) 43 Lymphocytes % 35 Monocytes % 17 Eosinophils % 5 Neutrophils # (Manual) 4.5 Differential Comment FINAL DIFF MANUAL Platelet Estimate HIGH Platelet Morphology Comment NORMAL Polychromasia 2.0 Ovalocytes 1+ Blood Urea Nitrogen 6 Creatinine 0.72 Random Glucose 109 Calcium Level 8.5 Sodium Level 137 Potassium Level 3.6 Chloride Level 104 Carbon Dioxide Level 24.5 Anion Gap 9 Estimat Glomerular Filtration Rate 110 Narrative Exam very distended, BS present, minimal tenderness A/P Assessment and Plan PSBO vs Ileus continue medical management no surgery planned at this time. Abran Vazquez MD May 15, 2017 10:56
[2017-05-15 12:00] VITALS: BP 133/71; PULSE 80; RESP 17; TEMP 96.3; O2SAT 96
--- NOTE | 2017-05-15 12:07 | HHI.PR ---
Subjective Remarks Follow up intractable abdominal pain/ileus 05/13/17-patient seen and examined; states overnight the abdominal swollen went down however this Am, it has gone right back up again causing more pain and distension.Patient is requesting pain med 05/14/17-patient seen and examined, he with some abdominal distention and swelling however the pain is much improved today 05/15/17-patient seen and examined, reports BM and has Flatus Objective Vitals Vital Signs Date Time Temp Pulse Resp B/P (MAP) Pulse Ox O2 Delivery O2 Flow Rate FiO2 05/15/17 08:20 Room Air 05/15/17 08:00 96.4 84 18 121/63 (82) 99 05/15/17 00:00 97.6 83 18 114/58 (76) 100 05/14/17 20:00 97.0 80 16 107/58 (74) 92 05/14/17 16:00 83 18 119/69 (86) 99 I/O 05/14/17 05/14/17 05/14/17 05/15/17 05/15/17 05/15/17 07:00 15:00 23:00 07:00 15:00 23:00 Intake Total 240 ml 1699 ml Output Total 920 ml Balance 240 ml 779 ml Intake Oral 240 ml IV Total 1699 ml Output Urine Total 920 ml # Voids 1 # Bowel Movements 0 Result Diagram: 05/15/17 0409 05/15/17 0409 Imaging Last Impressions Abdomen X-Ray 05/15/17 0600 Signed Impressions: Service Date/Time: Monday, May 15, 2017 08:34 - CONCLUSION: No significant interval change compared to the prior 2 examinations. Paramjit Rogel MD Abdomen/Pelvis CT 05/12/17 0000 Signed Impressions: Service Date/Time: Friday, May 12, 2017 14:59 - CONCLUSION: 1. Interval development of diffuse small bowel distention with transition point in the right lower quadrant in the distal ileum. There is redemonstration of diffusely fluid filled colon with gaseous distention of the transverse colon similar to previous examination. Overall findings are consistent with interval development of partial small bowel obstruction with more chronic colonic distention. No evidence for perforation, bowel infarction, or drainable fluid collection. 2. Remainder of examination is unchanged with stable changes of prior pancreatitis with 2.3 cm cystic lesion near the pancreatic tail like reflecting a pseudocyst , small pericardial effusion, and bibasilar atelectasis/scarring. Chaim Sepulveda MD Objective Remarks GENERAL: NAD SKIN: Warm and dry. HEAD: Normocephalic. EYES: No scleral icterus. No injection or drainage. NECK: Supple, trachea midline. No JVD or lymphadenopathy. CARDIOVASCULAR: Regular rate and rhythm without murmurs, gallops, or rubs. RESPIRATORY: Breath sounds equal bilaterally. No accessory muscle use. GASTROINTESTINAL: Abdomen soft, mildly tender, distended. dressing over incision MUSCULOSKELETAL: No cyanosis, or edema. BACK: Nontender without obvious deformity. No CVA tenderness. A/P Problem List: (1) Intractable abdominal pain ICD Code: R10.9 - Unspecified abdominal pain (2) Ileus ICD Code: K56.7 - Ileus, unspecified Status: Acute Assessment and Plan 66-year-old man with Ileus vs PSBO Intractable abdominal pain CT abdomen/pelvics noted with finding of diffuse bowel dilatation Repeat Flat and upright in a.m. Conservative management Appreciate input from surgery Hyponatremia Improved with Gentle IV fluid hydration Hypokalemia Resolved Current history of C. difficile diarrhea C. difficile PCR negative Completed Flagyl 500 mg by mouth 3 times a day Other chronic medical conditions continue outpatient medications DVT prophylaxis: Bilateral SCDs Walt Novak MD May 15, 2017 12:07
[2017-05-15 16:00] VITALS: BP 112/70; PULSE 97; RESP 20; TEMP 95.8; O2SAT 95
[2017-05-15 20:00] VITALS: BP 126/71; PULSE 97; RESP 18; TEMP 95.9; O2SAT 96
[2017-05-15] MEDS: TAMSULOSIN HCL 0.4 MG CAP PO SCH (20:15)
[2017-05-16] VITALS: BP 115/66; PULSE 93; RESP 18; TEMP 96.1; O2SAT 93
[2017-05-16] MEDS: oxyCODONE/ACETAMINOPHEN 7.5 MG/325 MG TAB PO PRN ×5 (04:25→23:37)
[2017-05-16 08:00] VITALS: BP 119/71; PULSE 91; RESP 18; TEMP 97.6; O2SAT 95
[2017-05-16] MEDS: PANTOPRAZOLE SOD 20 MG DELAYED RELEASE TAB PO SCH (08:38)
[2017-05-16] MEDS: DOCUSATE SODIUM 50 MG/SENNA 8.6 MG TAB PO PRN ×2 (08:38→23:36)
[2017-05-16] MEDS: ALLOPURINOL 100 MG TAB PO SCH (08:38)
[2017-05-16] MEDS: FUROSEMIDE 20 MG TAB PO SCH (08:38)
[2017-05-16] MEDS: LISINOPRIL 5 MG TAB PO SCH (08:39)
[2017-05-16] MEDS: POTASSIUM CHLORIDE 20 MEQ CONTROLLED RELEASE TAB PO SCH (08:39)
[2017-05-16] MEDS: SODIUM CHLORIDE 0.9% FLUSH 10 ML FLUSH IV FLUSH SCH ×2 (08:42→21:14)
[2017-05-16] MEDS: BUDESONIDE-FORMOTEROL 160/4.5 MCG INHALER INH SCH ×2 (08:43→21:14)
[2017-05-16] MEDS: TIOTROPIUM BROMIDE 18 MCG INH INH SCH (08:43)
--- NOTE | 2017-05-16 11:35 | HHI.PR ---
Subjective Remarks Follow up intractable abdominal pain/ileus 05/13/17-patient seen and examined; states overnight the abdominal swollen went down however this Am, it has gone right back up again causing more pain and distension.Patient is requesting pain med 05/14/17-patient seen and examined, he with some abdominal distention and swelling however the pain is much improved today 05/15/17-patient seen and examined, reports BM and has Flatus 05/16/17-patient seen and examined, complains of significant bloating and distention today, and requesting something for gas pain Objective Vitals Vital Signs Date Time Temp Pulse Resp B/P (MAP) Pulse Ox O2 Delivery O2 Flow Rate FiO2 05/16/17 08:45 Room Air 05/16/17 08:00 97.6 91 18 119/71 (87) 95 05/16/17 00:00 96.1 93 18 115/66 (82) 93 05/15/17 21:19 Room Air 05/15/17 20:00 95.9 97 18 126/71 (89) 96 05/15/17 16:00 95.8 97 20 112/70 (84) 95 05/15/17 12:00 96.3 80 17 133/71 (91) 96 I/O 05/15/17 05/15/17 05/15/17 05/16/17 05/16/17 05/16/17 06:59 14:59 22:59 06:59 14:59 22:59 Intake Total 1699 ml 507 ml 2400 ml Output Total 920 ml 800 ml Balance 779 ml 507 ml 1600 ml Intake Oral 1400 ml IV Total 1699 ml 507 ml 1000 ml Output Urine Total 920 ml 800 ml # Bowel Movements 1 Result Diagram: 05/15/17 0409 05/15/17 0409 Objective Remarks GENERAL: NAD SKIN: Warm and dry. HEAD: Normocephalic. EYES: No scleral icterus. No injection or drainage. NECK: Supple, trachea midline. No JVD or lymphadenopathy. CARDIOVASCULAR: Regular rate and rhythm without murmurs, gallops, or rubs. RESPIRATORY: Breath sounds equal bilaterally. No accessory muscle use. GASTROINTESTINAL: Abdomen soft, mildly tender, distended. dressing over incision MUSCULOSKELETAL: No cyanosis, or edema. BACK: Nontender without obvious deformity. No CVA tenderness. A/P Problem List: (1) Intractable abdominal pain ICD Code: R10.9 - Unspecified abdominal pain (2) Ileus ICD Code: K56.7 - Ileus, unspecified Status: Acute Assessment and Plan 66-year-old man with Ileus vs PSBO Intractable abdominal pain CT abdomen/pelvics noted with finding of diffuse bowel dilatation Flat and upright pending this a.m. Conservative management; we add Symethacone Appreciate input from surgery Hyponatremia Improved Hypokalemia Resolved Current history of C. difficile diarrhea C. difficile PCR negative Completed Flagyl 500 mg by mouth 3 times a day Other chronic medical conditions continue outpatient medications DVT prophylaxis: Bilateral SCDs Walt Novak MD May 16, 2017 11:35
--- NOTE | 2017-05-16 11:47 | RADRPT ---
EXAM DATE/TIME: 05/16/2017 11:11 [facility] COMPARISON: ABDOMEN FLAT & UPRIGHT, May 13, 2017, 10:41. CT ABDOMEN & PELVIS W CONTRAST, May 12, 2017, 14: 59. ABDOMEN FLAT & UPRIGHT, May 15, 2017, 8:34. INDICATIONS : Abdominal pain. MEDICAL HISTORY : Hypertension. Hiatal hernia. SURGICAL HISTORY : None. ENCOUNTER: Subsequent ACUITY: 4 - 6 days PAIN SCORE: 8/10 LOCATION: Bilateral abdomen. FINDINGS: There has been progressive dilation of air filled loops of large bowel as well as air fluid levels wi thin progressively dilated small bowel loops concerning for progressive incomplete small bowel obstru ction and chronic colonic distention. No visualized free air. The lung bases are clear. Left hip pros thesis. CONCLUSION: Progressive dilation of both large and small bowel concerning for progressive incomplete small bowel obstruction and chronic large bowel dilation. Renetta Madrid MD on May 16, 2017 at 11:40 Board Certified Radiologist. This report was verified electronically.
[2017-05-16 12:00] VITALS: BP 123/64; PULSE 90; RESP 18; TEMP 97.4; O2SAT 92
[2017-05-16] MEDS: SIMETHICONE 125 MG CHEWABLE TAB PO SCH ×2 (14:36→21:14)
[2017-05-16 16:00] VITALS: BP 119/73; PULSE 83; RESP 20; TEMP 96.8; O2SAT 96
[2017-05-16] MEDS: LORazepam 1 MG TAB PO PRN (17:40)
--- NOTE | 2017-05-16 18:00 | HHI.PR ---
Subjective Subjective Notes some flatus, no BM Objective Vitals/I&O Vital Signs Date Time Temp Pulse Resp B/P (MAP) Pulse Ox O2 Delivery O2 Flow Rate FiO2 05/16/17 16:00 96.8 83 20 119/73 (88) 96 05/16/17 08:45 Room Air Abdomen: Non-tender, Other (distended, no peritonitis) A/P Assessment and Plan 66yo male with abdominal pain/bloating PO ileus continue non-operative management Giancarlo Woody MD May 16, 2017 18:00
[2017-05-16 20:00] VITALS: BP 118/68; PULSE 87; RESP 18; TEMP 97.6; O2SAT 94
[2017-05-16] MEDS: TAMSULOSIN HCL 0.4 MG CAP PO SCH (21:14)
[2017-05-17] VITALS: BP 114/88; PULSE 101; RESP 18; TEMP 97.8; O2SAT 93
[2017-05-17] MEDS: LORazepam 1 MG TAB PO PRN ×2 (02:12→12:07)
[2017-05-17] MEDS: SIMETHICONE 125 MG CHEWABLE TAB PO SCH ×3 (05:11→22:39)
[2017-05-17] MEDS: oxyCODONE/ACETAMINOPHEN 7.5 MG/325 MG TAB PO PRN ×5 (05:11→22:39)
[2017-05-17 08:00] VITALS: BP 124/68; PULSE 100; RESP 20; TEMP 95.3; O2SAT 94
[2017-05-17] MEDS: POTASSIUM CHLORIDE 20 MEQ CONTROLLED RELEASE TAB PO SCH (08:50)
[2017-05-17] MEDS: FUROSEMIDE 20 MG TAB PO SCH (08:50)
[2017-05-17] MEDS: ALLOPURINOL 100 MG TAB PO SCH (08:51)
[2017-05-17] MEDS: PANTOPRAZOLE SOD 20 MG DELAYED RELEASE TAB PO SCH (08:51)
[2017-05-17] MEDS: LISINOPRIL 5 MG TAB PO SCH (08:51)
[2017-05-17] MEDS: BUDESONIDE-FORMOTEROL 160/4.5 MCG INHALER INH SCH ×2 (08:51→22:40)
[2017-05-17] MEDS: TIOTROPIUM BROMIDE 18 MCG INH INH SCH (08:52)
[2017-05-17] MEDS: SODIUM CHLORIDE 0.9% FLUSH 10 ML FLUSH IV FLUSH SCH ×2 (08:52→22:38)
[2017-05-17 12:00] VITALS: BP 137/67; PULSE 84; RESP 18; TEMP 97.1; O2SAT 96
--- NOTE | 2017-05-17 12:10 | HHI.PR ---
Subjective Subjective Notes no nausea. still with bloating Objective Vitals/I&O Vital Signs Date Time Temp Pulse Resp B/P (MAP) Pulse Ox O2 Delivery O2 Flow Rate FiO2 05/17/17 08:00 95.3 100 20 124/68 (86) 94 05/16/17 21:20 Room Air Cardiovascular: Regular Lungs: Clear Abdomen: Other (distended) A/P Assessment and Plan abdominal pain PLAN Reg diet c diff cx neg pain control wound care, abdominal binder d/c planning when pain better, and regular Andreas Vernon MD May 17, 2017 12:10
--- NOTE | 2017-05-17 12:30 | HHI.PR ---
Subjective Remarks Follow up intractable abdominal pain/ileus 05/13/17-patient seen and examined; states overnight the abdominal swollen went down however this Am, it has gone right back up again causing more pain and distension.Patient is requesting pain med 05/14/17-patient seen and examined, he with some abdominal distention and swelling however the pain is much improved today 05/15/17-patient seen and examined, reports BM and has Flatus 05/16/17-patient seen and examined, complains of significant bloating and distention today, and requesting something for gas pain 05/17/17-patient seen and examined, still with abdominal distention and bloating. Objective Vitals Vital Signs Date Time Temp Pulse Resp B/P (MAP) Pulse Ox O2 Delivery O2 Flow Rate FiO2 05/17/17 08:00 95.3 100 20 124/68 (86) 94 05/17/17 00:00 97.8 101 18 114/88 (97) 93 05/16/17 21:20 Room Air 05/16/17 20:00 97.6 87 18 118/68 (85) 94 05/16/17 16:00 96.8 83 20 119/73 (88) 96 I/O 05/16/17 05/16/17 05/16/17 05/17/17 05/17/17 05/17/17 07:00 15:00 23:00 07:00 15:00 23:00 Intake Total 428 ml 1200 ml Balance 428 ml 1200 ml Intake Oral 1200 ml IV Total 428 ml # Voids 4 5 # Bowel Movements 0 1 Result Diagram: 05/15/17 0409 05/15/17 0409 Imaging Last Impressions Abdomen X-Ray 05/16/17 0600 Signed Impressions: Service Date/Time: Tuesday, May 16, 2017 11:11 - CONCLUSION: Progressive dilation of both large and small bowel concerning for progressive incomplete small bowel obstruction and chronic large bowel dilation. Renetta Madrid MD Abdomen/Pelvis CT 05/12/17 0000 Signed Impressions: Service Date/Time: Friday, May 12, 2017 14:59 - CONCLUSION: 1. Interval development of diffuse small bowel distention with transition point in the right lower quadrant in the distal ileum. There is redemonstration of diffusely fluid filled colon with gaseous distention of the transverse colon similar to previous examination. Overall findings are consistent with interval development of partial small bowel obstruction with more chronic colonic distention. No evidence for perforation, bowel infarction, or drainable fluid collection. 2. Remainder of examination is unchanged with stable changes of prior pancreatitis with 2.3 cm cystic lesion near the pancreatic tail like reflecting a pseudocyst , small pericardial effusion, and bibasilar atelectasis/scarring. Chaim Sepulveda MD Objective Remarks GENERAL: NAD SKIN: Warm and dry. HEAD: Normocephalic. EYES: No scleral icterus. No injection or drainage. NECK: Supple, trachea midline. No JVD or lymphadenopathy. CARDIOVASCULAR: Regular rate and rhythm without murmurs, gallops, or rubs. RESPIRATORY: Breath sounds equal bilaterally. No accessory muscle use. GASTROINTESTINAL: Abdomen soft, mildly tender, distended. dressing over incision MUSCULOSKELETAL: No cyanosis, or edema. BACK: Nontender without obvious deformity. No CVA tenderness. A/P Problem List: (1) Intractable abdominal pain ICD Code: R10.9 - Unspecified abdominal pain (2) Ileus ICD Code: K56.7 - Ileus, unspecified Status: Acute Assessment and Plan 66-year-old man with Ileus vs PSBO Intractable abdominal pain CT abdomen/pelvics noted with finding of diffuse bowel dilatation Flat and upright pending this a.m. Conservative management; continue Symethacone Appreciate input from surgery Hyponatremia Improved Hypokalemia Resolved Current history of C. difficile diarrhea C. difficile PCR negative Completed Flagyl 500 mg by mouth 3 times a day Other chronic medical conditions continue outpatient medications DVT prophylaxis: Bilateral MALICKs Walt Novak MD May 17, 2017 12:30
[2017-05-17] MEDS: METOCLOPRAMIDE HCL 10 MG/2 ML VIAL IV PUSH SCH ×2 (14:06→22:37)
[2017-05-17 16:00] VITALS: BP 105/70; PULSE 89; RESP 18; TEMP 97.8; O2SAT 93
[2017-05-17 20:00] VITALS: BP 136/67; PULSE 93; RESP 18; TEMP 95.6; O2SAT 98
[2017-05-17] MEDS: TAMSULOSIN HCL 0.4 MG CAP PO SCH (22:39)
[2017-05-18] VITALS: BP 124/68; PULSE 78; RESP 18; TEMP 97.4; O2SAT 97
[2017-05-18 02:08] LABS: BICARBONATE 20.7 MEQ/L (21.0-32.0); POTASSIUM 3.4 MEQ/L (3.5-5.1)
[2017-05-18] MEDS: oxyCODONE/ACETAMINOPHEN 7.5 MG/325 MG TAB PO PRN ×3 (03:00→14:11)
[2017-05-18] MEDS: LORazepam 1 MG TAB PO PRN ×2 (03:04→14:11)
[2017-05-18] MEDS: METOCLOPRAMIDE HCL 10 MG/2 ML VIAL IV PUSH SCH ×2 (05:40→14:10)
[2017-05-18] MEDS: SIMETHICONE 125 MG CHEWABLE TAB PO SCH ×2 (05:40→14:10)
[2017-05-18 08:00] VITALS: BP 137/63; PULSE 83; RESP 18; TEMP 96.8; O2SAT 95
[2017-05-18] MEDS: LISINOPRIL 5 MG TAB PO SCH (09:09)
[2017-05-18] MEDS: ALLOPURINOL 100 MG TAB PO SCH (09:09)
[2017-05-18] MEDS: PANTOPRAZOLE SOD 20 MG DELAYED RELEASE TAB PO SCH (09:09)
[2017-05-18] MEDS: POTASSIUM CHLORIDE 20 MEQ CONTROLLED RELEASE TAB PO SCH (09:10)
[2017-05-18] MEDS: SODIUM CHLORIDE 0.9% FLUSH 10 ML FLUSH IV FLUSH SCH (09:11)
[2017-05-18] MEDS: FUROSEMIDE 20 MG TAB PO SCH (09:11)
[2017-05-18] MEDS: BUDESONIDE-FORMOTEROL 160/4.5 MCG INHALER INH SCH (09:12)
[2017-05-18] MEDS: TIOTROPIUM BROMIDE 18 MCG INH INH SCH (09:21)
--- NOTE | 2017-05-18 10:01 | HHI.PR ---
Subjective Subjective Notes no acute issues, still with distension but having liquid bms Objective Vitals/I&O Vital Signs Date Time Temp Pulse Resp B/P (MAP) Pulse Ox O2 Delivery O2 Flow Rate FiO2 05/18/17 08:00 96.8 83 18 137/63 (87) 95 05/16/17 21:20 Room Air Labs Laboratory Tests Test 05/18/17 01:20 Blood Urea Nitrogen 6 Creatinine 0.79 Random Glucose 89 Calcium Level 8.4 Sodium Level 134 Potassium Level 3.4 Chloride Level 103 Carbon Dioxide Level 20.7 Anion Gap 10 Estimat Glomerular Filtration Rate 99 Cardiovascular: Regular Lungs: Clear Abdomen: Other (soft distended) A/P Assessment and Plan abdominal pain PLAN Reg diet c diff cx neg pain control wound care, abdominal binder d/c planning when pain better, and regular bowel regimen as needed Andreas Vernon MD May 18, 2017 10:01
--- NOTE | 2017-05-18 10:59 | HHI.PR ---
Subjective Remarks Follow up intractable abdominal pain/ileus 05/13/17-patient seen and examined; states overnight the abdominal swollen went down however this Am, it has gone right back up again causing more pain and distension.Patient is requesting pain med 05/14/17-patient seen and examined, he with some abdominal distention and swelling however the pain is much improved today 05/15/17-patient seen and examined, reports BM and has Flatus 05/16/17-patient seen and examined, complains of significant bloating and distention today, and requesting something for gas pain 05/17/17-patient seen and examined, still with abdominal distention and bloating. 05/18/17-patient seen and examined, he is having liquid BM. Stated he has mostly abdominal bloating and distention overnight and resolved during the day. Patient was up and ambulated. Case discussed with general surgeon. Objective Vitals Vital Signs Date Time Temp Pulse Resp B/P (MAP) Pulse Ox O2 Delivery O2 Flow Rate FiO2 05/18/17 08:00 96.8 83 18 137/63 (87) 95 05/18/17 04:00 16 05/18/17 00:00 97.4 78 18 124/68 (86) 97 05/17/17 20:00 95.6 93 18 136/67 (90) 98 05/17/17 16:00 97.8 89 18 105/70 (82) 93 05/17/17 12:00 97.1 84 18 137/67 (90) 96 I/O 05/17/17 05/17/17 05/17/17 05/18/17 05/18/17 05/18/17 07:00 15:00 23:00 07:00 15:00 23:00 Intake Total 2000 ml 320 ml Output Total 800 ml Balance 1200 ml 320 ml Intake Oral 2000 ml 320 ml IV Total 0 ml Output Urine Total 800 ml # Voids 5 2 # Bowel Movements 1 1 0 Result Diagram: 05/15/17 0409 05/18/17 0120 Imaging Last Impressions Abdomen X-Ray 05/16/17 0600 Signed Impressions: Service Date/Time: Tuesday, May 16, 2017 11:11 - CONCLUSION: Progressive dilation of both large and small bowel concerning for progressive incomplete small bowel obstruction and chronic large bowel dilation. Renetta Madrid MD Abdomen/Pelvis CT 05/12/17 0000 Signed Impressions: Service Date/Time: Friday, May 12, 2017 14:59 - CONCLUSION: 1. Interval development of diffuse small bowel distention with transition point in the right lower quadrant in the distal ileum. There is redemonstration of diffusely fluid filled colon with gaseous distention of the transverse colon similar to previous examination. Overall findings are consistent with interval development of partial small bowel obstruction with more chronic colonic distention. No evidence for perforation, bowel infarction, or drainable fluid collection. 2. Remainder of examination is unchanged with stable changes of prior pancreatitis with 2.3 cm cystic lesion near the pancreatic tail like reflecting a pseudocyst , small pericardial effusion, and bibasilar atelectasis/scarring. Chaim Sepulveda MD Objective Remarks GENERAL: NAD SKIN: Warm and dry. HEAD: Normocephalic. EYES: No scleral icterus. No injection or drainage. NECK: Supple, trachea midline. No JVD or lymphadenopathy. CARDIOVASCULAR: Regular rate and rhythm without murmurs, gallops, or rubs. RESPIRATORY: Breath sounds equal bilaterally. No accessory muscle use. GASTROINTESTINAL: Abdomen soft, mildly tender, distended. dressing over incision MUSCULOSKELETAL: No cyanosis, or edema. BACK: Nontender without obvious deformity. No CVA tenderness. Procedures none A/P Problem List: (1) Intractable abdominal pain ICD Code: R10.9 - Unspecified abdominal pain (2) Ileus ICD Code: K56.7 - Ileus, unspecified Status: Acute Assessment and Plan 66-year-old man with Ileus vs PSBO Intractable abdominal pain CT abdomen/pelvics noted with finding of diffuse bowel dilatation Flat and upright Conservative management; continue Symethacone Appreciate input from surgery however patient will need referral to tertiary center for repair of hernia Hyponatremia Improved Hypokalemia Resolved Current history of C. difficile diarrhea C. difficile PCR negative Completed Flagyl 500 mg by mouth 3 times a day Other chronic medical conditions continue outpatient medications DVT prophylaxis: Bilateral SCDs Walt Novak MD May 18, 2017 10:59
[2017-05-18] MEDS ORDERED: SIME1CHW11 PO (11:02)
[2017-05-18] MEDS ORDERED: OXYC1TAB35 PO (11:02)
[2017-05-18] MEDS ORDERED: LORA-474 PO (11:02)
--- NOTE | 2017-05-18 11:06 | HHI.DS ---
Discharge Summary Admission Date May 13, 2017 at 15:21 Discharge Date: May 18, 2017 Admitting Diagnosis intractable abdominal pain, ileus (1) Intractable abdominal pain ICD Code: R10.9 - Unspecified abdominal pain (2) Ileus ICD Code: K56.7 - Ileus, unspecified Status: Acute Procedures none Brief History - From Admission 66-year-old male with a history of reversal of colostomy present to the ED for evaluation of worsening intractable abdominal pain associated with distention over the past 5 days without any complaint of nausea or vomiting. Patient was diagnosed with C. difficile diarrhea for which he is currently on Flagyl, and he'll complete therapy in [address] abdomen/pelvics with finding of diffuse bowel dilatation. Electrolyte abnormality include sodium of 1:30 and potassium of 3.3. [address]. Vernon on, general surgery has been notified by ED physician CBC/BMP: 05/15/17 0409 05/18/17 0120 Significant Findings Laboratory Tests Test 05/18/17 01:20 Blood Urea Nitrogen 6 MG/DL (7-18) Calcium Level 8.4 MG/DL (8.5-10.1) Sodium Level 134 MEQ/L (136-145) Potassium Level 3.4 MEQ/L (3.5-5.1) Carbon Dioxide Level 20.7 MEQ/L (21.0-32.0) Imaging Last Impressions Abdomen X-Ray 05/16/17 0600 Signed Impressions: Service Date/Time: Tuesday, May 16, 2017 11:11 - CONCLUSION: Progressive dilation of both large and small bowel concerning for progressive incomplete small bowel obstruction and chronic large bowel dilation. Renetta Madrid MD Abdomen/Pelvis CT 05/12/17 0000 Signed Impressions: Service Date/Time: Friday, May 12, 2017 14:59 - CONCLUSION: 1. Interval development of diffuse small bowel distention with transition point in the right lower quadrant in the distal ileum. There is redemonstration of diffusely fluid filled colon with gaseous distention of the transverse colon similar to previous examination. Overall findings are consistent with interval development of partial small bowel obstruction with more chronic colonic distention. No evidence for perforation, bowel infarction, or drainable fluid collection. 2. Remainder of examination is unchanged with stable changes of prior pancreatitis with 2.3 cm cystic lesion near the pancreatic tail like reflecting a pseudocyst , small pericardial effusion, and bibasilar atelectasis/scarring. Chaim Sepulveda MD PE at Discharge GENERAL: NAD SKIN: Warm and dry. HEAD: Normocephalic. EYES: No scleral icterus. No injection or drainage. NECK: Supple, trachea midline. No JVD or lymphadenopathy. CARDIOVASCULAR: Regular rate and rhythm without murmurs, gallops, or rubs. RESPIRATORY: Breath sounds equal bilaterally. No accessory muscle use. GASTROINTESTINAL: Abdomen soft, mildly tender, distended. dressing over incision MUSCULOSKELETAL: No cyanosis, or edema. BACK: Nontender without obvious deformity. No CVA tenderness. Hospital Course Patient was admitted secondary to abdominal pain and found to have a useful which she was treated conservatively with consultation to general surgery. Radiographic studies were ordered and monitored. Pain management was provided accordingly. All electrolyte abnormalities were corrected accordingly. He completed his treatment for C. difficile colitis and repeat C. difficile PCR was negative. Treatment for other chronic medical conditions were continued. Patient diet was advanced accordingly. Per general surgery, he will need referral to [facility] care center for repair of hernia. Pt Condition on Discharge: Stable Discharge Disposition: Discharge Home Discharge Time: > 30 minutes Discharge Instructions DIET: Follow Instructions for: Heart Healthy Diet Activities you can perform: Regular-No Restrictions Follow up Referrals: PCP Follow-up - 1 Week Surgical New Medications: Lorazepam (Ativan) 1 Mg Tab 1 MG PO Q8H PRN for ANXIETY, #30 TAB Oxycodone-Acetaminophen (Oxycodone-Acetaminophen) 7.5-325 mg Tab 1 TAB PO Q4H PRN for pain scale 1-5, #20 TAB Simethicone (Gas Relief Maximum Streng) 125 Mg Chw 125 MG PO Q8HR for Bowel Management, #30 EA Continued Medications: Allopurinol (Allopurinol) 100 Mg Tab 100 MG PO DAILY for Gout, #30 TAB 0 Refills Budesonide-Formoterol Inh (Symbicort Inh) 160-4.5 Mcg/Act Aero 1 PUFF INH DAILY IN THE MORNING, #1 INHALER 0 Refills Budesonide-Formoterol Inh (Symbicort Inh) 160-4.5 Mcg/Act Aero 2 PUFF INH DAILY IN THE EVENING, #1 INHALER 0 Refills Cholecalciferol (Vitamin D-1000) 1,000 Unit Tab 1000 UNITS PO EVERY OTHER DAY for Nutritional Supplement, #1 BOTTLE 0 Refills Cyanocobalamin (Vitamin B12) 100 Mcg Tab 100 MCG PO EVERY OTHER DAY, #1 BOTTLE Furosemide (Furosemide) 20 Mg Tab 20 MG PO DAILY for DENNY for 30 Days, TAB Lisinopril (Lisinopril) 5 Mg Tab 5 MG PO DAILY for Blood Pressure Management, #30 TAB 0 Refills Omeprazole (Omeprazole) 20 Mg Tab 20 MG PO DAILY, #30 TAB 0 Refills Potassium Chloride Microencaps (Potassium Chloride Microencaps) 20 Meq Tab 20 MEQ PO DAILY for elec for 30 Days, TAB Tamsulosin (Flomax) 0.4 Mg Cap 0.8 MG PO HS for Manage Prostate Problems, #60 CAP 0 Refills Tiotropium Inh (Spiriva Handihaler) 18 Mcg Cap 18 MCG INH DAILY for Breathing Treatment, #1 CAP Zolpidem (Ambien) 10 Mg Tab 10 MG PO HS PRN for sleep, #15 TAB Discontinued Medications: Amoxicillin-Clavulanate (Augmentin) 500-125 mg Tab 500 MG PO Q8H for Infection for 14 Days, TAB 0 Refills Lorazepam (Ativan) 1 Mg Tab 1 MG PO Q8H PRN for ANXIETY, #30 TAB Walt Novak MD May 18, 2017 11:06
--- NOTE | 2017-05-18 11:12 | HHI.FF ---
Face to Face Verification Diagnosis: (1) Ileus (2) Intractable abdominal pain Home Health Nursing Order: Wound care and dressing changes Instructions: Q day wound dressing change I have seen patient Travis Hunt on 05/18/17. My clinical findings support the need for the requested home health care services because: Deconditioned w/ increased weakness I certify that my clinical findings support that this patient is homebound because: Poor cardiac reserve Walt Novak MD May 18, 2017 11:12
== END 2017-05-18 15:43 | disposition home health service (06) | DRG 389 ==
LOC: NEPE 09:05 → NEDA 15:43 → NEPHCDU 20:28 → OBSVTOIN 05-13 15:21 → N07B 05-14 10:42
PROVIDERS: ADMIT Hospitalist; ATTEND Hospitalist
DX: K56.7 Ileus, unspecified (principal); A04.7 Enterocolitis due to Clostridium difficile; I50.30 Unspecified diastolic (congestive) heart failure; E87.1 Hypo-osmolality and hyponatremia; Z86.73 Personal history of transient ischemic attack (TIA), and cerebral infarction without residual deficits; K21.9 Gastro-esophageal reflux disease without esophagitis; Z96.642 Presence of left artificial hip joint; I10 Essential (primary) hypertension; Z90.81 Acquired absence of spleen; Z87.891 Personal history of nicotine dependence; E87.6 Hypokalemia; K43.9 Ventral hernia without obstruction or gangrene; M10.9 Gout, unspecified; F41.9 Anxiety disorder, unspecified; J44.9 Chronic obstructive pulmonary disease, unspecified
CPT/HCPCS: 74020; 74176; 74177; 76937; 80048; 80053; 81001; 83690; 85007; 85027; 87493; 96361; 96374; G0378; J2060; J2270; J2765; J7030; Q9963; Q9967